=== PATIENT | male | born 1985 | race Hispanic/Latino ===

== ENCOUNTER 2018-09-16 23:29 | Emergency (ER) | payer SELFPAY ==
[2018-09-17] MEDS ORDERED: NA CHLORIDE 0.9% 1,000 ML ONE ×2 (00:54→02:55)
[2018-09-17 01:18] LABS: Absolute Lymphocytes (CBC) 1.3 K/uL (0.7-4.9); Absolute Monocytes 1.4 K/uL (0.1-1.3); Absolute Neutrophil 7.7 K/uL (1.8-8.0); Basophils % 0.6 % (0-1.3); Eosinophils % 1.2 % (0-4.4); Hematocrit 34.2 % (39.6-49.0); Lymphocytes % 12.2 % (15.3-44.8); MCH 31.8 pg (27.0-35.0); MCV 92.7 fL (80-100); MPV 10.5 fL (7.6-11.3); RBC Red Blood Cell Count 3.69 M/uL (4.33-5.43)
[2018-09-17 01:21] LABS: Protime INR 1.44
[2018-09-17 01:29] LABS: Barbiturates NEGATIVE (NEGATIVE); Benzodiazepines NEGATIVE (NEGATIVE); Cocaine NEGATIVE (NEGATIVE); METHAMPHETAM NEGATIVE (NEGATIVE); Methadone NEGATIVE (NEGATIVE); Opiates NEGATIVE (NEGATIVE); Phencyclidine NEGATIVE (NEGATIVE); THC Cannibis NEGATIVE (NEGATIVE)
[2018-09-17] MEDS ORDERED: ONDANSETRON 4 MG/2 ML VIAL ONE (01:39)
[2018-09-17] MEDS ORDERED: LORazepam 2 MG/ML VIAL ONE ×2 (01:41→03:41)
[2018-09-17 01:53] LABS: ALT/SGPT 25 U/L (12-78); AST/SGOT 224 U/L (15-37); Albumin 2.7 g/dL (3.4-5.0); Alkaline Phosphatase 200 U/L (45-117); BUN Blood Urea Nitrogen 3 mg/dL (7-18); Bicarbonate 27 mmol/L (21-32); Bilirubin Direct 4.4 mg/dL (0-0.2); Glucose Level 128 mg/dL (74-106); Lipase 205 U/L (73-393); Potassium 3.4 mmol/L (3.5-5.1); Protein, Total 8.8 g/dL (6.4-8.2); Sodium Level 132 mmol/L (136-145); Troponin I < 0.02 ng/mL (0.0-0.045)
[2018-09-17 01:56] LABS: Bilirubin Total 6.6 mg/dL (0.2-1.0)
[2018-09-17 01:57] LABS: Magnesium 1.4 mg/dL (1.8-2.4)
[2018-09-17] MEDS ORDERED: MULTIVITAMINS 10 ML VIAL (INJ) IV ONE (02:55)
[2018-09-17] MEDS ORDERED: THIAMINE 200 MG/2 ML INJ ONE (02:55)
[2018-09-17] MEDS ORDERED: FOLIC ACID 5 MG/ML VIAL ONE (02:56)
[2018-09-17] MEDS ORDERED: Magnesium Sulfate 2gm IVPB 2 G/50 ML BAG IV ONE (02:57)
[2018-09-17 03:27] LABS: Urine Blood NEGATIVE (NEG); Urine Glucose NEGATIVE (NEG); Urine Protein 1+ (NEG); Urine Specific Gravity 1.015 (1.005-1.030); Urine pH 8.5 (5.0-7.0)
[2018-09-17] MEDS ORDERED: NA CHLORIDE 0.9% 100 ML IV ONE (03:41)
[2018-09-17] MEDS ORDERED: CEFTRIAXONE 1000 MG/VIAL ONE (03:41)
--- NOTE | 2018-09-17 03:46 | ER ---
Nurse's Notes [facility] Name: Dillan Johnson Age: 33 yrs Sex: Male : 1985 Arrival Date: 09/16/2018 Time: 23:32 Bed 19 Private MD: Diagnosis: Gastrointestinal hemorrhage, unspecified;Alcoholic hepatic failure;Alcohol dependence with withdrawal Presentation: 09/16 23:45 Presenting complaint: Patient states: upper abd pain, vomiting \T\ bloody stool x 3 days. aa1 Reports large amount of bright red blood when he has bowel movements. Sclera noted to be jaundiced. Reports 12 pk/day ETOH intake for past 3 years. Transition of care: patient was not received from another setting of care. Onset of symptoms was September 19, 2018. Risk Assessment: Do you want to hurt yourself or someone else? Patient reports no desire to harm self or others. Initial Sepsis Screen: Does the patient meet any 2 criteria? RR > 20 per min. HR > 90 bpm. Does the patient have a suspected source of infection? Yes: Acute abdominal pain. Care prior to arrival: None. 23:45 Method Of Arrival: Ambulatory aa1 23:45 Acuity: NIKITA 3 aa1 Historical: - Allergies: 23:47 No Known Allergies; aa1 - Home Meds: 23:47 candesartan 16 mg oral tab [Active]; aa1 - PMHx: 23:47 Hypertension; aa1 - PSHx: 23:47 None; aa1 - Immunization history:: Flu vaccine is not up to date. - Social history:: Smoking status: Patient/guardian denies using tobacco, Patient uses alcohol, on a daily basis. patient/guardian reports chronic longstanding heavy alcohol consumption. - Ebola Screening: : No symptoms or risks identified at this time. Screenin/25 00:15 Abuse screen: Denies threats or abuse. Denies injuries from another. Nutritional kr2 screening: No deficits noted. Tuberculosis screening: No symptoms or risk factors identified. Fall Risk None identified. Assessment: 00:15 General: Appears in no apparent distress. uncomfortable, well groomed, Behavior is kr2 calm, cooperative, appropriate for age. Pain: Complains of pain in abdomen Pain currently is 7 out of 10 on a pain scale. Quality of pain is described as aching, sharp, shooting, Is continuous, Alleviated by rest, Aggravated by increased activity. Neuro: Level of Consciousness is awake, alert, obeys commands, Oriented to person, place, time, situation, Tremor noted to bilateral upper extremities. Cardiovascular: Heart tones S1 S2 Patient's skin is warm and dry. Respiratory: Airway is patent Respiratory effort is even, unlabored, Respiratory pattern is regular, symmetrical. GI: Abdomen is round non-distended, Bowel sounds present X 4 quads. Reports bloody stool, nausea. : Urine is Dark lee ann. EENT: Sclera/Cornea Jaundiced. Derm: Skin is intact, is healthy with good turgor, Skin is pink, warm \T\ dry. Musculoskeletal: Circulation, motion, and sensation intact. 01:41 Reassessment: Patient appears in no apparent distress at this time. Patient and/or kr2 family updated on plan of care and expected duration. Pain level reassessed. Patient is alert, oriented x 3, equal unlabored respirations, skin warm/dry/pink. Patient states feeling better. 05:12 Reassessment: Patient and/or family updated on plan of care and expected duration. Pain tl1 level reassessed. Patient is alert, oriented x 3, equal unlabored respirations, skin warm/dry/pink. Patient states feeling better. Patient states symptoms have improved. 05:12 Reassessment: Report called to Kyaw Fitzgerald at [facility] in ICU. tl1 Vital Signs: 09/16 23:47 BP 162 / 90; Pulse 119; Resp 30; Temp 98.7; Pulse Ox 98% on R/A; Weight 108.86 kg; aa1 Height 5 ft. 9 in. (175.26 cm); Pain 6/10; 09/17 01:42 BP 160 / 105; Pulse 111; Resp 22; Pulse Ox 97% on R/A; kr2 02:54 BP 158 / 94; Pulse 117; Resp 23; Temp 99.1; Pulse Ox 95% on R/A; tl1 03:40 BP 138 / 76; Pulse 111; Resp 25; Pulse Ox 95% on R/A; tl2 04:05 BP 137 / 76; Pulse 108; Resp 31; Pulse Ox 95% on R/A; tl1 05:13 BP 132 / 89; Pulse 104; Resp 25; Temp 99; Pulse Ox 95% on R/A; Pain 0/10; tl1 09/16 23:47 Body Mass Index 35.44 (108.86 kg, 175.26 cm) aa1 ED Course: 09/16 23:32 Patient arrived in ED. ds1 23:47 Triage completed. aa1 23:47 Arm band placed on right wrist. Patient placed in an exam room, on a stretcher. aa1 09/17 00:00 Patient has correct armband on for positive identification. Bed in low position. Call kr2 light in reach. Side rails up X 1. Adult w/ patient. Pulse ox on. NIBP on. Door closed. Warm blanket given. Head of bed elevated. 00:13 Lanre Alvarez PA is PHCP. cp 00:13 Magen Martini MD is Attending Physician. cp 00:35 First set of blood cultures drawn by me. Inserted saline lock: 20 gauge in left kr2 antecubital area, using aseptic technique. Blood collected. 00:55 Second set of blood cultures drawn. kr2 00:56 Oral contrast given. eh 00:57 Oral contrast reported to be complete. eh 02:[address] via stretcher. eh 02:49 CT Abd/Pelvis - W/Contrast In Process Unspecified. EDMS 03:39 Inserted saline lock: 20 gauge in right antecubital area, using aseptic technique. tl2 04:05 Sally Reyna, RN is Primary Nurse. tl1 05:12 No provider procedures requiring assistance completed. Patient transferred, IV remains tl1 in place. Administered Medications: 01:00 Drug: NS 0.9% 1000 ml Route: IV; Rate: 1 bolus; Site: right antecubital; kr2 02:00 Follow up: IV Status: Completed infusion tl1 01:38 Drug: Zofran 4 mg Route: IVP; Site: left antecubital; kr2 05:14 Follow up: Response: No adverse reaction; Marked relief of symptoms tl1 01:38 Drug: Ativan 1 mg Route: IVP; Site: left antecubital; kr2 02:56 Follow up: Response: No adverse reaction; Marked relief of symptoms tl1 02:56 Drug: Banana Bag - (NS 0.9% 1000 ml, foLIC Acid 1 mg, Thiamine 100 mg, Multivitamin 1 tl1 amp) Route: IV; Rate: 200 ml/hr; Site: left antecubital; 05:10 Follow up: IV Status: Infusion continued upon transfer tl1 02:56 Drug: Magnesium Sulfate 2 grams Route: IVPB; Infused Over: 2 hrs; Site: left tl1 antecubital; 04:06 Follow up: IV Status: Completed infusion tl1 03:40 Drug: Rocephin - (cefTRIAXone) 1 grams Route: IVPB; Infused Over: 30 mins; Site: right tl2 antecubital; 04:06 Follow up: IV Status: Completed infusion tl1 03:40 Drug: Ativan 1 mg Route: IVP; Site: right antecubital; tl2 05:10 Follow up: Response: No adverse reaction; Marked relief of symptoms; Anxiety decreased tl1 Outcome: 03:44 ER care complete, transfer ordered by MD. 05:11 Transferred by ground EMS to [facility], Transfer form completed. tl1 X-rays sent w/ patient. 05:11 Condition: stable 05:11 Instructed on the need for transfer. 05:15 Patient left the ED. tl1 Signatures: Dispatcher [employer] EDMS Jazmin Marcelino RN RN aa1 Alexis Vinson Demi ds1 Sally Reyna RN RN tl1 Lanre Alvarez PA PA cp Knox, Taylor, RN RN tl2 Shefali Elise RN RN kr2 Corrections: (The following items were deleted from the chart) 01:42 00:15 Neuro: Level of Consciousness is awake, alert, obeys commands, Oriented to kr2 person, place, time, situation, kr2 01:42 00:15 Musculoskeletal: Circulation, motion, and sensation intact. kr2 kr2
--- NOTE | 2018-09-17 03:46 | EDPHYS ---
Physician Documentation [facility] Name: Dillan Johnson Age: 33 yrs Sex: Male : 1985 Arrival Date: 09/16/2018 Time: 23:32 Bed 19 Private MD: ED Physician Magen Maritni HPI: 09/17 00:25 This 33 yrs old Male presents to ER via Ambulatory with complaints of cp Vomiting, Bloody Stools. 00:25 The patient presents to the emergency department with nausea, that is mild, vomiting, cp that is intermittent, described as bilious, diarrhea, that is intermittent, abdominal pain, of the right upper quadrant and left lower quadrant. Onset: The symptoms/episode began/occurred 3 day(s) ago. Possible causes: history of daily drinking of 12 pack of beer over past 3 years. Associated signs and symptoms: Pertinent positives: abdominal pain, GI bleeding, nausea, vomiting, Pertinent negatives: constipation, fever. Severity of symptoms: in the emergency department the symptoms are unchanged despite home interventions. Historical: - Allergies: 09/16 23:47 No Known Allergies; aa1 - Home Meds: 23:47 candesartan 16 mg oral tab [Active]; aa1 - PMHx: 23:47 Hypertension; aa1 - PSHx: 23:47 None; aa1 - Immunization history:: Flu vaccine is not up to date. - Social history:: Smoking status: Patient/guardian denies using tobacco, Patient uses alcohol, on a daily basis. patient/guardian reports chronic longstanding heavy alcohol consumption. - Ebola Screening: : No symptoms or risks identified at this time. ROS: 09/17 00:30 Constitutional: Negative for body aches, chills, fever, poor PO intake. cp 00:30 Eyes: Negative for injury, pain, redness, and discharge. cp 00:30 ENT: Negative for drainage from ear(s), ear pain, sore throat, difficulty swallowing, difficulty handling secretions. 00:30 Cardiovascular: Negative for chest pain, edema, palpitations. 00:30 Respiratory: Negative for cough, shortness of breath, wheezing. 00:30 Abdomen/GI: Positive for abdominal pain, nausea, vomiting, rectal bleeding, of the right upper quadrant and left lower quadrant, Negative for diarrhea, constipation, hematemesis, black/tarry stool, bowel incontinence. 00:30 Back: Negative for pain at rest, pain with movement. 00:30 Skin: Negative for cellulitis, rash. 00:30 Neuro: Negative for altered mental status, dizziness, seizure activity, syncope, near syncope, weakness. 00:30 Psych: Positive for alcohol dependence. 00:30 All other systems are negative. Exam: 00:55 Constitutional: The patient appears in no acute distress, alert, awake, cp non-diaphoretic, non-toxic, well developed, well nourished. 00:55 Head/Face: Normocephalic, atraumatic. cp 00:55 Eyes: Periorbital structures: appear normal, Pupils: equal, round, and reactive to light and accomodation, Extraocular movements: intact throughout, Conjunctiva: normal, no exudate, no injection, Sclera: icterus, is present, Lids and lashes: appear normal, bilaterally. 00:55 ENT: External ear(s): are unremarkable, Ear canal(s): are normal, clear, TM's: are normal, no evidence of bulging, no erythema, dullness, bilaterally, Nose: is normal, Mouth: Lips: moist, Oral mucosa: pink and intact, moist, Posterior pharynx: is normal, airway is patent, no erythema, no exudate, Voice: is normal. 00:55 Neck: ROM/movement: is normal, is supple, without pain, no range of motions limitations, no meningismus, no nuchal rigidity, Lymph nodes: no appreciated lymphadenopathy. 00:55 Chest/axilla: Inspection: normal, Palpation: is normal, no crepitus, no tenderness. 00:55 Cardiovascular: Rate: tachycardic, Rhythm: regular, Heart sounds: murmur, not appreciated, Edema: is not appreciated, JVD: is not appreciated. 00:55 Respiratory: the patient does not display signs of respiratory distress, Respirations: normal, no use of accessory muscles, no retractions, no splinting, no tachypnea, labored breathing, is not present, Breath sounds: are clear throughout, no decreased breath sounds, no stridor, no wheezing. 00:55 Abdomen/GI: Inspection: obese Bowel sounds: active, all quadrants, Palpation: soft, in all quadrants, mild abdominal tenderness, in the right upper quadrant and left lower quadrant, rebound tenderness, is not appreciated, involuntary guarding, is not appreciated, Rectal exam: Stool: guaiac positive, maroon, hemorrhoid(s), are not appreciated. 00:55 Back: pain, is absent, ROM is normal. 00:55 Skin: cellulitis, is not appreciated, no rash present. 00:55 Neuro: Orientation: to person, place \T\ time. Mentation: lucid, able to follow commands, Cerebellar function: is grossly normal, Motor: moves all fours, strength is normal, Sensation: no obvious gross deficits. Vital Signs: 09/16 23:47 BP 162 / 90; Pulse 119; Resp 30; Temp 98.7; Pulse Ox 98% on R/A; Weight 108.86 kg; aa1 Height 5 ft. 9 in. (175.26 cm); Pain 6/10; 09/17 01:42 BP 160 / 105; Pulse 111; Resp 22; Pulse Ox 97% on R/A; kr2 02:54 BP 158 / 94; Pulse 117; Resp 23; Temp 99.1; Pulse Ox 95% on R/A; tl1 03:40 BP 138 / 76; Pulse 111; Resp 25; Pulse Ox 95% on R/A; tl2 04:05 BP 137 / 76; Pulse 108; Resp 31; Pulse Ox 95% on R/A; tl1 05:13 BP 132 / 89; Pulse 104; Resp 25; Temp 99; Pulse Ox 95% on R/A; Pain 0/10; tl1 09/16 23:47 Body Mass Index 35.44 (108.86 kg, 175.26 cm) aa1 MDM: 00:13 Patient medically screened. cp 01:00 Differential diagnosis: gastritis, cholecystitis, pancreatitis, viral gastroenteritis, cp gastroenteritis. 03:30 Data reviewed: vital signs, nurses notes, lab test result(s), EKG, radiologic studies, cp CT scan, and as a result, I will administer antibiotics Rocephin, transfer for higher level care. 03:30 Test interpretation: by ED physician or midlevel provider: ECG. Counseling: I had a cp detailed discussion with the patient and/or guardian regarding: the historical points, exam findings, and any diagnostic results supporting the discharge/admit diagnosis, lab results, radiology results, the need to transfer to another facility, for higher level of care, [facility] does not immediately have the required specialist. Response to treatment: the patient's symptoms have markedly improved after treatment. 09/17 00:21 Order name: Basic Metabolic Panel; Complete Time: 02: cp 09/17 02:20 Interpretation: Normal except: NA 132; K 3.4; CL 97; GLUC 128; BUN 3; CA 8.3. cp 09/17 00:21 Order name: CBC with Diff; Complete Time: 01:30 cp 09/17 01:30 Interpretation: Normal except: RBC 3.69; HGB 11.7; HCT 34.2; MCV 92.7; MCH 31.8; PLT cp 139; RDW 17.1; LYM% 12.2; MN% 13.0; MNA 1.4. 09/17 00:21 Order name: Creatinine for Radiology; Complete Time: 02: cp 09/17 00:21 Order name: Hepatic Function; Complete Time: 02: cp 09/17 02:02 Interpretation: Abnormal: AST 224; ALK 200; BILIT 6.6; BILID 4.4; TP 8.8; ALB 2.7; GLOB cp 6.1; A/G 0.4. 09/17 00:21 Order name: Lipase; Complete Time: 02:01 cp 09/17 00:21 Order name: ETOH Level; Complete Time: 02: cp 09/17 02:01 Interpretation: Abnormal: ETOH 6. cp 09/17 00:21 Order name: PT-INR; Complete Time: 01:30 cp 09/17 01:31 Interpretation: Abnormal: PT 17.0. cp 09/17 00:21 Order name: Ptt, Activated; Complete Time: 01:30 cp 09/17 00:21 Order name: AMMONIA; Complete Time: 01:30 cp 09/17 01:30 Interpretation: Abnormal: DAHLIA 66. cp 09/17 00:21 Order name: Tylenol Level; Complete Time: 02:01 cp 09/17 00:21 Order name: UDS; Complete Time: 01:30 cp 09/17 00:21 Order name: Blood Culture Adult (2) cp 09/17 00:21 Order name: Lactate; Complete Time: 02:01 cp 09/17 00:21 Order name: Procalcitonin; Complete Time: 03:39 cp 09/17 00:21 Order name: CT Abd/Pelvis - W/Contrast cp 09/17 00:21 Order name: Type And Screen; Complete Time: 03:22 cp 09/17 00:31 Order name: EKG; Complete Time: 00:32 cp 09/17 00:58 Order name: Urine Dipstick--Ancillary (enter results); Complete Time: 03:39 mt 09/17 01:23 Order name: Troponin I; Complete Time: 02:01 EDMS 09/17 01:23 Order name: Magnesium; Complete Time: 02:01 EDMS 09/17 02:02 Interpretation: Abnormal: MG 1.4. cp 09/17 03:39 Order name: ABO/RH no charge; Complete Time: 03:51 EDMS 09/17 03:51 Interpretation: Reviewed. cp 09/17 00:21 Order name: IV Saline Lock; Complete Time: 01:01 cp 09/17 00:21 Order name: Labs collected and sent; Complete Time: 01:01 cp 09/17 00:31 Order name: EKG - Nurse/Tech; Complete Time: 01:30 cp Administered Medications: 01:00 Drug: NS 0.9% 1000 ml Route: IV; Rate: 1 bolus; Site: right antecubital; kr2 02:00 Follow up: IV Status: Completed infusion tl1 01:38 Drug: Zofran 4 mg Route: IVP; Site: left antecubital; kr2 05:14 Follow up: Response: No adverse reaction; Marked relief of symptoms tl1 01:38 Drug: Ativan 1 mg Route: IVP; Site: left antecubital; kr2 02:56 Follow up: Response: No adverse reaction; Marked relief of symptoms tl1 02:56 Drug: Banana Bag - (NS 0.9% 1000 ml, foLIC Acid 1 mg, Thiamine 100 mg, Multivitamin 1 tl1 amp) Route: IV; Rate: 200 ml/hr; Site: left antecubital; 05:10 Follow up: IV Status: Infusion continued upon transfer tl1 02:56 Drug: Magnesium Sulfate 2 grams Route: IVPB; Infused Over: 2 hrs; Site: left tl1 antecubital; 04:06 Follow up: IV Status: Completed infusion tl1 03:40 Drug: Rocephin - (cefTRIAXone) 1 grams Route: IVPB; Infused Over: 30 mins; Site: right tl2 antecubital; 04:06 Follow up: IV Status: Completed infusion tl1 03:40 Drug: Ativan 1 mg Route: IVP; Site: right antecubital; tl2 05:10 Follow up: Response: No adverse reaction; Marked relief of symptoms; Anxiety decreased tl1 Disposition: 09/17/18 03:[address] [facility]. Diagnosis are Gastrointestinal hemorrhage, unspecified, Alcoholic hepatic failure, Alcohol dependence with withdrawal. - Reason for transfer: Higher level of care. - Accepting physician is DR Sanchez. - Condition is Stable. - Problem is new. - Symptoms are unchanged. Addendum: 09/22/2018 09:47 Co-signature as Attending Physician, Magen Martini MD available for consultation at p s1 all times . Signatures: Dispatcher [employer] EDMS Jazmin Marcelino RN RN aa1 Sally Reyna RN RN tl1 Lanre Alvarez PA PA cp Knox, Taylor, RN RN tl2 Shefali Elise RN RN kr2 Magen Martini MD MD ps1 Corrections: (The following items were deleted from the chart) 09/17 01:23 00:32 TROPONIN I+C.LAB.BRZ ordered. EDMS EDMS 01:23 00:32 MAGNESIUM+C.LAB.BRZ ordered. EDMS EDMS 02:20 02:01 Normal except: NA 132; K 3.4; CL 97; GLUC 128; BUN 3. cp cp 04:02 03:44 09/17/2018 03:[address] [facility]. Diagnosis is cp Gastrointestinal hemorrhage, unspecified. Reason for transfer: Higher level of care. Accepting physician is DR Sanchez. Condition is Stable. Problem is new. Symptoms are unchanged. cp 04:02 04:02 09/17/2018 03:[address] [facility]. Diagnosis is cp Gastrointestinal hemorrhage, unspecified; Alcoholic hepatic failure. Reason for transfer: Higher level of care. Accepting physician is DR Sanchez. Condition is Stable. Problem is new. Symptoms are unchanged. cp 05:15 04:02 09/17/2018 03:[address] [facility]. Diagnosis is tl1 Gastrointestinal hemorrhage, unspecified; Alcoholic hepatic failure; Alcohol dependence with withdrawal. Reason for transfer: Higher level of care. Accepting physician is DR Sanchez. Condition is Stable. Problem is new. Symptoms are unchanged. cp
--- NOTE | 2018-09-17 07:12 | EKG ---
Test Date: 2018-09-17 Test Time: 01:16:08 Bag Grader: RAYMOND MEASUREMENT RESULTS: Intervals: Rate: 118 NJ: 152 QRSD: 98 QT: 354 QTc: 496 [place]: P: 42 NJ: 152 QRS: 20 T: 30 INTERPRETIVE STATEMENTS: Sinus tachycardia Otherwise normal ECG Compared to ECG 10/19/2016 14:01:39 Sinus rhythm no longer present Electronically Signed On 09-17-18 07:11:38 CDT by Kolby Leon
--- NOTE | 2018-09-17 08:11 | RAD REPORT ---
EXAM DESCRIPTION: CTAbdomen Pelvis W Contrast - 09/17/2018 4:12 am CLINICAL HISTORY: Abdominal pain. blood in stools;Abd pain COMPARISON: No comparisons TECHNIQUE: Biphasic CT imaging of the abdomen and pelvis was performed with 100 ml non-ionic IV cont rast. 10 minutes delayed sequence was also performed. All CT scans are performed using dose optimization technique as appropriate and may include automated exposure control or mA/KV adjustment according to patient size. FINDINGS: The lung bases are clear.Esophageal varices are noted. A very advanced fatty liver is seen with hepatomegaly. 3.7 x 3.5 cm centrally enhancing lesion is pre sent in the right hepatic lobe without significant washout on delayed sequence. 1.9 cm enhancing lesi on also present inferior right hepatic lobe without evidence of washout. Nodular contour to the liver is seen compatible with cirrhosis. Recannulized periumbilical vein is seen suggesting portal hyperte nsion. The spleen is normal in size. The pancreas, adrenal glands and kidneys are within normal limit s. No bowel obstruction, free air, free fluid or abscess. Mild edema within the central small bowel mese nteric likely secondary to venous congestion. The appendix is normal. No evidence of significant lym phadenopathy. No suspicious bony findings. IMPRESSION: Significant hepatomegaly with fatty liver and cirrhosis noted. Portal hypertension is al so present. Enhancing liver lesions are noted without significant washout, favoring benign etiology however nonsp ecific. Further assessment with MR liver protocol followup would be advised.
== END 2018-09-17 05:15 | disposition short-term general hospital (02) ==
LOC: ER 23:29
DX: K70.40 Alcoholic hepatic failure without coma (principal); F10.239 Alcohol dependence with withdrawal, unspecified; I10 Essential (primary) hypertension
CPT/HCPCS: 36415; 74177; 80048; 80076; 80307; 80320; 80329; 81003; 82140; 83605; 83690; 83735; 84145; 84484; 85025; 85610; 85730; 86850; 86900; 86901; 87040; 93005; 99285; J2405; J3411; J3475; J7030; Q9967

== ENCOUNTER 2018-09-30 12:49 | Observation (INO) | payer SELFPAY ==
--- OUTSIDE RECORDS SUMMARY | 2018-09-30 12:52 | XMS REPORT | Clinical Summary ---
:1985 Author Organization [facility] Address [address] [place] [address] Care Team Providers Name Role Phone Unavailable Primary Care Provider Unavailable Allergies No Known Allergies Medications Medication Sig Dispensed Refills Start Date End Date Status folic acid (FOLVITE) 1 Take 1 tablet 30 tablet 0 09/19/2018 09/19/2019 Active MG tablet (1 mg total) by mouth daily. thiamine 100 MG tablet Take 1 tablet 30 tablet 0 09/19/2018 09/19/2019 Active (100 mg total) by mouth daily. chlordiazePOXIDE Take 2 capsules 20 capsule 0 09/18/2018 Active (LIBRIUM) 25 MG capsule TID x 1 day, then 2 capsules BID x 2 days, then 1 capsule BID x 2 days, then 1 capsule daily x 2 days, then stop. Active Problems Problem Noted Date Hematochezia 09/17/2018 Alcoholic cirrhosis 09/17/2018 Essential hypertension 09/17/2018 ETOH abuse 09/17/2018 Alcohol withdrawal syndrome, with delirium 09/17/2018 Anemia associated with acute blood loss 09/17/2018 Thrombocytopenia 09/17/2018 Resolved Problems Problem Noted Date Resolved Date Acute liver disease 09/17/2018 09/20/2018 Encounters Date Type Specialty Care Team Description 09/18/2018 Surgery Gastroenterology Jovana Young UPPER ENDOSCOPY MD Don 09/17/2018 Hospital Intensive Care Daniel, Acute liver disease; - Encounter Jarrod Alcohol withdrawal syndrome, with delirium (HCC); 09/18/2018 MD Ariadna Alcoholic cirrhosis of liver without ascites (HCC); Delfino Hematochezia; Jarrod Anemia associated with acute blood loss; MD Adam Thrombocytopenia (HCC); Nelson Pablo, Alcohol dependence with uncomplicated withdrawal (HCC ); ETOH abuse; Liver mass; Jaundice; Portal hypertension (HCC); Acute alcoholic hepatitis 09/17/2018 Anesthesia Event Gastroenterology Dayo Waddell MD after 09/29/2017 Immunizations Name Dates Previously Given Next Due Influenza Four-QIV Non-PF 5+ YR 09/18/2018 Family History Medical History Relation Name Comments Heart disease Father Relation Name Status Comments Father Social History Tobacco Use Types Packs/Day Years Used Date Never Assessed Sex Assigned at Date Recorded Not on file Job Start Date Occupation Industry Not on file Not on file Not on file Travel History Travel Start Travel End No recent travel history available. Last Filed Vital Signs Vital Sign Reading Time Taken Blood Pressure 142/82 09/18/2018 1:00 PM CDT Pulse 99 09/18/2018 1:00 PM CDT Temperature 37.1 C (98.7 F) 09/18/2018 12:00 PM CDT Respiratory Rate 16 09/18/2018 1:00 PM CDT Oxygen Saturation 91% 09/18/2018 1:00 PM CDT Inhaled Oxygen Concentration - - Weight 113.7 kg (250 lb 10.6 oz) 09/18/2018 4:00 AM CDT Height 175.3 cm (5' 9") 09/17/2018 6:19 AM CDT Body Mass Index 37.02 09/18/2018 4:00 AM CDT Plan of Treatment Not on file Procedures Procedure Name Priority Date/Time Associated Diagnosis Comments RHYTHM STRIP - SCAN 09/22/2018 11:00 AM CDT TRANSFUSION SERVICE 09/18/2018 5:52 PM REPORT - SCAN CDT REPORT OF PROCEDURE - 09/18/2018 9:46 AM ENDOSCOPY URL CDT REPORT OF PROCEDURE - 09/18/2018 9:44 AM ENDOSCOPY URL CDT COLONOSCOPY 09/18/2018 8:00 AM Hematochezia CDT Special Needs (BEDSIDE, PATIENT 7S1 B1) UPPER ENDOSCOPY 09/18/2018 8:00 AM CDT Hematochezia Special Needs (BEDSIDE, PATIENT 7S1 B1) POCT-GLUCOSE METER Routine 09/18/2018 6:28 AM Results for this CDT procedure are in the results section. CBC W/PLT COUNT & AUTO Routine 09/18/2018 6:21 AM Results for this DIFFERENTIAL CDT procedure are in the results section. CBC W/PLT COUNT & AUTO Routine 09/18/2018 6:21 AM Results for this DIFFERENTIAL CDT procedure are in the results section. COMPREHENSIVE METABOLIC PANEL Routine 09/18/2018 4:04 AM Results for this CDT procedure are in the results section. POCT-GLUCOSE METER Routine 09/18/2018 12:10 AM Results for this CDT procedure are in the results section. CBC W/PLT COUNT & AUTO Routine 09/18/2018 12:04 AM Results for this DIFFERENTIAL CDT procedure are in the results section. CBC W/PLT COUNT & AUTO Routine 09/18/2018 12:04 AM Results for this DIFFERENTIAL CDT procedure are in the results section. US DOPPLER Routine 09/17/2018 8:30 PM Results for this CDT procedure are in the results section. US ABDOMEN COMPLETE STAT 09/17/2018 8:30 PM Results for this CDT procedure are in the results section. POCT-GLUCOSE METER Routine 09/17/2018 6:00 PM Results for this CDT procedure are in the results section. CBC W/PLT COUNT & AUTO Routine 09/17/2018 5:45 PM Results for this DIFFERENTIAL CDT procedure are in the results section. CBC W/PLT COUNT & AUTO Routine 09/17/2018 5:45 PM Results for this DIFFERENTIAL CDT procedure are in the results section. CBC W/PLT COUNT & AUTO Routine 09/17/2018 3:28 PM Results for this DIFFERENTIAL CDT procedure are in the results section. CBC W/PLT COUNT & AUTO Routine 09/17/2018 3:28 PM Results for this DIFFERENTIAL CDT procedure are in the results section. CARBOHYDRATE ANTIGEN 19-9 (CA Routine 09/17/2018 3:28 PM Results for this 19-9) CDT procedure are in the results section. CARCINOEMBRYONIC ANTIGEN Routine 09/17/2018 3:28 PM Results for this (CEA) CDT procedure are in the results section. URINALYSIS W/ REFLEX URINE Routine 09/17/2018 12:46 PM Results for this CULTURE CDT procedure are in the results section. DRUG SCREEN, URINE, Routine 09/17/2018 12:46 PM TRANSPLANT CDT DRUG SCREEN, URINE, Routine 09/17/2018 12:46 PM COMPREHENSIVE CDT BILIRUBIN, DIRECT EUSEBIO 09/17/2018 11:41 AM Results for this CDT procedure are in the results section. IMMUNOGLOBULIN G (IGG) Routine 09/17/2018 11:41 AM Results for this CDT procedure are in the results section. HEPATITIS A ANTIBODY, IGG Routine 09/17/2018 11:41 AM Results for this CDT procedure are in the results section. HEPATITIS B CORE ANTIBODY, Routine 09/17/2018 11:41 AM Results for this TOTAL CDT procedure are in the results section. IGG SUBCLASSES PANEL Routine 09/17/2018 10:18 AM Results for this CDT procedure are in the results section. TYPE AND SCREEN, AUTOMATED STAT 09/17/2018 9:01 AM Results for this CDT procedure are in the results section. ETHANOL Routine 09/17/2018 9:01 AM Results for this CDT procedure are in the results section. ANTI-MITOCHONDRIAL AB, REFLEX Routine 09/17/2018 9:01 AM TO TITER CDT BLOOD CULTURE Routine 09/17/2018 7:09 AM Results for this CDT procedure are in the results section. BLOOD CULTURE Routine 09/17/2018 7:09 AM Results for this CDT procedure are in the results section. CBC W/PLT COUNT & AUTO Routine 09/17/2018 6:55 AM Results for this DIFFERENTIAL CDT procedure are in the results section. PROCALCITONIN Routine 09/17/2018 6:55 AM Results for this CDT procedure are in the results section. LACTIC ACID, VENOUS, WHOLE Routine 09/17/2018 6:55 AM Results for this BLOOD CDT procedure are in the results section. ACETAMINOPHEN LEVEL Routine 09/17/2018 6:55 AM Results for this CDT procedure are in the results section. ANTI-NUCLEAR ANTIBODY (NATE) Routine 09/17/2018 6:55 AM Results for this CDT procedure are in the results section. ALPHA FETOPROTEIN (AFP), Routine 09/17/2018 6:55 AM Results for this TUMOR MARKER CDT procedure are in the results section. GTEBW-2-ZOUGIMOPXAL\\, SERUM Routine 09/17/2018 6:55 AM Results for this CDT procedure are in the results section. ACTIN (SMOOTH MUSCLE) Routine 09/17/2018 6:55 AM Results for this ANTIBODY, IGG CDT procedure are in the results section. CERULOPLASMIN Routine 09/17/2018 6:55 AM Results for this CDT procedure are in the results section. HEPATITIS PANEL, ACUTE AP Routine 09/17/2018 6:55 AM Results for this CDT procedure are in the results section. FERRITIN Routine 09/17/2018 6:55 AM Results for this CDT procedure are in the results section. IRON, TIBC, % SAT. (WITHOUT Routine 09/17/2018 6:55 AM Results for this FERRITIN) CDT procedure are in the results section. PHOSPHORUS Routine 09/17/2018 6:55 AM Results for this CDT procedure are in the results section. MAGNESIUM Routine 09/17/2018 6:55 AM Results for this CDT procedure are in the results section. COMPREHENSIVE METABOLIC PANEL Routine 09/17/2018 6:55 AM Results for this CDT procedure are in the results section. CBC W/PLT COUNT & AUTO Routine 09/17/2018 6:55 AM Results for this DIFFERENTIAL CDT procedure are in the results section. APTT Routine 09/17/2018 6:55 AM Results for this CDT procedure are in the results section. PROTHROMBIN TIME/INR Routine 09/17/2018 6:55 AM Results for this CDT procedure are in the results section. after 09/29/2017 Results RHYTHM STRIP - SCAN (09/22/2018 11:00 AM CDT) Narrative Performed At TRANSFUSION SERVICE REPORT - SCAN (09/18/2018 5:52 PM CDT) Narrative Performed At REPORT OF PROCEDURE - ENDOSCOPY URL (09/18/2018 9:46 AM CDT) Narrative Performed At REPORT OF PROCEDURE - ENDOSCOPY URL (09/18/2018 9:44 AM CDT) Narrative Performed At POC-Glucose meter (09/18/2018 6:28 AM CDT)Only the most recent of3 resultswithin the time period is included. POC-Glucose Meter 126 (H)Comment: TESTED AT 70 - 110 mg/dL [facility] [address] [facility] [address] Specimen Blood Performing Organization Address City/State/Zipcode Phone Number [address] [address] [phone] CENTER CBC with platelet count + automated diff (09/18/2018 6:21 AM CDT)Only the most recent of5 resultswithin the time period is included. WBC 9.4 3.5 - 10.5 K/L [facility] RBC 3.20 (L) 4.63 - 6.08 M/L [facility] Hemoglobin 9.8 (L) 13.7 - 17.5 GM/DL [facility] Hematocrit 30.5 (L) 40.1 - 51.0 % [facility] MCV 95.3 (H) 79.0 - 92.2 fL [facility] MCH 30.6 25.7 - 32.2 pg [facility] MCHC 32.1 (L) 32.3 - 36.5 GM/DL [facility] RDW 19.2 (H) 11.6 - 14.4 % [facility] Platelets 144 (L) 150 - 450 K/CU MM [facility] MPV 12.0 9.4 - 12.4 fL [facility] nRBC 0 0 - 0 /100 WBC [facility] % Neutros 65 % [facility] % Lymphs 16 % [facility] % Monos 13 % [facility] % Eos 3 % [facility] % Baso 2 % [facility] # Neutros 6.10 (H) 1.78 - 5.38 K/L [facility] # Lymphs 1.51 1.32 - 3.57 K/L [facility] # Monos 1.20 (H) 0.30 - 0.82 K/L [facility] # Eos 0.32 0.04 - 0.54 K/L [facility] # Baso 0.14 (H) 0.01 - 0.08 K/L [facility] Immature Granulocytes-Relative 2 (H) 0 - 1 % [facility] Specimen Blood Performing Organization Address City/State/Zipcode Phone Number [address] [address] CENTER Comprehensive metabolic panel (09/18/2018 4:04 AM CDT)Only the most recent of2 resultswithin the time period is included. Protein, Total 7.5 6.0 - 8.3 gm/dL [facility] Albumin 2.9 (L) 3.5 - 5.0 g/dL [facility] Alkaline Phosphatase 150 40 - 150 U/L [facility] Total Bilirubin 7.2 (H) 0.2 - 1.2 mg/dL [facility] Sodium 133 (L) 136 - 145 meq/L [facility] Potassium 3.6 3.5 - 5.1 meq/L [facility] Chloride 101 98 - 107 meq/L [facility] CO2 25 22 - 29 meq/L [facility] BUN 6 (L) 7 - 21 mg/dL [facility] Creatinine 0.68 0.57 - 1.25 mg/dL [facility] Glucose 132 (H) 70 - 105 mg/dL [facility] Calcium 7.8 (L) 8.4 - 10.2 mg/dL [facility] AST 223 (H) 5 - 34 U/L [facility] ALT 21 6 - 55 U/L [facility] EGFR Comment: INSUFFICIENT mL/min/1.[address] [facility] CLINICAL DATA TO [facility] CALCULATE ESTIMATED GFR. Specimen Blood Narrative Performed At [facility] Specimen moderately icteric Performing Organization Address City/State/Zipcode Phone Number [facility] [address] CENTER US doppler (09/17/2018 8:30 PM CDT) Narrative Performed At FINAL REPORT [facility] Abdominal ultrasound and Doppler Clinical History:Cirrhosis Discussion: Sonographic evaluation of the the abdomen is performed including color Doppler and spectral waveform analysis. The visualized facial of the abdominal structures were limited due to the patient's body habitus. The liver has normal size and measures 19 cm in length. There is elevated liver echogenicity, without focal mass. There is no intrahepatic biliary dilatation. The common bile duct was not well seen. The gallbladder wall is mildly thickened without evidence of cholelithiasis, pericholecystic fluid, or sonographic Shin's sign. The main portal vein diameter is normal,measuring 11 mm. The pancreatic head, body, and proximal tail demonstrate no abnormality. There is no ascites. The right and the left kidney measure 13.8 and 15.6 cm in length respectively and are normal in size. There is no renal mass, hydronephrosis, or shadowing renal calculus. The spleen measures 13.6 cm in length and is normal in echotexture. Segments of the inferior vena cava and aorta visualized demonstrate no abnormality. The main portal vein is 1.1 cm in diameter with peak systolic velocity of 11.2 cm/sec. The main, right, and left portal vein demonstrate hepatopedal flow. The resistive indices of the properhepatic artery is0.7. The IVC, right, middle, and left hepatic veins are patent. Impression: 1. Elevated liver echogenicity which may represent fatty infiltration. 2. Mild splenomegaly. 3. Mild thickening of the gallbladder wall without other sonographic evidence of acute cholecystitis. Clinical correlation is recommended. 4. Unremarkable abdominal Doppler Signed: Anca Brown MD Report Verified Date/Time:09/17/2018 21:23:28 Reading Location: [address] Consult Reading Room Procedure Note Interface, External Ris In - 09/17/2018 9:25 PM CDT FINAL REPORT Abdominal ultrasound and Doppler Clinical History: Cirrhosis Discussion: Sonographic evaluation of the the abdomen is performed including color Doppler and spectral waveform analysis. The visualized facial of the abdominal structures were limited due to the patient's body habitus. The liver has normal size and measures 19 cm in length. There is elevated liver echogenicity, without focal mass. There is no intrahepatic biliary dilatation. The common bile duct was not well seen. The gallbladder wall is mildly thickened without evidence of cholelithiasis, pericholecystic fluid, or sonographic Shin's sign. The main portal vein diameter is normal, measuring 11 mm. The pancreatic head, body, and proximal tail demonstrate no abnormality. There is no ascites. The right and the left kidney measure 13.8 and 15.6 cm in length respectively and are normal in size. There is no renal mass, hydronephrosis, or shadowing renal calculus. The spleen measures 13.6 cm in length and is normal in echotexture. Segments of the inferior vena cava and aorta visualized demonstrate no abnormality. The main portal vein is 1.1 cm in diameter with peak systolic velocity of 11.2 cm/sec. The main, right, and left portal vein demonstrate hepatopedal flow. The resistive indices of the properhepatic artery is 0.7. The IVC, right, middle, and left hepatic veins are patent. Impression: 1. Elevated liver echogenicity which may represent fatty infiltration. 2. Mild splenomegaly. 3. Mild thickening of the gallbladder wall without other sonographic evidence of acute cholecystitis. Clinical correlation is recommended. 4. Unremarkable abdominal Doppler Signed: Anca Brown MD Report Verified Date/Time: 09/17/2018 21:23:28 Reading Location: [address] Consult Reading Room Performing Organization Address City/State/Zipcode Phone Number [facility] [employer] [employer] US abdomen complete (09/17/2018 8:30 PM CDT) Narrative Performed At FINAL REPORT [facility] Abdominal ultrasound and Doppler Clinical History:Cirrhosis Discussion: Sonographic evaluation of the the abdomen is performed including color Doppler and spectral waveform analysis. The visualized facial of the abdominal structures were limited due to the patient's body habitus. The liver has normal size and measures 19 cm in length. There is elevated liver echogenicity, without focal mass. There is no intrahepatic biliary dilatation. The common bile duct was not well seen. The gallbladder wall is mildly thickened without evidence of cholelithiasis, pericholecystic fluid, or sonographic Shin's sign. The main portal vein diameter is normal,measuring 11 mm. The pancreatic head, body, and proximal tail demonstrate no abnormality. There is no ascites. The right and the left kidney measure 13.8 and 15.6 cm in length respectively and are normal in size. There is no renal mass, hydronephrosis, or shadowing renal calculus. The spleen measures 13.6 cm in length and is normal in echotexture. Segments of the inferior vena cava and aorta visualized demonstrate no abnormality. The main portal vein is 1.1 cm in diameter with peak systolic velocity of 11.2 cm/sec. The main, right, and left portal vein demonstrate hepatopedal flow. The resistive indices of the properhepatic artery is0.7. The IVC, right, middle, and left hepatic veins are patent. Impression: 1. Elevated liver echogenicity which may represent fatty infiltration. 2. Mild splenomegaly. 3. Mild thickening of the gallbladder wall without other sonographic evidence of acute cholecystitis. Clinical correlation is recommended. 4. Unremarkable abdominal Doppler Signed: Anca Brown MD Report Verified Date/Time:09/17/2018 21:23:28 Reading Location: [address] Consult Reading Room Procedure Note Interface, External Ris In - 09/17/2018 9:25 PM CDT FINAL REPORT Abdominal ultrasound and Doppler Clinical History: Cirrhosis Discussion: Sonographic evaluation of the the abdomen is performed including color Doppler and spectral waveform analysis. The visualized facial of the abdominal structures were limited due to the patient's body habitus. The liver has normal size and measures 19 cm in length. There is elevated liver echogenicity, without focal mass. There is no intrahepatic biliary dilatation. The common bile duct was not well seen. The gallbladder wall is mildly thickened without evidence of cholelithiasis, pericholecystic fluid, or sonographic Shin's sign. The main portal vein diameter is normal, measuring 11 mm. The pancreatic head, body, and proximal tail demonstrate no abnormality. There is no ascites. The right and the left kidney measure 13.8 and 15.6 cm in length respectively and are normal in size. There is no renal mass, hydronephrosis, or shadowing renal calculus. The spleen measures 13.6 cm in length and is normal in echotexture. Segments of the inferior vena cava and aorta visualized demonstrate no abnormality. The main portal vein is 1.1 cm in diameter with peak systolic velocity of 11.2 cm/sec. The main, right, and left portal vein demonstrate hepatopedal flow. The resistive indices of the properhepatic artery is 0.7. The IVC, right, middle, and left hepatic veins are patent. Impression: 1. Elevated liver echogenicity which may represent fatty infiltration. 2. Mild splenomegaly. 3. Mild thickening of the gallbladder wall without other sonographic evidence of acute cholecystitis. Clinical correlation is recommended. 4. Unremarkable abdominal Doppler Signed: Anca Brown MD Report Verified Date/Time: 09/17/2018 21:23:28 Reading Location: [address] Consult Reading Room Performing Organization Address [facility] Phone Number RIS Carbohydrate antigen 19-9 (CA 19-9) (09/17/2018 3:28 PM CDT) CA 19-9 18 <34 U/mL [facility] Comment: This test was performed using the Siemens (NanoSteel) Chemiluminescent method. Values obtained from different assay methods cannot be used interchangeably. CA19-9 levels, regardless of value, should not be interpreted as absolute evidence of the presence or absence of disease. Specimen Blood - Line, Venous Narrative Performed At Performing Lab [facility] [address] [address] [place] [address] Idania Gray MD, PhD, DOMINIQUE Performing Organization Address City/[facility] [place] [address] [facility] [address] [facility] Carcinoembryonic Antigen (CEA) (09/17/2018 3:28 PM CDT) CEA, SERUM 4.0 0.0 - 5.0 ng/mL [facility] Specimen Blood - Line, Venous Performing Organization Address [facility]/State/Zipcode Phone Number [facility] [address] [place], [place] [phone] [place] Urinalysis w/Microscopic + Reflex to Culture (09/17/2018 12:46 PM CDT) Color, UA Yellow [facility] Clarity, UA Clear [facility] Specific [place], UA 1.034 1.001 - 1.035 [facility] pH, UA 7.0 5.0 - 8.0 [facility] Protein, UA Negative Negative [facility] Glucose, UA Negative Negative [facility] Ketones, UA Negative Negative [facility] Bilirubin, UA Positive (A) Negative [facility] Blood, UA Negative Negative [facility] Nitrite, UA Negative Negative [facility] Leukocytes, UA Negative Negative [facility] Urobilinogen, UA 4.0 (H) 0.2 - 1.0 mg/dL [facility] RBC, UA 0 /HPF [facility] WBC, UA 0 /HPF [facility] Squam Epithel, UA 1 /HPF [facility] Specimen Source [facility] Specimen Urine - Urine, Voided Performing Organization Address City/State/Zipcode Phone Number [facility] [address] [place] [address] CENTER Drug screen, urine, transplant (09/17/2018 12:46 PM CDT) Specimen Urine Narrative Performed At Performing Organization Address City/State/Zipcode Phone Number [facility] [address] [place] [address] Drug screen, urine, comprehensive (09/17/2018 12:46 PM CDT) Specimen Urine Narrative Performed At Hepatitis A antibody, IgG (09/17/2018 11:41 AM CDT) Hep A IgG Reactive (A) Nonreactive [facility] Specimen Blood - Line, Venous Performing Organization Address [facility] Phone Number [address] [address] [phone] [place] Hepatitis B core antibody, total (09/17/2018 11:41 AM CDT) Hep B Core Total Ab Nonreactive [facility] Specimen Blood - Line, Venous Performing Organization Address [facility] Phone Number [address] [address] [phone] [place] Immunoglobulin G (IgG) (09/17/2018 11:41 AM CDT) IgG 1,727 540 - 1,822 mg/dL [facility] Specimen Blood - Line, Venous Performing Organization Address [facility] [facility] [facility] [place] Phone Number [address] [address] [phone] [place] Bilirubin, direct (09/17/2018 11:41 AM CDT) Bilirubin, Direct 4.4 (H)Comment: Specimen 0.1 - 0.5 mg/dL [facility] slightly hemolyzed [facility] Specimen Blood - Line, Venous Performing Organization Address [facility] [place] Phone Number [address] [address] [place] IgG subclasses panel (09/17/2018 10:18 AM CDT) IgG 1 965 (H) 382 - 929 mg/dL [facility] Igg 2 570 241 - 700 mg/dL [facility] IgG 3 144 22 - 178 mg/dL [facility] Igg 4 18.7 4 - 86 mg/dL [facility] Igg,Serum 1773 (H) 694 - 1618 mg/dL [facility] Specimen Blood - Line, Venous Narrative Performed At Performing Lab [facility] EZ [facility] [address] [place] [address] Idania Gray MD, PhD, DOMINIQUE Performing Organization Address [facility] Phone Number [facility] [place] [address] [facility] [address] [facility] [place] Anti-Mitochondrial Ab, reflex to titer (09/17/2018 9:01 AM CDT) Scan Result [facility] Specimen Blood Narrative Performed At Performing Organization Address [facility] Phone Number [facility], [place] [address] [facility]PORATED [address] [facility] [place] Type and screen, automated (09/17/2018 9:01 AM CDT) ABO/RH AUTOMATED (BEAKER) O POSITIVE [facility] Ab Scrn NEGATIVE [facility] Specimen Blood Performing Organization Address [facility] Phone Number [address] [address] Ethanol (09/17/2018 9:01 AM CDT) Ethanol Lvl <10 <=10 mg/dL [facility] Specimen Blood Performing Organization Address [facility] Phone Number [address] [address] [phone] CENTER Blood culture #2 (09/17/2018 7:09 AM CDT)Only the most recent of2 resultswithin the time period is included. Result No growth in 5 days [facility] Specimen Blood - Arm, Left Performing Organization Address [facility] Phone Number [address] [address] CENTER Procalcitonin (09/17/2018 6:55 AM CDT) Procalcitonin 0.25 (H) <0.05 ng/mL [facility] Specimen Blood Narrative Performed At [facility] SEPSIS RISK (ng/mL) Low:0.05-0.50 Intermediate: 0.51-2.00 High: >=2.01 Performing Organization Address [facility] Phone Number [address] [address] [phone] CENTER Iron, TIBC, % sat. (without ferritin) (09/17/2018 6:55 AM CDT) Iron 147 40 - 160 ug/dL [facility] TIBC 251 250 - 450 ug/dL [facility] Iron % Saturation 59 (H) 20 - 55 % [facility] Specimen Blood Performing Organization Address [facility] [place] Phone Number [address] [address] [phone] [place] Actin (Smooth Muscle) Antibody, IgG (09/17/2018 6:55 AM CDT) Anti-Smooth Muscle Ab 21 (H) See Note: U [facility] Comment: [facility] Reference Range: <20 NEGATIVE > OR=20 POSITIVE Antibodies recognizing actin are the main component of smooth muscle antibodies associated with autoimmune liver disease. Actin antibodies are found in approximately 75% of patients with autoimmune hepatitis (AIH) type 1, approximately 65% of patients with autoimmune cholangitis, approximately 30% of patients with primary biliary cirrhosis, and approximately 2% of healthy people. High values are closely correlated with AIH type 1. Specimen Blood Narrative Performed At Performing Lab [facility] [address] [place] [address] [place] [address] Idania Gray MD, PhD, DOMINIQUE Performing Organization Address [facility] [place] Phone Number [place] [address] [facility]ORPORATED [address] [facility] [id number] (09/17/2018 6:55 AM CDT) A-1 Antitrypsin 245.40 (H) 90.00 - 200.00 mg/dL [facility] Specimen Blood Performing Organization Address [facility] Phone Number [address] [address] [place] Lactic acid, venous, whole blood (09/17/2018 6:55 AM CDT) Lactate, Venous 0.8 0.5 - 2.2 mmol/L [facility] Specimen Blood Narrative Performed At [facility] Effective 03/27/2016: Units/Reference Range Change New: 0.5-2.2 mmol/LPrevious: 5-20 mg/dL Specimen moderately icteric Performing Organization Address [facility] Phone Number [facility] [address] [place] [address] CENTER Ceruloplasmin (09/17/2018 6:55 AM CDT) Ceruloplasmin 30 18 - 36 mg/dL [facility] Comment: Adults:Males: 18-36 mg/dL Females: 18-53 mg/dL Pediatrics:Males (mg/dL)Females (mg/dL) 0-30 Days 8-25 3-28 31 Days-11 Month [id number] 1-3 [id number] 4-6 [id number] 7-9 [id number] 10-12 [id number] 13-15 [id number] 16-18 [id number] The pediatric ranges are derived from the following criteria: Ra SJ, Thien NASH, Malissa Vasquez et al Pediatric reference ranges for Tlel-9-[id number] and ceruloplasmin. Clin. Chem 1997; 43:S1999 Pediatric Reference Ranges, 2nd., [place] Raet al. editors. [employer], [place], [place] 1997. Specimen Blood Narrative Performed At Performing Lab [facility] *SPL [facility], [id number] [place] [phone] Pedro Martin MD, PhD Performing Organization Address City/[facility]/Zipcode Phone Number [facility], [place] [address] Alpha fetoprotein (AFP), tumor marker (09/17/2018 6:55 AM CDT) Alpha-Fetoprotein 9.2 <10.0 ng/mL [facility] Specimen Blood Performing Organization Address City/[facility] Phone Number [address] [address] [place] Hepatitis panel, acute (09/17/2018 6:55 AM CDT) Hep A IgM (A) Nonreactive [facility] Hep B C IgM Nonreactive [facility] Hepatitis C Ab Nonreactive [facility] hepatitis B Surface Ag Nonreactive [facility] Specimen Blood Performing Organization Address [facility] Phone Number [address] [address] [place] aPTT (09/17/2018 6:55 AM CDT) PTT 40.0 (H) 22.5 - 36.0 seconds [facility] Specimen Blood Performing Organization Address City/[facility] Phone Number [address] [address] [place] Prothrombin time/INR (09/17/2018 6:55 AM CDT) Protime 17.0 (H) 11.7 - 14.7 seconds [facility] INR 1.4 <=5.9 [facility] Specimen Blood Narrative Performed At [facility] RECOMMENDED COUMADIN/WARFARIN INR THERAPY RANGES STANDARD DOSE: 2.0 - 3.0 Includes: PROPHYLAXIS for venous thrombosis, systemic embolization; TREATMENT for venous thrombosis and/or pulmonary embolus. HIGH RISK: Target INR is 2.5-3.5 for patients with mechanical heart valves. Performing Organization Address [facility] Phone Number [address] [address] [place] Anti-Nuclear Antibody (NATE) (09/17/2018 6:55 AM CDT) NATE Negative Negative [facility] Specimen Blood Narrative Performed At Test performed by IFA method. [facility] Test performed by IFA method. Performing Organization Address City/[facility] Phone Number [address] [address] CENTER Phosphorus (09/17/2018 6:55 AM CDT) Phosphorus 2.5 2.3 - 4.7 mg/dL [facility] Specimen Blood Performing Organization Address [facility] Phone Number [address] [address] [phone] CENTER Magnesium (09/17/2018 6:55 AM CDT) Magnesium 1.8 1.6 - 2.6 mg/dL [facility] Specimen Blood Performing Organization Address [facility] [place] Phone Number [address] [address] [phone] [place] Ferritin (09/17/2018 6:55 AM CDT) Ferritin 276 (H) 5 - 275 ng/mL [facility] Specimen Blood Performing Organization Address [facility] [place] Phone Number [address] [address] [place] Acetaminophen level (09/17/2018 6:55 AM CDT) Acetaminophen Level <5.7 (L) 10.0 - 30.0 ug/mL [facility] Specimen Blood Narrative Performed At [facility] Therapeutic Range: 10.0-30.0 g/mL Toxic Levels:>200.0 g/mL Performing Organization Address [facility] Phone Number [address] [address] [place] after 09/29/2017 Advance Directives For more information, please contact:[place] [id number] [place], [place] [phone] Code Status Date Activated Date Inactivated Comments Full Code 09/17/2018 6:49 AM 09/18/2018 5:09 PM This code status was determined by: Patient
--- OUTSIDE RECORDS SUMMARY | 2018-09-30 12:53 | XMS REPORT ---
:1985 [facility] Address [address] [place] [address] Care Team Providers Name Role Phone IAN MORRISSEY Unavailable Unavailable Problems This patient has no known problems. Allergies, Adverse Reactions, Alerts This patient has no known allergies or adverse reactions. Medications This patient has no known medications. Results Test Description Test Time Test Comments Text Results Atomic Results Result Comments ANTI-MITOCHONDRIAL AB, REFLEX TO TITER 2018-09-25 12:54:00 Test Item Value Reference Range Comments SCAN RESULT (test xhta=[id number]) BLOOD [id number] 12:01:00 Test Item Value Reference Range Comments CULTURE (BEAKER) (test qpxx=8579) No growth in 5 days BLOOD [id number] 12:01:00 Test Item Value Reference Range Comments CULTURE (BEAKER) (test mfns=0774) No growth in 5 days HEPATITIS PANEL, [id number] 13:35:00 Test Item Value Reference Range Comments HEPATITIS A IGM ANTIBODY (BEAKER) (test Reactive Nonreactive ripq=042) HEPATITIS B CORE IGM ANTIBODY (BEAKER) (test Nonreactive Nonreactive crzn=821) HEPATITIS C ANTIBODY (BEAKER) (test efdd=321) Nonreactive Nonreactive HEPATITIS B SURFACE ANTIGEN (2) (BEAKER) (test Nonreactive Nonreactive dazq=4128) ANTI-NUCLEAR ANTIBODY (NATE)2018-09-21 13:07:00 Test Item Value Reference Range Comments ANTI-NUCLEAR ANTIBODY (NATE) (BEAKER) (test Negative Negative mqpy=822) Test performed by IFA method.Test performed by IFA method.CBC W/PLT COUNT & AUTO [id number] 06:36:00 Test Item Value Reference Range Comments WHITE BLOOD CELL COUNT (BEAKER) (test jqac=062) 9.4 K/ L 3.5-10.5 RED BLOOD CELL COUNT (BEAKER) (test ptwi=423) 3.20 M/ L 4.63-6.08 HEMOGLOBIN (BEAKER) (test ahhw=708) 9.8 GM/DL 13.7-17.5 HEMATOCRIT (BEAKER) (test xuur=969) 30.5 % 40.1-51.0 MEAN CORPUSCULAR VOLUME (BEAKER) (test wycl=731) 95.3 fL 79.0-92.2 MEAN CORPUSCULAR HEMOGLOBIN (BEAKER) (test 30.6 pg 25.7-32.2 nyow=475) MEAN CORPUSCULAR HEMOGLOBIN CONC (BEAKER) (test 32.1 GM/DL 32.3-36.5 tqvz=321) RED CELL DISTRIBUTION WIDTH (BEAKER) (test 19.2 % 11.6-14.4 lzcw=559) PLATELET COUNT (BEAKER) (test hkar=638) 144 K/CU MM 150-450 MEAN PLATELET VOLUME (BEAKER) (test aitd=858) 12.0 fL 9.4-12.4 NUCLEATED RED BLOOD CELLS (BEAKER) (test 0 /100 WBC 0-0 cqdn=282) NEUTROPHILS RELATIVE PERCENT (BEAKER) (test 65 % dkuf=647) LYMPHOCYTES RELATIVE PERCENT (BEAKER) (test 16 % atod=854) MONOCYTES RELATIVE PERCENT (BEAKER) (test 13 % bmom=261) EOSINOPHILS RELATIVE PERCENT (BEAKER) (test 3 % oajw=505) BASOPHILS RELATIVE PERCENT (BEAKER) (test 2 % podb=606) NEUTROPHILS ABSOLUTE COUNT (BEAKER) (test 6.10 K/ L 1.78-5.38 gnvq=934) LYMPHOCYTES ABSOLUTE COUNT (BEAKER) (test 1.51 K/ L 1.32-3.57 lkim=250) MONOCYTES ABSOLUTE COUNT (BEAKER) (test 1.20 K/ L 0.30-0.82 wicd=776) EOSINOPHILS ABSOLUTE COUNT (BEAKER) (test 0.32 K/ L 0.04-0.54 jufw=044) BASOPHILS ABSOLUTE COUNT (BEAKER) (test 0.14 K/ L 0.01-0.08 aqun=859) IMMATURE GRANULOCYTES-RELATIVE PERCENT (BEAKER) 2 % 0-1 (test mnwm=4474) POCT-GLUCOSE [id number] 06:31:00 Test Item Value Reference Range Comments POC-GLUCOSE METER (BEAKER) 126 mg/dL 70-110 TESTED AT [facility] [address] (test ogdu=4636) [facility] [address] COMPREHENSIVE METABOLIC [id number] 04:53:00 Test Item Value Reference Range Comments TOTAL PROTEIN (BEAKER) 7.5 gm/dL 6.0-8.3 (test phhi=508) ALBUMIN (BEAKER) (test 2.9 g/dL 3.5-5.0 vkie=5487) ALKALINE PHOSPHATASE 150 U/L 40-150 (BEAKER) (test shek=736) BILIRUBIN TOTAL (BEAKER) 7.2 mg/dL 0.2-1.2 (test zqvu=519) SODIUM (BEAKER) (test 133 meq/L 136-145 vhnd=939) POTASSIUM (BEAKER) (test 3.6 meq/L 3.5-5.1 mqtp=248) CHLORIDE (BEAKER) (test 101 meq/L 98-107 vplp=618) CO2 (BEAKER) (test 25 meq/L 22-29 njwq=320) BLOOD UREA NITROGEN 6 mg/dL 7-21 (BEAKER) (test rzaa=029) CREATININE (BEAKER) (test 0.68 mg/dL 0.57-1.25 gjnq=831) GLUCOSE RANDOM (BEAKER) 132 mg/dL 70-105 (test tjvi=665) CALCIUM (BEAKER) (test 7.8 mg/dL 8.4-10.2 bcxt=239) AST (SGOT) (BEAKER) (test 223 U/L 5-34 pvvs=411) ALT (SGPT) (BEAKER) (test 21 U/L 6-55 cmsx=536) EGFR (BEAKER) (test mL/min/1.73 sq m INSUFFICIENT CLINICAL DATA ymow=4415) TO CALCULATE ESTIMATED GFR. Specimen moderately ictericCBC W/PLT COUNT & AUTO [id number] 00: 15:00 Test Item Value Reference Range Comments WHITE BLOOD CELL COUNT (BEAKER) (test ycem=895) 9.5 K/ L 3.5-10.5 RED BLOOD CELL COUNT (BEAKER) (test oryy=186) 3.17 M/ L 4.63-6.08 HEMOGLOBIN (BEAKER) (test yqbr=948) 9.7 GM/DL 13.7-17.5 HEMATOCRIT (BEAKER) (test jsvt=203) 30.1 % 40.1-51.0 MEAN CORPUSCULAR VOLUME (BEAKER) (test ksbc=424) 95.0 fL 79.0-92.2 MEAN CORPUSCULAR HEMOGLOBIN (BEAKER) (test 30.6 pg 25.7-32.2 lntt=354) MEAN CORPUSCULAR HEMOGLOBIN CONC (BEAKER) (test 32.2 GM/DL 32.3-36.5 fxtw=999) RED CELL DISTRIBUTION WIDTH (BEAKER) (test 19.3 % 11.6-14.4 fdqj=611) PLATELET COUNT (BEAKER) (test qkcp=235) 134 K/CU MM 150-450 MEAN PLATELET VOLUME (BEAKER) (test acbm=084) 12.1 fL 9.4-12.4 NUCLEATED RED BLOOD CELLS (BEAKER) (test 0 /100 WBC 0-0 jwhk=529) NEUTROPHILS RELATIVE PERCENT (BEAKER) (test 68 % nftb=315) LYMPHOCYTES RELATIVE PERCENT (BEAKER) (test 16 % nqqz=363) MONOCYTES RELATIVE PERCENT (BEAKER) (test 12 % ebbr=078) EOSINOPHILS RELATIVE PERCENT (BEAKER) (test 2 % wdot=299) BASOPHILS RELATIVE PERCENT (BEAKER) (test 1 % rcyu=297) NEUTROPHILS ABSOLUTE COUNT (BEAKER) (test 6.43 K/ L 1.78-5.38 laqe=851) LYMPHOCYTES ABSOLUTE COUNT (BEAKER) (test 1.47 K/ L 1.32-3.57 rcji=242) MONOCYTES ABSOLUTE COUNT (BEAKER) (test 1.13 K/ L 0.30-0.82 tebn=739) EOSINOPHILS ABSOLUTE COUNT (BEAKER) (test 0.23 K/ L 0.04-0.54 gcdz=476) BASOPHILS ABSOLUTE COUNT (BEAKER) (test 0.13 K/ L 0.01-0.08 xdxb=343) IMMATURE GRANULOCYTES-RELATIVE PERCENT (BEAKER) 1 % 0-1 (test illl=4716) POCT-GLUCOSE [id number] 00:13:00 Test Item Value Reference Range Comments POC-GLUCOSE METER (BEAKER) 212 mg/dL 70-110 TESTED AT [facility] [address] (test lann=[address]) [place] [address] U/S, ABDOMINAL, [id number] 21:23:00With dopplersReason for exam:-> RUQ ABD US WITH DOPPLER - cirrhotic, presents with hematochezia, poss alcoholic hepatitisFINAL REPORT Abdominal ultrasound and Doppler Clinical History: Cirrhosis Discussion: Sonographic evaluation of the the abdomen is performed including color Doppler and spectralwaveform analysis. The visualized facial of the abdominal [...] portal vein diameter is normal, measuring 11 mm.The pancreatic head, body, and proximal tail demonstrate no abnormality. There is no ascites. The right and the left kidney measure 13.8 and 15.6 cm in length respectively and are normal in size. Thereis no renal mass , hydronephrosis, or shadowing renal calculus. The spleen measures 13.6 cm in lengthand is normal in echotexture. Segments of the inferior vena cava and aorta visualized demonstrate noabnormality. The main portal vein is 1.1 cm [...] is recommended. 4. Unremarkable abdominal Doppler Signed: Alessandra Brown MDReport VerifiedDate/Time: 09/17/2018 21:23:28 Reading Location: [address] Consult Reading Room U/S, DUPLEX, [id number] 21:23:00Reason for exam:-& gt;RUQ ABD US W/ DOPPLER-CIRRHOTIC, PRESENTS WITH HEMATOCHEZIA,POSS ALCOHOLIC HEPATITISFINAL REPORT Abdominal ultrasound and Doppler Clinical History: Cirrhosis Discussion: Sonographic evaluation of the the abdomen is performed including color Doppler and spectralwaveform analysis. The visualized facial of the abdominal [...] portal vein diameter is normal, measuring 11 mm.The pancreatic head, body, and proximal tail demonstrate no abnormality. There is no ascites. The right and the left kidney measure 13.8 and 15.6 cm in length respectively and are normal in size. Thereis no renal mass , hydronephrosis, or shadowing renal calculus. The spleen measures 13.6 cm in lengthand is normal in echotexture. Segments of the inferior vena cava and aorta visualized demonstrate noabnormality. The main portal vein is 1.1 cm [...] is recommended. 4. Unremarkable abdominal Doppler Signed: Alessandra Brown MDReport VerifiedDate/Time: 09/17/2018 21:23:28 Reading Location: [facility] [id number] Consult Reading Room POCT-GLUCOSE [id number] 18:02:00 Test Item Value Reference Range Comments POC-GLUCOSE METER (AKER) 135 mg/dL 70-110 TESTED AT [facility] [address] (test gqlt=6951) [facility] [address] CBC W/PLT COUNT & AUTO [id number] 17:56:00 Test Item Value Reference Range Comments WHITE BLOOD CELL COUNT (BEAKER) (test jkcy=422) 10.2 K/ L 3.5-10.5 RED BLOOD CELL COUNT (BEAKER) (test yrma=446) 3.34 M/ L 4.63-6.08 HEMOGLOBIN (BEAKER) (test dfxh=892) 10.3 GM/DL 13.7-17.5 HEMATOCRIT (BEAKER) (test fzcf=928) 31.2 % 40.1-51.0 MEAN CORPUSCULAR VOLUME (BEAKER) (test rkgs=187) 93.4 fL 79.0-92.2 MEAN CORPUSCULAR HEMOGLOBIN (BEAKER) (test 30.8 pg 25.7-32.2 yinw=744) MEAN CORPUSCULAR HEMOGLOBIN CONC (BEAKER) (test 33.0 GM/DL 32.3-36.5 cdgd=324) RED CELL DISTRIBUTION WIDTH (BEAKER) (test 19.1 % 11.6-14.4 tvlw=502) PLATELET COUNT (BEAKER) (test zyqc=436) 134 K/CU MM 150-450 MEAN PLATELET VOLUME (BEAKER) (test oyah=640) 11.4 fL 9.4-12.4 NUCLEATED RED BLOOD CELLS (BEAKER) (test 0 /100 WBC 0-0 yxso=743) NEUTROPHILS RELATIVE PERCENT (BEAKER) (test 69 % nxet=382) LYMPHOCYTES RELATIVE PERCENT (BEAKER) (test 14 % nafg=379) MONOCYTES RELATIVE PERCENT (BEAKER) (test 12 % dnln=987) EOSINOPHILS RELATIVE PERCENT (BEAKER) (test 2 % gnxh=466) BASOPHILS RELATIVE PERCENT (BEAKER) (test 1 % egfd=692) NEUTROPHILS ABSOLUTE COUNT (BEAKER) (test 7.05 K/ L 1.78-5.38 vtyw=524) LYMPHOCYTES ABSOLUTE COUNT (BEAKER) (test 1.46 K/ L 1.32-3.57 suwk=905) MONOCYTES ABSOLUTE COUNT (BEAKER) (test 1.19 K/ L 0.30-0.82 bfis=749) EOSINOPHILS ABSOLUTE COUNT (BEAKER) (test 0.20 K/ L 0.04-0.54 kojo=287) BASOPHILS ABSOLUTE COUNT (BEAKER) (test 0.11 K/ L 0.01-0.08 bjeu=290) IMMATURE GRANULOCYTES-RELATIVE PERCENT (BEAKER) 2 % 0-1 (test htxi=5872) CARCINOEMBRYONIC ANTIGEN (CEA)2018-09-17 16:30:00 Test Item Value Reference Range Comments CARCINOEMBRYONIC ANTIGEN (BEAKER) (test xjir=589) 4.0 ng/mL 0.0-5.0 CBC W/PLT COUNT & AUTO [id number] 15:39:00 Test Item Value Reference Range Comments WHITE BLOOD CELL COUNT (BEAKER) (test jdpx=701) 9.2 K/ L 3.5-10.5 RED BLOOD CELL COUNT (BEAKER) (test mcos=786) 3.30 M/ L 4.63-6.08 HEMOGLOBIN (BEAKER) (test hiie=896) 10.0 GM/DL 13.7-17.5 HEMATOCRIT (BEAKER) (test fynf=582) 30.8 % 40.1-51.0 MEAN CORPUSCULAR VOLUME (BEAKER) (test hjpt=694) 93.3 fL 79.0-92.2 MEAN CORPUSCULAR HEMOGLOBIN (BEAKER) (test 30.3 pg 25.7-32.2 blza=623) MEAN CORPUSCULAR HEMOGLOBIN CONC (BEAKER) (test 32.5 GM/DL 32.3-36.5 pkaf=770) RED CELL DISTRIBUTION WIDTH (BEAKER) (test 19.3 % 11.6-14.4 fmut=772) PLATELET COUNT (BEAKER) (test gule=589) 127 K/CU MM 150-450 MEAN PLATELET VOLUME (BEAKER) (test urwy=322) 11.8 fL 9.4-12.4 NUCLEATED RED BLOOD CELLS (BEAKER) (test 0 /100 WBC 0-0 dvgq=912) NEUTROPHILS RELATIVE PERCENT (BEAKER) (test 70 % eiye=240) LYMPHOCYTES RELATIVE PERCENT (BEAKER) (test 13 % vbqh=901) MONOCYTES RELATIVE PERCENT (BEAKER) (test 12 % telz=095) EOSINOPHILS RELATIVE PERCENT (BEAKER) (test 2 % mmbm=030) BASOPHILS RELATIVE PERCENT (BEAKER) (test 1 % qsrb=098) NEUTROPHILS ABSOLUTE COUNT (BEAKER) (test 6.45 K/ L 1.78-5.38 rhxn=147) LYMPHOCYTES ABSOLUTE COUNT (BEAKER) (test 1.23 K/ L 1.32-3.57 ocjq=640) MONOCYTES ABSOLUTE COUNT (BEAKER) (test 1.12 K/ L 0.30-0.82 jhfq=449) EOSINOPHILS ABSOLUTE COUNT (BEAKER) (test 0.16 K/ L 0.04-0.54 gkdf=241) BASOPHILS ABSOLUTE COUNT (BEAKER) (test 0.12 K/ L 0.01-0.08 xuhp=035) IMMATURE GRANULOCYTES-RELATIVE PERCENT (BEAKER) 1 % 0-1 (test bnua=6351) HEPATITIS A ANTIBODY, [id number] 14:34:00 Test Item Value Reference Range Comments HEPATITIS A IGG ANTIBODY (BEAKER) (test hqju=4339) Reactive Nonreactive HEPATITIS B CORE ANTIBODY, [id number] 14:31:00 Test Item Value Reference Range Comments HEPATITIS B CORE TOTAL ANTIBODY (BEAKER) (test Nonreactive Nonreactive milx=705) URINALYSIS W/ REFLEX URINE [id number] 13:18:00 Test Item Value Reference Range Comments COLOR (BEAKER) (test mxlt=795) Yellow CLARITY (BEAKER) (test puio=257) Clear SPECIFIC GRAVITY UA (BEAKER) (test iukq=676) 1.034 1.001-1.035 PH UA (BEAKER) (test owss=861) 7.0 5.0-8.0 PROTEIN UA (BEAKER) (test rfcl=392) Negative Negative GLUCOSE UA (BEAKER) (test iifm=077) Negative Negative KETONES UA (BEAKER) (test vbvb=498) Negative Negative BILIRUBIN UA (BEAKER) (test tyro=639) Positive Negative BLOOD UA (BEAKER) (test iqrj=945) Negative Negative NITRITE UA (BEAKER) (test szly=306) Negative Negative LEUKOCYTE ESTERASE UA (BEAKER) (test lcyd=534) Negative Negative UROBILINOGEN UA (BEAKER) (test vnqc=577) 4.0 mg/dL 0.2-1.0 RBC UA (BEAKER) (test vclv=707) 0 /HPF WBC UA (BEAKER) (test idjx=659) 0 /HPF SQUAMOUS EPITHELIAL (BEAKER) (test xpbf=223) 1 /HPF SOURCE(BEAKER) (test ukln=5049) ALPHA FETOPROTEIN (AFP), TUMOR [id number] 13:18:00 Test Item Value Reference Range Comments ALPHA-FETOPROTEIN (BEAKER) (test plrb=3883) 9.2 ng/mL <10.0 BILIRUBIN, [id number] 12:15:00 Test Item Value Reference Range Comments BILIRUBIN DIRECT (BEAKER) (test 4.4 mg/dL 0.1-0.5 Specimen slightly hemolyzed noat=592) IMMUNOGLOBULIN G (IGG)2018-09-17 12:13:00 Test Item Value Reference Range Comments IMMUNOGLOBULIN G (IGG) (BEAKER) (test gztz=257) 1727 mg/dL 540-1822 [id number] 09:59:00 Test Item Value Reference Range Comments PROCALCITONIN (BEAKER) (test xoeh=9057) 0.25 ng/mL <0.05 SEPSIS RISK (ng/mL)Low: 0.05-0.50Intermediate: 0.51-2.00High: & gt;=[id number] 09:47:00 Test Item Value Reference Range Comments ETHANOL (BEAKER) (test kqkf=041) < mg/dL <=10 COMPREHENSIVE METABOLIC [id number] 09:38:00 Test Item Value Reference Range Comments TOTAL PROTEIN (BEAKER) 7.9 gm/dL 6.0-8.3 (test ddyg=703) ALBUMIN (BEAKER) (test 3.1 g/dL 3.5-5.0 buzk=3603) ALKALINE PHOSPHATASE 173 U/L 40-150 (BEAKER) (test qzqo=225) BILIRUBIN TOTAL (BEAKER) 7.0 mg/dL 0.2-1.2 (test oetr=519) SODIUM (BEAKER) (test 133 meq/L 136-145 fjho=667) POTASSIUM (BEAKER) (test 3.3 meq/L 3.5-5.1 hpzk=128) CHLORIDE (BEAKER) (test 101 meq/L 98-107 jvik=760) CO2 (BEAKER) (test 21 meq/L 22-29 bwmy=374) BLOOD UREA NITROGEN 4 mg/dL 7-21 (BEAKER) (test wvlk=604) CREATININE (BEAKER) (test 0.66 mg/dL 0.57-1.25 lcsz=782) GLUCOSE RANDOM (BEAKER) 134 mg/dL 70-105 (test eear=130) CALCIUM (BEAKER) (test 8.1 mg/dL 8.4-10.2 wiwo=727) AST (SGOT) (BEAKER) (test 193 U/L 5-34 eyet=935) ALT (SGPT) (BEAKER) (test 21 U/L 6-55 ljii=969) EGFR (BEAKER) (test mL/min/1.73 sq m INSUFFICIENT CLINICAL DATA aqha=8317) TO CALCULATE ESTIMATED GFR. Specimen moderately [id number] 09:31:00 Test Item Value Reference Range Comments PHOSPHORUS (BEAKER) (test unck=443) 2.5 mg/dL 2.3-4.7 [id number] 09:31:00 Test Item Value Reference Range Comments MAGNESIUM (BEAKER) (test hfds=264) 1.8 mg/dL 1.6-2.6 LACTIC ACID, VENOUS, WHOLE [id number] 08:24:00 Test Item Value Reference Range Comments LACTATE BLOOD VENOUS (2) (BEAKER) (test 0.8 mmol/L 0.5-2.2 vsrt=4797) Effective 03/27/2016: Units/Reference Range ChangeNew: 0.5-2.2 mmol/L Previous: 5 -20 mg/dLSpecimen moderately ictericACETAMINOPHEN [id number] 08:23:00 Test Item Value Reference Range Comments ACETAMINOPHEN LEVEL (BEAKER) (test uatv=469) < ug/mL 10.0-30.0 Therapeutic Range: 10.0-30.0 g/mLToxic Levels: >200.0 g/[id number] 07:47:00 Test Item Value Reference Range Comments FERRITIN (BEAKER) (test vvqx=146) 276 ng/mL 5-275 [id number] 07:46:00 Test Item Value Reference Range Comments ALPHA-1 ANTITRYPSIN (BEAKER) (test zghn=895) 245.40 mg/dL 90.00-200.00 IRON, TIBC, % SAT. (WITHOUT FERRITIN)2018-09-17 07:27:00 Test Item Value Reference Range Comments IRON (BEAKER) (test mlnb=707) 147 ug/dL 40-160 TOTAL IRON BINDING CAPACITY (BEAKER) (test 251 ug/dL 250-450 wrny=959) IRON % SATURATION (2) (BEAKER) (test oaqb=6023) 59 % 20-55 [id number] 07:20:00 Test Item Value Reference Range Comments PARTIAL THROMBOPLASTIN TIME (BEAKER) (test 40.0 seconds 22.5-36.0 eedm=035) PROTHROMBIN [id number] 07:19:00 Test Item Value Reference Range Comments PROTIME (BEAKER) (test vmjt=155) 17.0 seconds 11.7-14.7 INR (BEAKER) (test souj=084) 1.4 <=5.9 RECOMMENDED COUMADIN/WARFARIN INR THERAPY RANGESSTANDARD DOSE: 2.0 - 3.0 Includes: PROPHYLAXIS forvenous thrombosis, systemic embolization; TREATMENT for venous thrombosis and/or pulmonary embolus.HIGH RISK: Target INR is 2.5-3.5 for patients with mechanical heart valves.CBC W/PLT COUNT & AUTO [id number] 07:04:00 Test Item Value Reference Range Comments WHITE BLOOD CELL COUNT (BEAKER) (test noty=824) 10.3 K/ L 3.5-10.5 RED BLOOD CELL COUNT (BEAKER) (test aqnk=308) 3.40 M/ L 4.63-6.08 HEMOGLOBIN (BEAKER) (test znfb=786) 10.4 GM/DL 13.7-17.5 HEMATOCRIT (BEAKER) (test zhic=881) 31.1 % 40.1-51.0 MEAN CORPUSCULAR VOLUME (BEAKER) (test jgdh=349) 91.5 fL 79.0-92.2 MEAN CORPUSCULAR HEMOGLOBIN (BEAKER) (test 30.6 pg 25.7-32.2 webu=780) MEAN CORPUSCULAR HEMOGLOBIN CONC (BEAKER) (test 33.4 GM/DL 32.3-36.5 uxru=984) RED CELL DISTRIBUTION WIDTH (BEAKER) (test 19.0 % 11.6-14.4 eroe=906) PLATELET COUNT (BEAKER) (test ayii=980) 129 K/CU MM 150-450 MEAN PLATELET VOLUME (BEAKER) (test rzfc=583) 12.3 fL 9.4-12.4 NUCLEATED RED BLOOD CELLS (BEAKER) (test 0 /100 WBC 0-0 mvxz=802) NEUTROPHILS RELATIVE PERCENT (BEAKER) (test 69 % qsil=633) LYMPHOCYTES RELATIVE PERCENT (BEAKER) (test 16 % gkjd=760) MONOCYTES RELATIVE PERCENT (BEAKER) (test 12 % sany=223) EOSINOPHILS RELATIVE PERCENT (BEAKER) (test 1 % qqvb=104) BASOPHILS RELATIVE PERCENT (BEAKER) (test 1 % auun=282) NEUTROPHILS ABSOLUTE COUNT (BEAKER) (test 7.13 K/ L 1.78-5.38 yacc=973) LYMPHOCYTES ABSOLUTE COUNT (BEAKER) (test 1.62 K/ L 1.32-3.57 zjcz=726) MONOCYTES ABSOLUTE COUNT (BEAKER) (test 1.25 K/ L 0.30-0.82 htig=111) EOSINOPHILS ABSOLUTE COUNT (BEAKER) (test 0.14 K/ L 0.04-0.54 rxbh=352) BASOPHILS ABSOLUTE COUNT (BEAKER) (test 0.09 K/ L 0.01-0.08 plbd=749) IMMATURE GRANULOCYTES-RELATIVE PERCENT (BEAKER) 1 % 0-1 (test jvwm=3764)
[2018-09-30 13:24] LABS: Absolute Lymphocytes (CBC) 3.5 K/uL (0.7-4.9); Absolute Monocytes 1.2 K/uL (0.1-1.3); Absolute Neutrophil 6.7 K/uL (1.8-8.0); Basophils % 2.9 % (0-1.3); Eosinophils % 4.4 % (0-4.4); Hematocrit 34.1 % (39.6-49.0); Lymphocytes % 28.5 % (15.3-44.8); MCH 30.6 pg (27.0-35.0); MPV 10.9 fL (7.6-11.3); Monocytes % 9.5 % (3.3-12.3); RBC Red Blood Cell Count 3.63 M/uL (4.33-5.43)
[2018-09-30 13:27] LABS: Protime INR 1.68
--- NOTE | 2018-09-30 13:29 | EKG ---
Test Date: 2018-09-30 Test Time: 13:07:49 Senior Systems Software Engineer: GÉNESIS MEASUREMENT RESULTS: Intervals: Rate: 98 CO: 156 QRSD: 110 QT: 386 QTc: 492 [place]: P: 41 CO: 156 QRS: 45 T: 14 INTERPRETIVE STATEMENTS: Normal sinus rhythm Prolonged QT Abnormal ECG Compared to ECG 09/17/2018 01:16:08 Prolonged QT interval now present Sinus tachycardia no longer present Electronically Signed On 09-30-18 13:28:57 BONDED STRAND OPERATOR by Kolby Leon
[2018-09-30 13:48] LABS: ALT/SGPT 34 U/L (12-78); AST/SGOT 230 U/L (15-37); Albumin 2.2 g/dL (3.4-5.0); Alkaline Phosphatase 180 U/L (45-117); BUN Blood Urea Nitrogen 1 mg/dL (7-18); Bicarbonate 23 mmol/L (21-32); Bilirubin Direct 5.8 mg/dL (0-0.2); Magnesium 2.1 mg/dL (1.8-2.4); NT PRO-BNP 31 pg/mL (<125); Potassium 3.5 mmol/L (3.5-5.1); Protein, Total 8.2 g/dL (6.4-8.2); Sodium Level 140 mmol/L (136-145)
[2018-09-30 13:52] LABS: Glucose Level 410 mg/dL (74-106)
--- NOTE | 2018-09-30 14:07 | RAD REPORT ---
EXAM DESCRIPTION: RAD - Chest Single View - 09/30/2018 2:01 pm CLINICAL HISTORY: Dyspnea, hypertension COMPARISON: None. TECHNIQUE: AP portable chest image was obtained 1340 hours . FINDINGS: Lung volumes are low accentuating interstitial markings. No failure, infiltrate or acute l dann parenchymal process. Heart and vasculature are normal. No measurable pleural effusion and no pneu mothorax. No acute bony abnormality seen. No acute aortic findings suspected. IMPRESSION: No acute cardiopulmonary process.
[2018-09-30] MEDS ORDERED: INSULIN -REGULAR HUMAN 50 UNIT/0.5 ML ML ONE (14:46)
--- NOTE | 2018-09-30 15:51 | EDPHYS ---
Physician Documentation [facility] Name: Dillan Johnson Age: 33 yrs Sex: Male : 1985 Arrival Date: 09/30/2018 Time: 12:52 Bed 4 Private MD: ED Physician Isaiah Victoria HPI: 09/30 15:05 This 33 yrs old Male presents to ER via EMS with complaints of ALCOHOL jr8 INTOXICATION. 15:05 Patient has history of alcohol abuse. Now has cirrhosis of the liver. Had been detoxed jr8 off of alcohol for two weeks now and decided to drink last night. Family called ems because patient more confused . 15:10 Severity of symptoms: At their worst the symptoms were moderate in the emergency jr8 department the symptoms are unchanged. The patient has experienced similar episodes in the past, chronically. The patient has not recently seen a physician. Historical: - Allergies: 12:59 No Known Allergies; ss - Home Meds: 12:59 unknown BP medication [Active]; ss - PMHx: 12:59 Hypertension; Cirrhosis; ss - PSHx: 12:59 None; ss - Immunization history:: Adult Immunizations unknown. - Social history:: Smoking status: Patient/guardian denies using tobacco, Patient uses alcohol, approx 12 Pack of beer/ day. - Ebola Screening: : Patient denies exposure to infectious person Patient denies travel to an Ebola-affected area in the 21 days before illness onset. ROS: 15:10 Eyes: Negative for injury, pain, redness, and discharge, ENT: Negative for injury, jr8 pain, and discharge, Neck: Negative for injury, pain, and swelling, Cardiovascular: Negative for chest pain, palpitations, and edema, Respiratory: Negative for shortness of breath, cough, wheezing, and pleuritic chest pain, Abdomen/GI: Negative for abdominal pain, nausea, vomiting, diarrhea, and constipation, Back: Negative for injury and pain, MS/Extremity: Negative for injury and deformity, Skin: Negative for injury, rash, and discoloration. 15:10 Neuro: Positive for altered mental status, dizziness. Exam: 15:10 Head/Face: Normocephalic, atraumatic. ENT: Nares patent. No nasal discharge, no jr8 septal abnormalities noted. Tympanic membranes are normal and external auditory canals are clear. Oropharynx with no redness, swelling, or masses, exudates, or evidence of obstruction, uvula midline. Mucous membranes moist. Neck: Trachea midline, no thyromegaly or masses palpated, and no cervical lymphadenopathy. Supple, full range of motion without nuchal rigidity, or vertebral point tenderness. No Meningismus. Cardiovascular: Regular rate and rhythm with a normal S1 and S2. No gallops, murmurs, or rubs. Normal PMI, no JVD. No pulse deficits. Respiratory: Lungs have equal breath sounds bilaterally, clear to auscultation and percussion. No rales, rhonchi or wheezes noted. No increased work of breathing, no retractions or nasal flaring. Abdomen/GI: Soft, non-tender, with normal bowel sounds. No distension or tympany. No guarding or rebound. No evidence of tenderness throughout. Back: No spinal tenderness. No costovertebral tenderness. Full range of motion. Skin: Warm, dry with normal turgor. Normal color with no rashes, no lesions, and no evidence of cellulitis. MS/ Extremity: Pulses equal, no cyanosis. Neurovascular intact. Full, normal range of motion. Neuro: Awake and alert, GCS 15, oriented to person, place, time, and situation. Cranial nerves II-XII grossly intact. Motor strength 5/5 in all extremities. Sensory grossly intact. Cerebellar exam normal. Normal gait. 15:10 Eyes: Periorbital structures: appear normal, Pupils: equal, round, and reactive to light and accomodation, Extraocular movements: intact throughout, Conjunctiva: normal, Corneas: are normal, Sclera: icterus, Anterior chamber: normal, Lids and lashes: appear normal. Vital Signs: 12:59 BP 137 / 86; Pulse 102; Resp 15; Temp 98.7(O); Pulse Ox 98% on R/A; Weight 108.86 kg; ss Height 5 ft. 9 in. (175.26 cm); Pain 0/10; 13:10 BP 126 / 75; Pulse 98; Resp 16; Pain 0/10; ss 14:53 BP 131 / 73; Pulse 96; Resp 15; Pulse Ox 92% on R/A; bp 15:28 BP 131 / 72; Pulse 98; Resp 16; Pulse Ox 95% ; bp 16:15 BP 113 / 60; Pulse 97; Resp 17; Pulse Ox 97% ; bp 12:59 Body Mass Index 35.44 (108.86 kg, 175.26 cm) ss MDM: 12:54 Patient medically screened. [facility] 15:10 Data reviewed: vital signs, nurses notes, lab test result(s), EKG. Data interpreted: jr8 Pulse oximetry: on room air is 94 %. Interpretation: normal. Counseling: I had a detailed discussion with the patient and/or guardian regarding: the historical points, exam findings, and any diagnostic results supporting the discharge/admit diagnosis, lab results. 15:49 Physician consultation: Martin Anders MD was called at 15:49, was contacted at 15:49, jr8 regarding admission, to the telemetry unit. consult, patient's condition, and will see patient. 09/30 12:55 Order name: Basic Metabolic Panel; Complete Time: 14:06 09/30 12:55 Order name: CBC with Diff; Complete Time: 13:34 09/30 12:55 Order name: LFT's; Complete Time: 14:09/30 12:55 Order name: Magnesium; Complete Time: 14:09/30 12:55 Order name: NT PRO-BNP; Complete Time: 14:06 09/30 12:55 Order name: PT-INR; Complete Time: 13:34 09/30 12:55 Order name: XRAY Chest (1 view); Complete Time: 14:10 09/30 12:55 Order name: EKG; Complete Time: 12:56 09/30 12:55 Order name: Cardiac monitoring; Complete Time: 13:00 09/30 12:55 Order name: EKG - Nurse/Tech; Complete Time: 13:35 09/30 12:55 Order name: IV Saline Lock; Complete Time: 13:33 09/30 12:55 Order name: ETOH Level; Complete Time: 14:06 09/30 12:55 Order name: AMMONIA; Complete Time: 14:06 09/30 12:55 Order name: Labs collected and sent; Complete Time: 13:33 09/30 12:55 Order name: O2 Per Protocol; Complete Time: 13:00 09/30 12:55 Order name: O2 Sat Monitoring; Complete Time: 13:00 09/30 12:55 Order name: Glucose Level; Complete Time: 13:35 jr8 Administered Medications: 14:30 Drug: Insulin Regular Human 10 units {Co-Signature: ph (Renetta Vincent RN).} Route: IVP; bp Site: right antecubital; 15:29 Follow up: Response: Blood sugar is lowered bp Point of Care Testing: Blood Glucose: 13:10 Blood Glucose: 350 mg/dL; ss 15:28 Blood Glucose: 289 mg/dL; bp 17:27 Blood Glucose: 242 mg/dL; tw2 Ranges: Critical Glucose Levels:Adult <50 mg/dl or >400 mg/dl <40 mg/dl or >180 mg/dl Disposition: 18:45 Co-signature as Attending Physician, Isaiah Victoria MD. rn Disposition: 09/30/18 15:50 Hospitalization ordered by Martin Anders for Observation. Preliminary diagnosis are Alcohol abuse with intoxication, Hyperglycemia, unspecified, Alcoholic cirrhosis of liver. - Bed requested for Telemetry/MedSurg (observation). - Status is Observation. bp - Condition is Stable. - Problem is new. - Symptoms have improved. UTI on Admission? No Signatures: Dispatcher [employer] Shabana Bricneo RN RN Isaiah Victoria MD MD rn Smirch, Shelby, RN RN ss Roszak, Josh, PA PA jr8 Rizwan Fernando, RN RN bp Renetta Vincent RN ph Corrections: (The following items were deleted from the chart) 15:11 15:05 Patient has history of alcohol abuse. Now has cirrhosis of the liver. Had been jr8 detoxed off of alcohol for two weeks now and decided to drink last night. jr8 17:12 15:50 Hospitalization Ordered by Martin Anders MD for Observation. Preliminary diagnosis dw is Alcohol abuse with intoxication; Hyperglycemia, unspecified; Alcoholic cirrhosis of liver. Bed requested for Telemetry/MedSurg (observation). Status is Observation. Condition is Stable. Problem is new. Symptoms have improved. UTI on Admission? No. jr8 17:55 17:12 09/30/2018 15:50 Hospitalization Ordered by Martin Anders MD for Observation. bp Preliminary diagnosis is Alcohol abuse with intoxication; Hyperglycemia, unspecified; Alcoholic cirrhosis of liver. Bed requested for Telemetry/MedSurg (observation). Status is Observation. Condition is Stable. Problem is new. Symptoms have improved. UTI on Admission? No. dw
--- NOTE | 2018-09-30 15:51 | ER ---
Nurse's Notes [facility] Name: Dillan Johnson Age: 33 yrs Sex: Male : 1985 Arrival Date: 09/30/2018 Time: 12:52 Bed 4 Private MD: Diagnosis: Alcohol abuse with intoxication;Hyperglycemia, unspecified;Alcoholic cirrhosis of liver Presentation: 09/30 12:45 Presenting complaint: EMS states: Slurred Speech, confusion and dizziness that began ss yesterday, is worse today. Pt was admitted to hospital for ETOH withdrawal and had not drank in two weeks. Pt began drinking again yesterday (6 pack of beer), and today approx 1 Liter of "Mad Dog ". Transition of care: patient was not received from another setting of care. Onset of symptoms is unknown. Risk Assessment: Do you want to hurt yourself or someone else? Patient reports no desire to harm self or others. Initial Sepsis Screen: Does the patient meet any 2 criteria? Altered Mental Status. Does the patient have a suspected source of infection? No. Patient's initial sepsis screen is negative. Care prior to arrival: BGL check reported as "HIGH". 12:45 Method Of Arrival: EMS: [facility] ss 12:45 Acuity: NIKITA 2 ss Triage Assessment: 13:00 General: Appears in no apparent distress. comfortable, obese, Behavior is cooperative, bp appropriate for age, drowsy. Pain: Denies pain. Historical: - Allergies: 12:59 No Known Allergies; ss - Home Meds: 12:59 unknown BP medication [Active]; ss - PMHx: 12:59 Hypertension; Cirrhosis; ss - PSHx: 12:59 None; ss - Immunization history:: Adult Immunizations unknown. - Social history:: Smoking status: Patient/guardian denies using tobacco, Patient uses alcohol, approx 12 Pack of beer/ day. - Ebola Screening: : Patient denies exposure to infectious person Patient denies travel to an Ebola-affected area in the 21 days before illness onset. Screenin:35 Abuse screen: Denies threats or abuse. Denies injuries from another. Nutritional bp screening: No deficits noted. Tuberculosis screening: No symptoms or risk factors identified. Fall Risk No fall in past 12 months (0 pts). Secondary diagnosis (15 points) INTOXICATION. IV access (20 points). Ambulatory Aid- None/Bed Rest/Nurse Assist (0 pts). Gait- Normal/Bed Rest/Wheelchair (0 pts) Mental Status- Overestimates/Forgets Limitations (15 pts.). Total Wilder Fall Scale indicates High Risk Score (45 or more points). Fall prevention measures have been instituted. Side Rails Up X 2 Placed Close to Nursing Station Frequent Obs/Assessments Occuring Family Present and informed to notify staff if the need to leave the bedside As available patient and family educated on Fall Prevention Program and Strategies. Assessment: 12:45 General: Appears in no apparent distress. comfortable, Behavior is cooperative, ss appropriate for age, drowsy, Smells of alcohol. Pain: Denies pain. Neuro: Level of Consciousness is awake, obeys commands, Oriented to person, place, time, situation. Respiratory: Airway is patent Respiratory effort is even, unlabored, Respiratory pattern is regular, symmetrical. GI: Abdomen is round noted to have ascites. EENT: Sclera/Cornea sclera noted to be yellow. Derm: Skin is intact, is healthy with good turgor, Skin is pink, warm \\T\\ dry. normal. Musculoskeletal: Swelling absent. 12:45 Cardiovascular: Edema pitting to left midcalf, left ankle, right midcalf and right ss ankle. 13:00 General: Appears in no apparent distress. comfortable, obese, Behavior is cooperative, bp appropriate for age, drowsy. Pain: Denies pain. Neuro: Level of Consciousness is obeys commands, lethargic, Oriented to person, place, time, situation. Cardiovascular: Rhythm is sinus tachycardia. Respiratory: Airway is patent Respiratory effort is even, shallow, Respiratory pattern is regular, symmetrical. GI: No signs and/or symptoms were reported involving the gastrointestinal system. : No signs and/or symptoms were reported regarding the genitourinary system. EENT: No deficits noted. Derm: No deficits noted. Musculoskeletal: Circulation, motion, and sensation intact. Range of motion: intact in all extremities. 15:00 Reassessment: BGL IMPROVING, PROVIDER NOTIFIED. bp 16:00 Reassessment: ADMIT IN PROCESS FOR GLUCOSE CONTROL. bp Vital Signs: 12:59 BP 137 / 86; Pulse 102; Resp 15; Temp 98.7(O); Pulse Ox 98% on R/A; Weight 108.86 kg; ss Height 5 ft. 9 in. (175.26 cm); Pain 0/10; 13:10 BP 126 / 75; Pulse 98; Resp 16; Pain 0/10; ss 14:53 BP 131 / 73; Pulse 96; Resp 15; Pulse Ox 92% on R/A; bp 15:28 BP 131 / 72; Pulse 98; Resp 16; Pulse Ox 95% ; bp 16:15 BP 113 / 60; Pulse 97; Resp 17; Pulse Ox 97% ; bp 12:59 Body Mass Index 35.44 (108.86 kg, 175.26 cm) ss ED Course: 12:52 Patient arrived in ED. bp 12:54 Wyatt Maya PA is PHCP. jr8 12:54 Isaiah Victoria MD is Attending Physician. jr8 12:58 Triage completed. ss 12:59 Arm band placed on right wrist. ss 13:10 Inserted saline lock: 20 gauge in right antecubital area, using aseptic technique. ss Blood collected. 13:20 EKG done, by communications field technician. reviewed by Isaiah Victoria MD. vh 13:32 Rizwan Fernando, BALDEV is Primary Nurse. bp 13:36 Patient has correct armband on for positive identification. Placed in gown. Bed in low bp position. Call light in reach. Side rails up X2. 13:58 X-ray completed. Portable x-ray completed in exam room. Patient tolerated procedure ml well. 14:01 XRAY Chest (1 view) In Process Unspecified. EDMS 15:50 Martin Anders MD is Hospitalizing Provider. jr8 17:30 No provider procedures requiring assistance completed. Patient admitted, IV remains in bp place. Administered Medications: 14:30 Drug: Insulin Regular Human 10 units {Co-Signature: ph (Renetta Vincent RN).} Route: IVP; bp Site: right antecubital; 15:29 Follow up: Response: Blood sugar is lowered bp Point of Care Testing: Blood Glucose: 13:10 Blood Glucose: 350 mg/dL; ss 15:28 Blood Glucose: 289 mg/dL; bp 17:27 Blood Glucose: 242 mg/dL; tw2 Ranges: Outcome: 15:50 Decision to Hospitalize by Provider. jr8 17:29 Admitted to Tele accompanied by tech, family with patient, via wheelchair, room 410, bp with chart, Report called to JUNIOR RN 17:30 Condition: stable bp 17:30 Instructed on the need for admit. 17:55 Patient left the ED. bp Signatures: Dispatcher [employer] Wendy Machado Shelby, RN RN Wyatt Maya PA PA 8 Masha Conklin Tara, RN RN tw2 Rizwan Fernando RN RN bp Renetta Vincent RN ph
--- NOTE | 2018-09-30 17:47 | P.HP ---
Certification for Inpatient Patient admitted to: Observation With expected LOS: <2 Midnights Practitioner: I am a practitioner with admitting privileges, knowledge of patient current condition, hospital course, and medical plan of care. Services: Services provided to patient in accordance with Admission requirements found in Title 42 Section 412.3 of the Code of Federal Regulations Patient History Date of Service: 09/30/18 Reason for admission: Confusion History of Present Illness: This is a 32-year-old male with history of hypertension, alcohol abuse, liver cirrhosis secondary to alcoholic usage, esophageal varices, gastric ulcer, hemorrhoids who was brought into the ER for confusion. Per family, he was admitted to the hospital 2 weeks ago for bleeding esophageal varices, transferred to [place] and was scoped. He stop drinking for 2 weeks, then past Friday decided to drink. He has been drinking 2-3 approximately 32 oz drinks a day since then. Last drink was this morning. Patient states that this morning , he felt it dizziness on 10:00 a.m.. He states that he himself was spinning along with the room. Initially patient refused to having any alcohol, 1 urged by the , he stated that he did have some. At the time of my exam, patient was alert oriented x3 vital signs were stable and he he was almost back to baseline. He denies any spitting up blood/throwing up blood, denies any blood in the stool , abdominal pain, nausea or vomiting, chest pain, headache, vision change or speech change. Allergies No Known Allergies Allergy (Unverified 08/07/16 17:06) - Past Medical/Surgical History -: Liver cirrhosis, secondary to alcohol abuse -: Esophageal varices -: Gastric ulcer -: Hemorrhoid -: Hypertension - Social History Smoking Status: Never smoker Alcohol use: Yes Review of Systems General: Unremarkable Eyes: Other (Scleral icterus) ENT: Unremarkable Respiratory: Unremarkable Cardiovascular: Unremarkable Gastrointestinal: Unremarkable Genitourinary: Unremarkable Musculoskeletal: Unremarkable Integumentary: Unremarkable Neurological: Other (Dizziness), As per HPI Lymphatics: Unremarkable Physical Examination - Physical Exam General: Alert, In no apparent distress, Oriented x3 HEENT: Atraumatic, PERRLA, Mucous membr. moist/pink, EOMI, Scleral icterus Neck: Supple, 2+ carotid pulse no bruit, No LAD, Without JVD or thyroid abnormality Respiratory: Clear to auscultation bilaterally, Normal air movement Cardiovascular: Regular rate/rhythm, Normal S1 S2, Edema (2+ lower extremity edema bilaterally ) Gastrointestinal: Normal bowel sounds, No tenderness, Ascites Musculoskeletal: No tenderness Integumentary: No rashes Neurological: Normal gait, Normal speech, Normal strength at 5/5 x4 extr, Normal tone, Normal affect - Studies Laboratory Data (last 24 hrs) 09/30/18 13:10: PT 19.9 H, INR 1.68 09/30/18 13:10: WBC 12.2 H D, Hgb 11.1 L, Hct 34.1 L, Plt Count 469 H D 09/30/18 13:10: Sodium 140, Potassium 3.5, BUN 1 L, Creatinine 0.70, Glucose 410 H*, Magnesium 2.1 D, Total Bilirubin 7.0 H*, AST 230 H, ALT 34, Alkaline Phosphatase 180 H Assessment and Plan - Plan This is a 32-year-old male with: Hepatic encephalopathy Liver cirrhosis, secondary to alcohol Esophageal varices, secondary to liver cirrhosis Gastric ulcer Alcohol abuse Hyperglycemia, without diagnosis of diabetes Elevated total bilirubin Admit patient to floor with tele. Monitor for alcohol withdrawal symptoms. Banana bag, thiamine, folate and multivitamin ordered. Librium 25 mg t.i.d. and Ativan prn. Patient needs a extensive education and resource on alcohol cessation. Patient is currently undergoing workup and treatment in [facility] for his liver cirrhosis. Monitor blood sugars, this is likely reactive. Will continue to monitor patient, possible home discharge tomorrow if back to baseline. DVT prophylaxis: Lovenox GI prophylaxis: Protonix Diet: Regular Discharge Plan: Home Plan to discharge in: 24 Hours - Advance Directives Does patient have a Living Will: No Does patient have a Durable POA for Healthcare: No Physician Review: Patient Assessed, Agree with Above Assessment and Plan Time Spent Managing Pts Care (In Minutes): 45
[2018-09-30] MEDS ORDERED: ALBUTEROL 2.5 MG/3 ML NEB SOL NEB PRN (18:00)
[2018-09-30] MEDS ORDERED: LORazepam 2 MG/ML VIAL IV PRN ×2 (18:00)
[2018-09-30] MEDS ORDERED: ONDANSETRON 4 MG/2 ML VIAL IV PRN (18:00)
[2018-09-30 18:08] VITALS: BMI 35.4
[2018-09-30] MEDS ORDERED: POTASSIUM CL SA 10 MEQ TAB PO ONE (18:45)
[2018-09-30] MEDS: chlordiazePOXIDE HCl 25 MG CAP PO SCH ×2 (19:17→23:49)
[2018-09-30] MEDS: ENOXAPARIN 40 MG/0.4 ML SQ SCH (21:14)
[2018-10-01] MEDS: chlordiazePOXIDE HCl 25 MG CAP PO SCH ×2 (05:05→11:49)
[2018-10-01 06:01] LABS: Protime INR 1.64
[2018-10-01 06:02] LABS: Absolute Lymphocytes (CBC) 2.8 K/uL (0.7-4.9); Absolute Monocytes 1.3 K/uL (0.1-1.3); Absolute Neutrophil 6.4 K/uL (1.8-8.0); Basophils % 4.6 % (0-1.3); Eosinophils % 4.4 % (0-4.4); Hematocrit 31.3 % (39.6-49.0); Lymphocytes % 24.3 % (15.3-44.8); MCH 30.9 pg (27.0-35.0); MCV 94.2 fL (80-100); MPV 10.9 fL (7.6-11.3); Monocytes % 11.1 % (3.3-12.3); RBC Red Blood Cell Count 3.32 M/uL (4.33-5.43)
[2018-10-01 06:23] LABS: ALT/SGPT 34 U/L (12-78); AST/SGOT 234 U/L (15-37); Albumin 2.1 g/dL (3.4-5.0); Alkaline Phosphatase 182 U/L (45-117); BUN Blood Urea Nitrogen 3 mg/dL (7-18); Bicarbonate 25 mmol/L (21-32); Glucose Level 236 mg/dL (74-106); Potassium 3.7 mmol/L (3.5-5.1); Protein, Total 7.7 g/dL (6.4-8.2); Sodium Level 137 mmol/L (136-145)
[2018-10-01 06:33] LABS: Bilirubin Total 6.1 mg/dL (0.2-1.0)
[2018-10-01] MEDS ORDERED: PANTOPRAZOLE 40MG TABLET PO SCH (07:30)
[2018-10-01] MEDS: ENOXAPARIN 40 MG/0.4 ML SQ SCH (07:57)
[2018-10-01] MEDS ORDERED: FOLIC ACID 1 MG TABLET PO SCH (09:00)
[2018-10-01] MEDS ORDERED: MULTIVITAMIN TAB PO SCH (09:00)
[2018-10-01] MEDS ORDERED: FOLIC ACID 1 MG, MULTIVITAMINS INJ 10 ML, THIAMINE HCL 100 MG in NA CHLORIDE 0.9% 1,000 ML IV SCH (09:00)
[2018-10-01] MEDS ORDERED: POTASSIUM 25 MEQ EFFERV TAB PO ONE (09:00)
[2018-10-01] MEDS ORDERED: POTASS/SODIUM PHOSPHATE 1 PKT POWD.PACK PO ONE (09:00)
[2018-10-01 10:08] VITALS: O2SAT 93
[2018-10-01 12:36] VITALS: BP 145/76
--- NOTE | 2018-10-01 12:42 | P.SSS ---
Patient History Date of Service: 10/01/18 Reason for admission: Confusion History of Present Illness: This is a 32-year-old male with history of hypertension, alcohol abuse, liver cirrhosis secondary to alcoholic usage, esophageal varices, gastric ulcer, hemorrhoids who was brought into the ER for confusion. Per family, he was admitted to the hospital 2 weeks ago for bleeding esophageal varices, transferred to [place] and was scoped. He stop drinking for 2 weeks, then past Friday decided to drink. He has been drinking 2-3 approximately 32 oz drinks a day since then. Last drink was this morning. Patient states that this morning , he felt it dizziness on 10:00 a.m.. He states that he himself was spinning along with the room. Initially patient refused to having any alcohol, 1 urged by the , he stated that he did have some. At the time of my exam, patient was alert oriented x3 vital signs were stable and he he was almost back to baseline. He denies any spitting up blood/throwing up blood, denies any blood in the stool , abdominal pain, nausea or vomiting, chest pain, headache, vision change or speech change. Allergies No Known Allergies Allergy (Unverified 08/07/16 17:06) Home Medications: Candesartan Cilexetil 16 mg PO DAILY 09/30/18 Folic Acid 1 mg PO DAILY 09/30/18 Thiamine HCl [Vitamin B-1*] 100 mg PO DAILY 09/30/18 chlordiazePOXIDE HCl [Chlordiazepoxide HCl] 25 mg PO DIRECTED 09/30/18 - Past Medical/Surgical History Diabetic: No -: Liver cirrhosis, secondary to alcohol abuse -: Esophageal varices -: Hypertension -: Hemorrhoid -: Hypertension - Social History Smoking Status: Never smoker Alcohol use: Yes CD- Drugs: No Caffeine use: No Place of Residence: Home Review of Systems As noted Physical Examination - Vital Signs Temperature: 101 F Blood Pressure: 145/76 Pulse: 113 Respirations: 18 Pulse Ox (%): 93 - Physical Exam General: Alert, In no apparent distress, Oriented x3 HEENT: Atraumatic, PERRLA, Mucous membr. moist/pink, EOMI, Sclerae nonicteric Neck: Supple, 2+ carotid pulse no bruit, No LAD, Without JVD or thyroid abnormality Respiratory: Clear to auscultation bilaterally, Normal air movement Cardiovascular: Regular rate/rhythm, Normal S1 S2 Gastrointestinal: Normal bowel sounds, No tenderness, Ascites Musculoskeletal: No tenderness Integumentary: No rashes Neurological: Normal gait, Normal speech, Normal strength at 5/5 x4 extr, Normal tone, Normal affect - Studies Laboratory Data (last 24 hrs) 09/30/18 13:10: PT 19.9 H, INR 1.68 09/30/18 13:10: WBC 12.2 H D, Hgb 11.1 L, Hct 34.1 L, Plt Count 469 H D 09/30/18 13:10: Sodium 140, Potassium 3.5, BUN 1 L, Creatinine 0.70, Glucose 410 H*, Magnesium 2.1 D, Total Bilirubin 7.0 H*, AST 230 H, ALT 34, Alkaline Phosphatase 180 H Treatment Summary: Hepatic encephalopathy Liver cirrhosis, secondary to alcohol Esophageal varices, secondary to liver cirrhosis Gastric ulcer Alcohol abuse Hyperglycemia, without diagnosis of diabetes Elevated total bilirubin Patient was admitted to the floor with tele. He was monitored for alcohol withdrawal symptoms, for which did not have any. He was started on Banana bag, thiamine, folate and multivitamin along with Ativan prn. He did not require any Ativan overnight. Discussed extensively regarding alcohol cessation. Resources were provided at discharge. He will follow up with his primary care physician, Dr. riggs. He will also follow up with his outpatient gastroenterology/liver specialist. Blood sugars trended down. Patient back to baseline mentation, he would like to go home and follow up outpatient. . - Disposition Discharge Date: 10/01/18 Disposition: ROUTINE DISCHARGE Condition: GOOD Patient Discharge Instructions: Please follow up with the primary care physician in next 1 week. Please look at resources provided to you regarding alcohol cessation. Diet: Regular Activity: Ad juany Physician Review: Patient Assessed, Agree with Above Assessment and Plan Time Spent Managing Pts Care (In Minutes): 55
[2018-10-01 12:47] VITALS: TEMP 101
== END 2018-10-01 14:25 | disposition home or self-care (01) ==
LOC: ER 12:49 → ERHOLD 16:05 → 4TH 17:33
PROVIDERS: ADMIT Family Medicine; ATTEND Family Medicine
DX: K72.90 Hepatic failure, unspecified without coma (principal); K70.30 Alcoholic cirrhosis of liver without ascites; F10.10 Alcohol abuse, uncomplicated; I10 Essential (primary) hypertension; I85.00 Esophageal varices without bleeding; K25.9 Gastric ulcer, unspecified as acute or chronic, without hemorrhage or perforation; R73.9 Hyperglycemia, unspecified
CPT/HCPCS: 36415; 71045; 80048; 80053; 80076; 80320; 82140; 82962; 83735; 83880; 84100; 85025; 85610; 85730; 93005; 94760; 96374; 99285; G0378; J1650; J3411; J7030

== ENCOUNTER 2018-12-30 10:26 | Emergency (ER) | payer SELFPAY ==
--- OUTSIDE RECORDS SUMMARY | 2018-12-30 10:34 | XMS REPORT | Clinical Summary ---
:1985 Author Organization [facility] Address [address] [place] [address] Care Team Providers Name Role Phone Unavailable [...] Date Type Specialty Care Team Description 09/18/2018 Anesthesia Event Gastroenterology Dayo Waddell MD 09/18/2018 Surgery Gastroenterology Jovana Young UPPER ENDOSCOPY MD Don 09/17/2018 Hospital Intensive Care Daniel, Acute liver disease; - Encounter Jarrod Alcohol withdrawal syndrome, with delirium (HCC); 09/18/2018 MD Ariadna Alcoholic cirrhosis of liver without ascites (HCC); Delfino Hematochezia; Jarrod Anemia associated with acute blood loss; MD Adam Thrombocytopenia (HCC); Nelson Pabol, Alcohol dependence with uncomplicated withdrawal (HCC ); ETOH abuse; Liver mass; Jaundice; Portal hypertension (HCC); Acute alcoholic hepatitis after 12/29/2017 Immunizations Name Dates Previously Given Next Due [...] CDT procedure are in the results section. [id number]\\, SERUM Routine 09/17/2018 6:55 AM Results for [...] procedure are in the results section. after 12/29/2017 Results RHYTHM STRIP - SCAN (09/22/2018 11:00 [...] (H)Comment: TESTED AT 70 - 110 mg/dL [facility] [address] [facility] [address] Specimen Blood Performing Organization Address City/State/Zipcode Phone Number [address] [address] CENTER CBC with platelet count + automated diff (09/18/2018 6:21 AM CDT)Only the most recent of5 resultswithin the time period is included. WBC 9.4 3.5 - 10.5 K/L [facility] RBC 3.20 (L) 4.63 - 6.08 M/L [facility] Hemoglobin 9.8 (L) 13.7 - 17.5 GM/DL [facility] Hematocrit 30.5 (L) 40.1 - 51.0 % [facility] MCV 95.3 (H) 79.0 - 92.2 fL [facility] MCH 30.6 25.7 - 32.2 pg [facility] MCHC 32.1 (L) 32.3 - 36.5 GM/DL [facility] RDW 19.2 (H) 11.6 - 14.4 % [facility] Platelets 144 (L) 150 - 450 K/CU MM [facility] MPV 12.0 9.4 - 12.4 fL [facility] nRBC 0 0 - 0 /100 WBC [facility] % Neutros 65 % [facility] % Lymphs 16 % [facility] % Monos 13 % [facility] % Eos 3 % [facility] % Baso 2 % [facility] # Neutros 6.10 (H) 1.78 - 5.38 K/L [facility] # Lymphs 1.51 1.32 - 3.57 K/L [facility] # Monos 1.20 (H) 0.30 - 0.82 K/L [facility] # Eos 0.32 0.04 - 0.54 K/L [facility] # Baso 0.14 (H) 0.01 - 0.08 K/L [facility] Immature Granulocytes-Relative 2 (H) 0 - 1 % [facility] Specimen Blood Performing Organization Address City/State/Zipcode Phone Number [address] [address] CENTER Comprehensive metabolic panel (09/18/2018 4:04 AM CDT)Only the most recent of2 resultswithin the time period is included. Protein, Total 7.5 6.0 - 8.3 gm/dL [facility] Albumin 2.9 (L) 3.5 - 5.0 g/dL [facility] Alkaline Phosphatase 150 40 - 150 U/L [facility] Total Bilirubin 7.2 (H) 0.2 - 1.2 mg/dL [facility] Sodium 133 (L) 136 - 145 meq/L [facility] Potassium 3.6 3.5 - 5.1 meq/L [facility] Chloride 101 98 - 107 meq/L [facility] CO2 25 22 - 29 meq/L [facility] BUN 6 (L) 7 - 21 mg/dL [facility] Creatinine 0.68 0.57 - 1.25 mg/dL [facility] Glucose 132 (H) 70 - 105 mg/dL [facility] Calcium 7.8 (L) 8.4 - 10.2 mg/dL [facility] AST 223 (H) 5 - 34 U/L [facility] ALT 21 6 - 55 U/L [facility] EGFR Comment: INSUFFICIENT mL/min/1.73 sq m [facility] CLINICAL DATA TO [facility] CALCULATE ESTIMATED GFR. Specimen Blood Narrative Performed At [facility] Specimen moderately icteric Performing Organization Address City/State/Zipcode Phone Number [facility] [address] CENTER US doppler (09/17/2018 8:30 PM CDT) Narrative Performed At FINAL REPORT [facility] Abdominal ultrasound and Doppler Clinical History:Cirrhosis Discussion: [...] MD Report Verified Date/Time:09/17/2018 21:23:28 Reading Location: [address] Consult Reading Room Procedure Note Interface, [...] Report Verified Date/Time: 09/17/2018 21:23:28 Reading Location: [address] Consult Reading Room Performing Organization Address City/State/Zipcode Phone Number [employer] US abdomen complete (09/17/2018 8:30 PM CDT) Narrative Performed At FINAL REPORT [employer] Abdominal ultrasound and Doppler Clinical History:Cirrhosis Discussion: [...] MD Report Verified Date/Time:09/17/2018 21:23:28 Reading Location: [address] Consult Reading Room Procedure Note Interface, [...] Report Verified Date/Time: 09/17/2018 21:23:28 Reading Location: [address] Consult Reading Room Performing Organization Address [facility] Phone Number [facility] Carbohydrate antigen 19-9 (CA 19-9) (09/17/2018 3:28 PM CDT) CA 19-9 18 <34 U/mL [facility] Comment: This test was performed using the Siemens ([employer]) Chemiluminescent method. Values obtained from different assay methods cannot be used interchangeably. CA19-9 levels, regardless of value, should not be interpreted as absolute evidence of the presence or absence of disease. Specimen Blood - Line, Venous Narrative Performed At Performing Lab [facility] [address] [place] [address] [place] [address] Idania Gray MD, PhD, DOMINIQUE Performing Organization Address City/[facility] Phone Number [employer] [address] INCORPORATED [address] [facility] Carcinoembryonic Antigen (CEA) (09/17/2018 3:28 PM CDT) CEA, SERUM 4.0 0.0 - 5.0 ng/mL [facility] Specimen Blood - Line, Venous Performing Organization Address [facility]/State/Zipcode Phone Number [facility] [address] [place], [place] [address] [phone] [place] Urinalysis w/Microscopic + Reflex to Culture (09/17/2018 12:46 PM CDT) Color, UA Yellow [facility] Clarity, UA Clear [facility] Specific [place], UA 1.034 1.001 - 1.035 [facility] pH, UA 7.0 5.0 - 8.0 [facility] Protein, UA Negative Negative [facility] Glucose, UA Negative Negative [facility] Ketones, UA Negative Negative [facility] Bilirubin, UA Positive (A) Negative [facility] Blood, UA Negative Negative [facility] Nitrite, UA Negative Negative [facility] Leukocytes, UA Negative Negative [facility] Urobilinogen, UA 4.0 (H) 0.2 - 1.0 mg/dL [facility] RBC, UA 0 /HPF [facility] WBC, UA 0 /HPF [facility] Squam Epithel, UA 1 /HPF [facility] Specimen Source [facility] Specimen Urine - Urine, Voided Performing Organization Address City/State/Zipcode Phone Number [facility] [address] [place] [address] CENTER Drug screen, urine, transplant (09/17/2018 12:46 PM CDT) Specimen Urine Narrative Performed At Performing Organization Address City/State/Zipcode Phone Number [facility] [place] [address] [place] [address] Drug screen, urine, comprehensive (09/17/2018 12:46 PM CDT) Specimen Urine Narrative Performed At Hepatitis A antibody, IgG (09/17/2018 11:41 AM CDT) Hep A IgG Reactive (A) Nonreactive [facility] Specimen Blood - Line, Venous Performing Organization Address [facility] Phone Number [address] [address] [phone] [place] Hepatitis B core antibody, total (09/17/2018 11:41 AM CDT) Hep B Core Total Ab NON-REACTIVE Nonreactive [facility] Specimen Blood - Line, Venous Performing Organization Address [facility] Phone Number [address] [address] [phone] [place] Immunoglobulin G (IgG) (09/17/2018 11:41 AM CDT) IgG 1,727 540 - 1,822 mg/dL [facility] Specimen Blood - Line, Venous Performing Organization Address [facility] Phone Number [address] [address] [place] Bilirubin, direct (09/17/2018 11:41 AM CDT) Bilirubin, Direct 4.4 (H)Comment: Specimen 0.1 - 0.5 mg/dL [facility] slightly hemolyzed [facility] Specimen Blood - Line, Venous Performing Organization Address [facility] Phone Number [address] [address] [phone] [place] IgG subclasses panel (09/17/2018 10:18 AM CDT) [...] Lab [facility] [address] [place] [address] Idania Gray MD, PhD, DOMINIQUE Performing Organization Address [facility]/Zipcode Phone [place] [address] INCORPORATED [address] [facility] [facility] Anti-Mitochondrial Ab, reflex to titer (09/17/2018 9:01 AM CDT) Scan Result [facility] Specimen Blood Narrative Performed At Performing Organization Address [facility] Cent[facility] Phone [place] [address] INCORPORATED [address] [facility] Type and screen, automated (09/17/2018 9:01 AM CDT) ABO/RH AUTOMATED (BEAKER) O POSITIVE [facility] Ab Scrn NEGATIVE [facility] Specimen Blood Performing Organization Address [facility] Cent[facility] Phone Number [address] [address] Ethanol (09/17/2018 9:01 AM CDT) Ethanol Lvl <10 <=10 mg/dL [facility] Specimen Blood Performing Organization Address [facility] Centerconv Phone Number [address] [address] [phone] CENTER Blood culture #2 (09/17/2018 7:09 AM CDT)Only the most recent of2 resultswithin the time period is included. Result No growth in 5 days [facility] Specimen Blood - Arm, Left Performing Organization Address [facility] Centercode Phone Number [address] [address] CENTER Procalcitonin (09/17/2018 6:55 AM CDT) Procalcitonin 0.25 (H) <0.05 ng/mL [facility] Specimen Blood Narrative Performed At [facility] SEPSIS RISK (ng/mL) Low:0.05-0.50 Intermediate: 0.51-2.00 High: >=2.01 Performing Organization Address [facility] Cent[facility] Phone Number [address] [address] CENTER Iron, TIBC, % sat. (without ferritin) (09/17/2018 6:55 AM CDT) Iron 147 40 - 160 ug/dL [facility] TIBC 251 250 - 450 ug/dL [facility] Iron % Saturation 59 (H) 20 - 55 % [facility] Specimen Blood Performing Organization Address [facility] Phone Number [address] [address] [phone] [place] Actin (Smooth Muscle) Antibody, IgG (09/17/2018 6:55 [...] [facility] [place] [address] [place] [address] Idania Gray MD, PhD, DOMINIQUE Performing Organization Address [facility] Phone Number [place] [address] INCORPORATED [address] [facility] [id number]-1-pohyvkjqefl (09/17/2018 6:55 AM CDT) A-1 Antitrypsin 245.40 (H) 90.00 - 200.00 mg/dL [facility] Specimen Blood Performing Organization Address [facility] Phone Number [address] [address] [place] Lactic acid, venous, whole blood (09/17/2018 6:55 AM CDT) Lactate, Venous 0.8 0.5 - 2.2 mmol/L [facility] Specimen Blood Narrative Performed At [facility] Effective 03/27/2016: Units/Reference Range Change New: 0.5-2.2 mmol/LPrevious: 5-20 mg/dL Specimen moderately icteric Performing Organization Address [facility] [place] [facility] Centercode Phone Number [facility] [address] [place] [address] CENTER Ceruloplasmin (09/17/2018 6:55 AM CDT) Ceruloplasmin 30 18 - 36 mg/dL [facility] Comment: Adults:Males: 18-36 mg/dL Females: 18-53 mg/dL Pediatrics:Males (mg/dL)Females (mg/dL) 0-30 Days 8-25 3-28 31 Days-11 Month [id number] 1-3 [id number] 4-6 [id number] 7-9 [id number] 10-12 [id number] 13-15 [id number] 16-18 [id number] The pediatric ranges are derived from the following criteria: Ra SJ, Thien JM, Malissa J et al Pediatric reference ranges for Pwlv-1-Yzbwtmzckxrbr and ceruloplasmin. Clin. Chem 1997; 43:S1999 Pediatric Reference Ranges, 2nd., [place] Raet al. editors. [employer], [place], [place] 1997. Specimen Blood Narrative Performed At Performing Lab [facility] *SPL [facility], [address] [place] [address] Pedro Martin MD, PhD Performing Organization Address City/State/Zipcode Phone Number [facility], [place] [address] INCORPORATED [address] [facility] Alpha fetoprotein (AFP), tumor marker (09/17/2018 6:55 AM CDT) Alpha-Fetoprotein 9.2 <10.0 ng/mL [facility] Specimen Blood Performing Organization Address City/[facility] Centercode Phone Number [address] [address] [phone] [place] Hepatitis panel, acute (09/17/2018 6:55 AM CDT) Hep A IgM REACTIVE (A) Nonreactive [facility] Hep B C IgM NON-REACTIVE Nonreactive [facility] Hepatitis C Ab NON-REACTIVE Nonreactive [facility] hepatitis B Surface Ag NON-REACTIVE Nonreactive [facility] Specimen Blood Performing Organization Address [facility] Phone Number [address] [address] [phone] [place] aPTT (09/17/2018 6:55 AM CDT) PTT 40.0 (H) 22.5 - 36.0 seconds [facility] Specimen Blood Performing Organization Address City/[facility] Phone Number [address] [address] CENTER Prothrombin time/INR (09/17/2018 6:55 AM CDT) Protime 17.0 (H) 11.7 - 14.7 seconds [facility] INR 1.4 <=5.9 [facility] Specimen Blood Narrative Performed At [facility] RECOMMENDED COUMADIN/WARFARIN INR THERAPY RANGES STANDARD DOSE: 2.0 - 3.0 Includes: PROPHYLAXIS for venous thrombosis, systemic embolization; TREATMENT for venous thrombosis and/or pulmonary embolus. HIGH RISK: Target INR is 2.5-3.5 for patients with mechanical heart valves. Performing Organization Address City/[facility] [place] [facility] Centercode Phone Number [address] [address] [phone] [place] Anti-Nuclear Antibody (NATE) (09/17/2018 6:55 AM CDT) NATE Negative Negative [facility] Specimen Blood Narrative Performed At Test performed by IFA method. [facility] Test performed by IFA method. Performing Organization Address City/[facility] [place] [facility] Centercode Phone Number [address] [address] CENTER Phosphorus (09/17/2018 6:55 AM CDT) Phosphorus 2.5 2.3 - 4.7 mg/dL [facility] Specimen Blood Performing Organization Address [facility] Phone Number [address] [address] [phone] CENTER Magnesium (09/17/2018 6:55 AM CDT) Magnesium 1.8 1.6 - 2.6 mg/dL [facility] Specimen Blood Performing Organization Address [facility] Phone Number [address] [address] [place] Ferritin (09/17/2018 6:55 AM CDT) Ferritin 276 (H) 5 - 275 ng/mL [facility] Specimen Blood Performing Organization Address [facility] Phone Number [address] [address] CENTER Acetaminophen level (09/17/2018 6:55 AM CDT) Acetaminophen Level <5.7 (L) 10.0 - 30.0 ug/mL [facility] Specimen Blood Narrative Performed At [facility] Therapeutic Range: 10.0-30.0 g/mL Toxic Levels:>200.0 g/mL Performing Organization Address [facility] Centerconv Phone Number [address] [phone] CENTER after 12/29/2017 Advance Directives For more information, please contact:[address] [place], [place] [phone] Code Status Date Activated Date Inactivated Comments Full Code 09/17/2018 6:49 AM 09/18/2018 5:09 PM This code status was determined by: Patient
--- OUTSIDE RECORDS SUMMARY | 2018-12-30 10:35 | XMS REPORT ---
:1985 [facility] Organization [facility] Address [address] [place] [address] [address] [place] [address] Care Team Providers Name Role Phone IAN [...] Value Reference Range Comments SCAN RESULT (test edys=[id number]) BLOOD [id number] 12:01:00 Test Item Value Reference Range Comments CULTURE (BEAKER) (test qgpw=4012) No growth in 5 days BLOOD [id number] 12:01:00 Test Item Value Reference Range Comments CULTURE (BEAKER) (test ryey=2704) No growth in 5 days HEPATITIS PANEL, [id number] 13:35:00 Test Item Value Reference Range Comments HEPATITIS A IGM ANTIBODY (BEAKER) (test Reactive Nonreactive cvjm=935) HEPATITIS B CORE IGM ANTIBODY (BEAKER) (test Nonreactive Nonreactive ifdg=097) HEPATITIS C ANTIBODY (BEAKER) (test ejpl=830) Nonreactive Nonreactive HEPATITIS B SURFACE ANTIGEN (2) (BEAKER) (test Nonreactive Nonreactive qkcq=8582) ANTI-NUCLEAR ANTIBODY (NATE)2018-09-21 13:07:00 Test Item Value Reference Range Comments ANTI-NUCLEAR ANTIBODY (NATE) (BEAKER) (test Negative Negative jawt=907) Test performed by IFA method.Test performed by IFA method.CBC W/PLT COUNT & AUTO [id number] 06:36:00 Test Item Value Reference Range Comments WHITE BLOOD CELL COUNT (BEAKER) (test cnzr=885) 9.4 K/ L 3.5-10.5 RED BLOOD CELL COUNT (BEAKER) (test pdme=952) 3.20 M/ L 4.63-6.08 HEMOGLOBIN (BEAKER) (test brtg=984) 9.8 GM/DL 13.7-17.5 HEMATOCRIT (BEAKER) (test sebq=437) 30.5 % 40.1-51.0 MEAN CORPUSCULAR VOLUME (BEAKER) (test jdcg=506) 95.3 fL 79.0-92.2 MEAN CORPUSCULAR HEMOGLOBIN (BEAKER) (test 30.6 pg 25.7-32.2 wyyb=876) MEAN CORPUSCULAR HEMOGLOBIN CONC (BEAKER) (test 32.1 GM/DL 32.3-36.5 guyr=441) RED CELL DISTRIBUTION WIDTH (BEAKER) (test 19.2 % 11.6-14.4 fpka=961) PLATELET COUNT (BEAKER) (test brpl=916) 144 K/CU MM 150-450 MEAN PLATELET VOLUME (BEAKER) (test iakb=702) 12.0 fL 9.4-12.4 NUCLEATED RED BLOOD CELLS (BEAKER) (test 0 /100 WBC 0-0 bfuu=902) NEUTROPHILS RELATIVE PERCENT (BEAKER) (test 65 % uxbr=473) LYMPHOCYTES RELATIVE PERCENT (BEAKER) (test 16 % wkyv=723) MONOCYTES RELATIVE PERCENT (BEAKER) (test 13 % pmrw=358) EOSINOPHILS RELATIVE PERCENT (BEAKER) (test 3 % kwqf=247) BASOPHILS RELATIVE PERCENT (BEAKER) (test 2 % hnsj=432) NEUTROPHILS ABSOLUTE COUNT (BEAKER) (test 6.10 K/ L 1.78-5.38 oipq=910) LYMPHOCYTES ABSOLUTE COUNT (BEAKER) (test 1.51 K/ L 1.32-3.57 wavy=060) MONOCYTES ABSOLUTE COUNT (BEAKER) (test 1.20 K/ L 0.30-0.82 jdcs=024) EOSINOPHILS ABSOLUTE COUNT (BEAKER) (test 0.32 K/ L 0.04-0.54 ndzw=459) BASOPHILS ABSOLUTE COUNT (BEAKER) (test 0.14 K/ L 0.01-0.08 mtth=404) IMMATURE GRANULOCYTES-RELATIVE PERCENT (BEAKER) 2 % 0-1 (test qhkf=8923) POCT-GLUCOSE [id number] 06:31:00 Test Item Value Reference Range Comments POC-GLUCOSE METER (BEAKER) 126 mg/dL 70-[address] [facility] [address] [facility] (test nmdg=2380) [facility] [address] COMPREHENSIVE METABOLIC [id number] 04:53:00 Test Item Value Reference Range Comments TOTAL PROTEIN (BEAKER) 7.5 gm/dL 6.0-8.3 (test fgaw=771) ALBUMIN (BEAKER) (test 2.9 g/dL 3.5-5.0 sdab=5281) ALKALINE PHOSPHATASE 150 U/L 40-150 (BEAKER) (test lijx=891) BILIRUBIN TOTAL (BEAKER) 7.2 mg/dL 0.2-1.2 (test xifj=461) SODIUM (BEAKER) (test 133 meq/L 136-145 tkxx=355) POTASSIUM (BEAKER) (test 3.6 meq/L 3.5-5.1 jsmk=162) CHLORIDE (BEAKER) (test 101 meq/L 98-107 aosb=462) CO2 (BEAKER) (test 25 meq/L 22-29 ejxy=945) BLOOD UREA NITROGEN 6 mg/dL 7-21 (BEAKER) (test icec=687) CREATININE (BEAKER) (test 0.68 mg/dL 0.57-1.25 noyp=767) GLUCOSE RANDOM (BEAKER) 132 mg/dL 70-105 (test rhpy=568) CALCIUM (BEAKER) (test 7.8 mg/dL 8.4-10.2 nrcs=647) AST (SGOT) (BEAKER) (test 223 U/L 5-34 webl=450) ALT (SGPT) (BEAKER) (test 21 U/L 6-55 dvkz=903) EGFR (BEAKER) (test mL/min/1.73 sq m INSUFFICIENT CLINICAL DATA nwou=4286) TO CALCULATE ESTIMATED GFR. Specimen moderately ictericCBC W/PLT COUNT & AUTO [id number] 00: 15:00 Test Item Value Reference Range Comments WHITE BLOOD CELL COUNT (BEAKER) (test njko=050) 9.5 K/ L 3.5-10.5 RED BLOOD CELL COUNT (BEAKER) (test jeun=775) 3.17 M/ L 4.63-6.08 HEMOGLOBIN (BEAKER) (test achi=255) 9.7 GM/DL 13.7-17.5 HEMATOCRIT (BEAKER) (test vzjt=215) 30.1 % 40.1-51.0 MEAN CORPUSCULAR VOLUME (BEAKER) (test ugxg=856) 95.0 fL 79.0-92.2 MEAN CORPUSCULAR HEMOGLOBIN (BEAKER) (test 30.6 pg 25.7-32.2 fukk=693) MEAN CORPUSCULAR HEMOGLOBIN CONC (BEAKER) (test 32.2 GM/DL 32.3-36.5 givj=988) RED CELL DISTRIBUTION WIDTH (BEAKER) (test 19.3 % 11.6-14.4 iamw=784) PLATELET COUNT (BEAKER) (test auwx=202) 134 K/CU MM 150-450 MEAN PLATELET VOLUME (BEAKER) (test tjeo=276) 12.1 fL 9.4-12.4 NUCLEATED RED BLOOD CELLS (BEAKER) (test 0 /100 WBC 0-0 hvyq=940) NEUTROPHILS RELATIVE PERCENT (BEAKER) (test 68 % vwde=608) LYMPHOCYTES RELATIVE PERCENT (BEAKER) (test 16 % zipo=935) MONOCYTES RELATIVE PERCENT (BEAKER) (test 12 % dbtf=191) EOSINOPHILS RELATIVE PERCENT (BEAKER) (test 2 % dbsc=023) BASOPHILS RELATIVE PERCENT (BEAKER) (test 1 % tcfn=327) NEUTROPHILS ABSOLUTE COUNT (BEAKER) (test 6.43 K/ L 1.78-5.38 oooi=507) LYMPHOCYTES ABSOLUTE COUNT (BEAKER) (test 1.47 K/ L 1.32-3.57 ndnq=989) MONOCYTES ABSOLUTE COUNT (BEAKER) (test 1.13 K/ L 0.30-0.82 qwkc=933) EOSINOPHILS ABSOLUTE COUNT (BEAKER) (test 0.23 K/ L 0.04-0.54 yqqm=349) BASOPHILS ABSOLUTE COUNT (BEAKER) (test 0.13 K/ L 0.01-0.08 hlvw=981) IMMATURE GRANULOCYTES-RELATIVE PERCENT (BEAKER) 1 % 0-1 (test bean=4904) POCT-GLUCOSE [id number] 00:13:00 Test Item Value Reference Range Comments POC-GLUCOSE METER (BEAKER) 212 mg/dL 70-[address] [facility] [address] [facility] (test kxvl=2332) [facility] [address] U/S, ABDOMINAL, [id number] 21:23:00With dopplersReason for exam:-> RUQ ABD US [...] 4. Unremarkable abdominal Doppler Signed: Alessandra Brown VerifiedDate/Time: 09/17/2018 21:23:28 Reading Location: [address] Consult Reading Room U/S, DUPLEX, [id number] 21:23:00Reason for exam:-& gt;RUQ ABD US W/ [...] Brown MDReport VerifiedDate/Time: 09/17/2018 21:23:28 Reading Location: [facility] B1 [id number] Consult Reading Room POCT-GLUCOSE [id number] 18:02:00 Test Item Value Reference Range Comments POC-GLUCOSE METER (BEAKER) 135 mg/dL 70-[address] [facility] [address] [facility] (test qqww=8242) [facility] [address] CBC W/PLT COUNT & AUTO [id number] 17:56:00 Test Item Value Reference Range Comments WHITE BLOOD CELL COUNT (BEAKER) (test ycbh=244) 10.2 K/ L 3.5-10.5 RED BLOOD CELL COUNT (BEAKER) (test crre=920) 3.34 M/ L 4.63-6.08 HEMOGLOBIN (BEAKER) (test zvxi=896) 10.3 GM/DL 13.7-17.5 HEMATOCRIT (BEAKER) (test fxem=841) 31.2 % 40.1-51.0 MEAN CORPUSCULAR VOLUME (BEAKER) (test kdgb=146) 93.4 fL 79.0-92.2 MEAN CORPUSCULAR HEMOGLOBIN (BEAKER) (test 30.8 pg 25.7-32.2 jcaz=738) MEAN CORPUSCULAR HEMOGLOBIN CONC (BEAKER) (test 33.0 GM/DL 32.3-36.5 ngkn=975) RED CELL DISTRIBUTION WIDTH (BEAKER) (test 19.1 % 11.6-14.4 vjkp=990) PLATELET COUNT (BEAKER) (test wwyx=731) 134 K/CU MM 150-450 MEAN PLATELET VOLUME (BEAKER) (test hklo=157) 11.4 fL 9.4-12.4 NUCLEATED RED BLOOD CELLS (BEAKER) (test 0 /100 WBC 0-0 hyed=633) NEUTROPHILS RELATIVE PERCENT (BEAKER) (test 69 % vqac=424) LYMPHOCYTES RELATIVE PERCENT (BEAKER) (test 14 % vezk=792) MONOCYTES RELATIVE PERCENT (BEAKER) (test 12 % wxkb=717) EOSINOPHILS RELATIVE PERCENT (BEAKER) (test 2 % kpzb=246) BASOPHILS RELATIVE PERCENT (BEAKER) (test 1 % mdcs=670) NEUTROPHILS ABSOLUTE COUNT (BEAKER) (test 7.05 K/ L 1.78-5.38 yeua=367) LYMPHOCYTES ABSOLUTE COUNT (BEAKER) (test 1.46 K/ L 1.32-3.57 uybu=352) MONOCYTES ABSOLUTE COUNT (BEAKER) (test 1.19 K/ L 0.30-0.82 duat=258) EOSINOPHILS ABSOLUTE COUNT (BEAKER) (test 0.20 K/ L 0.04-0.54 mefv=235) BASOPHILS ABSOLUTE COUNT (BEAKER) (test 0.11 K/ L 0.01-0.08 ergk=419) IMMATURE GRANULOCYTES-RELATIVE PERCENT (BEAKER) 2 % 0-1 (test ufyy=0126) CARCINOEMBRYONIC ANTIGEN (CEA)2018-09-17 16:30:00 Test Item Value Reference Range Comments CARCINOEMBRYONIC ANTIGEN (BEAKER) (test ppus=950) 4.0 ng/mL 0.0-5.0 CBC W/PLT COUNT & AUTO [id number] 15:39:00 Test Item Value Reference Range Comments WHITE BLOOD CELL COUNT (BEAKER) (test dcrh=215) 9.2 K/ L 3.5-10.5 RED BLOOD CELL COUNT (BEAKER) (test zjzc=418) 3.30 M/ L 4.63-6.08 HEMOGLOBIN (BEAKER) (test lsvh=591) 10.0 GM/DL 13.7-17.5 HEMATOCRIT (BEAKER) (test icxd=713) 30.8 % 40.1-51.0 MEAN CORPUSCULAR VOLUME (BEAKER) (test vcbb=332) 93.3 fL 79.0-92.2 MEAN CORPUSCULAR HEMOGLOBIN (BEAKER) (test 30.3 pg 25.7-32.2 ayii=468) MEAN CORPUSCULAR HEMOGLOBIN CONC (BEAKER) (test 32.5 GM/DL 32.3-36.5 teiz=831) RED CELL DISTRIBUTION WIDTH (BEAKER) (test 19.3 % 11.6-14.4 hinx=845) PLATELET COUNT (BEAKER) (test xfsw=385) 127 K/CU MM 150-450 MEAN PLATELET VOLUME (BEAKER) (test jnnd=573) 11.8 fL 9.4-12.4 NUCLEATED RED BLOOD CELLS (BEAKER) (test 0 /100 WBC 0-0 ltfd=095) NEUTROPHILS RELATIVE PERCENT (BEAKER) (test 70 % zxov=122) LYMPHOCYTES RELATIVE PERCENT (BEAKER) (test 13 % wbtf=054) MONOCYTES RELATIVE PERCENT (BEAKER) (test 12 % segd=633) EOSINOPHILS RELATIVE PERCENT (BEAKER) (test 2 % cshl=673) BASOPHILS RELATIVE PERCENT (BEAKER) (test 1 % mjmc=529) NEUTROPHILS ABSOLUTE COUNT (BEAKER) (test 6.45 K/ L 1.78-5.38 qopj=477) LYMPHOCYTES ABSOLUTE COUNT (BEAKER) (test 1.23 K/ L 1.32-3.57 bojs=350) MONOCYTES ABSOLUTE COUNT (BEAKER) (test 1.12 K/ L 0.30-0.82 gnat=944) EOSINOPHILS ABSOLUTE COUNT (BEAKER) (test 0.16 K/ L 0.04-0.54 eaba=414) BASOPHILS ABSOLUTE COUNT (BEAKER) (test 0.12 K/ L 0.01-0.08 bezo=367) IMMATURE GRANULOCYTES-RELATIVE PERCENT (BEAKER) 1 % 0-1 (test syht=4161) HEPATITIS A ANTIBODY, [id number] 14:34:00 Test Item Value Reference Range Comments HEPATITIS A IGG ANTIBODY (BEAKER) (test yyzu=2271) Reactive Nonreactive HEPATITIS B CORE ANTIBODY, [id number] 14:31:00 Test Item Value Reference Range Comments HEPATITIS B CORE TOTAL ANTIBODY (BEAKER) (test Nonreactive Nonreactive xdik=594) URINALYSIS W/ REFLEX URINE [id number] 13:18:00 Test Item Value Reference Range Comments COLOR (BEAKER) (test zcde=013) Yellow CLARITY (BEAKER) (test kkxj=119) Clear SPECIFIC GRAVITY UA (BEAKER) (test tpni=248) 1.034 1.001-1.035 PH UA (BEAKER) (test wowu=455) 7.0 5.0-8.0 PROTEIN UA (BEAKER) (test toky=431) Negative Negative GLUCOSE UA (BEAKER) (test udpt=156) Negative Negative KETONES UA (BEAKER) (test netv=467) Negative Negative BILIRUBIN UA (BEAKER) (test gfxr=656) Positive Negative BLOOD UA (BEAKER) (test zaow=169) Negative Negative NITRITE UA (BEAKER) (test jnft=955) Negative Negative LEUKOCYTE ESTERASE UA (BEAKER) (test hbhl=541) Negative Negative UROBILINOGEN UA (BEAKER) (test bjgs=629) 4.0 mg/dL 0.2-1.0 RBC UA (BEAKER) (test gibr=882) 0 /HPF WBC UA (BEAKER) (test ukdj=679) 0 /HPF SQUAMOUS EPITHELIAL (BEAKER) (test kklr=809) 1 /HPF SOURCE(BEAKER) (test zefa=0204) ALPHA FETOPROTEIN (AFP), TUMOR [id number] 13:18:00 Test Item Value Reference Range Comments ALPHA-FETOPROTEIN (BEAKER) (test kdux=4021) 9.2 ng/mL <10.0 BILIRUBIN, [id number] 12:15:00 Test Item Value Reference Range Comments BILIRUBIN DIRECT (BEAKER) (test 4.4 mg/dL 0.1-0.5 Specimen slightly hemolyzed winz=837) IMMUNOGLOBULIN G (IGG)2018-09-17 12:13:00 Test Item Value Reference Range Comments IMMUNOGLOBULIN G (IGG) (BEAKER) (test yavo=965) 1727 mg/dL 540-1822 [id number] 09:59:00 Test Item Value Reference Range Comments PROCALCITONIN (BEAKER) (test rlvd=0726) 0.25 ng/mL <0.05 SEPSIS RISK (ng/mL)Low: 0.05-0.50Intermediate: 0.51-2.00High: & gt;=[id number] 09:47:00 Test Item Value Reference Range Comments ETHANOL (BEAKER) (test xrpb=220) < mg/dL <=10 COMPREHENSIVE METABOLIC [id number] 09:38:00 Test Item Value Reference Range Comments TOTAL PROTEIN (BEAKER) 7.9 gm/dL 6.0-8.3 (test dtln=853) ALBUMIN (BEAKER) (test 3.1 g/dL 3.5-5.0 yaha=6030) ALKALINE PHOSPHATASE 173 U/L 40-150 (BEAKER) (test rtwg=331) BILIRUBIN TOTAL (BEAKER) 7.0 mg/dL 0.2-1.2 (test cxks=600) SODIUM (BEAKER) (test 133 meq/L 136-145 dpdu=820) POTASSIUM (BEAKER) (test 3.3 meq/L 3.5-5.1 tvre=112) CHLORIDE (BEAKER) (test 101 meq/L 98-107 ejqj=837) CO2 (BEAKER) (test 21 meq/L 22-29 dimk=502) BLOOD UREA NITROGEN 4 mg/dL 7-21 (BEAKER) (test duqn=995) CREATININE (BEAKER) (test 0.66 mg/dL 0.57-1.25 ccgl=859) GLUCOSE RANDOM (BEAKER) 134 mg/dL 70-105 (test xqsc=417) CALCIUM (BEAKER) (test 8.1 mg/dL 8.4-10.2 racv=477) AST (SGOT) (BEAKER) (test 193 U/L 5-34 qzff=114) ALT (SGPT) (BEAKER) (test 21 U/L 6-55 qixv=285) EGFR (BEAKER) (test mL/min/1.73 sq m INSUFFICIENT CLINICAL DATA lowj=3272) TO CALCULATE ESTIMATED GFR. Specimen moderately [id number] 09:31:00 Test Item Value Reference Range Comments PHOSPHORUS (BEAKER) (test ambd=625) 2.5 mg/dL 2.3-4.7 [id number] 09:31:00 Test Item Value Reference Range Comments MAGNESIUM (BEAKER) (test icfc=663) 1.8 mg/dL 1.6-2.6 LACTIC ACID, VENOUS, WHOLE [id number] 08:24:00 Test Item Value Reference Range Comments LACTATE BLOOD VENOUS (2) (BEAKER) (test 0.8 mmol/L 0.5-2.2 dcik=5109) Effective 03/27/2016: Units/Reference Range ChangeNew: 0.5-2.2 mmol/L Previous: 5 -20 mg/dLSpecimen moderately ictericACETAMINOPHEN [id number] 08:23:00 Test Item Value Reference Range Comments ACETAMINOPHEN LEVEL (BEAKER) (test zyxh=614) < ug/mL 10.0-30.0 Therapeutic Range: 10.0-30.0 g/mLToxic Levels: >200.0 g/[id number] 07:47:00 Test Item Value Reference Range Comments FERRITIN (BEAKER) (test twrt=543) 276 ng/mL 5-275 [id number] 07:46:00 Test Item Value Reference Range Comments ALPHA-1 ANTITRYPSIN (BEAKER) (test elyb=981) 245.40 mg/dL 90.00-200.00 IRON, TIBC, % SAT. (WITHOUT FERRITIN)2018-09-17 07:27:00 Test Item Value Reference Range Comments IRON (BEAKER) (test ughd=289) 147 ug/dL 40-160 TOTAL IRON BINDING CAPACITY (BEAKER) (test 251 ug/dL 250-450 ejkc=334) IRON % SATURATION (2) (BEAKER) (test gpue=0460) 59 % 20-55 [id number] 07:20:00 Test Item Value Reference Range Comments PARTIAL THROMBOPLASTIN TIME (BEAKER) (test 40.0 seconds 22.5-36.0 qcfz=226) PROTHROMBIN [id number] 07:19:00 Test Item Value Reference Range Comments PROTIME (BEAKER) (test qtcy=876) 17.0 seconds 11.7-14.7 INR (BEAKER) (test xsyp=254) 1.4 <=5.9 RECOMMENDED COUMADIN/WARFARIN INR THERAPY RANGESSTANDARD DOSE: 2.0 - 3.0 Includes: PROPHYLAXIS forvenous thrombosis, systemic embolization; TREATMENT for venous thrombosis and/or pulmonary embolus.HIGH RISK: Target INR is 2.5-3.5 for patients with mechanical heart valves.CBC W/PLT COUNT & AUTO [id number] 07:04:00 Test Item Value Reference Range Comments WHITE BLOOD CELL COUNT (BEAKER) (test aona=860) 10.3 K/ L 3.5-10.5 RED BLOOD CELL COUNT (BEAKER) (test isit=742) 3.40 M/ L 4.63-6.08 HEMOGLOBIN (BEAKER) (test uozn=805) 10.4 GM/DL 13.7-17.5 HEMATOCRIT (BEAKER) (test oqqv=482) 31.1 % 40.1-51.0 MEAN CORPUSCULAR VOLUME (BEAKER) (test sxsz=894) 91.5 fL 79.0-92.2 MEAN CORPUSCULAR HEMOGLOBIN (BEAKER) (test 30.6 pg 25.7-32.2 fwij=122) MEAN CORPUSCULAR HEMOGLOBIN CONC (BEAKER) (test 33.4 GM/DL 32.3-36.5 upls=212) RED CELL DISTRIBUTION WIDTH (BEAKER) (test 19.0 % 11.6-14.4 xacy=245) PLATELET COUNT (BEAKER) (test cptc=996) 129 K/CU MM 150-450 MEAN PLATELET VOLUME (BEAKER) (test aasq=307) 12.3 fL 9.4-12.4 NUCLEATED RED BLOOD CELLS (BEAKER) (test 0 /100 WBC 0-0 pdok=877) NEUTROPHILS RELATIVE PERCENT (BEAKER) (test 69 % eazq=150) LYMPHOCYTES RELATIVE PERCENT (BEAKER) (test 16 % nloj=016) MONOCYTES RELATIVE PERCENT (BEAKER) (test 12 % bzqx=355) EOSINOPHILS RELATIVE PERCENT (BEAKER) (test 1 % ctcm=997) BASOPHILS RELATIVE PERCENT (BEAKER) (test 1 % xpgh=004) NEUTROPHILS ABSOLUTE COUNT (BEAKER) (test 7.13 K/ L 1.78-5.38 bnno=851) LYMPHOCYTES ABSOLUTE COUNT (BEAKER) (test 1.62 K/ L 1.32-3.57 kvzg=770) MONOCYTES ABSOLUTE COUNT (BEAKER) (test 1.25 K/ L 0.30-0.82 rhdt=916) EOSINOPHILS ABSOLUTE COUNT (BEAKER) (test 0.14 K/ L 0.04-0.54 cltb=498) BASOPHILS ABSOLUTE COUNT (BEAKER) (test 0.09 K/ L 0.01-0.08 ljop=655) IMMATURE GRANULOCYTES-RELATIVE PERCENT (BEAKER) 1 % 0-1 (test ldao=2396)
[2018-12-30] MEDS ORDERED: DIAZEPAM 10 MG/2 ML INJ SYRINGE ONE (11:20)
[2018-12-30] MEDS ORDERED: ONDANSETRON 4 MG/2 ML VIAL ONE (11:20)
[2018-12-30] MEDS ORDERED: NA CHLORIDE 0.9% 1,000 ML ONE (11:20)
[2018-12-30 11:32] LABS: Absolute Lymphocytes (CBC) 0.9 K/uL (0.7-4.9); Absolute Monocytes 0.8 K/uL (0.1-1.3); Absolute Neutrophil 3.6 K/uL (1.8-8.0); Basophils % 2.3 % (0-1.3); Eosinophils % 0.4 % (0-4.4); Hematocrit 39.3 % (39.6-49.0); Lymphocytes % 17.3 % (15.3-44.8); MPV 10.1 fL (7.6-11.3); Monocytes % 14.2 % (3.3-12.3); RBC Red Blood Cell Count 4.77 M/uL (4.33-5.43)
[2018-12-30 11:55] LABS: ALT/SGPT 47 U/L (12-78); AST/SGOT 169 U/L (15-37); Albumin 3.9 g/dL (3.4-5.0); Alkaline Phosphatase 119 U/L (45-117); BUN Blood Urea Nitrogen 5 mg/dL (7-18); Bicarbonate 28 mmol/L (21-32); Bilirubin Direct 1.4 mg/dL (0-0.2); Bilirubin Total 2.9 mg/dL (0.2-1.0); Glucose Level 101 mg/dL (74-106); Lipase 148 U/L (73-393); Protein, Total 9.8 g/dL (6.4-8.2); Sodium Level 136 mmol/L (136-145)
[2018-12-30 12:14] LABS: Anisocytosis 1+; Blood Morphology Comment NOTED (NOT SEEN); Platelet Estimate DECR; Platelets, Giant 2+; Urine White Blood Cell Casts OK
--- NOTE | 2018-12-30 12:48 | RAD REPORT ---
EXAM DESCRIPTION: CT - Abdomen Pelvis W Contrast - 12/30/2018 12:30 pm CLINICAL HISTORY: Abdominal pain/left lower quadrant pain COMPARISON: August 2018 TECHNIQUE: Computed axial tomography of the abdomen pelvis was obtained. 100 cc Isovue-300 was admin istered intravenously. Oral contrast was not requested which limits evaluation of bowel. All CT scans are performed using dose optimization technique as appropriate and may include automated exposure control or mA/KV adjustment according to patient size. FINDINGS: A cirrhotic fatty liver is present. The liver is enlarged. 2 enhancing hepatic lesions are unchanged from the prior exam. The portal vein is patent. Recannulized umbilical vein with abdominal varices The spleen is mildly enlarged. The pancreas, adrenals and kidneys appear unremarkable. . There is no evidence of diverticulitis. The appendix is normal Small inguinal hernias contain fat Gallbladder is borderline distended IMPRESSION: Cirrhosis Two hepatic enhancing lesions are without significant change. These may represent adenomas, on shivani iomas or neoplasm . Nonemergent MRI is recommended Borderline gallbladder distention
--- NOTE | 2018-12-30 12:48 | RAD REPORT ---
EXAM DESCRIPTION: US - Abdomen Exam Limited - 12/30/2018 12:35 pm CLINICAL HISTORY: abdominal pain COMPARISON: Abdomen Pelvis W Contrast dated 09/17/2018; Abdomen Pelvis W Contrast dated 12/30/2018 FINDINGS: The gallbladder demonstrates no gallstones. No pericholecystic fluid or gallbladder wall t hickening. The common bile duct is normal measuring 5 mm. The liver demonstrates no findings of intrahepatic biliary dilatation. IMPRESSION: Unremarkable examination.
--- NOTE | 2018-12-30 14:13 | ER ---
Nurse's Notes [facility] Name: Dillan Johnson Age: 33 yrs Sex: Male : 1985 Arrival Date: 12/30/2018 Time: 10:28 Bed 19 Private MD: None, None Diagnosis: Vomiting;Unspecified abdominal pain Presentation: 12/30 10:43 Presenting complaint: Patient states: LLQ pain with nausea and vomiting since aa5 yesterday. Pt denies diarrhea. Transition of care: patient was not received from another setting of care. Onset of symptoms was December 2018. Risk Assessment: Do you want to hurt yourself or someone else? Patient reports no desire to harm self or others. Initial Sepsis Screen: Does the patient meet any 2 criteria? No. Patient's initial sepsis screen is negative. Does the patient have a suspected source of infection? No. Patient's initial sepsis screen is negative. Care prior to arrival: None. 10:43 Method Of Arrival: Ambulatory aa5 10:43 Acuity: NIKITA 3 aa5 Triage Assessment: 10:56 General: Appears in no apparent distress. uncomfortable, Behavior is calm, cooperative, hj appropriate for age. Pain: Complains of pain in abdomen. GI: Reports lower abdominal pain, nausea, vomiting. Historical: - Allergies: 10:44 No Known Allergies; aa5 - PMHx: 10:44 Cirrhosis; Hypertension; aa5 - PSHx: 10:44 None; aa5 - Immunization history:: Adult Immunizations unknown. - Social history:: Smoking status: Patient/guardian denies using tobacco. - Ebola Screening: : No symptoms or risks identified at this time. Screenin:56 Abuse screen: Denies threats or abuse. Denies injuries from another. Nutritional hj screening: No deficits noted. Tuberculosis screening: No symptoms or risk factors identified. Fall Risk None identified. Assessment: 10:57 GI: Abdomen is non-distended. hj Vital Signs: 10:44 BP 167 / 111; Pulse 73; Resp 16 S; Temp 98.5(TE); Pulse Ox 99% on R/A; Weight 104.33 kg aa5 (R); Height 5 ft. 9 in. (175.26 cm) (R); Pain 6/10; 10:44 Body Mass Index 33.96 (104.33 kg, 175.26 cm) aa5 ED Course: 10:28 Patient arrived in ED. mr 10:29 None, None is Private Physician. mr 10:44 Triage completed. aa5 10:44 Arm band placed on. aa5 10:47 Joe Soto, BALDEV is Primary Nurse. hj 10:49 Giuliano Aguilar PA is PHCP. [facility] 10:49 Isaiah Victoria MD is Attending Physician. jmm 10:54 Initial lab(s) drawn, by ED staff, sent to lab. Inserted saline lock: 20 gauge in left hj forearm, using aseptic technique. ,using aseptic technique. PC, SN Blood collected. 10:57 Patient has correct armband on for positive identification. Placed in gown. Bed in low hj position. Call light in reach. Side rails up X 1. Adult w/ patient. 12:29 US Abdomen Limited In Process Unspecified. EDMS 12:29 CT completed. Patient tolerated procedure well. Patient moved to CT via wheelchair. Patient moved back from CT. 12:31 CT Abd/Pelvis - W/Contrast In Process Unspecified. EDMS 12:35 Ultrasound completed. Patient tolerated well. ronnie 14:39 No provider procedures requiring assistance completed. IV discontinued, intact, hj bleeding controlled, No redness/swelling at site. Pressure dressing applied. Administered Medications: 11:06 Drug: NS 0.9% 1000 ml Route: IV; Rate: 1 bolus; Site: left forearm; hj 14:40 Follow up: IV Status: Completed infusion; IV Intake: 1000ml hj 11:06 Drug: Zofran 4 mg Route: IVP; Site: left forearm; hj 11:20 Follow up: Response: No adverse reaction; Nausea is decreased hj 11:06 Drug: Valium 5 mg Route: IVP; Site: left forearm; hj 11:19 Follow up: Response: No adverse reaction; Anxiety decreased hj Intake: 14:40 IV: 1000ml; Total: 1000ml. hj Outcome: 14:12 Discharge ordered by . jmm 14:39 Discharged to home ambulatory. hj 14:39 Condition: stable 14:39 Discharge instructions given to patient, Instructed on discharge instructions, follow up and referral plans. medication usage, Demonstrated understanding of instructions, follow-up care, medications, Prescriptions given X 1. 14:50 Patient left the ED. hj Signatures: Dispatcher [employer] EDMS Giuliano Aguilar PA PA jmm Johnston, Maricarmen mr Geoff, Wendi Marquez, RN RN aa5 Joe Soto RN RN hj Zia Soler jd
--- NOTE | 2018-12-30 14:13 | EDPHYS ---
Physician Documentation [facility] Name: Dillan Johnson Age: 33 yrs Sex: Male : 1985 Arrival Date: 12/30/2018 Time: 10:28 Bed 19 Private MD: None, None ED Physician Isaiah Victoria HPI: 12/30 10:43 This 33 yrs old Male presents to ER via Ambulatory with complaints of jmm Vomiting, High Blood Pressure. 10:43 The patient presents to the emergency department with nausea, vomiting, abdominal pain. jmm Onset: The symptoms/episode began/occurred yesterday. Possible causes: unknown. This is a 33 year old male with a history of liver cirrhosis, htn that presents to the ED with complaints of abdominal pain. Denies diarrhea. patient states he normally drinks 6 beers a day but states he has vomited when he tries to drink. Denies diarrhea. Historical: - Allergies: 10:44 No Known Allergies; aa5 - PMHx: 10:44 Cirrhosis; Hypertension; aa5 - PSHx: 10:44 None; aa5 - Immunization history:: Adult Immunizations unknown. - Social history:: Smoking status: Patient/guardian denies using tobacco. - Ebola Screening: : No symptoms or risks identified at this time. ROS: 10:43 Constitutional: Negative for fever, chills, and weight loss, Cardiovascular: Negative jmm for chest pain, palpitations, and edema, Respiratory: Negative for shortness of breath, cough, wheezing, and pleuritic chest pain. 10:43 Abdomen/GI: Positive for abdominal pain, nausea and vomiting. 10:43 All other systems are negative. Exam: 10:43 Head/Face: atraumatic. jmm 10:43 Chest/axilla: Normal chest wall appearance and motion. 10:43 Back: Normal ROM Skin: General appearance color normal MS/ Extremity: Moves all extremities, no obvious deformities appreciated, no edema noted to the lower extremities Neuro: Awake and alert, normal gait Psych: Behavior is normal, Mood is normal, Patient is cooperative and pleasant 10:43 Constitutional: The patient appears alert, awake, uncomfortable. 10:43 Eyes: Sclera: icterus. 10:43 Cardiovascular: Rate: normal, Rhythm: regular, Pulses: no pulse deficits are appreciated. 10:43 Abdomen/GI: Inspection: abdomen appears normal, Bowel sounds: normal, Palpation: soft, mild abdominal tenderness, in all quadrants. Vital Signs: 10:44 BP 167 / 111; Pulse 73; Resp 16 S; Temp 98.5(TE); Pulse Ox 99% on R/A; Weight 104.33 kg aa5 (R); Height 5 ft. 9 in. (175.26 cm) (R); Pain 6/10; 10:44 Body Mass Index 33.96 (104.33 kg, 175.26 cm) aa5 MDM: 10:55 Patient medically screened. [facility] 14:07 Data reviewed: vital signs, nurses notes. Counseling: I had a detailed discussion with [facility] the patient and/or guardian regarding: the historical points, exam findings, and any diagnostic results supporting the discharge/admit diagnosis, lab results, radiology results, the need for outpatient follow up, to return to the emergency department if symptoms worsen or persist or if there are any questions or concerns that arise at home. 14:07 ED course: Imaging studies show no acute process. Patient states he feels [facility] and tolerates PO. Patient is advised to follow up with Dr. Sandoval for reevaluation. patient given strict return precautions. . 12/30 11:03 Order name: Basic Metabolic Panel; Complete Time: 12:04 [facility] 12/30 11:03 Order name: CBC with Diff; Complete Time: 12:38 [facility] 12/30 11:03 Order name: Creatinine for Radiology; Complete Time: 11:54 [facility] 12/30 11:03 Order name: Hepatic Function; Complete Time: 12:04 [facility] 12/30 11:03 Order name: Lipase; Complete Time: 12:04 [facility] 12/30 11:37 Order name: ETOH Level; Complete Time: 12:39 [facility] 12/30 11:03 Order name: IV Saline Lock; Complete Time: 11:18 [facility] 12/30 11:03 Order name: CT Abd/Pelvis - W/Contrast; Complete Time: 12:50 [facility] 12/30 11:43 Order name: CBC Smear Scan; Complete Time: 12:38 [facility] 12/30 12:05 Order name: US Abdomen Limited; Complete Time: 12:50 [facility] 12/30 12:59 Order name: Urine Dipstick--Ancillary (enter results); Complete Time: 14:32 12/30 11:03 Order name: Labs collected and sent; Complete Time: 11:18 [facility] 12/30 11:03 Order name: Urine Dipstick-Ancillary (obtain specimen); Complete Time: 12:35 [facility] 12/30 13:34 Order name: PO challenge; Complete Time: 13:36 [facility] Administered Medications: 11:06 Drug: NS 0.9% 1000 ml Route: IV; Rate: 1 bolus; Site: left forearm; hj 14:40 Follow up: IV Status: Completed infusion; IV Intake: 1000ml 11:06 Drug: Zofran 4 mg Route: IVP; Site: left forearm; hj 11:20 Follow up: Response: No adverse reaction; Nausea is decreased hj 11:06 Drug: Valium 5 mg Route: IVP; Site: left forearm; hj 11:19 Follow up: Response: No adverse reaction; Anxiety decreased hj Disposition: 16:38 Co-signature as Attending Physician, Isaiah Victoria MD. rn Disposition: 12/30/18 14:12 Discharged to Home. Impression: Vomiting, Unspecified abdominal pain. - Condition is Stable. - Discharge Instructions: Abdominal Pain, Adult, Nausea and Vomiting, Adult. - Prescriptions for Zofran ODT 4 mg Oral tablet,disintegrating - place 1 tablet by TRANSLINGUAL route every 4-6 hours; 20 tablet. - Medication Reconciliation Form, Thank You Letter, Antibiotic Education, Prescription Opioid Use form. - Follow up: Private Physician; When: 2 - 3 days; Reason: Recheck today's complaints, Continuance of care, Re-evaluation by your physician. Signatures: Dispatcher [employer] EDMS Giuliano Aguilar PA PA [facility] Isaiah Victoria MD MD rn Calderon, Audri, RN RN aa5 Joe Soto RN RN hj Corrections: (The following items were deleted from the chart) 14:50 14:12 12/30/2018 14:12 Discharged to Home. Impression: Vomiting; Unspecified abdominal hj pain. Condition is Stable. Forms are Medication Reconciliation Form, Thank You Letter, Antibiotic Education, Prescription Opioid Use. Follow up: Private Physician; When: 2 - 3 days; Reason: Recheck today's complaints, Continuance of care, Re-evaluation by your physician. [facility]
[2018-12-30 14:25] LABS: Urine Blood NEGATIVE (NEG); Urine Glucose NEGATIVE (NEG); Urine Protein TRACE (NEG); Urine Specific Gravity 1.015 (1.005-1.030)
[2018-12-30 15:08] VITALS: BP 167/111; TEMP 98.5; O2SAT 99
== END 2018-12-30 14:50 | disposition home or self-care (01) ==
LOC: ER 10:26
DX: R10.9 Unspecified abdominal pain (principal); I10 Essential (primary) hypertension; K74.60 Unspecified cirrhosis of liver
CPT/HCPCS: 36415; 74177; 76705; 80048; 80076; 80320; 81003; 83690; 85025; 96361; 96374; 96375; 99284; J2405; J3360; J7030; Q9967

== ENCOUNTER 2019-04-14 17:53 | Emergency (ER) | payer SELFPAY ==
--- OUTSIDE RECORDS SUMMARY | 2019-04-14 18:01 | XMS REPORT | Clinical Summary ---
:1985 Author Organization [facility] Address [address] [place] [address] Care Team Providers Name Role Phone Unavailable [...] Portal hypertension (HCC); Acute alcoholic hepatitis after 04/13/2018 Immunizations Name Dates Previously Given Next Due [...] are in the results section. LACTIC ACID, VENOUS Routine 09/17/2018 6:55 AM Results for this [...] CDT procedure are in the results section. [id number]\\, SERUM Routine 09/17/2018 6:55 AM Results for [...] procedure are in the results section. after 04/13/2018 Results RHYTHM STRIP - SCAN (09/22/2018 11:00 [...] (H)Comment: TESTED AT 70 - 110 mg/dL [facility] [address] [facility] [address] Specimen Blood Performing Organization Address City/State/Zipcode Phone Number [address] [address] [phone] CENTER CBC with platelet count + automated diff (09/18/2018 6:21 AM CDT)Only the most recent of5 resultswithin the time period is included. WBC 9.4 3.5 - 10.5 K/L [facility] RBC 3.20 (L) 4.63 - 6.08 M/L [facility] Hemoglobin 9.8 (L) 13.7 - 17.5 GM/DL [facility] Hematocrit 30.5 (L) 40.1 - 51.0 % [facility] MCV 95.3 (H) 79.0 - 92.2 fL [facility] MCH 30.6 25.7 - 32.2 pg [facility] MCHC 32.1 (L) 32.3 - 36.5 GM/DL [facility] RDW 19.2 (H) 11.6 - 14.4 % [facility] Platelets 144 (L) 150 - 450 K/CU MM [facility] MPV 12.0 9.4 - 12.4 fL [facility] nRBC 0 0 - 0 /100 WBC [facility] % Neutros 65 % [facility] % Lymphs 16 % [facility] % Monos 13 % [facility] % Eos 3 % [facility] % Baso 2 % [facility] # Neutros 6.10 (H) 1.78 - 5.38 K/L [facility] # Lymphs 1.51 1.32 - 3.57 K/L [facility] # Monos 1.20 (H) 0.30 - 0.82 K/L [facility] # Eos 0.32 0.04 - 0.54 K/L [facility] # Baso 0.14 (H) 0.01 - 0.08 K/L [facility] Immature Granulocytes-Relative 2 (H) 0 - 1 % [facility] Specimen Blood Performing Organization Address City/State/Zipcode Phone Number [address] [address] CENTER Comprehensive metabolic panel (09/18/2018 4:04 AM CDT)Only the most recent of2 resultswithin the time period is included. Protein, Total 7.5 6.0 - 8.3 gm/dL [facility] Albumin 2.9 (L) 3.5 - 5.0 g/dL [facility] Alkaline Phosphatase 150 40 - 150 U/L [facility] Total Bilirubin 7.2 (H) 0.2 - 1.2 mg/dL [facility] Sodium 133 (L) 136 - 145 meq/L [facility] Potassium 3.6 3.5 - 5.1 meq/L [facility] Chloride 101 98 - 107 meq/L [facility] CO2 25 22 - 29 meq/L [facility] BUN 6 (L) 7 - 21 mg/dL [facility] Creatinine 0.68 0.57 - 1.25 mg/dL [facility] Glucose 132 (H) 70 - 105 mg/dL [facility] Calcium 7.8 (L) 8.4 - 10.2 mg/dL [facility] AST 223 (H) 5 - 34 U/L [facility] ALT 21 6 - 55 U/L [facility] EGFR Comment: INSUFFICIENT mL/min/1.73 sq m [facility] CLINICAL DATA TO [facility] CALCULATE ESTIMATED GFR. Specimen Blood Narrative Performed At [facility] Specimen moderately icteric Performing Organization Address City/State/Zipcode Phone Number [facility] [address] [address] CENTER US doppler (09/17/2018 8:30 PM CDT) Specimen Narrative Performed At FINAL REPORT [facility] Abdominal ultrasound and Doppler Clinical History:Cirrhosis [...] MD Report Verified Date/Time:09/17/2018 21:23:28 Reading Location: [address] Consult Reading Room Procedure Note Interface, [...] Report Verified Date/Time: 09/17/2018 21:23:28 Reading Location: [address] Consult Reading Room Performing Organization Address City/State/Zipcode Phone Number [facility] US abdomen complete (09/17/2018 8:30 PM CDT) Specimen Narrative Performed At FINAL REPORT [facility] Abdominal ultrasound and Doppler Clinical History:Cirrhosis Discussion: [...] MD Report Verified Date/Time:09/17/2018 21:23:28 Reading Location: [address] Consult Reading Room Procedure Note Interface, [...] Report Verified Date/Time: 09/17/2018 21:23:28 Reading Location: [address] Consult Reading Room Performing Organization Address [facility] Phone Number GE RIS Carbohydrate antigen 19-9 (CA 19-9) (09/17/2018 3:28 PM CDT) CA 19-9 18 <34 U/mL [facility] Comment: This test was performed using the Siemens (Optini) Chemiluminescent method. Values obtained from different assay methods cannot be used interchangeably. CA19-9 levels, regardless of value, should not be interpreted as absolute evidence of the presence or absence of disease. Specimen Blood Narrative Performed At Performing Lab [facility] [address] [place] [address] Idania Gray MD, PhD, DOMINIQUE Performing Organization Address City/[facility] Phone Number [facility] [place] [address] [facility] [address] [facility] Carcinoembryonic Antigen (CEA) (09/17/2018 3:28 PM CDT) CEA, SERUM 4.0 0.0 - 5.0 ng/mL [facility] Specimen Blood Performing Organization Address City/[facility] Phone Number [facility] [address] [phone] [place] Urinalysis w/Microscopic + Reflex to Culture (09/17/2018 12:46 PM CDT) Color, UA Yellow [facility] Clarity, UA Clear [facility] Specific Garner, UA 1.034 1.001 - 1.035 [facility] pH, UA 7.0 5.0 - 8.0 [facility] Protein, UA Negative Negative [facility] Glucose, UA Negative Negative [facility] Ketones, UA Negative Negative [facility] Bilirubin, UA Positive (A) Negative [facility] Blood, UA Negative Negative [facility] Nitrite, UA Negative Negative [facility] Leukocytes, UA Negative Negative [facility] Urobilinogen, UA 4.0 (H) 0.2 - 1.0 mg/dL [facility] RBC, UA 0 /HPF [facility] WBC, UA 0 /HPF [facility] Squam Epithel, UA 1 /HPF [facility] Specimen Source [facility] Specimen Urine Performing Organization Address City/State/Zipcode Phone Number [address] [address] [place] Drug screen, urine, transplant (09/17/2018 12:46 PM CDT) Specimen Urine Narrative Performed At Performing Organization Address City/State/Zipcode Phone Number [facility] [phone] [place] [address] Drug screen, urine, comprehensive (09/17/2018 12:46 PM CDT) Specimen Urine Narrative Performed At Hepatitis A antibody, IgG (09/17/2018 11:41 AM CDT) Hep A IgG Reactive (A) Nonreactive [facility] Specimen Blood Performing Organization Address [facility] Phone Number [address] [address] [phone] [place] Hepatitis B core antibody, total (09/17/2018 11:41 AM CDT) Hep B Core Total Ab NON-REACTIVE Nonreactive [facility] Specimen Blood Performing Organization Address [facility] Phone Number [address] [address] [place] Immunoglobulin G (IgG) (09/17/2018 11:41 AM CDT) IgG 1,727 540 - 1,822 mg/dL [facility] Specimen Blood Performing Organization Address [facility] Phone Number [address] [address] [phone] [place] Bilirubin, direct (09/17/2018 11:41 AM CDT) Bilirubin, Direct 4.4 (H)Comment: Specimen 0.1 - 0.5 mg/dL [facility] slightly hemolyzed [facility] Specimen Blood Performing Organization Address [facility] Phone Number [address] [address] [phone] CENTER IgG subclasses panel (09/17/2018 10:18 AM CDT) IgG 1 965 (H) 382 - 929 mg/dL [facility] Igg 2 570 241 - 700 mg/dL [facility] IgG 3 144 22 - 178 mg/dL [facility] Igg 4 18.7 4 - 86 mg/dL [facility] Igg,Serum 1773 (H) 694 - 1618 mg/dL [facility] Specimen Blood Narrative Performed At Performing Lab [facility] [address] [place] [address] Idania Gray MD, PhD, DOMINIQUE Performing Organization Address City/[facility] Phone Number [facility] [place] [address] [facility] [address] [facility] Anti-Mitochondrial Ab, reflex to titer (09/17/2018 9:01 AM CDT) Scan Result [facility] Specimen Blood Narrative Performed At Performing Organization Address City/[facility] Phone Number [facility], [place] [address] [facility]ORPORATED [address] [facility] Type and screen, automated (09/17/2018 9:01 AM CDT) ABO/RH AUTOMATED (BEAKER) O POSITIVE [facility] Ab Scrn NEGATIVE [facility] Specimen Blood Performing Organization Address [facility] Phone Number [address] [address] Ethanol (09/17/2018 9:01 AM CDT) Ethanol Lvl <10 <=10 mg/dL [facility] Specimen Blood Performing Organization Address [facility] Phone Number [address] [address] CENTER Blood culture #2 (09/17/2018 7:09 AM CDT)Only the most recent of2 resultswithin the time period is included. Result No growth in 5 days [facility] Specimen Blood Performing Organization Address [facility] Phone Number [address] [address] CENTER Procalcitonin (09/17/2018 6:55 AM CDT) Procalcitonin 0.25 (H) <0.05 ng/mL [facility] Specimen Blood Narrative Performed At [facility] SEPSIS RISK (ng/mL) Low:0.05-0.50 Intermediate: 0.51-2.00 High: >=2.01 Performing Organization Address [facility] Phone Number [address] [address] CENTER Iron, TIBC, % sat. (without ferritin) (09/17/2018 6:55 AM CDT) Iron 147 40 - 160 ug/dL [facility] TIBC 251 250 - 450 ug/dL [facility] Iron % Saturation 59 (H) 20 - 55 % [facility] Specimen Blood Performing Organization Address [facility] Phone Number [address] [address] CENTER Actin (Smooth Muscle) Antibody, IgG (09/17/2018 6:55 [...] Lab [facility] [employer] [address] [address] Idania Gray MD, PhD, DOMINIQUE Performing Organization Address [facility] Number [place] [address] [place] [address] [id number]-1-[id number] (09/17/2018 6:55 AM CDT) A-1 Antitrypsin 245.40 (H) 90.00 - 200.00 mg/dL [facility] Specimen Blood Performing Organization Address [facility] Phone Number [address] [address] [phone] CENTER Lactic acid, venous, whole blood (09/17/2018 6:55 AM CDT) Lactate, Venous 0.8 0.5 - 2.2 mmol/L [facility] Specimen Blood Narrative Performed At [facility] Effective 03/27/2016: Units/Reference Range Change New: 0.5-2.2 mmol/LPrevious: 5-20 mg/dL Specimen moderately icteric Performing Organization Address City/[facility]/Zipcode Phone Number [facility] [address] [place] [address] CENTER Ceruloplasmin (09/17/2018 6:55 AM CDT) Ceruloplasmin 30 18 - 36 mg/dL [facility] Comment: Adults:Males: 18-36 mg/dL Females: 18-53 mg/dL Pediatrics:Males (mg/dL)Females (mg/dL) 0-30 Days 8-25 3-28 31 Days-11 Month [id number] 1-3 [id number] 4-6 [id number] 7-9 [id number] 10-12 [id number] 13-15 [id number] 16-18 [id number] The pediatric ranges are derived from the following criteria: Ra SJ, Thien JM, Malissa J et al Pediatric reference ranges for Qrrw-2-Dffvdnsrfvpyj and ceruloplasmin. Clin. Chem 1997; 43:S1999 Pediatric Reference Ranges, 2nd., [place] Raet al. editors. [employer], [place], [place] 1997. Specimen Blood Narrative Performed At Performing Lab [facility] *SPL [facility], [address] [place] [address] Pedro Martin MD, PhD Performing Organization Address City/[facility]/Zipcode Phone Number [facility], [place] [address] [facility] [address] [facility] Alpha fetoprotein (AFP), tumor marker (09/17/2018 6:55 AM CDT) Alpha-Fetoprotein 9.2 <10.0 ng/mL [facility] Specimen Blood Performing Organization Address [facility] Phone Number [address] [address] [phone] [place] Hepatitis panel, acute (09/17/2018 6:55 AM CDT) Hep A IgM REACTIVE (A) Nonreactive [facility] Hep B C IgM NON-REACTIVE Nonreactive [facility] Hepatitis C Ab NON-REACTIVE Nonreactive [facility] hepatitis B Surface Ag NON-REACTIVE Nonreactive [facility] Specimen Blood Performing Organization Address [facility] Phone Number [address] [address] [phone] [place] aPTT (09/17/2018 6:55 AM CDT) PTT 40.0 (H) 22.5 - 36.0 seconds [facility] Specimen Blood Performing Organization Address [facility] Phone Number [address] [address] [place] Prothrombin time/INR (09/17/2018 6:55 AM CDT) Protime 17.0 (H) 11.7 - 14.7 seconds [facility] INR 1.4 <=5.9 [facility] Specimen Blood Narrative Performed At [facility] RECOMMENDED COUMADIN/WARFARIN INR THERAPY RANGES STANDARD DOSE: 2.0 - 3.0 Includes: PROPHYLAXIS for venous thrombosis, systemic embolization; TREATMENT for venous thrombosis and/or pulmonary embolus. HIGH RISK: Target INR is 2.5-3.5 for patients with mechanical heart valves. Performing Organization Address [facility] Phone Number [address] [address] [place] Anti-Nuclear Antibody (NATE) (09/17/2018 6:55 AM CDT) NATE Negative Negative [facility] Specimen Blood Narrative Performed At Test performed by IFA method. [facility] Test performed by IFA method. Performing Organization Address City/[facility] Phone Number [address] [id number] [phone] CENTER Phosphorus (09/17/2018 6:55 AM CDT) Phosphorus 2.5 2.3 - 4.7 mg/dL [facility] Specimen Blood Performing Organization Address [facility] Phone Number [address] [address] CENTER Magnesium (09/17/2018 6:55 AM CDT) Magnesium 1.8 1.6 - 2.6 mg/dL [facility] Specimen Blood Performing Organization Address [facility] Phone Number [address] [address] [place] Ferritin (09/17/2018 6:55 AM CDT) Ferritin 276 (H) 5 - 275 ng/mL [facility] Specimen Blood Performing Organization Address [facility] Phone Number [address] [address] [place] Acetaminophen level (09/17/2018 6:55 AM CDT) Acetaminophen Level <5.7 (L) 10.0 - 30.0 ug/mL [facility] Specimen Blood Narrative Performed At [facility] Therapeutic Range: 10.0-30.0 g/mL Toxic Levels:>200.0 g/mL Performing Organization Address [facility] Phone Number [address] [address] [phone] CENTER after 04/13/2018 Advance Directives For more information, please contact:[address] [phone] Code Status Date Activated Date Inactivated Comments Full Code 09/17/2018 6:49 AM 09/18/2018 5:09 PM This code status was determined by: Patient
--- OUTSIDE RECORDS SUMMARY | 2019-04-14 18:02 | XMS REPORT ---
:1985 [facility] Address [address] [place] [address] Care Team Providers Name Role Phone IAN [...] Value Reference Range Comments SCAN RESULT (test raeh=[id number]) BLOOD [id number] 12:01:00 Test Item Value Reference Range Comments CULTURE (BEAKER) (test iqkh=0982) No growth in 5 days BLOOD [id number] 12:01:00 Test Item Value Reference Range Comments CULTURE (BEAKER) (test tjoo=0788) No growth in 5 days HEPATITIS PANEL, [id number] 13:35:00 Test Item Value Reference Range Comments HEPATITIS A IGM ANTIBODY (BEAKER) (test Reactive Nonreactive wops=538) HEPATITIS B CORE IGM ANTIBODY (BEAKER) (test Nonreactive Nonreactive uves=463) HEPATITIS C ANTIBODY (BEAKER) (test vupb=341) Nonreactive Nonreactive HEPATITIS B SURFACE ANTIGEN (2) (BEAKER) (test Nonreactive Nonreactive kbkn=1994) ANTI-NUCLEAR ANTIBODY (NATE)2018-09-21 13:07:00 Test Item Value Reference Range Comments ANTI-NUCLEAR ANTIBODY (NATE) (BEAKER) (test Negative Negative xrov=257) Test performed by IFA method.Test performed by IFA method.CBC W/PLT COUNT & AUTO [id number] 06:36:00 Test Item Value Reference Range Comments WHITE BLOOD CELL COUNT (BEAKER) (test vwih=350) 9.4 K/ L 3.5-10.5 RED BLOOD CELL COUNT (BEAKER) (test fpfl=162) 3.20 M/ L 4.63-6.08 HEMOGLOBIN (BEAKER) (test jdef=029) 9.8 GM/DL 13.7-17.5 HEMATOCRIT (BEAKER) (test kpfc=365) 30.5 % 40.1-51.0 MEAN CORPUSCULAR VOLUME (BEAKER) (test iuac=462) 95.3 fL 79.0-92.2 MEAN CORPUSCULAR HEMOGLOBIN (BEAKER) (test 30.6 pg 25.7-32.2 agjm=712) MEAN CORPUSCULAR HEMOGLOBIN CONC (BEAKER) (test 32.1 GM/DL 32.3-36.5 cpqb=378) RED CELL DISTRIBUTION WIDTH (BEAKER) (test 19.2 % 11.6-14.4 oxgm=810) PLATELET COUNT (BEAKER) (test hyln=788) 144 K/CU MM 150-450 MEAN PLATELET VOLUME (BEAKER) (test htyw=210) 12.0 fL 9.4-12.4 NUCLEATED RED BLOOD CELLS (BEAKER) (test 0 /100 WBC 0-0 wtvb=142) NEUTROPHILS RELATIVE PERCENT (BEAKER) (test 65 % hfbs=598) LYMPHOCYTES RELATIVE PERCENT (BEAKER) (test 16 % ubou=856) MONOCYTES RELATIVE PERCENT (BEAKER) (test 13 % lobe=633) EOSINOPHILS RELATIVE PERCENT (BEAKER) (test 3 % xvvy=730) BASOPHILS RELATIVE PERCENT (BEAKER) (test 2 % bcdl=881) NEUTROPHILS ABSOLUTE COUNT (BEAKER) (test 6.10 K/ L 1.78-5.38 echz=475) LYMPHOCYTES ABSOLUTE COUNT (BEAKER) (test 1.51 K/ L 1.32-3.57 kruf=789) MONOCYTES ABSOLUTE COUNT (BEAKER) (test 1.20 K/ L 0.30-0.82 eokl=608) EOSINOPHILS ABSOLUTE COUNT (BEAKER) (test 0.32 K/ L 0.04-0.54 majv=005) BASOPHILS ABSOLUTE COUNT (BEAKER) (test 0.14 K/ L 0.01-0.08 wcag=733) IMMATURE GRANULOCYTES-RELATIVE PERCENT (BEAKER) 2 % 0-1 (test bcki=9345) POCT-GLUCOSE [id number] 06:31:00 Test Item Value Reference Range Comments POC-GLUCOSE METER (BEAKER) 126 mg/dL 70-110 TESTED AT [facility] [address] (test heao=2649) [facility] [address] COMPREHENSIVE METABOLIC [id number] 04:53:00 Test Item Value Reference Range Comments TOTAL PROTEIN (BEAKER) 7.5 gm/dL 6.0-8.3 (test bwin=972) ALBUMIN (BEAKER) (test 2.9 g/dL 3.5-5.0 zbpl=8164) ALKALINE PHOSPHATASE 150 U/L 40-150 (BEAKER) (test mwfv=782) BILIRUBIN TOTAL (BEAKER) 7.2 mg/dL 0.2-1.2 (test vdnx=006) SODIUM (BEAKER) (test 133 meq/L 136-145 jgih=942) POTASSIUM (BEAKER) (test 3.6 meq/L 3.5-5.1 bips=333) CHLORIDE (BEAKER) (test 101 meq/L 98-107 jcwu=809) CO2 (BEAKER) (test 25 meq/L 22-29 zblc=266) BLOOD UREA NITROGEN 6 mg/dL 7-21 (BEAKER) (test qait=825) CREATININE (BEAKER) (test 0.68 mg/dL 0.57-1.25 bxsp=364) GLUCOSE RANDOM (BEAKER) 132 mg/dL 70-105 (test tuod=270) CALCIUM (BEAKER) (test 7.8 mg/dL 8.4-10.2 uksb=423) AST (SGOT) (BEAKER) (test 223 U/L 5-34 xouw=919) ALT (SGPT) (BEAKER) (test 21 U/L 6-55 xwsf=318) EGFR (BEAKER) (test mL/min/1.73 sq m INSUFFICIENT CLINICAL DATA hwrw=0676) TO CALCULATE ESTIMATED GFR. Specimen moderately ictericCBC W/PLT COUNT & AUTO [id number] 00: 15:00 Test Item Value Reference Range Comments WHITE BLOOD CELL COUNT (BEAKER) (test siwx=263) 9.5 K/ L 3.5-10.5 RED BLOOD CELL COUNT (BEAKER) (test zduc=142) 3.17 M/ L 4.63-6.08 HEMOGLOBIN (BEAKER) (test kylf=807) 9.7 GM/DL 13.7-17.5 HEMATOCRIT (BEAKER) (test vvmb=350) 30.1 % 40.1-51.0 MEAN CORPUSCULAR VOLUME (BEAKER) (test cpfk=308) 95.0 fL 79.0-92.2 MEAN CORPUSCULAR HEMOGLOBIN (BEAKER) (test 30.6 pg 25.7-32.2 qnui=679) MEAN CORPUSCULAR HEMOGLOBIN CONC (BEAKER) (test 32.2 GM/DL 32.3-36.5 aocu=372) RED CELL DISTRIBUTION WIDTH (BEAKER) (test 19.3 % 11.6-14.4 dujd=140) PLATELET COUNT (BEAKER) (test rzxb=231) 134 K/CU MM 150-450 MEAN PLATELET VOLUME (BEAKER) (test hcba=275) 12.1 fL 9.4-12.4 NUCLEATED RED BLOOD CELLS (BEAKER) (test 0 /100 WBC 0-0 tdwk=056) NEUTROPHILS RELATIVE PERCENT (BEAKER) (test 68 % hnhn=927) LYMPHOCYTES RELATIVE PERCENT (BEAKER) (test 16 % lzee=911) MONOCYTES RELATIVE PERCENT (BEAKER) (test 12 % przc=534) EOSINOPHILS RELATIVE PERCENT (BEAKER) (test 2 % kehf=274) BASOPHILS RELATIVE PERCENT (BEAKER) (test 1 % mprk=194) NEUTROPHILS ABSOLUTE COUNT (BEAKER) (test 6.43 K/ L 1.78-5.38 eezt=967) LYMPHOCYTES ABSOLUTE COUNT (BEAKER) (test 1.47 K/ L 1.32-3.57 gzcu=683) MONOCYTES ABSOLUTE COUNT (BEAKER) (test 1.13 K/ L 0.30-0.82 xsvi=721) EOSINOPHILS ABSOLUTE COUNT (BEAKER) (test 0.23 K/ L 0.04-0.54 byck=714) BASOPHILS ABSOLUTE COUNT (BEAKER) (test 0.13 K/ L 0.01-0.08 vcge=990) IMMATURE GRANULOCYTES-RELATIVE PERCENT (BEAKER) 1 % 0-1 (test wynm=3804) POCT-GLUCOSE [id number] 00:13:00 Test Item Value Reference Range Comments POC-GLUCOSE METER (BEAKER) 212 mg/dL 70-110 TESTED AT [facility] [address] [facility] (test fodx=3936) [place] [address] U/S, ABDOMINAL, [id number] 21:23:00With dopplersReason for exam:-> RUQ ABD US [...] Brown MDReport VerifiedDate/Time: 09/17/2018 21:23:28 Reading Location: [address] Consult Reading Room U/S, DUPLEX, [id number] 21:23:00Reason for exam:-& gt;RUQ ABD US W/ [...] is recommended. 4. Unremarkable abdominal Doppler Signed: Alessanrda Brown MDReport VerifiedDate/Time: 09/17/2018 21:23:28 Reading Location: [facility] C013W Consult Reading Room POCT-GLUCOSE [id number] 18:02:00 Test Item Value Reference Range Comments POC-GLUCOSE METER (AKER) 135 mg/dL 70-110 TESTED AT [facility] [address] [facility] (test sbbx=8444) [facility] [address] CBC W/PLT COUNT & AUTO [id number] 17:56:00 Test Item Value Reference Range Comments WHITE BLOOD CELL COUNT (BEAKER) (test hlxt=084) 10.2 K/ L 3.5-10.5 RED BLOOD CELL COUNT (BEAKER) (test hixw=002) 3.34 M/ L 4.63-6.08 HEMOGLOBIN (BEAKER) (test xpoa=778) 10.3 GM/DL 13.7-17.5 HEMATOCRIT (BEAKER) (test carr=459) 31.2 % 40.1-51.0 MEAN CORPUSCULAR VOLUME (BEAKER) (test kiez=060) 93.4 fL 79.0-92.2 MEAN CORPUSCULAR HEMOGLOBIN (BEAKER) (test 30.8 pg 25.7-32.2 bqml=935) MEAN CORPUSCULAR HEMOGLOBIN CONC (BEAKER) (test 33.0 GM/DL 32.3-36.5 rtom=052) RED CELL DISTRIBUTION WIDTH (BEAKER) (test 19.1 % 11.6-14.4 tmag=109) PLATELET COUNT (BEAKER) (test qcul=163) 134 K/CU MM 150-450 MEAN PLATELET VOLUME (BEAKER) (test vszx=443) 11.4 fL 9.4-12.4 NUCLEATED RED BLOOD CELLS (BEAKER) (test 0 /100 WBC 0-0 jfkb=912) NEUTROPHILS RELATIVE PERCENT (BEAKER) (test 69 % xxns=283) LYMPHOCYTES RELATIVE PERCENT (BEAKER) (test 14 % htpl=289) MONOCYTES RELATIVE PERCENT (BEAKER) (test 12 % ubfw=024) EOSINOPHILS RELATIVE PERCENT (BEAKER) (test 2 % xdoe=988) BASOPHILS RELATIVE PERCENT (BEAKER) (test 1 % awro=537) NEUTROPHILS ABSOLUTE COUNT (BEAKER) (test 7.05 K/ L 1.78-5.38 ggqp=968) LYMPHOCYTES ABSOLUTE COUNT (BEAKER) (test 1.46 K/ L 1.32-3.57 wwen=449) MONOCYTES ABSOLUTE COUNT (BEAKER) (test 1.19 K/ L 0.30-0.82 ajbh=929) EOSINOPHILS ABSOLUTE COUNT (BEAKER) (test 0.20 K/ L 0.04-0.54 aqhv=813) BASOPHILS ABSOLUTE COUNT (BEAKER) (test 0.11 K/ L 0.01-0.08 xwly=864) IMMATURE GRANULOCYTES-RELATIVE PERCENT (BEAKER) 2 % 0-1 (test bcis=2126) CARCINOEMBRYONIC ANTIGEN (CEA)2018-09-17 16:30:00 Test Item Value Reference Range Comments CARCINOEMBRYONIC ANTIGEN (BEAKER) (test mdwo=239) 4.0 ng/mL 0.0-5.0 CBC W/PLT COUNT & AUTO [id number] 15:39:00 Test Item Value Reference Range Comments WHITE BLOOD CELL COUNT (BEAKER) (test umln=128) 9.2 K/ L 3.5-10.5 RED BLOOD CELL COUNT (BEAKER) (test gpma=358) 3.30 M/ L 4.63-6.08 HEMOGLOBIN (BEAKER) (test wvco=402) 10.0 GM/DL 13.7-17.5 HEMATOCRIT (BEAKER) (test bwsx=857) 30.8 % 40.1-51.0 MEAN CORPUSCULAR VOLUME (BEAKER) (test kdpu=790) 93.3 fL 79.0-92.2 MEAN CORPUSCULAR HEMOGLOBIN (BEAKER) (test 30.3 pg 25.7-32.2 ndms=632) MEAN CORPUSCULAR HEMOGLOBIN CONC (BEAKER) (test 32.5 GM/DL 32.3-36.5 bulj=859) RED CELL DISTRIBUTION WIDTH (BEAKER) (test 19.3 % 11.6-14.4 pobi=193) PLATELET COUNT (BEAKER) (test jdkc=890) 127 K/CU MM 150-450 MEAN PLATELET VOLUME (BEAKER) (test qsjn=305) 11.8 fL 9.4-12.4 NUCLEATED RED BLOOD CELLS (BEAKER) (test 0 /100 WBC 0-0 yrqf=242) NEUTROPHILS RELATIVE PERCENT (BEAKER) (test 70 % dbgu=063) LYMPHOCYTES RELATIVE PERCENT (BEAKER) (test 13 % eajw=021) MONOCYTES RELATIVE PERCENT (BEAKER) (test 12 % oerb=173) EOSINOPHILS RELATIVE PERCENT (BEAKER) (test 2 % dsfj=242) BASOPHILS RELATIVE PERCENT (BEAKER) (test 1 % lsdp=109) NEUTROPHILS ABSOLUTE COUNT (BEAKER) (test 6.45 K/ L 1.78-5.38 hacd=527) LYMPHOCYTES ABSOLUTE COUNT (BEAKER) (test 1.23 K/ L 1.32-3.57 hwki=526) MONOCYTES ABSOLUTE COUNT (BEAKER) (test 1.12 K/ L 0.30-0.82 kjjd=236) EOSINOPHILS ABSOLUTE COUNT (BEAKER) (test 0.16 K/ L 0.04-0.54 mbbc=907) BASOPHILS ABSOLUTE COUNT (BEAKER) (test 0.12 K/ L 0.01-0.08 txcr=353) IMMATURE GRANULOCYTES-RELATIVE PERCENT (BEAKER) 1 % 0-1 (test wpuh=9362) HEPATITIS A ANTIBODY, [id number] 14:34:00 Test Item Value Reference Range Comments HEPATITIS A IGG ANTIBODY (BEAKER) (test uxcm=7304) Reactive Nonreactive HEPATITIS B CORE ANTIBODY, [id number] 14:31:00 Test Item Value Reference Range Comments HEPATITIS B CORE TOTAL ANTIBODY (BEAKER) (test Nonreactive Nonreactive iwsa=337) URINALYSIS W/ REFLEX URINE [id number] 13:18:00 Test Item Value Reference Range Comments COLOR (BEAKER) (test grzi=578) Yellow CLARITY (BEAKER) (test hrlb=524) Clear SPECIFIC GRAVITY UA (BEAKER) (test tmww=367) 1.034 1.001-1.035 PH UA (BEAKER) (test nyfn=591) 7.0 5.0-8.0 PROTEIN UA (BEAKER) (test qsvu=312) Negative Negative GLUCOSE UA (BEAKER) (test ijcf=275) Negative Negative KETONES UA (BEAKER) (test lrlq=842) Negative Negative BILIRUBIN UA (BEAKER) (test bkxy=618) Positive Negative BLOOD UA (BEAKER) (test frdk=866) Negative Negative NITRITE UA (BEAKER) (test jipz=284) Negative Negative LEUKOCYTE ESTERASE UA (BEAKER) (test jclq=485) Negative Negative UROBILINOGEN UA (BEAKER) (test ufye=778) 4.0 mg/dL 0.2-1.0 RBC UA (BEAKER) (test rctd=735) 0 /HPF WBC UA (BEAKER) (test yxfb=331) 0 /HPF SQUAMOUS EPITHELIAL (BEAKER) (test zzwx=915) 1 /HPF SOURCE(BEAKER) (test pypr=2554) ALPHA FETOPROTEIN (AFP), TUMOR [id number] 13:18:00 Test Item Value Reference Range Comments ALPHA-FETOPROTEIN (BEAKER) (test rzok=1854) 9.2 ng/mL <10.0 BILIRUBIN, [id number] 12:15:00 Test Item Value Reference Range Comments BILIRUBIN DIRECT (BEAKER) (test 4.4 mg/dL 0.1-0.5 Specimen slightly hemolyzed zpms=498) IMMUNOGLOBULIN G (IGG)2018-09-17 12:13:00 Test Item Value Reference Range Comments IMMUNOGLOBULIN G (IGG) (BEAKER) (test mhpv=464) 1727 mg/dL 540-1822 [id number] 09:59:00 Test Item Value Reference Range Comments PROCALCITONIN (BEAKER) (test cwdj=7191) 0.25 ng/mL <0.05 SEPSIS RISK (ng/mL)Low: 0.05-0.50Intermediate: 0.51-2.00High: & gt;=[id number] 09:47:00 Test Item Value Reference Range Comments ETHANOL (BEAKER) (test hwrl=692) < mg/dL <=10 COMPREHENSIVE METABOLIC [id number] 09:38:00 Test Item Value Reference Range Comments TOTAL PROTEIN (BEAKER) 7.9 gm/dL 6.0-8.3 (test majj=158) ALBUMIN (BEAKER) (test 3.1 g/dL 3.5-5.0 tgrv=0348) ALKALINE PHOSPHATASE 173 U/L 40-150 (BEAKER) (test lazs=118) BILIRUBIN TOTAL (BEAKER) 7.0 mg/dL 0.2-1.2 (test ujox=171) SODIUM (BEAKER) (test 133 meq/L 136-145 dqyk=244) POTASSIUM (BEAKER) (test 3.3 meq/L 3.5-5.1 fiwm=862) CHLORIDE (BEAKER) (test 101 meq/L 98-107 gmor=827) CO2 (BEAKER) (test 21 meq/L 22-29 zvko=148) BLOOD UREA NITROGEN 4 mg/dL 7-21 (BEAKER) (test wreo=490) CREATININE (BEAKER) (test 0.66 mg/dL 0.57-1.25 iqce=294) GLUCOSE RANDOM (BEAKER) 134 mg/dL 70-105 (test ykgq=944) CALCIUM (BEAKER) (test 8.1 mg/dL 8.4-10.2 lcup=633) AST (SGOT) (BEAKER) (test 193 U/L 5-34 wlsy=470) ALT (SGPT) (BEAKER) (test 21 U/L 6-55 pkfj=202) EGFR (BEAKER) (test mL/min/1.73 sq m INSUFFICIENT CLINICAL DATA hoxk=9660) TO CALCULATE ESTIMATED GFR. Specimen moderately [id number] 09:31:00 Test Item Value Reference Range Comments PHOSPHORUS (BEAKER) (test hwwu=677) 2.5 mg/dL 2.3-4.7 [id number] 09:31:00 Test Item Value Reference Range Comments MAGNESIUM (BEAKER) (test zjdi=364) 1.8 mg/dL 1.6-2.6 LACTIC ACID, VENOUS, WHOLE [id number] 08:24:00 Test Item Value Reference Range Comments LACTATE BLOOD VENOUS (2) (BEAKER) (test 0.8 mmol/L 0.5-2.2 ixps=3400) Effective 03/27/2016: Units/Reference Range ChangeNew: 0.5-2.2 mmol/L Previous: 5 -20 mg/dLSpecimen moderately ictericACETAMINOPHEN [id number] 08:23:00 Test Item Value Reference Range Comments ACETAMINOPHEN LEVEL (BEAKER) (test qrda=584) < ug/mL 10.0-30.0 Therapeutic Range: 10.0-30.0 g/mLToxic Levels: >200.0 g/[id number] -[id number] 07:47:00 Test Item Value Reference Range Comments FERRITIN (BEAKER) (test xvqz=730) 276 ng/mL 5-275 [id number]-7-[id number] 07:46:00 Test Item Value Reference Range Comments ALPHA-1 ANTITRYPSIN (BEAKER) (test hicb=320) 245.40 mg/dL 90.00-200.00 IRON, TIBC, % SAT. (WITHOUT FERRITIN)2018-09-17 07:27:00 Test Item Value Reference Range Comments IRON (BEAKER) (test wopk=267) 147 ug/dL 40-160 TOTAL IRON BINDING CAPACITY (BEAKER) (test 251 ug/dL 250-450 ymru=859) IRON % SATURATION (2) (BEAKER) (test wxcy=5112) 59 % 20-55 [id number] 07:20:00 Test Item Value Reference Range Comments PARTIAL THROMBOPLASTIN TIME (BEAKER) (test 40.0 seconds 22.5-36.0 sacu=170) PROTHROMBIN [id number] 07:19:00 Test Item Value Reference Range Comments PROTIME (BEAKER) (test orxj=326) 17.0 seconds 11.7-14.7 INR (BEAKER) (test jjge=103) 1.4 <=5.9 RECOMMENDED COUMADIN/WARFARIN INR THERAPY RANGESSTANDARD DOSE: 2.0 - 3.0 Includes: PROPHYLAXIS forvenous thrombosis, systemic embolization; TREATMENT for venous thrombosis and/or pulmonary embolus.HIGH RISK: Target INR is 2.5-3.5 for patients with mechanical heart valves.CBC W/PLT COUNT & AUTO [id number] 07:04:00 Test Item Value Reference Range Comments WHITE BLOOD CELL COUNT (BEAKER) (test cxfy=188) 10.3 K/ L 3.5-10.5 RED BLOOD CELL COUNT (BEAKER) (test pbeh=512) 3.40 M/ L 4.63-6.08 HEMOGLOBIN (BEAKER) (test ealt=020) 10.4 GM/DL 13.7-17.5 HEMATOCRIT (BEAKER) (test yybd=019) 31.1 % 40.1-51.0 MEAN CORPUSCULAR VOLUME (BEAKER) (test njxo=197) 91.5 fL 79.0-92.2 MEAN CORPUSCULAR HEMOGLOBIN (BEAKER) (test 30.6 pg 25.7-32.2 kopo=776) MEAN CORPUSCULAR HEMOGLOBIN CONC (BEAKER) (test 33.4 GM/DL 32.3-36.5 htxy=507) RED CELL DISTRIBUTION WIDTH (BEAKER) (test 19.0 % 11.6-14.4 nzwt=095) PLATELET COUNT (BEAKER) (test lcqs=905) 129 K/CU MM 150-450 MEAN PLATELET VOLUME (BEAKER) (test xfoe=851) 12.3 fL 9.4-12.4 NUCLEATED RED BLOOD CELLS (BEAKER) (test 0 /100 WBC 0-0 upqn=185) NEUTROPHILS RELATIVE PERCENT (BEAKER) (test 69 % wgwt=027) LYMPHOCYTES RELATIVE PERCENT (BEAKER) (test 16 % gpxr=181) MONOCYTES RELATIVE PERCENT (BEAKER) (test 12 % uask=139) EOSINOPHILS RELATIVE PERCENT (BEAKER) (test 1 % wxxk=905) BASOPHILS RELATIVE PERCENT (BEAKER) (test 1 % imab=495) NEUTROPHILS ABSOLUTE COUNT (BEAKER) (test 7.13 K/ L 1.78-5.38 kgsz=606) LYMPHOCYTES ABSOLUTE COUNT (BEAKER) (test 1.62 K/ L 1.32-3.57 viax=336) MONOCYTES ABSOLUTE COUNT (BEAKER) (test 1.25 K/ L 0.30-0.82 vurd=012) EOSINOPHILS ABSOLUTE COUNT (BEAKER) (test 0.14 K/ L 0.04-0.54 gdhj=515) BASOPHILS ABSOLUTE COUNT (BEAKER) (test 0.09 K/ L 0.01-0.08 fnsw=673) IMMATURE GRANULOCYTES-RELATIVE PERCENT (BEAKER) 1 % 0-1 (test uogz=6208)
[2019-04-14] MEDS ORDERED: ONDANSETRON 4 MG/2 ML VIAL ONE (18:57)
[2019-04-14] MEDS ORDERED: FOLIC ACID 1 MG, MULTIVITAMINS INJ 10 ML, THIAMINE HCL 100 MG in NA CHLORIDE 0.9% 1,000 ML IV ONE (19:00)
[2019-04-14 19:28] LABS: Absolute Lymphocytes (CBC) 2.5 K/uL (0.7-4.9); Absolute Neutrophil 3.4 K/uL (1.8-8.0); Basophils % 2.7 % (0-1.3); Lymphocytes % 34.7 % (15.3-44.8); Monocytes % 13.9 % (3.3-12.3); RBC Red Blood Cell Count 4.42 M/uL (4.33-5.43)
[2019-04-14 19:41] LABS: ALT/SGPT 61 U/L (12-78); AST/SGOT 208 U/L (15-37); Albumin 3.8 g/dL (3.4-5.0); Alkaline Phosphatase 158 U/L (45-117); BUN Blood Urea Nitrogen 3 mg/dL (7-18); Bicarbonate 27 mmol/L (21-32); Bilirubin Direct 0.8 mg/dL (0-0.2); Bilirubin Total 1.8 mg/dL (0.2-1.0); Glucose Level 104 mg/dL (74-106); Lipase 236 U/L (73-393); Potassium 3.4 mmol/L (3.5-5.1); Protein, Total 9.2 g/dL (6.4-8.2); Sodium Level 143 mmol/L (136-145)
--- NOTE | 2019-04-14 20:29 | EDPHYS ---
Physician Documentation [facility] Name: Dillan Johnson Age: 34 yrs Sex: Male : 1985 Arrival Date: 04/14/2019 Time: 17:56 Bed 18 Private MD: Luis Manuel Oh T ED Physician Isaiah Victoria HPI: 04/14 18:00 This 34 yrs old Male presents to ER via Ambulatory with complaints of Vomiting.pm1 18:00 The patient presents to the emergency department with nausea, vomiting. Onset: The pm1 symptoms/episode began/occurred 2 day(s) ago. Possible causes: unknown. The symptoms are aggravated by nothing. The symptoms are alleviated by nothing. Patient drinks a 12 pack of beer daily. Has not been vomiting his beer. Associated signs and symptoms: Pertinent positives: abdominal pain, Pertinent negatives: constipation, diarrhea, dysuria, fever, GI bleeding. Severity of symptoms: in the emergency department the symptoms Abdominal pain is resolved and the patient is not currently vomiting. Patient drank his 12 pack prior to coming to the ER, Pain is currently a 0 / 10. The patient has not recently seen a physician. Historical: - Allergies: 18:00 No Known Allergies; hb - Home Meds: 18:00 candesartan 16 mg Oral tab [Active]; hb - PMHx: 18:00 Cirrhosis; Hypertension; hb - PSHx: 18:00 None; hb - Immunization history:: Adult Immunizations up to date. - Social history:: Smoking status: Patient/guardian denies using tobacco. - Ebola Screening: : No symptoms or risks identified at this time. ROS: 18:00 Constitutional: Negative for fever, chills, and weight loss, Eyes: Negative for injury, pm1 pain, redness, and discharge, ENT: Negative for injury, pain, and discharge, Neck: Negative for injury, pain, and swelling, Cardiovascular: Negative for chest pain, palpitations, and edema, Respiratory: Negative for shortness of breath, cough, wheezing, and pleuritic chest pain. 18:00 Back: Negative for injury and pain, : Negative for injury, bleeding, discharge, and swelling, MS/Extremity: Negative for injury and deformity, Skin: Negative for injury, rash, and discoloration, Neuro: Negative for headache, weakness, numbness, tingling, and seizure. 18:00 Abdomen/GI: Positive for nausea and vomiting, Negative for abdominal pain, diarrhea, constipation, hematemesis, black/tarry stool, rectal pain, rectal bleeding. Exam: 18:00 Constitutional: This is a well developed, well nourished patient who is awake, alert, pm1 and in no acute distress. Head/Face: Normocephalic, atraumatic. Eyes: Pupils equal round and reactive to light, extra-ocular motions intact. Lids and lashes normal. Conjunctiva and sclera are non-icteric and not injected. Cornea within normal limits. Periorbital areas with no swelling, redness, or edema. ENT: Nares patent. No nasal discharge, no septal abnormalities noted. Tympanic membranes are normal and external auditory canals are clear. Oropharynx with no redness, swelling, or masses, exudates, or evidence of obstruction, uvula midline. Mucous membranes moist. Neck: Trachea midline, no thyromegaly or masses palpated, and no cervical lymphadenopathy. Supple, full range of motion without nuchal rigidity, or vertebral point tenderness. No Meningismus. Chest/axilla: Normal chest wall appearance and motion. Nontender with no deformity. No lesions are appreciated. Cardiovascular: Regular rate and rhythm with a normal S1 and S2. No gallops, murmurs, or rubs. Normal PMI, no JVD. No pulse deficits. Respiratory: Lungs have equal breath sounds bilaterally, clear to auscultation and percussion. No rales, rhonchi or wheezes noted. No increased work of breathing, no retractions or nasal flaring. 18:00 Back: No spinal tenderness. No costovertebral tenderness. Full range of motion. Skin: Warm, dry with normal turgor. Normal color with no rashes, no lesions, and no evidence of cellulitis. MS/ Extremity: Pulses equal, no cyanosis. Neurovascular intact. Full, normal range of motion. 18:00 Abdomen/GI: Inspection: abdomen appears normal, Bowel sounds: normal, Palpation: abdomen is soft and non-tender, in all quadrants, mass, is not appreciated, rebound tenderness, is not appreciated. 18:00 Neuro: Orientation: is normal, Motor: is normal, Sensation: is normal, no obvious gross deficits. Vital Signs: 17:59 BP 167 / 98; Pulse 88; Resp 16; Temp 97.4; Pulse Ox 97% on R/A; Weight 99.79 kg; Height hb 5 ft. 9 in. (175.26 cm); Pain 6/10; 19:18 BP 142 / 92; Pulse 87; Resp 19; Pulse Ox 95% on R/A; Pain 0/10; ed1 21:19 BP 141 / 86; Pulse 83; Resp 17; Temp 98.2(O); Pulse Ox 99% on R/A; Pain 0/10; ed1 17:59 Body Mass Index 32.49 (99.79 kg, 175.26 cm) hb MDM: 18:10 Patient medically screened. pm1 20:20 ED course: Patient denies blood in his bowel movement and refuses evaluation with stool pm1 guaiac. 20:26 Data reviewed: vital signs. Data interpreted: Pulse oximetry: on room air is 95 %. pm1 Interpretation: normal. Counseling: I had a detailed discussion with the patient and/or guardian regarding: the historical points, exam findings, and any diagnostic results supporting the discharge/admit diagnosis, lab results, the need for outpatient follow up, to return to the emergency department if symptoms worsen or persist or if there are any questions or concerns that arise at home, need to go to drug rehabilitation to help with alcohol cessation. 04/14 18:16 Order name: Basic Metabolic Panel; Complete Time: 19:47 pm1 04/14 18:16 Order name: CBC with Diff; Complete Time: 21:32 pm1 04/14 18:16 Order name: Creatinine for Radiology; Complete Time: 19:47 pm1 04/14 18:16 Order name: Hepatic Function; Complete Time: 19:47 pm1 04/14 18:16 Order name: Lipase; Complete Time: 19:47 pm1 04/14 18:16 Order name: ETOH Level; Complete Time: 20:03 pm1 04/14 18:16 Order name: IV Saline Lock; Complete Time: 19:12 pm1 04/14 18:16 Order name: Labs collected and sent; Complete Time: 19:12 pm1 04/14 21:14 Order name: CBC Smear Scan; Complete Time: 21:32 EDMS Administered Medications: 19:20 Drug: Banana Bag - (NS 0.9% 1000 ml, foLIC Acid 1 mg, Thiamine 100 mg, Multivitamin 1 ed1 amp) Route: IV; Rate: calculated rate; Site: right forearm; 20:28 Follow up: Rate change bolus ed1 21:19 Follow up: Response: No adverse reaction; IV Status: Completed infusion; IV Intake: ed1 1000ml 19:21 Drug: Zofran 4 mg Route: IVP; Site: right forearm; ed1 19:50 Follow up: Response: No adverse reaction; Nausea is decreased ed1 Disposition: 04/14/19 20:29 Discharged to Home. Impression: Vomiting, Alcohol abuse. - Condition is Stable. - Discharge Instructions: Finding Treatment for Addiction, Alcohol Abuse and Nutrition, Vomiting, Child. - Prescriptions for chlordiazepoxide HCl 25 mg Oral capsule - take 1 capsule by ORAL route as directed for 5 days Day 1: Librium 25 mg every 6 hours scheduled, Day 2: Librium 25 mg every 8 hours scheduled, Day 3: Librium 25 mg every 12 hours scheduled, Day 4: Librium 25 mg at bedtime scheduled, Day 5: Librium 25 mg at bedtime scheduled; 11 capsule. Zofran 4 mg Oral Tablet - take 1 tablet by ORAL route every 8 hours As needed; 20 tablet. - Medication Reconciliation Form, Thank You Letter, Antibiotic Education, Prescription Opioid Use form. - Follow up: Emergency Department; When: As needed; Reason: Worsening of condition. Follow up: Private Physician; When: 2 - 3 days; Reason: Recheck today's complaints, Continuance of care, Re-evaluation by your physician. - Problem is new. - Symptoms have improved. Signatures: Dispatcher [employer] EDMS Clementina Gonzalez RN RN ed1 Dick Alaniz NP [employer] RESOURCE SPECIALIST pm1 Brooke Stephens RN RN Corrections: (The following items were deleted from the chart) : 20:29 04/14/2019 20:29 Discharged to Home. Impression: Vomiting; Alcohol abuse. ed1 Condition is Stable. Forms are Medication Reconciliation Form, Thank You Letter, Antibiotic Education, Prescription Opioid Use. Follow up: Emergency Department; When: As needed; Reason: Worsening of condition. Follow up: Private Physician; When: 2 - 3 days; Reason: Recheck today's complaints, Continuance of care, Re-evaluation by your physician. Problem is new. Symptoms have improved. pm1
--- NOTE | 2019-04-14 20:29 | ER ---
Nurse's Notes [facility] Name: Dillan Johnson Age: 34 yrs Sex: Male : 1985 Arrival Date: 04/14/2019 Time: 17:56 Bed 18 Private MD: Luis Manuel Oh T Diagnosis: Vomiting;Alcohol abuse Presentation: 04/14 17:58 Presenting complaint: Upper abdominal pain and N/V x 2 days. Not tolerating fluids. hb Denies fever/diarrhea. Transition of care: patient was not received from another setting of care. Onset of symptoms was April 13, 2019. Risk Assessment: Do you want to hurt yourself or someone else? Patient reports no desire to harm self or others. Care prior to arrival: None. 17:58 Method Of Arrival: Ambulatory hb 17:58 Acuity: NIKITA 3 hb 19:18 Initial Sepsis Screen: Does the patient meet any 2 criteria? No. Patient's initial ed1 sepsis screen is negative. Does the patient have a suspected source of infection? No. Patient's initial sepsis screen is negative. Historical: - Allergies: 18:00 No Known Allergies; hb - Home Meds: 18:00 candesartan 16 mg Oral tab [Active]; hb - PMHx: 18:00 Cirrhosis; Hypertension; hb - PSHx: 18:00 None; hb - Immunization history:: Adult Immunizations up to date. - Social history:: Smoking status: Patient/guardian denies using tobacco. - Ebola Screening: : No symptoms or risks identified at this time. Screenin:35 Abuse screen: Denies threats or abuse. Denies injuries from another. Nutritional aj1 screening: No deficits noted. Tuberculosis screening: No symptoms or risk factors identified. 19:18 Fall Risk No fall in past 12 months (0 pts). No secondary diagnosis (0 pts). IV access ed1 (20 points). Ambulatory Aid- None/Bed Rest/Nurse Assist (0 pts). Gait- Normal/Bed Rest/Wheelchair (0 pts) Mental Status- Oriented to own ability (0 pts). Total Wilder Fall Scale indicates No Risk (0-24 pts). Assessment: 18:35 General: Appears in no apparent distress. comfortable, Behavior is calm, cooperative, aj1 appropriate for age. Pain: Denies pain. Neuro: Level of Consciousness is awake, alert, obeys commands, Oriented to person, place, time, situation. Cardiovascular: Patient's skin is warm and dry. Respiratory: Airway is patent Respiratory effort is even, unlabored, Respiratory pattern is regular, symmetrical. GI: Abdomen is non-distended, Reports nausea, vomiting. : No signs and/or symptoms were reported regarding the genitourinary system. EENT: No signs and/or symptoms were reported regarding the EENT system. Derm: No signs and/or symptoms reported regarding the dermatologic system. Skin is pink, warm \T\ dry. normal. Musculoskeletal: No signs and/or symptoms reported regarding the musculoskeletal system. Circulation, motion, and sensation intact. 19:18 Reassessment: Patient appears in no apparent distress at this time. Patient and/or ed1 family updated on plan of care and expected duration. Pain level reassessed. Patient is alert, oriented x 3, equal unlabored respirations, skin warm/dry/pink. Patient denies pain at this time. GI: Reports bloody stool, nausea, vomiting. 21:19 Reassessment: Patient appears in no apparent distress at this time. Patient and/or ed1 family updated on plan of care and expected duration. Pain level reassessed. Patient is alert, oriented x 3, equal unlabored respirations, skin warm/dry/pink. Patient denies pain at this time. Patient states feeling better. Patient states symptoms have improved. GI: Patient currently denies nausea. Vital Signs: 17:59 BP 167 / 98; Pulse 88; Resp 16; Temp 97.4; Pulse Ox 97% on R/A; Weight 99.79 kg; Height hb 5 ft. 9 in. (175.26 cm); Pain 6/10; 19:18 BP 142 / 92; Pulse 87; Resp 19; Pulse Ox 95% on R/A; Pain 0/10; ed1 21:19 BP 141 / 86; Pulse 83; Resp 17; Temp 98.2(O); Pulse Ox 99% on R/A; Pain 0/10; ed1 17:59 Body Mass Index 32.49 (99.79 kg, 175.26 cm) hb ED Course: 17:56 Patient arrived in ED. mr 17:56 Luis Manuel Oh MD is Private Physician. mr 17:59 Triage completed. hb 17:59 Arm band placed on. hb 18:01 Millie Cobb, RN is Primary Nurse. aj1 18:06 Dick Alaniz, DUDLEY is PHCP. pm1 18:06 Isaiah Victoria MD is Attending Physician. pm1 18:35 Patient has correct armband on for positive identification. Bed in low position. Call aj1 light in reach. Side rails up X 1. 18:35 No provider procedures requiring assistance completed. Initial lab(s) drawn, by nc, ajSin sent to lab. Inserted saline lock: 20 gauge in right forearm, using aseptic technique. Blood collected. 19:10 Report given to BALDEV Mcrae. aj1 19:22 Primary Nurse role handed off by Millie Cobb RN ed1 19:22 Clementina Gonzalez RN is Primary Nurse. ed1 20:36 Awaiting: Completion of Banana Bag per Dick. ed1 21:19 IV discontinued, intact, bleeding controlled, No redness/swelling at site. Pressure ed1 dressing applied. Administered Medications: 19:20 Drug: Banana Bag - (NS 0.9% 1000 ml, foLIC Acid 1 mg, Thiamine 100 mg, Multivitamin 1 ed1 amp) Route: IV; Rate: calculated rate; Site: right forearm; 20:28 Follow up: Rate change bolus ed1 21:19 Follow up: Response: No adverse reaction; IV Status: Completed infusion; IV Intake: ed1 1000ml 19:21 Drug: Zofran 4 mg Route: IVP; Site: right forearm; ed1 19:50 Follow up: Response: No adverse reaction; Nausea is decreased ed1 Intake: 21:19 IV: 1000ml; Total: 1000ml. ed1 Outcome: 20:29 Discharge ordered by . pm1 21:19 Discharged to home ambulatory, with family. ed1 21:19 Condition: good 21:19 Discharge instructions given to patient, family, Instructed on discharge instructions, follow up and referral plans. medication usage, Demonstrated understanding of instructions, follow-up care, medications, Prescriptions given X 2. 21:21 Patient left the ED. ed1 Signatures: Millie Cobb RN RN aj1 Maricarmen Johnston mr Clementina Gonzalez RN RN ed1 Dick Alaniz, DUDLEY [employer]TER pm1 Brooke Stephens RN RN
[2019-04-14 21:14] LABS: Anisocytosis 1+; Blood Morphology Comment NOTED (NOT SEEN); Platelet Estimate DECR; Platelets, Giant PRESENT; Target Cells 1+; Urine White Blood Cell Casts OK
[2019-04-14 21:43] VITALS: BP 141/86; TEMP 98.2; O2SAT 99
== END 2019-04-14 21:21 | disposition home or self-care (01) ==
LOC: ER 17:53
DX: F10.10 Alcohol abuse, uncomplicated (principal); I10 Essential (primary) hypertension; K74.60 Unspecified cirrhosis of liver
CPT/HCPCS: 36415; 80048; 80076; 80320; 83690; 85025; 96365; 96366; 96375; 99284; J2405; J3411; J7030

== ENCOUNTER 2019-06-05 19:14 | Emergency (ER) | payer OTHER, SELFPAY ==
--- OUTSIDE RECORDS SUMMARY | 2019-06-05 19:18 | XMS REPORT | Clinical Summary ---
:[address] [facility] [place] [place] Address [address] [place] [address] Care Team Providers Name Role Phone Unavailable [...] Portal hypertension (HCC); Acute alcoholic hepatitis after 06/04/2018 Immunizations Name Dates Previously Given Next Due [...] CDT procedure are in the results section. [id number]\\, SERUM Routine 09/17/2018 6:55 AM Results for [...] procedure are in the results section. after 06/04/2018 Results RHYTHM STRIP - SCAN (09/22/2018 11:00 [...] (H)Comment: TESTED AT 70 - 110 mg/dL [facility] [address] [facility] [address] Specimen Blood Performing Organization Address City/State/Zipcode Phone Number [address] [address] CENTER CBC with platelet count + automated diff (09/18/2018 6:21 AM CDT)Only the most recent of5 resultswithin the time period is included. WBC 9.4 3.5 - 10.5 K/L [facility] RBC 3.20 (L) 4.63 - 6.08 M/L [facility] Hemoglobin 9.8 (L) 13.7 - 17.5 GM/DL [facility] Hematocrit 30.5 (L) 40.1 - 51.0 % [facility] MCV 95.3 (H) 79.0 - 92.2 fL [facility] MCH 30.6 25.7 - 32.2 pg [facility] MCHC 32.1 (L) 32.3 - 36.5 GM/DL [facility] RDW 19.2 (H) 11.6 - 14.4 % [facility] Platelets 144 (L) 150 - 450 K/CU MM [facility] MPV 12.0 9.4 - 12.4 fL [facility] nRBC 0 0 - 0 /100 WBC [facility] % Neutros 65 % [facility] % Lymphs 16 % [facility] % Monos 13 % [facility] % Eos 3 % [facility] % Baso 2 % [facility] # Neutros 6.10 (H) 1.78 - 5.38 K/L [facility] # Lymphs 1.51 1.32 - 3.57 K/L [facility] # Monos 1.20 (H) 0.30 - 0.82 K/L [facility] # Eos 0.32 0.04 - 0.54 K/L [facility] # Baso 0.14 (H) 0.01 - 0.08 K/L [facility] Immature Granulocytes-Relative 2 (H) 0 - 1 % [facility] Specimen Blood Performing Organization Address City/State/Zipcode Phone Number [address] [address] CENTER Comprehensive metabolic panel (09/18/2018 4:04 AM CDT)Only the most recent of2 resultswithin the time period is included. Protein, Total 7.5 6.0 - 8.3 gm/dL [facility] Albumin 2.9 (L) 3.5 - 5.0 g/dL [facility] Alkaline Phosphatase 150 40 - 150 U/L [facility] Total Bilirubin 7.2 (H) 0.2 - 1.2 mg/dL [facility] Sodium 133 (L) 136 - 145 meq/L [facility] Potassium 3.6 3.5 - 5.1 meq/L [facility] Chloride 101 98 - 107 meq/L [facility] CO2 25 22 - 29 meq/L [facility] BUN 6 (L) 7 - 21 mg/dL [facility] Creatinine 0.68 0.57 - 1.25 mg/dL [facility] Glucose 132 (H) 70 - 105 mg/dL [facility] Calcium 7.8 (L) 8.4 - 10.2 mg/dL [facility] AST 223 (H) 5 - 34 U/L [facility] ALT 21 6 - 55 U/L [facility] EGFR Comment: INSUFFICIENT mL/min/1.73 sq m [facility] CLINICAL DATA TO [facility] CALCULATE ESTIMATED GFR. Specimen Blood Narrative Performed At [facility] Specimen moderately icteric Performing Organization Address City/State/Zipcode Phone Number [facility] [address] [address] CENTER US doppler (09/17/2018 8:30 PM CDT) Specimen Narrative Performed At FINAL REPORT [facility] Abdominal ultrasound and Doppler Clinical History:Cirrhosis Discussion: [...] Report Verified Date/Time:09/17/2018 21:23:28 Reading Location: [address] Consult Reading Room Procedure Note Interface, [...] Verified Date/Time: 09/17/2018 21:23:28 Reading Location: [address] Consult Reading Room Performing Organization Address City/State/Zipcode Phone Number [facility] US abdomen complete (09/17/2018 8:30 PM CDT) Specimen Narrative Performed At FINAL REPORT [facility] Abdominal ultrasound and Doppler Clinical History:Cirrhosis Discussion: [...] Report Verified Date/Time:09/17/2018 21:23:28 Reading Location: [address] Consult Reading Room Procedure Note Interface, [...] Verified Date/Time: 09/17/2018 21:23:28 Reading Location: [address] Consult Reading Room Performing Organization Address [facility] Phone Number GE RIS Carbohydrate antigen 19-9 (CA 19-9) (09/17/2018 3:28 PM CDT) CA 19-9 18 <34 U/mL [facility] Comment: This test was performed using the Siemens (Earn and Play) Chemiluminescent method. Values obtained from different assay methods cannot be used interchangeably. CA19-9 levels, regardless of value, should not be interpreted as absolute evidence of the presence or absence of disease. Specimen Blood Narrative Performed At Performing Lab [facility] [employer] [facility] [address] [place] [address] Idania Gray MD, PhD, DOMINIQUE Performing Organization Address City/[facility] Phone Number [place] [address] INCORPORATED [address] [facility] Carcinoembryonic Antigen (CEA) (09/17/2018 3:28 PM CDT) CEA, SERUM 4.0 0.0 - 5.0 ng/mL [facility] Specimen Blood Performing Organization Address City/[facility] Phone Number [facility] [address] [id number] [phone] [place] Urinalysis w/Microscopic + Reflex to Culture (09/17/2018 12:46 PM CDT) Color, UA Yellow [facility] Clarity, UA Clear [facility] Specific [place], UA 1.034 1.001 - 1.035 [facility] pH, UA 7.0 5.0 - 8.0 [facility] Protein, UA Negative Negative [facility] Glucose, UA Negative Negative [facility] Ketones, UA Negative Negative [facility] Bilirubin, UA Positive (A) Negative [facility] Blood, UA Negative Negative [facility] Nitrite, UA Negative Negative [facility] Leukocytes, UA Negative Negative [facility] Urobilinogen, UA 4.0 (H) 0.2 - 1.0 mg/dL [facility] RBC, UA 0 /HPF [facility] WBC, UA 0 /HPF [facility] Squam Epithel, UA 1 /HPF [facility] Specimen Source [facility] Specimen Urine Performing Organization Address City/State/Zipcode Phone Number [address] [address] [place] Drug screen, urine, transplant (09/17/2018 12:46 PM CDT) Specimen Urine Narrative Performed At Performing Organization Address City/State/Zipcode Phone Number [facility] [phone] [place] [address] Drug screen, urine, comprehensive (09/17/2018 12:46 PM CDT) Specimen Urine Narrative Performed At Hepatitis A antibody, IgG (09/17/2018 11:41 AM CDT) Hep A IgG Reactive (A) Nonreactive [facility] Specimen Blood Performing Organization Address [facility] Phone Number [address] [address] [phone] [place] Hepatitis B core antibody, total (09/17/2018 11:41 AM CDT) Hep B Core Total Ab Nonreactive Nonreactive [facility] Specimen Blood Performing Organization Address [facility] Phone Number [address] [address] CENTER Immunoglobulin G (IgG) (09/17/2018 11:41 AM CDT) IgG 1,727 540 - 1,822 mg/dL [facility] Specimen Blood Performing Organization Address [facility] Phone Number [address] [address] [phone] [place] Bilirubin, direct (09/17/2018 11:41 AM CDT) Bilirubin, Direct 4.4 (H)Comment: Specimen 0.1 - 0.5 mg/dL [facility] slightly hemolyzed [facility] Specimen Blood Performing Organization Address [facility] Phone Number [address] [address] CENTER IgG subclasses panel (09/17/2018 10:18 AM [...] Lab [facility] [id number] [place] [address] Idania Gray MD, PhD, DOMINIQUE Performing Organization Address City/[facility] Phone Number [facility] [place] [address] [facility]OR[facility]ATED [address] [facility] Anti-Mitochondrial Ab, reflex to titer (09/17/2018 9:01 AM CDT) Scan Result [facility] Specimen Blood Narrative Performed At Performing Organization Address City/[facility] Phone Number [facility], [place] [address] INCORPORATED [address] [facility] Type and screen, automated (09/17/2018 9:01 AM CDT) ABO/RH AUTOMATED (BEAKER) O POSITIVE [facility] Ab Scrn NEGATIVE [facility] Specimen Blood Performing Organization Address [facility] Phone Number [address] [address] [phone] Ethanol (09/17/2018 9:01 AM CDT) Ethanol Lvl <10 <=10 mg/dL [facility] Specimen Blood Performing Organization Address [facility] Phone Number [address] [address] [phone] CENTER Blood culture #2 (09/17/2018 7:09 AM CDT)Only the most recent of2 resultswithin the time period is included. Result No growth in 5 days [facility] Specimen Blood Performing Organization Address [facility] Phone Number [address] [address] CENTER Procalcitonin (09/17/2018 6:55 AM CDT) Procalcitonin 0.25 (H) <0.05 ng/mL [facility] Specimen Blood Narrative Performed At [facility] SEPSIS RISK (ng/mL) Low:0.05-0.50 Intermediate: 0.51-2.00 High: >=2.01 Performing Organization Address [facility] Phone Number [address] [address] CENTER Iron, TIBC, % sat. (without ferritin) (09/17/2018 6:55 AM CDT) Iron 147 40 - 160 ug/dL [facility] TIBC 251 250 - 450 ug/dL [facility] Iron % Saturation 59 (H) 20 - 55 % [facility] Specimen Blood Performing Organization Address [facility] Phone Number [address] [address] [phone] CENTER Actin (Smooth Muscle) Antibody, IgG (09/17/2018 [...] Lab [facility] [employer] [address] [address] Idania Gray MD, PhD, DOMINIQUE Performing Organization Address [facility] Phone Number [place] [address] [place] [address] [id number] (09/17/2018 6:55 AM CDT) A-1 Antitrypsin 245.40 (H) 90.00 - 200.00 mg/dL [facility] Specimen Blood Performing Organization Address [facility] Phone Number [address] [address] CENTER Lactic acid, venous, whole blood (09/17/2018 6:55 AM CDT) Lactate, Venous 0.8 0.5 - 2.2 mmol/L [facility] Specimen Blood Narrative Performed At [facility] Effective 03/27/2016: Units/Reference Range Change New: 0.5-2.2 mmol/LPrevious: 5-20 mg/dL Specimen moderately icteric Performing Organization Address City/[facility]/Zipcode Phone Number [facility] [address] [place] [address] CENTER Ceruloplasmin (09/17/2018 6:55 AM CDT) Ceruloplasmin 30 18 - 36 mg/dL [facility] Comment: Adults:Males: 18-36 mg/dL Females: 18-53 mg/dL Pediatrics:Males (mg/dL)Females (mg/dL) 0-30 Days 8-25 3-28 31 Days-11 Month [id number] 1-3 [id number] 4-6 [id number] 7-9 [id number] 10-12 [id number] 13-15 [id number] 16-18 [id number] The pediatric ranges are derived from the following criteria: Ra SJ, Thien JM, Malissa J et al Pediatric reference ranges for Anor-2-Zamcjfqzmxuef and ceruloplasmin. Clin. Chem 1997; 43:S1999 Pediatric Reference Ranges, 2nd., [place] Raet al. editors. [employer], [place], [place] 1997. Specimen Blood Narrative Performed At Performing Lab [facility] *SPL [facility] [place] [facility], [address] [place] [address] Pedro Martin MD, PhD Performing Organization Address City/[facility]/Zipcode Phone Number [facility], [place] [address] INCORPORATED [address] [facility] Alpha fetoprotein (AFP), tumor marker (09/17/2018 6:55 AM CDT) Alpha-Fetoprotein 9.2 <10.0 ng/mL [facility] Specimen Blood Performing Organization Address [facility] Phone Number [address] [address] [phone] [place] Hepatitis panel, acute (09/17/2018 6:55 AM CDT) Hep A IgM Reactive (A) Nonreactive [facility] Hep B C IgM Nonreactive Nonreactive [facility] Hepatitis C Ab Nonreactive Nonreactive [facility] hepatitis B Surface Ag Nonreactive Nonreactive [facility] Specimen Blood Performing Organization Address [facility] Phone Number [address] [address] [place] aPTT (09/17/2018 6:55 AM CDT) PTT 40.0 (H) 22.5 - 36.0 seconds [facility] Specimen Blood Performing Organization Address City/[facility] Phone Number [address] [address] [place] Prothrombin time/INR (09/17/2018 6:55 AM CDT) Protime 17.0 (H) 11.7 - 14.7 seconds [facility] INR 1.4 <=5.9 [facility] Specimen Blood Narrative Performed At [facility] RECOMMENDED COUMADIN/WARFARIN INR THERAPY RANGES STANDARD DOSE: 2.0 - 3.0 Includes: PROPHYLAXIS for venous thrombosis, systemic embolization; TREATMENT for venous thrombosis and/or pulmonary embolus. HIGH RISK: Target INR is 2.5-3.5 for patients with mechanical heart valves. Performing Organization Address City/[facility] Phone Number [address] [address] [place] Anti-Nuclear Antibody (NATE) (09/17/2018 6:55 AM CDT) NATE Negative Negative [facility] Specimen Blood Narrative Performed At Test performed by IFA method. [facility] Test performed by IFA method. Performing Organization Address City/[facility] Phone Number [address] [address] [phone] CENTER Phosphorus (09/17/2018 6:55 AM CDT) Phosphorus 2.5 2.3 - 4.7 mg/dL [facility] Specimen Blood Performing Organization Address City/[facility] Phone Number [address] [address] CENTER Magnesium (09/17/2018 6:55 AM CDT) Magnesium 1.8 1.6 - 2.6 mg/dL [facility] Specimen Blood Performing Organization Address [facility] Phone Number [address] [address] CENTER Ferritin (09/17/2018 6:55 AM CDT) Ferritin 276 (H) 5 - 275 ng/mL [facility] Specimen Blood Performing Organization Address [facility] Phone Number [address] [phone] CENTER Acetaminophen level (09/17/2018 6:55 AM CDT) Acetaminophen Level <5.7 (L) 10.0 - 30.0 ug/mL [facility] Specimen Blood Narrative Performed At [facility] Therapeutic Range: 10.0-30.0 g/mL Toxic Levels:>200.0 g/mL Performing Organization Address [facility] Phone Number [address] [address] CENTER after 06/04/2018 Advance Directives For more information, please contact:[address] [phone] Code Status Date Activated Date Inactivated Comments Full Code 09/17/2018 6:49 AM 09/18/2018 5:09 PM This code status was determined by: Patient
--- OUTSIDE RECORDS SUMMARY | 2019-06-05 19:19 | XMS REPORT ---
:1985 [facility] [address] [place] [address] Care Team Providers Name Role Phone IAN [...] Value Reference Range Comments SCAN RESULT (test ekgk=[id number]) BLOOD [id number] 12:01:00 Test Item Value Reference Range Comments CULTURE (BEAKER) (test rtrf=4731) No growth in 5 days BLOOD [id number] 12:01:00 Test Item Value Reference Range Comments CULTURE (BEAKER) (test pkdz=7595) No growth in 5 days HEPATITIS PANEL, [id number] 13:35:00 Test Item Value Reference Range Comments HEPATITIS A IGM ANTIBODY (BEAKER) (test Reactive Nonreactive nyef=766) HEPATITIS B CORE IGM ANTIBODY (BEAKER) (test Nonreactive Nonreactive zrmg=258) HEPATITIS C ANTIBODY (BEAKER) (test xzgu=378) Nonreactive Nonreactive HEPATITIS B SURFACE ANTIGEN (2) (BEAKER) (test Nonreactive Nonreactive vegu=4095) ANTI-NUCLEAR ANTIBODY (NATE)2018-09-21 13:07:00 Test Item Value Reference Range Comments ANTI-NUCLEAR ANTIBODY (NATE) (BEAKER) (test Negative Negative rnbe=237) Test performed by IFA method.Test performed by IFA method.CBC W/PLT COUNT & AUTO [id number] 06:36:00 Test Item Value Reference Range Comments WHITE BLOOD CELL COUNT (BEAKER) (test pvps=386) 9.4 K/ L 3.5-10.5 RED BLOOD CELL COUNT (BEAKER) (test wsrg=702) 3.20 M/ L 4.63-6.08 HEMOGLOBIN (BEAKER) (test fpwr=814) 9.8 GM/DL 13.7-17.5 HEMATOCRIT (BEAKER) (test vprd=810) 30.5 % 40.1-51.0 MEAN CORPUSCULAR VOLUME (BEAKER) (test vxsl=204) 95.3 fL 79.0-92.2 MEAN CORPUSCULAR HEMOGLOBIN (BEAKER) (test 30.6 pg 25.7-32.2 bvug=756) MEAN CORPUSCULAR HEMOGLOBIN CONC (BEAKER) (test 32.1 GM/DL 32.3-36.5 blpb=307) RED CELL DISTRIBUTION WIDTH (BEAKER) (test 19.2 % 11.6-14.4 ubcf=154) PLATELET COUNT (BEAKER) (test tijg=503) 144 K/CU MM 150-450 MEAN PLATELET VOLUME (BEAKER) (test wczy=660) 12.0 fL 9.4-12.4 NUCLEATED RED BLOOD CELLS (BEAKER) (test 0 /100 WBC 0-0 rnke=561) NEUTROPHILS RELATIVE PERCENT (BEAKER) (test 65 % cmir=406) LYMPHOCYTES RELATIVE PERCENT (BEAKER) (test 16 % wqez=091) MONOCYTES RELATIVE PERCENT (BEAKER) (test 13 % cbjb=340) EOSINOPHILS RELATIVE PERCENT (BEAKER) (test 3 % usxa=823) BASOPHILS RELATIVE PERCENT (BEAKER) (test 2 % wzak=656) NEUTROPHILS ABSOLUTE COUNT (BEAKER) (test 6.10 K/ L 1.78-5.38 auxy=935) LYMPHOCYTES ABSOLUTE COUNT (BEAKER) (test 1.51 K/ L 1.32-3.57 femu=901) MONOCYTES ABSOLUTE COUNT (BEAKER) (test 1.20 K/ L 0.30-0.82 mcsy=366) EOSINOPHILS ABSOLUTE COUNT (BEAKER) (test 0.32 K/ L 0.04-0.54 ehgd=834) BASOPHILS ABSOLUTE COUNT (BEAKER) (test 0.14 K/ L 0.01-0.08 evrr=171) IMMATURE GRANULOCYTES-RELATIVE PERCENT (BEAKER) 2 % 0-1 (test tpvx=2935) POCT-GLUCOSE [id number] 06:31:00 Test Item Value Reference Range Comments POC-GLUCOSE METER (BEAKER) 126 mg/dL 70-110 TESTED AT [facility] [address] (test knif=2040) [facility] [address] COMPREHENSIVE METABOLIC [id number] 04:53:00 Test Item Value Reference Range Comments TOTAL PROTEIN (BEAKER) 7.5 gm/dL 6.0-8.3 (test wcoo=934) ALBUMIN (BEAKER) (test 2.9 g/dL 3.5-5.0 iqgj=3919) ALKALINE PHOSPHATASE 150 U/L 40-150 (BEAKER) (test rgpg=435) BILIRUBIN TOTAL (BEAKER) 7.2 mg/dL 0.2-1.2 (test fwdn=630) SODIUM (BEAKER) (test 133 meq/L 136-145 aevk=991) POTASSIUM (BEAKER) (test 3.6 meq/L 3.5-5.1 silj=528) CHLORIDE (BEAKER) (test 101 meq/L 98-107 zcpi=589) CO2 (BEAKER) (test 25 meq/L 22-29 tqkd=693) BLOOD UREA NITROGEN 6 mg/dL 7-21 (BEAKER) (test nxgo=731) CREATININE (BEAKER) (test 0.68 mg/dL 0.57-1.25 zzqu=809) GLUCOSE RANDOM (BEAKER) 132 mg/dL 70-105 (test mtsh=091) CALCIUM (BEAKER) (test 7.8 mg/dL 8.4-10.2 pech=247) AST (SGOT) (BEAKER) (test 223 U/L 5-34 jfxt=479) ALT (SGPT) (BEAKER) (test 21 U/L 6-55 mfib=421) EGFR (BEAKER) (test mL/min/1.73 sq m INSUFFICIENT CLINICAL DATA phat=0460) TO CALCULATE ESTIMATED GFR. Specimen moderately ictericCBC W/PLT COUNT & AUTO [id number] 00: 15:00 Test Item Value Reference Range Comments WHITE BLOOD CELL COUNT (BEAKER) (test rasb=290) 9.5 K/ L 3.5-10.5 RED BLOOD CELL COUNT (BEAKER) (test sajt=349) 3.17 M/ L 4.63-6.08 HEMOGLOBIN (BEAKER) (test hbdb=615) 9.7 GM/DL 13.7-17.5 HEMATOCRIT (BEAKER) (test ehvc=902) 30.1 % 40.1-51.0 MEAN CORPUSCULAR VOLUME (BEAKER) (test fypc=586) 95.0 fL 79.0-92.2 MEAN CORPUSCULAR HEMOGLOBIN (BEAKER) (test 30.6 pg 25.7-32.2 nmwq=627) MEAN CORPUSCULAR HEMOGLOBIN CONC (BEAKER) (test 32.2 GM/DL 32.3-36.5 wpjv=640) RED CELL DISTRIBUTION WIDTH (BEAKER) (test 19.3 % 11.6-14.4 vxjj=952) PLATELET COUNT (BEAKER) (test vqqb=380) 134 K/CU MM 150-450 MEAN PLATELET VOLUME (BEAKER) (test ruiz=053) 12.1 fL 9.4-12.4 NUCLEATED RED BLOOD CELLS (BEAKER) (test 0 /100 WBC 0-0 ioak=249) NEUTROPHILS RELATIVE PERCENT (BEAKER) (test 68 % spus=156) LYMPHOCYTES RELATIVE PERCENT (BEAKER) (test 16 % cxnl=134) MONOCYTES RELATIVE PERCENT (BEAKER) (test 12 % wiov=166) EOSINOPHILS RELATIVE PERCENT (BEAKER) (test 2 % gudz=117) BASOPHILS RELATIVE PERCENT (BEAKER) (test 1 % mvqa=053) NEUTROPHILS ABSOLUTE COUNT (BEAKER) (test 6.43 K/ L 1.78-5.38 zyjx=584) LYMPHOCYTES ABSOLUTE COUNT (BEAKER) (test 1.47 K/ L 1.32-3.57 xtwu=978) MONOCYTES ABSOLUTE COUNT (BEAKER) (test 1.13 K/ L 0.30-0.82 zwrg=661) EOSINOPHILS ABSOLUTE COUNT (BEAKER) (test 0.23 K/ L 0.04-0.54 ldnq=518) BASOPHILS ABSOLUTE COUNT (BEAKER) (test 0.13 K/ L 0.01-0.08 egfg=089) IMMATURE GRANULOCYTES-RELATIVE PERCENT (BEAKER) 1 % 0-1 (test xhcx=6232) POCT-GLUCOSE [id number] 00:13:00 Test Item Value Reference Range Comments POC-GLUCOSE METER (BEAKER) 212 mg/dL 70-110 TESTED AT [facility] [address] [facility] (test lmwj=4538) [place] [address] U/S, ABDOMINAL, [id number] 21:23:00With dopplersReason for exam:-> RUQ ABD US [...] Brown MDReport VerifiedDate/Time: 09/17/2018 21:23:28 Reading Location: [address] Consult Reading Room U/S, DUPLEX, [id number] 21:23:00Reason for exam:-& gt;RUQ ABD US W/ [...] Brown MDReport VerifiedDate/Time: 09/17/2018 21:23:28 Reading Location: [facility] [id number] Consult Reading Room POCT-GLUCOSE [id number] 18:02:00 Test Item Value Reference Range Comments POC-GLUCOSE METER (AKER) 135 mg/dL 70-110 TESTED AT [facility] [address] [facility] (test mhoa=2142) [facility] [address] CBC W/PLT COUNT & AUTO [id number] 17:56:00 Test Item Value Reference Range Comments WHITE BLOOD CELL COUNT (BEAKER) (test jzyv=431) 10.2 K/ L 3.5-10.5 RED BLOOD CELL COUNT (BEAKER) (test kcqw=965) 3.34 M/ L 4.63-6.08 HEMOGLOBIN (BEAKER) (test kwwf=160) 10.3 GM/DL 13.7-17.5 HEMATOCRIT (BEAKER) (test ssln=091) 31.2 % 40.1-51.0 MEAN CORPUSCULAR VOLUME (BEAKER) (test fbrc=618) 93.4 fL 79.0-92.2 MEAN CORPUSCULAR HEMOGLOBIN (BEAKER) (test 30.8 pg 25.7-32.2 vpoq=348) MEAN CORPUSCULAR HEMOGLOBIN CONC (BEAKER) (test 33.0 GM/DL 32.3-36.5 vbow=194) RED CELL DISTRIBUTION WIDTH (BEAKER) (test 19.1 % 11.6-14.4 xvyv=526) PLATELET COUNT (BEAKER) (test zbeo=340) 134 K/CU MM 150-450 MEAN PLATELET VOLUME (BEAKER) (test aonb=058) 11.4 fL 9.4-12.4 NUCLEATED RED BLOOD CELLS (BEAKER) (test 0 /100 WBC 0-0 omyn=691) NEUTROPHILS RELATIVE PERCENT (BEAKER) (test 69 % xvrv=488) LYMPHOCYTES RELATIVE PERCENT (BEAKER) (test 14 % ulqm=788) MONOCYTES RELATIVE PERCENT (BEAKER) (test 12 % voxn=089) EOSINOPHILS RELATIVE PERCENT (BEAKER) (test 2 % nftk=701) BASOPHILS RELATIVE PERCENT (BEAKER) (test 1 % kccj=508) NEUTROPHILS ABSOLUTE COUNT (BEAKER) (test 7.05 K/ L 1.78-5.38 oxxc=774) LYMPHOCYTES ABSOLUTE COUNT (BEAKER) (test 1.46 K/ L 1.32-3.57 zfsh=402) MONOCYTES ABSOLUTE COUNT (BEAKER) (test 1.19 K/ L 0.30-0.82 nblb=413) EOSINOPHILS ABSOLUTE COUNT (BEAKER) (test 0.20 K/ L 0.04-0.54 gfqh=346) BASOPHILS ABSOLUTE COUNT (BEAKER) (test 0.11 K/ L 0.01-0.08 rtqv=428) IMMATURE GRANULOCYTES-RELATIVE PERCENT (BEAKER) 2 % 0-1 (test hczo=8479) CARCINOEMBRYONIC ANTIGEN (CEA)2018-09-17 16:30:00 Test Item Value Reference Range Comments CARCINOEMBRYONIC ANTIGEN (BEAKER) (test znga=016) 4.0 ng/mL 0.0-5.0 CBC W/PLT COUNT & AUTO [id number] 15:39:00 Test Item Value Reference Range Comments WHITE BLOOD CELL COUNT (BEAKER) (test toor=171) 9.2 K/ L 3.5-10.5 RED BLOOD CELL COUNT (BEAKER) (test fyxl=582) 3.30 M/ L 4.63-6.08 HEMOGLOBIN (BEAKER) (test cfcc=969) 10.0 GM/DL 13.7-17.5 HEMATOCRIT (BEAKER) (test nbij=152) 30.8 % 40.1-51.0 MEAN CORPUSCULAR VOLUME (BEAKER) (test dcje=550) 93.3 fL 79.0-92.2 MEAN CORPUSCULAR HEMOGLOBIN (BEAKER) (test 30.3 pg 25.7-32.2 jxlr=980) MEAN CORPUSCULAR HEMOGLOBIN CONC (BEAKER) (test 32.5 GM/DL 32.3-36.5 grgi=442) RED CELL DISTRIBUTION WIDTH (BEAKER) (test 19.3 % 11.6-14.4 rqqc=279) PLATELET COUNT (BEAKER) (test ocyq=680) 127 K/CU MM 150-450 MEAN PLATELET VOLUME (BEAKER) (test mlno=915) 11.8 fL 9.4-12.4 NUCLEATED RED BLOOD CELLS (BEAKER) (test 0 /100 WBC 0-0 lshz=289) NEUTROPHILS RELATIVE PERCENT (BEAKER) (test 70 % csni=238) LYMPHOCYTES RELATIVE PERCENT (BEAKER) (test 13 % bbnj=842) MONOCYTES RELATIVE PERCENT (BEAKER) (test 12 % tqiv=975) EOSINOPHILS RELATIVE PERCENT (BEAKER) (test 2 % eiyf=376) BASOPHILS RELATIVE PERCENT (BEAKER) (test 1 % cfeb=129) NEUTROPHILS ABSOLUTE COUNT (BEAKER) (test 6.45 K/ L 1.78-5.38 fgbp=334) LYMPHOCYTES ABSOLUTE COUNT (BEAKER) (test 1.23 K/ L 1.32-3.57 cbby=050) MONOCYTES ABSOLUTE COUNT (BEAKER) (test 1.12 K/ L 0.30-0.82 troi=706) EOSINOPHILS ABSOLUTE COUNT (BEAKER) (test 0.16 K/ L 0.04-0.54 wtqf=872) BASOPHILS ABSOLUTE COUNT (BEAKER) (test 0.12 K/ L 0.01-0.08 edut=255) IMMATURE GRANULOCYTES-RELATIVE PERCENT (BEAKER) 1 % 0-1 (test vbnw=8295) HEPATITIS A ANTIBODY, [id number] 14:34:00 Test Item Value Reference Range Comments HEPATITIS A IGG ANTIBODY (BEAKER) (test wrpb=9516) Reactive Nonreactive HEPATITIS B CORE ANTIBODY, [id number] 14:31:00 Test Item Value Reference Range Comments HEPATITIS B CORE TOTAL ANTIBODY (BEAKER) (test Nonreactive Nonreactive skck=897) URINALYSIS W/ REFLEX URINE [id number] 13:18:00 Test Item Value Reference Range Comments COLOR (BEAKER) (test szap=552) Yellow CLARITY (BEAKER) (test clak=007) Clear SPECIFIC GRAVITY UA (BEAKER) (test vtgw=731) 1.034 1.001-1.035 PH UA (BEAKER) (test jmvc=414) 7.0 5.0-8.0 PROTEIN UA (BEAKER) (test yhik=141) Negative Negative GLUCOSE UA (BEAKER) (test yjbq=961) Negative Negative KETONES UA (BEAKER) (test qygu=031) Negative Negative BILIRUBIN UA (BEAKER) (test gryh=157) Positive Negative BLOOD UA (BEAKER) (test ydvt=671) Negative Negative NITRITE UA (BEAKER) (test vdbg=566) Negative Negative LEUKOCYTE ESTERASE UA (BEAKER) (test mzav=178) Negative Negative UROBILINOGEN UA (BEAKER) (test fsdy=706) 4.0 mg/dL 0.2-1.0 RBC UA (BEAKER) (test tnsv=387) 0 /HPF WBC UA (BEAKER) (test wort=636) 0 /HPF SQUAMOUS EPITHELIAL (BEAKER) (test gqio=225) 1 /HPF SOURCE(BEAKER) (test oybe=1728) ALPHA FETOPROTEIN (AFP), TUMOR [id number] 13:18:00 Test Item Value Reference Range Comments ALPHA-FETOPROTEIN (BEAKER) (test ucid=5487) 9.2 ng/mL <10.0 BILIRUBIN, [id number] 12:15:00 Test Item Value Reference Range Comments BILIRUBIN DIRECT (BEAKER) (test 4.4 mg/dL 0.1-0.5 Specimen slightly hemolyzed sbjz=682) IMMUNOGLOBULIN G (IGG)2018-09-17 12:13:00 Test Item Value Reference Range Comments IMMUNOGLOBULIN G (IGG) (BEAKER) (test rlfr=698) 1727 mg/dL 540-1822 [id number] 09:59:00 Test Item Value Reference Range Comments PROCALCITONIN (BEAKER) (test jvjw=3766) 0.25 ng/mL <0.05 SEPSIS RISK (ng/mL)Low: 0.05-0.50Intermediate: 0.51-2.00High: & gt;=[id number] 09:47:00 Test Item Value Reference Range Comments ETHANOL (BEAKER) (test mgzk=855) < mg/dL <=10 COMPREHENSIVE METABOLIC [id number] 09:38:00 Test Item Value Reference Range Comments TOTAL PROTEIN (BEAKER) 7.9 gm/dL 6.0-8.3 (test eajc=512) ALBUMIN (BEAKER) (test 3.1 g/dL 3.5-5.0 fqxp=0749) ALKALINE PHOSPHATASE 173 U/L 40-150 (BEAKER) (test dyon=515) BILIRUBIN TOTAL (BEAKER) 7.0 mg/dL 0.2-1.2 (test jsxj=726) SODIUM (BEAKER) (test 133 meq/L 136-145 rjpe=572) POTASSIUM (BEAKER) (test 3.3 meq/L 3.5-5.1 bscw=635) CHLORIDE (BEAKER) (test 101 meq/L 98-107 nfba=840) CO2 (BEAKER) (test 21 meq/L 22-29 pnnf=212) BLOOD UREA NITROGEN 4 mg/dL 7-21 (BEAKER) (test frbu=189) CREATININE (BEAKER) (test 0.66 mg/dL 0.57-1.25 gmvz=051) GLUCOSE RANDOM (BEAKER) 134 mg/dL 70-105 (test pwyf=640) CALCIUM (BEAKER) (test 8.1 mg/dL 8.4-10.2 qjvc=596) AST (SGOT) (BEAKER) (test 193 U/L 5-34 tjmm=218) ALT (SGPT) (BEAKER) (test 21 U/L 6-55 mxnu=695) EGFR (BEAKER) (test mL/min/1.73 sq m INSUFFICIENT CLINICAL DATA sugl=3325) TO CALCULATE ESTIMATED GFR. Specimen moderately [id number] 09:31:00 Test Item Value Reference Range Comments PHOSPHORUS (BEAKER) (test ktuu=404) 2.5 mg/dL 2.3-4.7 [id number] 09:31:00 Test Item Value Reference Range Comments MAGNESIUM (BEAKER) (test vnwr=390) 1.8 mg/dL 1.6-2.6 LACTIC ACID, VENOUS, WHOLE [id number] 08:24:00 Test Item Value Reference Range Comments LACTATE BLOOD VENOUS (2) (BEAKER) (test 0.8 mmol/L 0.5-2.2 qynf=2720) Effective 03/27/2016: Units/Reference Range ChangeNew: 0.5-2.2 mmol/L Previous: 5 -20 mg/dLSpecimen moderately ictericACETAMINOPHEN [id number] 08:23:00 Test Item Value Reference Range Comments ACETAMINOPHEN LEVEL (BEAKER) (test rbek=318) < ug/mL 10.0-30.0 Therapeutic Range: 10.0-30.0 g/mLToxic Levels: >200.0 g/[id number] -[id number] 07:47:00 Test Item Value Reference Range Comments FERRITIN (BEAKER) (test gbhv=282) 276 ng/mL 5-275 [id number] 07:46:00 Test Item Value Reference Range Comments ALPHA-1 ANTITRYPSIN (BEAKER) (test argk=395) 245.40 mg/dL 90.00-200.00 IRON, TIBC, % SAT. (WITHOUT FERRITIN)2018-09-17 07:27:00 Test Item Value Reference Range Comments IRON (BEAKER) (test dxai=322) 147 ug/dL 40-160 TOTAL IRON BINDING CAPACITY (BEAKER) (test 251 ug/dL 250-450 jkwo=571) IRON % SATURATION (2) (BEAKER) (test jbxd=6582) 59 % 20-55 [id number] 07:20:00 Test Item Value Reference Range Comments PARTIAL THROMBOPLASTIN TIME (BEAKER) (test 40.0 seconds 22.5-36.0 nedp=857) PROTHROMBIN [id number] 07:19:00 Test Item Value Reference Range Comments PROTIME (BEAKER) (test favn=356) 17.0 seconds 11.7-14.7 INR (BEAKER) (test kehy=424) 1.4 <=5.9 RECOMMENDED COUMADIN/WARFARIN INR THERAPY RANGESSTANDARD DOSE: 2.0 - 3.0 Includes: PROPHYLAXIS forvenous thrombosis, systemic embolization; TREATMENT for venous thrombosis and/or pulmonary embolus.HIGH RISK: Target INR is 2.5-3.5 for patients with mechanical heart valves.CBC W/PLT COUNT & AUTO [id number] 07:04:00 Test Item Value Reference Range Comments WHITE BLOOD CELL COUNT (BEAKER) (test znxs=620) 10.3 K/ L 3.5-10.5 RED BLOOD CELL COUNT (BEAKER) (test xmoc=494) 3.40 M/ L 4.63-6.08 HEMOGLOBIN (BEAKER) (test vyxe=366) 10.4 GM/DL 13.7-17.5 HEMATOCRIT (BEAKER) (test wmlz=372) 31.1 % 40.1-51.0 MEAN CORPUSCULAR VOLUME (BEAKER) (test ygor=954) 91.5 fL 79.0-92.2 MEAN CORPUSCULAR HEMOGLOBIN (BEAKER) (test 30.6 pg 25.7-32.2 jszx=681) MEAN CORPUSCULAR HEMOGLOBIN CONC (BEAKER) (test 33.4 GM/DL 32.3-36.5 tuvu=956) RED CELL DISTRIBUTION WIDTH (BEAKER) (test 19.0 % 11.6-14.4 jrsm=446) PLATELET COUNT (BEAKER) (test bjge=416) 129 K/CU MM 150-450 MEAN PLATELET VOLUME (BEAKER) (test enmz=860) 12.3 fL 9.4-12.4 NUCLEATED RED BLOOD CELLS (BEAKER) (test 0 /100 WBC 0-0 xdkl=756) NEUTROPHILS RELATIVE PERCENT (BEAKER) (test 69 % ecka=919) LYMPHOCYTES RELATIVE PERCENT (BEAKER) (test 16 % rjwv=081) MONOCYTES RELATIVE PERCENT (BEAKER) (test 12 % ordl=220) EOSINOPHILS RELATIVE PERCENT (BEAKER) (test 1 % swjt=529) BASOPHILS RELATIVE PERCENT (BEAKER) (test 1 % ciey=411) NEUTROPHILS ABSOLUTE COUNT (BEAKER) (test 7.13 K/ L 1.78-5.38 thex=438) LYMPHOCYTES ABSOLUTE COUNT (BEAKER) (test 1.62 K/ L 1.32-3.57 ysuc=196) MONOCYTES ABSOLUTE COUNT (BEAKER) (test 1.25 K/ L 0.30-0.82 ecck=754) EOSINOPHILS ABSOLUTE COUNT (BEAKER) (test 0.14 K/ L 0.04-0.54 aont=933) BASOPHILS ABSOLUTE COUNT (BEAKER) (test 0.09 K/ L 0.01-0.08 jzrt=910) IMMATURE GRANULOCYTES-RELATIVE PERCENT (BEAKER) 1 % 0-1 (test xryk=7907)
[2019-06-05] MEDS ORDERED: ONDANSETRON 4 MG/2 ML VIAL ONE (20:00)
[2019-06-05] MEDS ORDERED: NA CHLORIDE 0.9% 1,000 ML ONE ×2 (20:00→21:14)
[2019-06-05] MEDS ORDERED: FAMOTIDINE 20 MG/2 ML VIAL IV ONE (20:00)
[2019-06-05 20:06] LABS: Protime INR 1.3
--- NOTE | 2019-06-05 20:06 | RAD REPORT ---
EXAM DESCRIPTION: RAD - Chest Single View - 06/05/2019 7:57 pm CLINICAL HISTORY: vomiting Chest pain. COMPARISON: No comparisonsNo comparisonsChest Single View dated 09/30/2018Chest Single View dated 09/30/2018 FINDINGS: Portable technique limits examination quality. The lungs are grossly clear. The heart is normal in size. No displaced fractures. IMPRESSION: No acute intrathoracic process suspected.
[2019-06-05 20:21] LABS: ALT/SGPT 62 U/L (12-78); AST/SGOT 183 U/L (15-37); Absolute Lymphocytes (CBC) 0.8 K/uL (0.7-4.9); Albumin 4.3 g/dL (3.4-5.0); Alkaline Phosphatase 180 U/L (45-117); BUN Blood Urea Nitrogen 13 mg/dL (7-18); Basophils % 0.9 % (0-1.3); Bicarbonate 26 mmol/L (21-32); Bilirubin Direct 1.3 mg/dL (0-0.2); Bilirubin Total 3.6 mg/dL (0.2-1.0); CKMB Creatine Kinase MB 3.4 ng/mL (0.3-3.6); Creatine Phosphokinase 464 U/L (39-308); Glucose Level 102 mg/dL (74-106); Hematocrit 38.4 % (39.6-49.0); Lymphocytes % 11.2 % (15.3-44.8); MPV 9.5 fL (7.6-11.3); Magnesium 1.7 mg/dL (1.8-2.4); Monocytes % 13.6 % (3.3-12.3); NT PRO-BNP 16 pg/mL (<125); Potassium 3.7 mmol/L (3.5-5.1); Protein, Total 10.6 g/dL (6.4-8.2); RBC Red Blood Cell Count 4.56 M/uL (4.33-5.43); Sodium Level 134 mmol/L (136-145); Troponin (Emerg Dept Use Only) < 0.02 ng/mL (0.0-0.045)
[2019-06-05] MEDS ORDERED: Magnesium Sulfate 2gm IVPB 2 G/50 ML BAG IV ONE (21:34)
[2019-06-05] MEDS ORDERED: LORazepam 2 MG/ML VIAL ONE (21:34)
[2019-06-05] MEDS ORDERED: THIAMINE 200 MG/2 ML INJ ONE (21:34)
[2019-06-05 22:03] LABS: Anisocytosis 2+; Blood Morphology Comment NOTED (NOT SEEN); Platelet Estimate DECR; Target Cells 1+; Urine White Blood Cell Casts OK
--- NOTE | 2019-06-05 22:42 | RAD REPORT ---
EXAM DESCRIPTION: US - Abdomen Exam Limited - 06/05/2019 10:00 pm CLINICAL HISTORY: Abdominal pain. COMPARISON: December 2018 FINDINGS: The gallbladder wall measures approximately 3 millimeters. A gallstone is not seen The biliary tree is normal caliber. IMPRESSION: Borderline gallbladder wall thickening. Otherwise, unremarkable exam
[2019-06-05 23:20] LABS: Urine Blood NEGATIVE (NEG); Urine Glucose TRACE (NEG); Urine Protein 3+ (NEG); Urine pH 7.5 (5.0-7.0)
[2019-06-05 23:24] LABS: Barbiturates NEGATIVE (NEGATIVE); Benzodiazepines NEGATIVE (NEGATIVE); Cocaine NEGATIVE (NEGATIVE); METHAMPHETAM NEGATIVE (NEGATIVE); Methadone NEGATIVE (NEGATIVE); Opiates NEGATIVE (NEGATIVE); Phencyclidine NEGATIVE (NEGATIVE); THC Cannibis NEGATIVE (NEGATIVE)
[2019-06-05 23:35] LABS: Urine Bacteria <20 /HPF (NONE SEEN); Urine Culture Reflex Order NOT NEEDED; Urine Mucus HEAVY /HPF (NONE SEEN); Urine RBC <5 /HPF (NONE SEEN)
--- NOTE | 2019-06-05 23:37 | ER ---
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 I did not eat anything all day either and now I am cramping up real bad. Pt appears diaphoretic in triage, unable to obtain BP due to severe cramping when cuff is inflated. Transition of care: patient was not received from another setting of care. Onset of symptoms was June 05, 2019. Risk Assessment: Do you want to hurt yourself or someone else? Patient reports no desire to harm self or others. Initial Sepsis Screen: Does the patient meet any 2 criteria? No. Patient's initial sepsis screen is negative. Does the patient have a suspected source of infection? No. Patient's initial sepsis screen is negative. Care prior to arrival: None. 19:19 Method Of Arrival: Ambulatory la1 19:19 Acuity: NIKITA 2 la1 Historical: - Allergies: 19:23 No Known Allergies; la1 - Home Meds: 23:57 candesartan 16 mg Oral tab [Active]; rr5 - PMHx: 19:23 Cirrhosis; Hypertension; la1 - Immunization history:: Adult Immunizations up to date. - Social history:: Smoking status: Patient/guardian denies using tobacco. - Ebola Screening: : No symptoms or risks identified at this time. Screenin:30 Abuse screen: Denies threats or abuse. Denies injuries from another. Nutritional rr5 screening: No deficits noted. Tuberculosis screening: No symptoms or risk factors identified. Fall Risk Secondary diagnosis (15 points) impaired mobility, IV access (20 points). Total Wilder Fall Scale indicates Low Risk Score (25-44 pts). Fall prevention measures have been instituted. Side Rails Up X 2 Placed close to Nursing Station Frequent Obs/Assesments occuring Family Present and informed to notify staff if they need to leave bedside As available Patient and Family Educated on Fall Prevention Program and strategies. Assessment: 19:30 General: Appears in no apparent distress. uncomfortable, diaphoretic and tremors noted. rr5 Behavior is calm, cooperative, appropriate for age. 19:30 Pain: Complains of pain in body Pain does not radiate. Pain currently is 10 out of 10 rr5 on a pain scale. Quality of pain is described as aching, crampy. Neuro: Level of Consciousness is awake, alert, obeys commands, Oriented to person, place, time, situation, Appropriate for age. Cardiovascular: Capillary refill < 3 seconds Patient's skin is warm and dry. Respiratory: Airway is patent Respiratory effort is even, unlabored, Respiratory pattern is regular, symmetrical. GI: Abdomen is round non-distended, Reports cramping, nausea, vomiting. : No signs and/or symptoms were reported regarding the genitourinary system. EENT: No signs and/or symptoms were reported regarding the EENT system. Derm: Skin is intact, Skin is Skin temperature is warm diaphoretic. Musculoskeletal: Capillary refill < 3 seconds, Range of motion: intact in all extremities, tremors noted. 20:40 Reassessment: Patient appears in no apparent distress at this time. Patient and/or rr5 family updated on plan of care and expected duration. Pain level reassessed. Patient is alert, oriented x 3, equal unlabored respirations, skin warm/dry/pink. lessen diaphoresis. awaiting for result. Patient states feeling better. Patient states symptoms have improved. 21:05 Reassessment: Patient appears in no apparent distress at this time. patient complaints rr5 of cramps all over the body. ED provider made order and carried out. 22:20 Reassessment: Patient appears in no apparent distress at this time. Patient is alert, rr5 oriented x 3, equal unlabored respirations, skin warm/dry/pink. still with tremors noted. patient verbalized much milder now compare before. Patient states feeling better. Patient states symptoms have improved. 23:10 Reassessment: Patient appears in no apparent distress at this time. Patient and/or rr5 family updated on plan of care and expected duration. Pain level reassessed. chatting with his vp clinical. 23:50 Reassessment: Patient appears in no apparent distress at this time. Patient and/or rr5 family updated on plan of care and expected duration. Pain level reassessed. Patient is alert, oriented x 3, equal unlabored respirations, skin warm/dry/pink. negative for cramping and tremors as verbalized by the patient. discharge instruction given and explained without complaints made. Patient denies pain at this time. Patient states feeling better. Patient states symptoms have improved. Vital Signs: 19:22 Pulse 120; Resp 24; Temp 99.4; Pulse Ox 98% on R/A; Weight 108.86 kg; Height 5 ft. 9 la1 in. (175.26 cm); 19:24 BP 177 / 96; la1 20:30 BP 164 / 102; Pulse 95; Resp 21; Temp 99; Pulse Ox 100% ; rr5 21:30 BP 162 / 94; Pulse 98; Resp 18; Pulse Ox 99% ; rr5 22:30 BP 165 / 90; Pulse 94; Resp 19; Pulse Ox 98% ; rr5 23:50 BP 145 / 75; Pulse 95; Resp 17; Temp 98.5; Pulse Ox 99% on R/A; rr5 19:22 Body Mass Index 35.44 (108.86 kg, 175.26 cm) la1 ED Course: 19:16 Patient arrived in ED. mr 19:16 Stuart Whitaker MD is Private Physician. mr 19:20 Patient has correct armband on for positive identification. Placed in gown. Bed in low rr5 position. Call light in reach. Side rails up X2. obstetrics teacher on. Pulse ox on. NIBP on. 19:22 Triage completed. la1 19:23 Arm band placed on left wrist. la1 19:25 Inserted saline lock: 18 gauge in right forearm, using aseptic technique. Blood rr5 collected. 19:26 Lanre Alvarez PA is PHCP. cp 19:26 Eamon Bermeo MD is Attending Physician. cp 19:27 Juan Manuel Trejo, BALDEV is Primary Nurse. rr5 19:58 XRAY Chest (1 view) In Process Unspecified. EDMS 20:16 EKG done, by ED staff. rr5 22:00 Ultrasound completed. Patient tolerated well. Notified INTAKE COORDINATOR/DENEEN woodall. sg3 22:00 US Abdomen Limited: RUQ/liver In Process Unspecified. EDMS 23:57 No provider procedures requiring assistance completed. IV discontinued, intact, rr5 bleeding controlled, No redness/swelling at site. Pressure dressing applied. Administered Medications: 19:30 Drug: NS 0.9% 1000 ml Route: IV; Rate: 1 bolus; Site: right forearm; rr5 21:00 Follow up: Response: No adverse reaction; IV Status: Completed infusion; IV Intake: rr5 1000ml 19:31 Drug: Zofran 4 mg Route: IVP; Site: right forearm; rr5 20:30 Follow up: Response: No adverse reaction rr5 19:33 Drug: Pepcid 20 mg Route: IVP; Site: right forearm; rr5 20:30 Follow up: Response: No adverse reaction rr5 21:02 Drug: NS 0.9% 1000 ml Route: IV; Rate: 1000 ml; Site: right antecubital; la1 22:30 Follow up: Response: No adverse reaction; IV Status: Completed infusion; IV Intake: rr5 1000ml 21:20 Drug: Thiamine 100 mg Route: IV; Rate: calculated rate; Site: right forearm; rr5 22:30 Follow up: Response: No adverse reaction; IV Status: Completed infusion rr5 21:25 Drug: Magnesium Sulfate 2 grams Route: IVPB; Infused Over: 1 hrs; Site: right forearm; rr5 22:25 Follow up: Response: No adverse reaction; IV Status: Completed infusion rr5 22:30 Follow up: IV Intake: 50ml rr5 21:26 Drug: Ativan 0.5 mg Route: IVP; Site: right forearm; rr5 22:30 Follow up: Response: No adverse reaction rr5 Point of Care Testing: Blood Glucose: 19:25 Blood Glucose: 113 mg/dL; rr5 Ranges: Intake: 21:00 IV: 1000ml; Total: 1000ml. rr5 22:30 IV: 1000ml; Total: 2000ml. rr5 22:30 IV: 50ml; Total: 2050ml. rr5 Output: 23:00 Urine: 200ml (Voided); Total: 200ml. rr5 Outcome: 23:37 Discharge ordered by . cp 23:57 Discharged to home ambulatory, with family. rr5 23:57 Condition: stable 23:57 Discharge instructions given to patient, Instructed on discharge instructions, follow up and referral plans. medication usage, Demonstrated understanding of instructions, follow-up care, medications, Prescriptions given X 1. 23:58 Patient left the ED. rr5 Signatures: Dispatcher [employer] EDVA Maricarmen Johnston Kan, Frank, RN RN la1 Lanre Alvarez PA PA cp Godinez, Sarah 3 Juan Manuel Trejo RN RN rr5
--- NOTE | 2019-06-05 23:38 | EDPHYS ---
Physician Documentation [facility] Name: Dillan Johnson Age: 34 yrs Sex: Male : 1985 Arrival Date: 06/05/2019 Time: 19:16 Bed 6 Private MD: Stuart Whitaker R ED Physician Eamon Bermeo HPI: 06/05 19:45 This 34 yrs old Male presents to ER via Ambulatory with complaints of Pain All cp Over. 19:45 The patient presents to the emergency department with nausea, that is moderate, cp vomiting, that is intermittent. 19:45 Onset: The symptoms/episode began/occurred today, at 10:00. Possible causes: working cp outside in heat. Associated signs and symptoms: Pertinent positives: generalized pain and cramping, Pertinent negatives: constipation, diarrhea, fever. Severity of symptoms: in the emergency department the symptoms are unchanged despite home interventions. Historical: - Allergies: 19:23 No Known Allergies; la1 - Home Meds: 23:57 candesartan 16 mg Oral tab [Active]; rr5 - PMHx: 19:23 Cirrhosis; Hypertension; la1 - Immunization history:: Adult Immunizations up to date. - Social history:: Smoking status: Patient/guardian denies using tobacco. - Ebola Screening: : No symptoms or risks identified at this time. ROS: 19:55 Constitutional: Negative for body aches, chills, fever, poor PO intake. cp 19:55 Eyes: Negative for injury, pain, redness, and discharge. cp 19:55 ENT: Negative for drainage from ear(s), ear pain, sore throat, difficulty swallowing, difficulty handling secretions. 19:55 Cardiovascular: Negative for chest pain, edema, palpitations. 19:55 Respiratory: Negative for cough, shortness of breath, wheezing. 19:55 Abdomen/GI: Positive for nausea, vomiting, Negative for abdominal pain, diarrhea, constipation, black/tarry stool, rectal bleeding. 19:55 Back: Positive for pain at rest. 19:55 : Negative for urinary symptoms, testicular pain 19:55 Skin: Negative for cellulitis, rash. 19:55 Neuro: Negative for altered mental status, syncope, weakness. 19:55 All other systems are negative. Exam: 20:00 Constitutional: The patient appears in no acute distress, alert, awake, cp non-diaphoretic, non-toxic, well developed, well nourished, obese. 20:00 Head/Face: Normocephalic, atraumatic. cp 20:00 Eyes: Periorbital structures: appear normal, Conjunctiva: normal, no exudate, no injection, Sclera: no appreciated abnormality, Lids and lashes: appear normal, bilaterally. 20:00 ENT: External ear(s): are unremarkable, Nose: is normal, Mouth: Lips: moist, Oral mucosa: pink and intact, moist, Posterior pharynx: is normal, airway is patent, no erythema, no exudate. 20:00 Neck: ROM/movement: is normal, is supple, without pain, no range of motions limitations, no meningismus, no nuchal rigidity. 20:00 Chest/axilla: Inspection: normal, Palpation: is normal, no crepitus, no tenderness. 20:00 Cardiovascular: Rate: tachycardic, Rhythm: regular, Edema: is not appreciated, JVD: is not appreciated. 20:00 Respiratory: the patient does not display signs of respiratory distress, Respirations: normal, no use of accessory muscles, no retractions, no splinting, no tachypnea, labored breathing, is not present, Breath sounds: are clear throughout, no decreased breath sounds, no stridor, no wheezing. 20:00 Abdomen/GI: Inspection: abdomen appears normal, Bowel sounds: active, all quadrants, Palpation: soft, in all quadrants, mild abdominal tenderness, in all quadrants, rebound tenderness, is not appreciated, voluntary guarding, is not appreciated, involuntary guarding, is not appreciated. 20:00 Back: pain, that is moderate, ROM is normal. 20:00 Skin: no rash present. 20:00 Neuro: Orientation: to person, place \T\ time. Mentation: is normal, Cerebellar function: is grossly normal, Motor: moves all fours, strength is normal, Sensation: is normal. 21:15 ECG was reviewed by the Attending Physician. cp Vital Signs: 19:22 Pulse 120; Resp 24; Temp 99.4; Pulse Ox 98% on R/A; Weight 108.86 kg; Height 5 ft. 9 la1 in. (175.26 cm); 19:24 BP 177 / 96; la1 20:30 BP 164 / 102; Pulse 95; Resp 21; Temp 99; Pulse Ox 100% ; rr5 21:30 BP 162 / 94; Pulse 98; Resp 18; Pulse Ox 99% ; rr5 22:30 BP 165 / 90; Pulse 94; Resp 19; Pulse Ox 98% ; rr5 23:50 BP 145 / 75; Pulse 95; Resp 17; Temp 98.5; Pulse Ox 99% on R/A; rr5 19:22 Body Mass Index 35.44 (108.86 kg, 175.26 cm) la1 MDM: 19:30 Patient medically screened. cp 20:00 Differential diagnosis: gastritis, viral gastroenteritis, gastroenteritis, heat cp exhaustion, electrolyte abnormality. 23:36 Data reviewed: vital signs, nurses notes, lab test result(s), EKG, radiologic studies, cp plain films. 23:36 Test interpretation: by ED physician or midlevel provider: ECG, plain radiologic cp studies. Counseling: I had a detailed discussion with the patient and/or guardian regarding: the historical points, exam findings, and any diagnostic results supporting the discharge/admit diagnosis, the presence of at least one elevated blood pressure reading (>120/80) during this emergency department visit, lab results, radiology results, the need for outpatient follow up, a family practitioner, to return to the emergency department if symptoms worsen or persist or if there are any questions or concerns that arise at home. Response to treatment: the patient's symptoms have markedly improved after treatment, VSS. Pain and nausea improved. Vomiting resolved. Will discharge to home for continued monitoring. 06/05 19:42 Order name: Basic Metabolic Panel cp 06/05 19:42 Order name: CBC with Diff cp 06/05 19:42 Order name: LFT's cp 06/05 19:42 Order name: Magnesium; Complete Time: 20:58 cp 06/05 20:58 Interpretation: Abnormal: MG 1.7. cp 06/05 19:42 Order name: NT PRO-BNP; Complete Time: 20:58 cp 06/05 19:42 Order name: PT-INR; Complete Time: 20:58 cp 06/05 19:42 Order name: Troponin (emerg Dept Use Only); Complete Time: 20:58 cp 06/05 19:42 Order name: Ckmb; Complete Time: 20:58 cp 06/05 19:42 Order name: CK; Complete Time: 20:58 cp 06/05 19:42 Order name: UDS; Complete Time: 23:34 cp 06/05 19:42 Order name: ETOH Level; Complete Time: 20:58 06/05 19:42 Order name: Basic Metabolic Panel; Complete Time: 20:58 EDMS 06/05 21:48 Interpretation: Normal except: NA 134; CL 94; GFR 84. 06/05 19:42 Order name: CBC with Automated Diff; Complete Time: 22:19 EDMS 06/05 21:49 Interpretation: Normal except: HGB 12.2; HCT 38.4; MCH 26.8; MCHC 31.8; PLT 74; RDW cp 23.1; COLLIN% 74.3; LYM% 11.2; MN% 13.6. 06/05 19:42 Order name: Liver (Hepatic) Function; Complete Time: 20:58 EDMS 06/05 21:49 Interpretation: Normal except: AST 183; ALK 180; BILIT 3.6; BILID 1.3; TP 10.6; GLOB cp 6.3; A/G 0.7. 06/05 19:42 Order name: XRAY Chest (1 view); Complete Time: 20:58 06/05 19:42 Order name: EKG; Complete Time: 19:44 06/05 19:42 Order name: Cardiac monitoring; Complete Time: 20:03 06/05 19:42 Order name: EKG - Nurse/Tech; Complete Time: 20:16 06/05 19:42 Order name: IV Saline Lock; Complete Time: 20:03 06/05 21:01 Order name: US Abdomen Limited: RUQ/liver; Complete Time: 23:34 06/05 22:03 Order name: CBC Smear Scan; Complete Time: 22:19 EDMS 06/05 23:10 Order name: Urine Microscopic Only; Complete Time: 23:36 rr5 06/05 23:17 Order name: Urine Dipstick--Ancillary (enter results); Complete Time: 23:34 mw2 06/05 19:42 Order name: Labs collected and sent; Complete Time: 20:03 06/05 19:42 Order name: O2 Per Protocol; Complete Time: 20:03 06/05 19:42 Order name: O2 Sat Monitoring; Complete Time: 20:03 06/05 22:19 Order name: PO challenge; Complete Time: 22:48 cp EC:15 Rate is 105 beats/min. Rhythm is regular. OR interval is normal. QRS interval is cp normal. QT interval is normal. Interpreted by me. Reviewed by me. Administered Medications: 19:30 Drug: NS 0.9% 1000 ml Route: IV; Rate: 1 bolus; Site: right forearm; rr5 21:00 Follow up: Response: No adverse reaction; IV Status: Completed infusion; IV Intake: rr5 1000ml 19:31 Drug: Zofran 4 mg Route: IVP; Site: right forearm; rr5 20:30 Follow up: Response: No adverse reaction rr5 19:33 Drug: Pepcid 20 mg Route: IVP; Site: right forearm; rr5 20:30 Follow up: Response: No adverse reaction rr5 21:02 Drug: NS 0.9% 1000 ml Route: IV; Rate: 1000 ml; Site: right antecubital; la1 22:30 Follow up: Response: No adverse reaction; IV Status: Completed infusion; IV Intake: rr5 1000ml 21:20 Drug: Thiamine 100 mg Route: IV; Rate: calculated rate; Site: right forearm; rr5 22:30 Follow up: Response: No adverse reaction; IV Status: Completed infusion rr5 21:25 Drug: Magnesium Sulfate 2 grams Route: IVPB; Infused Over: 1 hrs; Site: right forearm; rr5 22:25 Follow up: Response: No adverse reaction; IV Status: Completed infusion rr5 22:30 Follow up: IV Intake: 50ml rr5 21:26 Drug: Ativan 0.5 mg Route: IVP; Site: right forearm; rr5 22:30 Follow up: Response: No adverse reaction rr5 Point of Care Testing: Blood Glucose: 19:25 Blood Glucose: 113 mg/dL; rr5 Ranges: Critical Glucose Levels:Adult <50 mg/dl or >400 mg/dl <40 mg/dl or >180 mg/dl Disposition: 06/05/19 23:37 Discharged to Home. Impression: Nausea and vomiting, Abnormal results of liver function studies, Hypertensive heart disease. - Condition is Stable. - Discharge Instructions: Nausea and Vomiting, Adult, How to Take Your Blood Pressure, [id number], Managing Your Hypertension. - Prescriptions for Zofran 4 mg Oral Tablet - take 1 tablet by ORAL route every 12 hours As needed; 20 tablet. - Medication Reconciliation Form, Thank You Letter, Antibiotic Education, Prescription Opioid Use form. - Follow up: Private Physician; When: 1 - 2 days; Reason: Recheck today's complaints. - Problem is new. - Symptoms have improved. Addendum: 06/08/2019 09:41 Co-signature as Attending Physician, Eamon Bermeo MD. g s Signatures: Dispatcher [employer] EDMS Frank Omer RN RN la1 Lanre Alvarez PA PA Eamon Tracy MD MD gs Juan Manuel Trejo RN RN rr5 Corrections: (The following items were deleted from the chart) 06/05 23:37 23:37 06/05/2019 23:37 Discharged to Home. Impression: Nausea and vomiting. Condition cp is Stable. Forms are Medication Reconciliation Form, Thank You Letter, Antibiotic Education, Prescription Opioid Use. Follow up: Private Physician; When: 1 - 2 days; Reason: Recheck today's complaints. Problem is new. Symptoms have improved. cp 23:38 23:37 06/05/2019 23:37 Discharged to Home. Impression: Nausea and vomiting; Abnormal cp results of liver function studies. Condition is Stable. Discharge Instructions: Nausea and Vomiting, Adult. Prescriptions for Zofran 4 mg Oral Tablet - take 1 tablet by ORAL route every 12 hours As needed; 20 tablet. and Forms are Medication Reconciliation Form, Thank You Letter, Antibiotic Education, Prescription Opioid Use. Follow up: Private Physician; When: 1 - 2 days; Reason: Recheck today's complaints. Problem is new. Symptoms have improved. cp 23:58 23:38 06/05/2019 23:37 Discharged to Home. Impression: Nausea and vomiting; Abnormal rr5 results of liver function studies; Hypertensive heart disease. Condition is Stable. Discharge Instructions: Nausea and Vomiting, Adult. Prescriptions for Zofran 4 mg Oral Tablet - take 1 tablet by ORAL route every 12 hours As needed; 20 tablet. and Forms are Medication Reconciliation Form, Thank You Letter, Antibiotic Education, Prescription Opioid Use. Follow up: Private Physician; When: 1 - 2 days; Reason: Recheck today's complaints. Problem is new. Symptoms have improved. cp
[2019-06-06 00:38] VITALS: BP 145/75; TEMP 98.5; O2SAT 99
--- NOTE | 2019-06-06 05:58 | EKG ---
Test Date: 2019-06-05 Test Time: 20:11:49 Director Of Medical Review: RR MEASUREMENT RESULTS: Intervals: Rate: 105 WI: 170 QRSD: 96 QT: 370 QTc: 489 [place]: P: 28 WI: 170 QRS: 52 T: 34 INTERPRETIVE STATEMENTS: Sinus tachycardia Possible Left atrial enlargement Borderline ECG Compared to ECG 09/30/2018 13:07:49 Sinus rhythm no longer present Prolonged QT interval no longer present Electronically Signed On 06-06-19 05:57:51 CDT by Kolby Leon
== END 2019-06-05 23:58 | disposition home or self-care (01) ==
LOC: ER 19:14
DX: R94.5 Abnormal results of liver function studies (principal); I11.9 Hypertensive heart disease without heart failure; I10 Essential (primary) hypertension
CPT/HCPCS: 36415; 71045; 76705; 80048; 80076; 80307; 80320; 81003; 81015; 82550; 82553; 82962; 83735; 83880; 84484; 85025; 85610; 93005; 96361; 96365; 96375; 99285; J2405; J3411; J3475; J7030

== ENCOUNTER 2020-07-31 23:06 | Emergency (ER) | payer OTHER ==
--- OUTSIDE RECORDS SUMMARY | 2020-07-31 23:08 | XMS REPORT | Clinical Summary ---
:1985 Author Organization [facility] Address [address] [place] [address] Care Team Providers Name Role Phone Unavailable Primary Care Provider Unavailable Allergies No Known Allergies Medications Medication Sig Dispensed Refills Start Date End Date Status chlordiazePOXIDE Take 2 20 capsule 0 09/18/2018 A ctive (LIBRIUM) 25 MG capsule capsules TID x 1 day, then 2 capsules BID x 2 days, then 1 capsule BID x 2 days, then 1 capsule daily x 2 days, then stop. folic acid (FOLVITE) 1 Take 1 tablet 30 tablet 0 09/19/2018 MG tablet (1 mg total) by mouth daily. thiamine 100 MG tablet Take 1 tablet 30 tablet 0 09/19/2018 (100 mg total) by mouth daily. Active Problems Problem Noted Date Hematochezia 09/17/2018 Alcoholic cirrhosis 09/17/2018 Essential hypertension 09/17/2018 ETOH abuse 09/17/2018 Alcohol withdrawal syndrome, with delirium 09/17/2018 Anemia associated with acute blood loss 09/17/2018 Thrombocytopenia 09/17/2018 Immunizations Name Dates Previously Given Next Due [...] travel history available. Last Filed Vital Signs Not on file Plan of Treatment Not on file Results Not on fileafter 07/31/2019 Advance Directives For more information, please contact:[place] [id number] [facility] [place], [place] [phone] Code Status Date Activated Date Inactivated Comments Full Code 09/17/2018 6:49 AM 09/18/2018 5:09 PM This code status was determined by: Patient
--- OUTSIDE RECORDS SUMMARY | 2020-07-31 23:08 | XMS REPORT | Continuity of Care Document ---
:1985 Author Organization [employer] [place] Information [facility] Team Providers Name Role Phone [facility] [place] [facility] Unavailable Un available Problems Problem Status Onset Classification Date Comments Sourc e Date Reported NEW PT CONSULT - Active 12/21/19 [facility] LIVER MASS 20 [facility] Center DX: Active 10/07/[address] K70.30=ALCOHOLIC 19 CIRRHOSIS OF LIVER Cirrhosis of Active Problem 01/29/2020 [facility] liver (disorder) Med ical Center, [facility] [place] [facility] Hypertensive Active Problem 01/29/2020 [facility] disorder, Medical systemic Center, arterial [facility]ID [place] nn (disorder) Simple obesity Active Problem 01/29/2020 O PID (disorder) [place] Medications Medication Details Route Status Patient Ordering Order Source Instructions Provider Date propranolol 20 20 mg = 1 Active 01/13/20 [facility] mg oral tablet tab, PO, 20 Medical Daily, 0 Center Refill(s) Ondansetron 4 4 mg = 1 Active 01/13/20 [facility] MG Oral Tablet tab, PO, 20 Medical [Zofran] Q6H, PRN Center Nausea/Vom iting, # 30 tab, 0 Refill(s) propranolol 10 10 mg = 1 Active 01/13/20 [facility] mg oral tablet tab, PO, 20 Medical Daily, 0 Center Refill(s) Allergies, Adverse Reactions, Alerts No Known Medication Allergies Immunizations No Data Provided for This Section Results Order Name Results Value Reference Date Interpretation Comments Geraldine rce Range CHEM PANEL Glucose Lvl 108 70 - 99 01/13 [facility] [address] [place] [address] CHEM PANEL BUN 7 7 - 22 01/[address] CHEM PANEL Creatinine 0.59 0.50 - 01/13 [facility] Lvl 1.40 [facility] CHEM PANEL Sodium Lvl 137 135 - 145 01/[address] CHEM PANEL Potassium Lvl 3.7 3.5 - 5.1 01/13 [place] [facility] CHEM PANEL Chloride Lvl 105 95 - 109 01/13 [place] [facility] CHEM PANEL CO2 27 24 - 32 01/[address] CHEM PANEL Calcium Lvl 8.9 8.5 - 10.5 01/13 [facility]2019 [facility] CHEM PANEL AGAP 8.7 10.0 - 01/13 [facility] 20. [facility] CHEM PANEL eGFR 131 01/13 [facility] Comment: The Medical eGFR is Center calculated using the CKD-EPI formula. In most young, healthy individuals the eGFR will be >90 mL/min/1.73m2 . The eGFR declines with age. An eGFR of 60-89 may be normal in some populations, particularly the elderly, for whom the CKD-EPI formula has not been extensively validated. Use of the eGFR is not recommended in the following populations:< br/>
Teena viduals with unstable creatinine concentration s, including patients and those with serious co-morbid conditions.<b r/>
Patie nts with extremes in muscle mass or diet.

The data above are obtained from the National Kidney Disease Education Program (NKDEP) which additionally recommends that when the eGFR is used in patients with extremes of body mass index for purposes of drug dosing, the eGFR should be multiplied by the estimated BMI. CHEM PANEL Total Protein 10.4 6.4 - 8.4 01/[address] CHEM PANEL Albumin Lvl 3.8 3.5 - 5.0 01/[address] CHEM PANEL ALT 58 0 - 65 01/[address] CHEM PANEL AST 171 0 - 37 01/[address] CHEM PANEL Alk Phos 173 39 - 136 01/[address] CHEM PANEL Bili Total 1.0 0.2 - 1.3 01/[address] CHEM PANEL Bili Direct 0.4 0.0 - 0.3 01/[address] CHEM PANEL Bili Indirect 0.6 0.0 - 1.0 01/[address] CHEM PANEL Globulin 6.6 2.7 - 4.2 01/[address] CHEM PANEL A/G Ratio 0.6 0.7 - 1.6 01/[address] HEMATOLOGY WBC 5.8 3.7 - 10.4 02/[address] HEMATOLOGY RBC 4.36 4.70 - 01/13 [place] 6.10 [facility] HEMATOLOGY Hgb 11.8 14.0 - 01/13 [place] 18.0 /2020 [facility] HEMATOLOGY Hct 35.7 42.0 - 01/13 [place] 54.0 /2020 [facility] HEMATOLOGY MCV 81.8 80.0 - 01/13 [place] 94.0 /2019 [facility] HEMATOLOGY MCH 27.1 27.0 - 01/13 [place] 31.0 /2019 [facility] HEMATOLOGY MCHC 33.1 32.0 - 01/13 [place] 36.0 /2019 [facility] HEMATOLOGY RDW 23.8 11.5 - 01/13 [facility] 14.5 /2019 [facility] HEMATOLOGY Platelet 162 133 - 450 01/[address] HEMATOLOGY MPV 9.2 7.4 - 10.4 01/[address] HEMATOLOGY PT 15.4 12.0 - 01/13 [facility] 14.7 /2019 [facility] HEMATOLOGY INR 1.21 0.85 - 01/13 [place] 1.17 [facility] HEMATOLOGY Neutrophils # 2.4 1.5 - 8.1 01/[address] HEMATOLOGY Lymphocytes # 2.4 1.0 - 5.5 01/[address] HEMATOLOGY Monocytes # 0.8 0.0 - 0.8 01/[address] HEMATOLOGY Eosinophils # 0.1 0.0 - 0.5 01/[address] HEMATOLOGY Basophils # 0.1 0.0 - 0.2 01/[address] HEMATOLOGY Segs 42.0 45.0 - 01/13 [place] 75.0 /2019 [facility] HEMATOLOGY Bands 0.0 0.0 - 11.0 01/[address] HEMATOLOGY Lymphocytes 41.0 20.0 - 01/13 [facility] 40.0 2020 [facility] HEMATOLOGY Monocytes 14.0 2.0 - 12.0 01/[address] HEMATOLOGY Eosinophils 1.0 0.0 - 4.0 01/[address] HEMATOLOGY Basophils 2.0 0.0 - 1.0 01/[address] HEMATOLOGY Atypical 0.0 <=0.0 % 01/13 [facility] Lymphs /2019 [facility] HEMATOLOGY Anisocyte 1+ None Seen 01/13 [facility] *ABN* Medical (01/13/20 11:15 AM) Cente r HEMATOLOGY Target Cell slight 01/[address] IMMUNOLOGY Hep Bs Ab <3.1 <=7.4 01/13 [facility] mIU/mL [facility] IMMUNOLOGY Hep C Ab Negative Negative 01/13 [facility] *NA* [facility] (01/13/20 11:15 AM) Shye r TUMOR AFP 8.4 0.0 - 11.0 01/13 [facility] MARKERS /2019 [facility] Pathology Reports No Data Provided for This Section Diagnostic Reports Report Value Date Source Abd Liver Protocol EXAM: CT ABDOMEN WITH AND WITHOUT CONTRAST 0 01/26/2020 CASSIA Perez w/wo IV contrast CT DATE: 01/26/2020 14:54 [employer] INDICATION: - abnormal lfts ADDITIONAL INFORMATION: None. COMPARISON: Liver ultrasound exam from October 08, 2019 TECHNIQUE: Volumetric CT acq uisition of the abdomen both prior to and following intravenous contrast, in precontrast, arterial, portal venous and delayed phases of enhancement, per the dynamic liver pro tocol. Delayed sequences inc luded the pelvis. Axial, sagittal and coronal reconstructions. IV contrast: 150 cc Omnipaque 300 Oral contrast: None. DLP: 3295.27 mGy-cm FINDINGS: Lines and tubes: None. Lower thorax: Clear. Liver: The liver is enlarged measuring 20.5 cm in the midclavicular line. There is mild scalloping of the liver margins. The liver has slightly less density than the spl een. Enhancing hepatic masses > 2cm: None. Enhancing hepatic masses < 2cm: A 1.5 x 1.3 cm focus of katty rial enhancement is present on image 40 of series 4 in segment 7. This is sharply defined on the arterial phase with what appears to be a feeding artery. It remains dense on the portal venous phase but is isointense on the delayed sequence. A 6.1 mm focus of arterial e nhancement is present in the right lobe inferiorly between segments 5 and 6 on image 85 of series 4. Slightly increased enhancement remains on the portal venous phase. The lesion is isodense on delayed sequence. A punctate focus of arterial enhancement is present in the left lobe in segment 2/3 on image 31 of series 4. This lesion remains bright on the portal phase but is isointense on the delayed sequence. Non-enhancing/cystic hepatic lesions: A 6.2 x 2.6 mm low-density f ocus is present between segments 7 and 8 on image 41 of series 5. This was also evident on the arterial phase and delayed phase. Hepatic vessels: Hepatic arterial anatomy: Conventional. Portal vein: Patent. Caliber: 13.4 mm. Portosystemic collaterals ar e there is recanalization of the umbilical vein. This extends to the umbilicus where there is a small caput medusae. A prominent coronary vein ex tends to several paraesophageal collateral vessels. Hepatic, splenic and superior mesenteric veins, and IVC: Patent. Regional lymph nodes: Normal. Biliary tree: No intra- or extrahepatic biliary ductal dilation. Gallbladder: Normal. No CT evidence of gallstone s. Pancreas: Normal. Spleen: Mild splenic megaly with span of 13 cm. No focal splenic lesions. Adrenals: Normal. Kidneys: Normal. Gastrointestinal tract: Normal caliber. Peritoneum and retroperitone um: No ascites or free air. No other fluid collection. Distant lymph nodes: Normal. Vasculature: Normal. Bones: Mild degenerative ron nges with small osteophyte formation in the lower thoracic spine and at L5-S1. Soft tissues: Normal. IMPRESSION: 1. Mild scalloping of the li emily indicating underlying cirrhosis. There is also mildly diminished density in the liver with hepatomegaly suggesting hepatic steatosis. 2. Portal venous hypertensio n with dilated portal vein, mild splenomegaly and multiple portosystemic shunts. 3. There are 3 areas in the liver with arterial enhancement with persistence in the portal venous phase. These become isointense on delayed sequence suggesting a may be vascular shunts or atypical heman giomas. The largest of these lesions is somewhat suspicious and is LR-3 based on this exam. Note that prior ultrasound exam did not demonstrate any lesion in this portion of the liver. Recommend follow- up exams be done with MRI wi th gadolinium to better characterize the underlying nature of this lesion (does it restrict on DWI sequence, and is it very bright on T2 sequences?). Liver w Liver PROCEDURE INFORMATION: 10/08/2019 JOSE Mendoza ast vessels Doppler US Exam: Liver ultrasound with Doppler. Exam date and time: 10/08/2019 9:26 AM Clinical history: 34 years old, male; Abnormal f indings; Abnormal lab test; Elevated liver enzymes; Additional info: /cirrho sis, abnormal lft TECHNIQUE: Imaging protocol: Real-time duplex ultrasound sc an of the arterial or venous flow of the abdomen and/or reproductive organs, with color Doppler flow and spectral waveform analysis with image documentat ion. COMPARISON: No relevant prior studies available. FINDINGS: The liver appears enlarged wit h a right lobe sagittal span of 19 cm. There is mildly heterogeneous increased echogeni city of the liver parenchyma with mild surface nodularity. No focal l iver mass is demonstrated. There is no visible ascites. The spleen measures 13.0 cm in length. The main portal vein measures 1.3 cm in diameter without evidence of thrombosis. There is mildly phasic hepatopetal flow in the main, right and left portal veins. There is hepatopetal flow in the splenic and superior mesenteric veins. There is antegrade cardiac phasic flow in the hepatic veins and IVC. Capacitance arterial waveforms in the sienna hepa tis are demonstrated. The gallbladder is normal caliber without eviden ce of stones or wall thickening. There is no evidence of biliary dila tation. The common duct measures 5 mm in diameter. The visible pancreas and right kidney are unremarkable. IMPRESSION: 1. Mild hepatomegaly with fatty infiltration and possible cirrhosis. 2. No significant Doppler abnormalities of the l iver. Luis Manuel Sy MD On 10/11/2019 09:49:17; KOMAL- [id number] Consultation Notes No Data Provided for This Section Discharge Summaries No Data Provided for This Section History and Physicals No Data Provided for This Section Vital Signs Vital Sign Value Date Comments Source Systolic (mm Hg) 123 01/13/2020 [facility] Diastolic (mm Hg) 81 01/13/2020 [facility] Heart Rate 79 01/13/2020 [facility] Height 175.26 cm 01/13/2020 [facility] Weight 101.818 01/13/2020 [facility] BMI Calculated 33.15 01/13/2020 [facility] Encounters Location Location Encounter Encounter Reason Attending ADM [place] Source Details Type Number For Provider Date Date Visit [facility] [id number] [place] 10/08 10/09 Chris Goldgia /2018 [facility] [id number] [place] 01/13 01/14 [facility] [place] [facility] [facility]2019 [facility] [id number] [place] 01/25 01/26 [facility] [place] Procedures No Data Provided for This Section Assessment and Plan No Data Provided for This Section Plan of Care No Data Provided for This Section Social History Social History Date Source Social History TypeResponse 01/13/2020 [facility] Alcohol Current, Type Beer. Frequency: 3-5 times per week.1 Substance Abuse Use: Past. Type: Marijuana. Recreational Drug Route: Inhal ed. Smoking Status Former smoker; Exposure to Tobacco Smoke None; Cigarette Smoking Last 365 Days No; Reg Smoking Cessation Counseling No entered on: 01/13/20 16 pack every 3 days Social History TypeResponse 01/13/2020 [facility] Alcohol Current, Type Beer. Frequency: 3-5 times per week.1 Substance Abuse Use: Past. Type: Marijuana. Recreational Drug Route: Inhal ed. Smoking Status Former smoker; Exposure to Tobacco Smoke None; Cigarette Smoking Last 365 Days No; Reg Smoking Cessation Counseling No entered on: 01/13/20 16 pack every 3 days Social History TypeResponse 10/09/2019 [place] Family History No Data Provided for This Section Advance Directives No Data Provided for This Section Functional Status No Data Provided for This Section
--- OUTSIDE RECORDS SUMMARY | 2020-07-31 23:09 | XMS REPORT | Continuity of Care Document ---
:[address] [facility] t Address [address] [place] [address] Care Team Providers Name Role Phone Renetta Iqbal Attending Clinician Ganga Pelayo Attending Clinician Tracy Attending Clinician SUJEY MORRISSEY Attending Clinician Unavailable SUJEY MORRISSEY Admitting Clinician Unavailable Payers Payer Name Policy Type Policy Number Effective Date Expiration Date S ource Problems Condition Condition Condition Status Onset Resolution Last Treating Co mments Source Name Details Category Date Date Treatment Clinician Date NEW PT Diagnosis Active 2020-01-14 Mem oria CONSULT - 12-21 05:31:00 l LIVER MASS NEW PT 00:00: Herm pavan CONSULT - 00 LIVER MASS Active 12/21/2019 [facility] DX: Diagnosis Active 2018-112019-10-08 Mem oria K70.30=ALC - 09:19:00 l OHOLIC DX: 00:00: Chris CIRRHOSIS K70.30=ALC 00 OF LIVER OHOLIC CIRRHOSIS OF LIVER Active 10/07/2019 [facility] Hematochez Hematochez Disease Active 2017-[address] ia ia 0-25 [facility] 00 [place] Alcoholic Alcoholic Disease Active 2017-[address] [facility] cirrhosis cirrhosis 0-25 [facility] - 00:00: Medical 00 [place] Essential Essential Disease Active 2017-[address] [facility] [address] hypertensi hypertensi 0-25 Kathy kes - on on 00:00: Medical 00 Center ETOH abuse ETOH abuse Disease Active 2017-[address] 0-25 [facility] 00:[facility] 00 [place] Alcohol Alcohol Disease Active 2017-[address] [facility] withdrawal withdrawal 0-25 Kathy kes - syndrome, syndrome, 00:00: Medi arlin with with 00 Center delirium delirium Anemia Anemia Disease Active 2017-[address] [facility] [facility] associated associated 0-25 Kathy kes - with acute with acute 00:00: Dc dical blood loss blood loss 00 Ce nter Thrombocyt Thrombocyt Disease Active 2017-[address] openia openia 0-25 [facility] - 00:[facility]: Medical 00 [place] Depression Depression Problem Active [facility] screening screening [facility] Essential Essential Problem Active [facility] hypertensi hypertensi Kathy kes - on on [facility] Alcoholic Alcoholic Problem Active [facility] cirrhosis cirrhosis [facility] - of liver of liver Memori a without without l ascites ascites Outpati ent Clinics Pain in Pain in Problem Active [facility] right leg right leg [facility] Pain in Pain in Problem Active [facility] left leg left leg [facility] History of History of Problem Active [facility] hypokalemi hypokalemi Kathy kes - a a [facility] Non-intrac Non-intrac Problem Active [facility] table table [facility] - vomiting vomiting Memori a with with l nausea, nausea, Outpati unspecifie unspecifie en t d vomiting d vomiting Cl inics type type Cirrhosis Problem Active 2020-01-29 Me moria of liver 00:05:49 l (disorder) Jose Juan n Cirrhosis of liver (disorder) Active Problem 01/29/2020 [facility] OPID Chris Hypertensi Problem Active 2020-01-29 M emoria ve 00:05:49 l disorder, Chris systemic Hypertensi arterial ve (disorder) disorder, systemic arterial (disorder) Active Problem 01/29/2020 [facility] OPID Chris Simple Problem Active 2020-01-29 Memor ia obesity 00:05:49 l (disorder) Simple Herm pavan obesity (disorder) Active Problem 01/29/2020 CASSIA Perez Allergies, Adverse Reactions, Alerts This patient has no known allergies or adverse reactions. Family History Family Member Diagnosis Comments Start Date Stop Date Source Natural father Heart disease [facility] Social History Social Habit Start Date Stop Date Quantity Comments Source Sex Assigned At [facility] Social History 2020-01-13 2020-01-13 [facility] 16:03:17 16:03:17 Medications Ordered Filled Start Stop Current Ordering Indication Dosage Frequency Signature Comments Components Source Medication Medication Date Date Medication? Clinician (SIG) Name Name Gabapentin Gabapentin Yes Meka [address] [facility] 6-19 Millender [facility] - 00:[facility]: [facility] 00 l [facility]pat[facility] ent Clinics propranolol Yes 20 mg = 1 M emoria 20 mg oral 2-20 tab, PO, l tablet 16:08: Daily, 0 Ronks 00 Refill(s) Ondansetron Yes 4 mg = 1 Me moria 4 MG Oral 2-20 tab, PO, l Tablet 16:08: Q6H, PRN Chris [Zofran] 00 Nausea/Vom iting, # 30 tab, 0 Refill(s) propranolol Yes 10 mg = 1 M emoria 10 mg oral 2-20 tab, PO, l tablet 16:04: Daily, 0 Chris 00 Refill(s) folic acid 2017-11- No 1mg QD Take [address] [facility] [address] (FOLVITE) 1 0-27 10-27 tablet (1 Kathy kes - MG tablet 00:00: 23:59 mg total) Me dical 00 :00 by mouth Center daily. thiamine 2017-11- No 100mg QD Take 1 [facility] 100 MG 0-27 10-27 tablet [facility] - tablet 00:00: 23:59 (100 mg Medical 00 :00 total) by Center mouth daily. chlordiazeP 2017-11 Yes Take [address] [facility] OXIDE 0-26 capsules [facility] - (LIBRIUM) 00:00: TID x 1 Medic al 25 MG 00 day, then Center capsule 2 capsules BID x 2 days, then 1 capsule BID x 2 days, then 1 capsule daily x 2 days, then stop. Immunizations Ordered Immunization Filled Immunization Date Status Commen ts Source Name Name Influenza Four-QIV 2018-09-18 Completed [facility] - Non-PF 5+ YR 00:00:00 Medical Cent er Vital Signs Vital Name Observation Time Observation Value Comments Source Systolic (mm Hg) 2020-01-13 15:57:00 Nicko Perez Diastolic (mm Hg) 2020-01-13 15:57:00 Mem yeny Perez Heart Rate 2020-01-13 15:57:00 Robbie Perez Height 2020-01-13 15:57:00 175.26 cm Robbie Perez Weight 2020-01-13 15:57:00 Robbie Perez BMI Calculated 2020-01-13 15:57:00 Bella Jha Procedures This patient has no known procedures. Encounters Start End Encounter Admission Attending Care Care Encounter Source Date/Time Date/Time Type Type Clinicians Facility Department ID 2020-05-27 2020-05-27 [facility] [id number] [facility] 05:31:00 05:31:00 [facility] Medicine Outpati ent Clinics 2020-05-11 2020-05-11 [facility] [id number] [facility] 13:06:00 13:06:00 [facility] Medicine Outpati ent Clinics 2020-05-01 2020-05-01 [facility] [id number] 16:51:00 16:51:00 [facility] Medicine Outpati ent Clinics 2020-05-01 2020-05-01 [facility] [id number] 15:10:00 15:10:00 [facility] Medicine Outpati ent Clinics 2020-04-19 2020-04-19 [facility] [id number] 08:20:00 08:20:00 [facility] Medicine Outpati ent Clinics 2020-01-26 2020-01-26 [facility] [id number] 14:37:00 23:59:00 Renetta 00 2020-01-13 2020-01-13 [facility] [id number] 09:39:00 23:59:00 Richar Hurtado 2020-01-13 2020-01-13 Outpatient [facility] [id number] [facility] 09:39:00 09:39:00 2019-10-08 2019-10-08 Outpatient Gogia, MHSE MHSE [id number] 09:08:00 23:59:00 Bertrand 00 2019-10-08 2019-10-08 Outpatient MHSE [facility]SE [id number] [facility] 09:08:00 09:08:00 [facility] 2019-07-07 2019-07-07 [facility] [id number] [address] 22:48:00 22:48:00 [facility] Outpati ent [facility] 2019-07-07 2019-07-07 [facility] [id number] 14:00:00 14:00:00 [facility] Results Test Description Test Time Test Comments Results Result Comments Source CHEM PANEL 2020-01-13 108 [facility] 17:15:00 CHEM PANEL 2020-01-13 7 [facility] 17:15:00 CHEM PANEL 2020-01-13 0.59 [facility] 17:15:00 CHEM PANEL 2020-01-13 137 [facility] 17:15:00 CHEM PANEL 2020-01-13 3.7 [facility] 17:15:00 CHEM PANEL 2020-01-13 105 [facility] 17:15:00 CHEM PANEL 2020-01-13 27 [facility] 17:15:00 CHEM PANEL 2020-01-13 8.9 [facility] 17:15:00 CHEM PANEL 2020-01-13 8.7 [facility] 17:15:00 CHEM PANEL 2020-01-13 131 [facility] 17:15:00 CHEM PANEL 2020-01-13 10.4 [facility] 17:15:00 CHEM PANEL 2020-01-13 3.8 [facility] 17:15:00 CHEM PANEL 2020-01-13 58 [facility] 17:15:00 CHEM PANEL 2020-01-13 171 [facility] 17:15:00 CHEM PANEL 2020-01-13 173 [facility] 17:15:00 CHEM PANEL 2020-01-13 1.0 [facility] 17:15:00 CHEM PANEL 2020-01-13 0.4 [facility] 17:15:00 CHEM PANEL 2020-01-13 0.6 [facility] 17:15:00 CHEM PANEL 2020-01-13 6.6 [facility] 17:15:00 CHEM PANEL 2020-01-13 17:15:00 Test Item Value Reference Range Interpretation Comme nts A/G Ratio (test code = A/G Ratio) 0.6 1 0.7-1.6 [facility] [id number] 17:15:005.8[facility]ann[facility]OLOGY 2020-01-13 17:15:004.36[facility] TdxnjrsPYDYMLCXBK1724-48-14 17:15:0011.8[facility] SrvkfluFAVBPQLNMA7917-99-41 17:15:0035.7[facility] DhmwpquCFEPKUUUXW2024-88-52 17:15:0081.8[facility] FfavtynTECOHNVQBA9765-59-68 17:15:00 Test Item Value Reference Range Interpretation Comments MCH (test code = MCH) 27.1 pg 27.0-31.0 [facility] LxbijtqYISVNIDOPC0281-06-82 17:15:0033.1[facility]ann[facility]MATOLOGY 2020-01-13 17:15:0023.8[facility] IydbiiaYXSCBOKATC9627-66-16 17:15:00739Oxlakfvr CuxhdkvLFGKYTUAEW3676-92-49 17:15:009.2[facility] LskxsbbRBTKKMSJFE3115-29-98 17:15:00 Test Item Value Reference Range Interpretation Comments PT (test code = PT) 15.4 s 12.0-14.7 [facility] [id number] 17:15:00 Test Item Value Reference Range Interpretation Comments INR (test code = INR) 1.21 1 0.85-1.17 [facility] YdwutgcCEXDHRMZIX2624-89-35 17:15:002.4[facility] HermannHEMATOLOGY 2020-01-13 17:15:002.4[facility] CpsezldZEUQZSYEHC4376-23-79 17:15:000.8[facility] AsrkiaoQQOYKZLWLQ5045-74-48 17:15:000.1[facility] ZlglzdvEJPNRNJDVI3472-09-03 17:15:000.1[facility] WssexeoPGOSRIYKZJ8657-02-08 17:15:0042.0[facility] Chris ZTOXIWYSOO9795-67-98 17:15:000.0[facility] ArxgjkjEZELDBPNTR5855-83-09 17:15:00 41.0[facility] UnobdqjIBSEARBMVN5984-36-96 17:15:0014.0[facility]annHEMATOLOGY 2020-01-13 17:15:001.0[facility] AhcpafsYNBYWQNVGL0106-74-34 17:15:002.0[facility] MconkebKBTZWBVXWD5551-91-23 17:15:000.0[facility] XwqgrofCZKVMCJOCL2275-50-88 17:15:001+ *ABN*(01/13/20 11:15 AM)[facility] WzvrwhcBOVKVBUOUT0422-71-74 17:15:00 <3.1[facility] TeyrznaLYZTPZUXFR6337-45-13 17:15:00Negative *NA*(01/13/20 11:15 AM)[facility] HermannTUMOR [id number] 17:15:008.4[facility] HermannANTI- MITOCHONDRIAL AB, REFLEX TO [id number] 12:54:00 Test Item Value Reference Range Interpretation Comments SCAN RESULT (test code = 3142368) BLOOD [id number] 12:01:00 Test Item Value Reference Range Interpretation Comments CULTURE (BEAKER) (test No growth in 5 days code = 1095) BLOOD [id number] 12:01:00 Test Item Value Reference Range Interpretation Comments CULTURE (BEAKER) (test No growth in 5 days code = 1095) HEPATITIS PANEL, [id number] 13:35:00 Test Item Value Reference Range Interpretation Comments HEPATITIS A IGM ANTIBODY (BEAKER) Reactive Nonreactive A (test code = 498) HEPATITIS B CORE IGM ANTIBODY Nonreactive Nonreactive (BEAKER) (test code = 645) HEPATITIS C ANTIBODY (BEAKER) Nonreactive Nonreactive (test code = 367) HEPATITIS B SURFACE ANTIGEN (2) Nonreactive Nonreactive (BEAKER) (test code = 2585) ANTI-NUCLEAR ANTIBODY (NATE)2018-09-21 13:07:00 Test Item Value Reference Range Interpretation Comments ANTI-NUCLEAR ANTIBODY (NATE) (BEAKER) Negative Negative (test code = 418) Test performed by IFA method.Test performed by IFA method.CBC W/PLT COUNT & AUTO [id number] 06:36:00 Test Item Value Reference Range Interpretation Comments WHITE BLOOD CELL COUNT (BEAKER) 9.4 K/ L 3.5-10.5 (test code = 775) RED BLOOD CELL COUNT (BEAKER) 3.20 M/ L 4.63-6.08 L (test code = 761) HEMOGLOBIN (BEAKER) (test code = 9.8 GM/DL 13.7-17.5 L 410) HEMATOCRIT (BEAKER) (test code = 30.5 % 40.1-51.0 L 411) MEAN CORPUSCULAR VOLUME (BEAKER) 95.3 fL 79.0-92.2 H (test code = 753) MEAN CORPUSCULAR HEMOGLOBIN 30.6 pg 25.7-32.2 (BEAKER) (test code = 751) MEAN CORPUSCULAR HEMOGLOBIN CONC 32.1 GM/DL 32.3-36.5 L (BEAKER) (test code = 752) RED CELL DISTRIBUTION WIDTH 19.2 % 11.6-14.4 H (BEAKER) (test code = 412) PLATELET COUNT (BEAKER) (test 144 K/CU MM 150-450 L code = 756) MEAN PLATELET VOLUME (BEAKER) 12.0 fL 9.4-12.4 (test code = 754) NUCLEATED RED BLOOD CELLS 0 /100 WBC 0-0 (BEAKER) (test code = 413) NEUTROPHILS RELATIVE PERCENT 65 % (BEAKER) (test code = 429) LYMPHOCYTES RELATIVE PERCENT 16 % (BEAKER) (test code = 430) MONOCYTES RELATIVE PERCENT 13 % (BEAKER) (test code = 431) EOSINOPHILS RELATIVE PERCENT 3 % (BEAKER) (test code = 432) BASOPHILS RELATIVE PERCENT 2 % (BEAKER) (test code = 437) NEUTROPHILS ABSOLUTE COUNT 6.10 K/ L 1.78-5.38 H (BEAKER) (test code = 670) LYMPHOCYTES ABSOLUTE COUNT 1.51 K/ L 1.32-3.57 (BEAKER) (test code = 414) MONOCYTES ABSOLUTE COUNT (BEAKER) 1.20 K/ L 0.30-0.82 H (test code = 415) EOSINOPHILS ABSOLUTE COUNT 0.32 K/ L 0.04-0.54 (BEAKER) (test code = 416) BASOPHILS ABSOLUTE COUNT (BEAKER) 0.14 K/ L 0.01-0.08 H (test code = 417) IMMATURE GRANULOCYTES-RELATIVE 2 % 0-1 H PERCENT (BEAKER) (test code = 2801) POCT-GLUCOSE [id number] 06:31:00 Test Item Value Reference Range Interpretation Comments POC-GLUCOSE METER 126 mg/dL 70-110 H TESTED AT [facility] 6720 (BEAKER) (test code = [address] [place] 1538) [address] COMPREHENSIVE METABOLIC [id number] 04:53:00 Test Item Value Reference Range Interpretation Comments TOTAL PROTEIN 7.5 gm/dL 6.0-8.3 (BEAKER) (test code = 770) ALBUMIN (BEAKER) 2.9 g/dL 3.5-5.0 L (test code = 1145) ALKALINE PHOSPHATASE 150 U/L 40-150 (BEAKER) (test code = 346) BILIRUBIN TOTAL 7.2 mg/dL 0.2-1.2 H (BEAKER) (test code = 377) SODIUM (BEAKER) 133 meq/L 136-145 L (test code = 381) POTASSIUM (BEAKER) 3.6 meq/L 3.5-5.1 (test code = 379) CHLORIDE (BEAKER) 101 meq/L 98-107 (test code = 382) CO2 (BEAKER) (test 25 meq/L 22-29 code = 355) BLOOD UREA NITROGEN 6 mg/dL 7-21 L (BEAKER) (test code = 354) CREATININE (BEAKER) 0.68 mg/dL 0.57-1.25 (test code = 358) GLUCOSE RANDOM 132 mg/dL 70-105 H (BEAKER) (test code = 652) CALCIUM (BEAKER) 7.8 mg/dL 8.4-10.2 L (test code = 697) AST (SGOT) (BEAKER) 223 U/L 5-34 H (test code = 353) ALT (SGPT) (BEAKER) 21 U/L 6-55 (test code = 347) EGFR (BEAKER) (test mL/min/1.73 INSUFFIC IENT code = 1092) sq m CLINICAL DATA T O CALCULATE ESTIM ATED GFR. Specimen moderately ictericCBC W/PLT COUNT & AUTO [id number] 00:15:00 Test Item Value Reference Range Interpretation Comments WHITE BLOOD CELL COUNT (BEAKER) 9.5 K/ L 3.5-10.5 (test code = 775) RED BLOOD CELL COUNT (BEAKER) 3.17 M/ L 4.63-6.08 L (test code = 761) HEMOGLOBIN (BEAKER) (test code = 9.7 GM/DL 13.7-17.5 L 410) HEMATOCRIT (BEAKER) (test code = 30.1 % 40.1-51.0 L 411) MEAN CORPUSCULAR VOLUME (BEAKER) 95.0 fL 79.0-92.2 H (test code = 753) MEAN CORPUSCULAR HEMOGLOBIN 30.6 pg 25.7-32.2 (BEAKER) (test code = 751) MEAN CORPUSCULAR HEMOGLOBIN CONC 32.2 GM/DL 32.3-36.5 L (BEAKER) (test code = 752) RED CELL DISTRIBUTION WIDTH 19.3 % 11.6-14.4 H (BEAKER) (test code = 412) PLATELET COUNT (BEAKER) (test 134 K/CU MM 150-450 L code = 756) MEAN PLATELET VOLUME (BEAKER) 12.1 fL 9.4-12.4 (test code = 754) NUCLEATED RED BLOOD CELLS 0 /100 WBC 0-0 (BEAKER) (test code = 413) NEUTROPHILS RELATIVE PERCENT 68 % (BEAKER) (test code = 429) LYMPHOCYTES RELATIVE PERCENT 16 % (BEAKER) (test code = 430) MONOCYTES RELATIVE PERCENT 12 % (BEAKER) (test code = 431) EOSINOPHILS RELATIVE PERCENT 2 % (BEAKER) (test code = 432) BASOPHILS RELATIVE PERCENT 1 % (BEAKER) (test code = 437) NEUTROPHILS ABSOLUTE COUNT 6.43 K/ L 1.78-5.38 H (BEAKER) (test code = 670) LYMPHOCYTES ABSOLUTE COUNT 1.47 K/ L 1.32-3.57 (BEAKER) (test code = 414) MONOCYTES ABSOLUTE COUNT (BEAKER) 1.13 K/ L 0.30-0.82 H (test code = 415) EOSINOPHILS ABSOLUTE COUNT 0.23 K/ L 0.04-0.54 (BEAKER) (test code = 416) BASOPHILS ABSOLUTE COUNT (NELIA) 0.13 K/ L 0.01-0.08 H (test code = 417) IMMATURE GRANULOCYTES-RELATIVE 1 % 0-1 PERCENT (NELIA) (test code = 2801) POCT-GLUCOSE [id number] 00:13:00 Test Item Value Reference Range Interpretation Comments POC-GLUCOSE METER 212 mg/dL 70-110 H TESTED AT [facility] 6720 (NELIA) (test code = [address] [place] 1538) [id number] U/S, ABDOMINAL, [id number] 21:23:00With dopplersReason for exam:->RUQ ABD US WITH DOPPLER - cirrhotic, presents [...] are normal in size. Thereis no renal mass, hydronephrosis, or shadowing renal calculus. The spleen measures 13.6 cm in lengthand is normal in echotexture. Segments of the inferior vena cava and aorta visualized demonstrate noabnormality. The main portal vein is 1.1 cm in diameter with peak systolic velocity of 11.2 cm/sec. The main, right, and left portal vein demonstrate hepatopedal flow. The resistive indices of the prope rhepatic artery is 0.7. The IVC, right, middle, and left hepatic veins are patent. Impression: 1. Elevated liver echogenicity which may represent fatty infiltration. 2. Mild splenomegaly. 3. Mild thickening of the gallbladder wall without other sonographic evidence of acute cholecystitis. Clinical correlation is recommended. 4. Unremarkable abdominal Doppler Signed: Anca Brown MDReport VerifiedDate/Time: 09/17/2018 21:23:28 Reading Location: [facility] C013W Consult Reading Room U/S, DUPLEX, [id number] 21:23:00Reason for exam:- >RUQ ABD US W/ DOPPLER-CIRRHOTIC, PRESENTS WITH HEMATOCHEZIA,POSS [...] are normal in size. Thereis no renal mass, hydronephrosis, or shadowing renal calculus. The spleen measures 13.6 cm in lengthand is normal in echotexture. Segments of the inferior vena cava and aorta visualized demonstrate noabnormality. The main portal vein is 1.1 cm in diameter with peak systolic velocity of 11.2 cm/sec. The main, right, and left portal vein demonstrate hepatopedal flow. The resistive indices of the prope rhepatic artery is 0.7. The IVC, right, middle, and left hepatic veins are patent. Impression: 1. Elevated liver echogenicity which may represent fatty infiltration. 2. Mild splenomegaly. 3. Mild thickening of the gallbladder wall without other sonographic evidence of acute cholecystitis. Clinical correlation is recommended. 4. Unremarkable abdominal Doppler Signed: Anca Brown MDReport VerifiedDate/Time: 09/17/2018 21:23:28 Reading Location: [facility] B1 C013W Consult Reading Room POCT-GLUCOSE [id number] 18:02:00 Test Item Value Reference Range Interpretation Comments POC-GLUCOSE METER 135 mg/dL 70-110 H TESTED AT [facility] 6720 (BEAKER) (test code = [address] [place] 1538) [address] CBC W/PLT COUNT & AUTO [id number] 17:56:00 Test Item Value Reference Range Interpretation Comments WHITE BLOOD CELL COUNT (BEAKER) 10.2 K/ L 3.5-10.5 (test code = 775) RED BLOOD CELL COUNT (BEAKER) 3.34 M/ L 4.63-6.08 L (test code = 761) HEMOGLOBIN (BEAKER) (test code = 10.3 GM/DL 13.7-17.5 L 410) HEMATOCRIT (BEAKER) (test code = 31.2 % 40.1-51.0 L 411) MEAN CORPUSCULAR VOLUME (BEAKER) 93.4 fL 79.0-92.2 H (test code = 753) MEAN CORPUSCULAR HEMOGLOBIN 30.8 pg 25.7-32.2 (BEAKER) (test code = 751) MEAN CORPUSCULAR HEMOGLOBIN CONC 33.0 GM/DL 32.3-36.5 (BEAKER) (test code = 752) RED CELL DISTRIBUTION WIDTH 19.1 % 11.6-14.4 H (BEAKER) (test code = 412) PLATELET COUNT (BEAKER) (test 134 K/CU MM 150-450 L code = 756) MEAN PLATELET VOLUME (BEAKER) 11.4 fL 9.4-12.4 (test code = 754) NUCLEATED RED BLOOD CELLS 0 /100 WBC 0-0 (BEAKER) (test code = 413) NEUTROPHILS RELATIVE PERCENT 69 % (BEAKER) (test code = 429) LYMPHOCYTES RELATIVE PERCENT 14 % (BEAKER) (test code = 430) MONOCYTES RELATIVE PERCENT 12 % (BEAKER) (test code = 431) EOSINOPHILS RELATIVE PERCENT 2 % (BEAKER) (test code = 432) BASOPHILS RELATIVE PERCENT 1 % (BEAKER) (test code = 437) NEUTROPHILS ABSOLUTE COUNT 7.05 K/ L 1.78-5.38 H (BEAKER) (test code = 670) LYMPHOCYTES ABSOLUTE COUNT 1.46 K/ L 1.32-3.57 (BEAKER) (test code = 414) MONOCYTES ABSOLUTE COUNT (BEAKER) 1.19 K/ L 0.30-0.82 H (test code = 415) EOSINOPHILS ABSOLUTE COUNT 0.20 K/ L 0.04-0.54 (BEAKER) (test code = 416) BASOPHILS ABSOLUTE COUNT (BEAKER) 0.11 K/ L 0.01-0.08 H (test code = 417) IMMATURE GRANULOCYTES-RELATIVE 2 % 0-1 H PERCENT (BEAKER) (test code = 2801) CARCINOEMBRYONIC ANTIGEN (CEA)2018-09-17 16:30:00 Test Item Value Reference Range Interpretation Comments CARCINOEMBRYONIC ANTIGEN (BEAKER) 4.0 ng/mL 0.0-5.0 (test code = 685) CBC W/PLT COUNT & AUTO [id number] 15:39:00 Test Item Value Reference Range Interpretation Comments WHITE BLOOD CELL COUNT (BEAKER) 9.2 K/ L 3.5-10.5 (test code = 775) RED BLOOD CELL COUNT (BEAKER) 3.30 M/ L 4.63-6.08 L (test code = 761) HEMOGLOBIN (BEAKER) (test code = 10.0 GM/DL 13.7-17.5 L 410) HEMATOCRIT (BEAKER) (test code = 30.8 % 40.1-51.0 L 411) MEAN CORPUSCULAR VOLUME (BEAKER) 93.3 fL 79.0-92.2 H (test code = 753) MEAN CORPUSCULAR HEMOGLOBIN 30.3 pg 25.7-32.2 (BEAKER) (test code = 751) MEAN CORPUSCULAR HEMOGLOBIN CONC 32.5 GM/DL 32.3-36.5 (BEAKER) (test code = 752) RED CELL DISTRIBUTION WIDTH 19.3 % 11.6-14.4 H (BEAKER) (test code = 412) PLATELET COUNT (BEAKER) (test 127 K/CU MM 150-450 L code = 756) MEAN PLATELET VOLUME (BEAKER) 11.8 fL 9.4-12.4 (test code = 754) NUCLEATED RED BLOOD CELLS 0 /100 WBC 0-0 (BEAKER) (test code = 413) NEUTROPHILS RELATIVE PERCENT 70 % (BEAKER) (test code = 429) LYMPHOCYTES RELATIVE PERCENT 13 % (BEAKER) (test code = 430) MONOCYTES RELATIVE PERCENT 12 % (BEAKER) (test code = 431) EOSINOPHILS RELATIVE PERCENT 2 % (BEAKER) (test code = 432) BASOPHILS RELATIVE PERCENT 1 % (BEAKER) (test code = 437) NEUTROPHILS ABSOLUTE COUNT 6.45 K/ L 1.78-5.38 H (BEAKER) (test code = 670) LYMPHOCYTES ABSOLUTE COUNT 1.23 K/ L 1.32-3.57 L (BEAKER) (test code = 414) MONOCYTES ABSOLUTE COUNT (BEAKER) 1.12 K/ L 0.30-0.82 H (test code = 415) EOSINOPHILS ABSOLUTE COUNT 0.16 K/ L 0.04-0.54 (BEAKER) (test code = 416) BASOPHILS ABSOLUTE COUNT (BEAKER) 0.12 K/ L 0.01-0.08 H (test code = 417) IMMATURE GRANULOCYTES-RELATIVE 1 % 0-1 PERCENT (BEAKER) (test code = 2801) HEPATITIS A ANTIBODY, [id number] 14:34:00 Test Item Value Reference Range Interpretation Comments HEPATITIS A IGG ANTIBODY (BEAKER) Reactive Nonreactive A (test code = 2797) HEPATITIS B CORE ANTIBODY, [id number] 14:31:00 Test Item Value Reference Range Interpretation Comments HEPATITIS B CORE TOTAL ANTIBODY Nonreactive Nonreactive (BEAKER) (test code = 497) URINALYSIS W/ REFLEX URINE [id number] 13:18:00 Test Item Value Reference Range Interpretation Comments COLOR (BEAKER) (test code = 470) Yellow CLARITY (BEAKER) (test code = 469) Clear SPECIFIC GRAVITY UA (BEAKER) (test 1.034 1.001-1.035 code = 468) PH UA (BEAKER) (test code = 467) 7.0 5.0-8.0 PROTEIN UA (BEAKER) (test code = Negative Negative 464) GLUCOSE UA (BEAKER) (test code = Negative Negative 365) KETONES UA (BEAKER) (test code = Negative Negative 371) BILIRUBIN UA (BEAKER) (test code = Positive Negative A 462) BLOOD UA (BEAKER) (test code = 461) Negative Negative NITRITE UA (BEAKER) (test code = Negative Negative 465) LEUKOCYTE ESTERASE UA (BEAKER) Negative Negative (test code = 466) UROBILINOGEN UA (BEAKER) (test code 4.0 mg/dL 0.2-1.0 H = 463) RBC UA (BEAKER) (test code = 519) 0 /HPF WBC UA (BEAKER) (test code = 520) 0 /HPF SQUAMOUS EPITHELIAL (BEAKER) (test 1 /HPF code = 516) SOURCE(BEAKER) (test code = 2795) ALPHA FETOPROTEIN (AFP), TUMOR [id number] 13:18:00 Test Item Value Reference Range Interpretation Comments ALPHA-FETOPROTEIN (BEAKER) (test 9.2 ng/mL <10.0 code = 1094) BILIRUBIN, [id number] 12:15:00 Test Item Value Reference Range Interpretation Comments BILIRUBIN DIRECT 4.4 mg/dL 0.1-0.5 H Specimen sl ightly (BEAKER) (test code = hemoly zed 706) IMMUNOGLOBULIN G (IGG)2018-09-17 12:13:00 Test Item Value Reference Range Interpretation Comments IMMUNOGLOBULIN G (IGG) (BEAKER) 1727 mg/dL 540-1822 (test code = 427) [id number] 09:59:00 Test Item Value Reference Range Interpretation Comments PROCALCITONIN (BEAKER) (test code 0.25 ng/mL <0.05 H = 3036) SEPSIS RISK (ng/mL)Low: 0.05-0.50Intermediate: 0.51-2.00High: >=[id number] 09:47:00 Test Item Value Reference Range Interpretation Comments ETHANOL (BEAKER) (test code = 400) < mg/dL <=10 COMPREHENSIVE METABOLIC [id number] 09:38:00 Test Item Value Reference Range Interpretation Comments TOTAL PROTEIN 7.9 gm/dL 6.0-8.3 (BEAKER) (test code = 770) ALBUMIN (BEAKER) 3.1 g/dL 3.5-5.0 L (test code = 1145) ALKALINE PHOSPHATASE 173 U/L 40-150 H (BEAKER) (test code = 346) BILIRUBIN TOTAL 7.0 mg/dL 0.2-1.2 H (BEAKER) (test code = 377) SODIUM (BEAKER) 133 meq/L 136-145 L (test code = 381) POTASSIUM (BEAKER) 3.3 meq/L 3.5-5.1 L (test code = 379) CHLORIDE (BEAKER) 101 meq/L 98-107 (test code = 382) CO2 (BEAKER) (test 21 meq/L 22-29 L code = 355) BLOOD UREA NITROGEN 4 mg/dL 7-21 L (BEAKER) (test code = 354) CREATININE (BEAKER) 0.66 mg/dL 0.57-1.25 (test code = 358) GLUCOSE RANDOM 134 mg/dL 70-105 H (BEAKER) (test code = 652) CALCIUM (BEAKER) 8.1 mg/dL 8.4-10.2 L (test code = 697) AST (SGOT) (BEAKER) 193 U/L 5-34 H (test code = 353) ALT (SGPT) (BEAKER) 21 U/L 6-55 (test code = 347) EGFR (BEAKER) (test mL/min/1.73 INSUFFIC IENT code = 1092) sq m CLINICAL DATA T O CALCULATE ESTIM ATED GFR. Specimen moderately [id number] 09:31:00 Test Item Value Reference Range Interpretation Comments PHOSPHORUS (BEAKER) (test code = 2.5 mg/dL 2.3-4.7 604) [id number] 09:31:00 Test Item Value Reference Range Interpretation Comments MAGNESIUM (BEAKER) (test code = 1.8 mg/dL 1.6-2.6 627) LACTIC ACID, VENOUS, WHOLE [id number] 08:24:00 Test Item Value Reference Range Interpretation Comments LACTATE BLOOD VENOUS (2) (BEAKER) 0.8 mmol/L 0.5-2.2 (test code = 2872) Effective 03/27/2016: Units/Reference Range ChangeNew: 0.5-2.2 mmol/L Previous: 5-20 mg/dLSpecimen moderately ictericACETAMINOPHEN [id number] 08:23:00 Test Item Value Reference Range Interpretation Comments ACETAMINOPHEN LEVEL (BEAKER) (test < ug/mL 10.0-30.0 L code = 344) Therapeutic Range: 10.0-30.0 g/mLToxic Levels: >200.0 g/mLFERRITIN 2018-09-17 07:47:00 Test Item Value Reference Range Interpretation Comments FERRITIN (BEAKER) (test code = 361) 276 ng/mL 5-275 H [id number] 07:46:00 Test Item Value Reference Range Interpretation Comments ALPHA-1 ANTITRYPSIN (BEAKER) 245.40 mg/dL 90.00-200.00 H (test code = 502) IRON, TIBC, % SAT. (WITHOUT FERRITIN)2018-09-17 07:27:00 Test Item Value Reference Range Interpretation Comments IRON (BEAKER) (test code = 547) 147 ug/dL 40-160 TOTAL IRON BINDING CAPACITY 251 ug/dL 250-450 (BEAKER) (test code = 769) IRON % SATURATION (2) (BEAKER) 59 % 20-55 H (test code = 2590) [id number] 07:20:00 Test Item Value Reference Range Interpretation Comments PARTIAL THROMBOPLASTIN TIME 40.0 seconds 22.5-36.0 H (BEAKER) (test code = 760) PROTHROMBIN [id number] 07:19:00 Test Item Value Reference Range Interpretation Comments PROTIME (BEAKER) (test code = 17.0 seconds 11.7-14.7 H 759) INR (BEAKER) (test code = 370) 1.4 <=5.9 RECOMMENDED COUMADIN/WARFARIN INR THERAPY RANGESSTANDARD DOSE: 2.0 - 3.0 Includes: PROPHYLAXIS forvenous thrombosis, systemic embolization; TREATMENT for venous thrombosis and/or pulmonary embolus.HIGH RISK: Target INR is 2.5-3.5 for patients with mechanical heart valves.CBC W/PLT COUNT & AUTO DIFFERENTIAL 2018-09-17 07:04:00 Test Item Value Reference Range Interpretation Comments WHITE BLOOD CELL COUNT (BEAKER) 10.3 K/ L 3.5-10.5 (test code = 775) RED BLOOD CELL COUNT (BEAKER) 3.40 M/ L 4.63-6.08 L (test code = 761) HEMOGLOBIN (BEAKER) (test code = 10.4 GM/DL 13.7-17.5 L 410) HEMATOCRIT (BEAKER) (test code = 31.1 % 40.1-51.0 L 411) MEAN CORPUSCULAR VOLUME (BEAKER) 91.5 fL 79.0-92.2 (test code = 753) MEAN CORPUSCULAR HEMOGLOBIN 30.6 pg 25.7-32.2 (BEAKER) (test code = 751) MEAN CORPUSCULAR HEMOGLOBIN CONC 33.4 GM/DL 32.3-36.5 (BEAKER) (test code = 752) RED CELL DISTRIBUTION WIDTH 19.0 % 11.6-14.4 H (BEAKER) (test code = 412) PLATELET COUNT (BEAKER) (test 129 K/CU MM 150-450 L code = 756) MEAN PLATELET VOLUME (BEAKER) 12.3 fL 9.4-12.4 (test code = 754) NUCLEATED RED BLOOD CELLS 0 /100 WBC 0-0 (BEAKER) (test code = 413) NEUTROPHILS RELATIVE PERCENT 69 % (BEAKER) (test code = 429) LYMPHOCYTES RELATIVE PERCENT 16 % (BEAKER) (test code = 430) MONOCYTES RELATIVE PERCENT 12 % (BEAKER) (test code = 431) EOSINOPHILS RELATIVE PERCENT 1 % (BEAKER) (test code = 432) BASOPHILS RELATIVE PERCENT 1 % (BEAKER) (test code = 437) NEUTROPHILS ABSOLUTE COUNT 7.13 K/ L 1.78-5.38 H (BEAKER) (test code = 670) LYMPHOCYTES ABSOLUTE COUNT 1.62 K/ L 1.32-3.57 (BEAKER) (test code = 414) MONOCYTES ABSOLUTE COUNT (BEAKER) 1.25 K/ L 0.30-0.82 H (test code = 415) EOSINOPHILS ABSOLUTE COUNT 0.14 K/ L 0.04-0.54 (BEAKER) (test code = 416) BASOPHILS ABSOLUTE COUNT (BEAKER) 0.09 K/ L 0.01-0.08 H (test code = 417) IMMATURE GRANULOCYTES-RELATIVE 1 % 0-1 PERCENT (BEAKER) (test code = 4141)
--- OUTSIDE RECORDS SUMMARY | 2020-07-31 23:09 | XMS REPORT ---
:1985 Author Organization eClinicalWorks Care Team Providers Name Role Phone Meka Ibarra Provider Role Unavailable Allergies No Known Allergies Problems Problem Type Condition Code Onset Dates Condition Statu s Problem Hypertension I10 Active Problem Pain in right leg M79.604 Active Problem Pain in left leg M79.605 Active Problem History of hypokalemia Z86.39 Activ e Problem Alcoholic cirrhosis of liver K70.30 Active without ascites Problem Essential hypertension I10 Activ e Problem Non-intractable vomiting with R11.2 Active nausea, unspecified vomiting type Problem Depression screening Z13.31 Active Medications No Known Medications Results No Known Results Summary Purpose eClinicalWorks Submission
--- OUTSIDE RECORDS SUMMARY | 2020-07-31 23:09 | XMS REPORT ---
[...] type Problem Depression screening Z13.31 Active Medications Medication Code System Code Instructions Start End Date Status Dos age Date Gabapentin [facility] [id number] 100 MG Orally May 12, Active 1 capsule twice a day prn 2019 Results No Known Results Summary Purpose eClinicalWorks Submission
[2020-07-31] MEDS ORDERED: OXYMETAZOLINE HCL 0.05% 15ML NAS ONE (23:56)
[2020-07-31] MEDS ORDERED: PHENYLEPHRINE 0.5% NOSE 15ML NAS ONE (23:57)
--- NOTE | 2020-08-01 00:26 | ER ---
Nurse's Notes [facility] Name: Dillan Johnson Age: 35 yrs Sex: Male : 1985 Arrival Date: 07/31/2020 Time: 23:09 Bed 6 Private MD: Diagnosis: Epistaxis Presentation: 07/31 23:15 Chief complaint: Patient states: nose bleed that began 1 hour ago. Denies trauma. ss Coronavirus screen: Client denies travel out of the [place] in the last 14 days. At this time, the client does not indicate any symptoms associated with coronavirus-19. Ebola Screen: Patient denies exposure to infectious person. Patient denies travel to an Ebola-affected area in the 21 days before illness onset. Initial Sepsis Screen: Does the patient meet any 2 criteria? HR > 90 bpm. Does the patient have a suspected source of infection? No. Patient's initial sepsis screen is negative. Risk Assessment: Do you want to hurt yourself or someone else? Patient reports no desire to harm self or others. Onset of symptoms was July 31, 2020. 23:15 Method Of Arrival: Ambulatory ss 23:15 Acuity: NIKITA 3 ss Historical: - Allergies: 23:18 No Known Allergies; ss - Home Meds: 23:18 propranolol 10 mg PO in AM and 20 mg in PM. Pt reports he only takes morning dose ss [Active]; - PMHx: 23:18 Cirrhosis; Hypertension; ss - PSHx: 23:18 None; ss - Immunization history:: Adult Immunizations up to date. - Social history:: Smoking status: Patient denies any tobacco usage or history of. Patient uses alcohol, on a daily basis. 3-4 beers/day . Screenin:34 Abuse screen: Denies threats or abuse. Denies injuries from another. Nutritional rr5 screening: No deficits noted. Tuberculosis screening: No symptoms or risk factors identified. Fall Risk None identified. Total Wilder Fall Scale indicates No Risk (0-24 pts). Assessment: 23:15 General: Appears in no apparent distress. comfortable, Behavior is calm, cooperative, rr5 appropriate for age. Pain: Denies pain. Neuro: Level of Consciousness is awake, alert, obeys commands, Oriented to person, place, time, situation. Cardiovascular: Capillary refill < 3 seconds Patient's skin is warm and dry. Respiratory: Airway is patent Respiratory effort is even, unlabored, Respiratory pattern is regular, symmetrical. GI: No signs and/or symptoms were reported involving the gastrointestinal system. : No signs and/or symptoms were reported regarding the genitourinary system. EENT: Nares with bleeding noted on right. Derm: Skin is intact, is healthy with good turgor, Skin temperature is warm. Musculoskeletal: Circulation, motion, and sensation intact. Capillary refill < 3 seconds. 23:20 Reassessment: Nasal clamp applied during triage. Pt denies pain. 08/01 00:28 Reassessment: Patient appears in no apparent distress at this time. nose bleed stopped. rr5 Patient states feeling better. Patient states symptoms have improved. Vital Signs: 07/31 23:15 BP 156 / 93; Pulse 95; Resp 18; Temp 98.8(O); Pulse Ox 97% on R/A; Weight 104.33 kg; Height 5 ft. 9 in. (175.26 cm); Pain 0/10; 08/01 00:22 BP 145 / 94; Pulse 90; Resp 16; Pulse Ox 99% ; rr5 07/31 23:15 Body Mass Index 33.97 (104.33 kg, 175.26 cm) ED Course: 07/31 23:09 Patient arrived in ED. bp1 23:10 Juan Manuel Trejo, BALDEV is Primary Nurse. rr5 23:15 Dick Alaniz NP is PHCP. pm1 23:15 Chapo Guevara MD is Attending Physician. pm1 23:16 Triage completed. ss 23:18 Arm band placed on right wrist. ss 23:34 Patient has correct armband on for positive identification. Bed in low position. Call rr5 light in reach. Side rails up X2. Pulse ox on. NIBP on. 08/01 00:28 No provider procedures requiring assistance completed. Patient did not have IV access rr5 during this emergency room visit. Administered Medications: 07/31 23:48 Drug: Jonathan-Synephrine Robson 0.5 % 2 sprays Route: Intranasal; Site: both nares; mt2 08/01 00:29 Follow up: Response: No adverse reaction; Marked relief of symptoms rr5 Outcome: 00:25 Discharge ordered by . pm1 00:28 Discharged to home ambulatory. rr5 00:28 Condition: stable 00:28 Discharge instructions given to patient, Instructed on discharge instructions, follow up and referral plans. Demonstrated understanding of instructions, follow-up care. 00:29 Patient left the ED. rr5 Signatures: Shantel Maurer RN RN ss Dick Alaniz, DUDLEY [employer]NER pm1 Juan Manuel Trejo RN RN rr5 Ale[facility] Dunia Joiner RN RN mt2 Corrections: (The following items were deleted from the chart) 07/31 23:18 23:15 BP 156 / 93; Pulse 95bpm; Resp 18bpm; Pulse Ox 97% RA; 104.33 kg; Height 5 ft. 9 ss in.; BMI: 33.9; Pain 0/10; ss
--- NOTE | 2020-08-01 00:26 | EDPHYS ---
Physician Documentation [facility] Name: Dillan Johnson Age: 35 yrs Sex: Male : 1985 Arrival Date: 07/31/2020 Time: 23:09 Bed 6 Private MD: ED Physician Chapo Guevara HPI: 07/31 23:30 This 35 yrs old Male presents to ER via Ambulatory with complaints of Nose pm1 Bleed. 23:30 The patient presents with a nose bleed. Onset: The symptoms/episode began/occurred 1 pm1 hour(s) ago. Modifying factors: The symptoms are alleviated by nothing. the symptoms are aggravated by nothing. Associated signs and symptoms: Pertinent negatives: cough, fever, lightheadedness. Severity of symptoms: in the emergency department the symptoms are unchanged. The patient has experienced a previous episode, many months ago but resolved without any difficulty. Historical: - Allergies: 23:18 No Known Allergies; ss - Home Meds: 23:18 propranolol 10 mg PO in AM and 20 mg in PM. Pt reports he only takes morning dose ss [Active]; - PMHx: 23:18 Cirrhosis; Hypertension; ss - PSHx: 23:18 None; ss - Immunization history:: Adult Immunizations up to date. - Social history:: Smoking status: Patient denies any tobacco usage or history of. Patient uses alcohol, on a daily basis. 3-4 beers/day . ROS: 23:30 Constitutional: Negative for fever, chills, and weight loss, Eyes: Negative for injury, pm1 pain, redness, and discharge. 23:30 Cardiovascular: Negative for chest pain, palpitations, and edema, Respiratory: Negative for shortness of breath, cough, wheezing, and pleuritic chest pain, Abdomen/GI: Negative for abdominal pain, nausea, vomiting, diarrhea, and constipation, MS/Extremity: Negative for injury and deformity, Skin: Negative for injury, rash, and discoloration, Neuro: Negative for headache, weakness, numbness, tingling, and seizure. 23:30 ENT: Positive for nose bleed, Negative for ear pain, sore throat. Exam: 23:30 Constitutional: This is a well developed, well nourished patient who is awake, alert, pm1 and in no acute distress. Head/Face: Normocephalic, atraumatic. 23:30 Back: No spinal tenderness. No costovertebral tenderness. Full range of motion. Skin: Warm, dry with normal turgor. Normal color with no rashes, no lesions, and no evidence of cellulitis. 23:30 MS/ Extremity: Pulses equal, no cyanosis. Neurovascular intact. Full, normal range of motion. 23:30 ENT: Nose: bleeding, is seen from the right nare, and is minimal. 23:30 Cardiovascular: Exam negative for acute changes, Rate: normal, Rhythm: regular, Pulses: no pulse deficits are appreciated. 23:30 Respiratory: Exam negative for acute changes, respiratory distress, shortness of breath. 23:30 Neuro: Exam negative for acute changes, Orientation: is normal, Mentation: is normal, Motor: is normal, moves all fours, Gait: is steady, at a normal pace, without difficulty. Vital Signs: 23:15 BP 156 / 93; Pulse 95; Resp 18; Temp 98.8(O); Pulse Ox 97% on R/A; Weight 104.33 kg; ss Height 5 ft. 9 in. (175.26 cm); Pain 0/10; 08/01 00:22 BP 145 / 94; Pulse 90; Resp 16; Pulse Ox 99% ; rr5 07/31 23:15 Body Mass Index 33.97 (104.33 kg, 175.26 cm) ss MDM: 07/31 23:16 Patient medically screened. pm1 08/01 00:24 Data reviewed: vital signs. Data interpreted: Pulse oximetry: on room air is 99 %. pm1 Interpretation: normal. Counseling: I had a detailed discussion with the patient and/or guardian regarding: the historical points, exam findings, and any diagnostic results supporting the discharge/admit diagnosis, the need for outpatient follow up, an ENT specialist, to return to the emergency department if symptoms worsen or persist or if there are any questions or concerns that arise at home. Administered Medications: 07/31 23:48 Drug: Jonathan-Synephrine Hutchinson 0.5 % 2 sprays Route: Intranasal; Site: both nares; mt2 08/01 00:29 Follow up: Response: No adverse reaction; Marked relief of symptoms rr5 Disposition: 06:54 Co-signature as Attending Physician, Chapo Guevara MD I agree with the assessment and tw4 plan of care. Disposition: 08/01/20 00:25 Discharged to Home. Impression: Epistaxis. - Condition is Stable. - Discharge Instructions: Nosebleed, Adult. - Medication Reconciliation Form, Thank You Letter, Antibiotic Education, Prescription Opioid Use form. - Follow up: Emergency Department; When: As needed; Reason: Worsening of condition. Follow up: Private Physician; When: 2 - 3 days; Reason: Recheck today's complaints, Continuance of care, Re-evaluation by your physician. - Problem is new. - Symptoms are resolved. Signatures: Shantel Maurer, RN RN ss Dick Alaniz NP [employer]AD pm1 Chapo Guevara MD MD tw4 Juan Manuel Trejo RN RN rr5 Dunia Joiner RN RN mt2 Corrections: (The following items were deleted from the chart) 00:29 00:25 08/01/2020 00:25 Discharged to Home. Impression: Epistaxis. Condition is Stable. rr5 Discharge Instructions: Nosebleed, Adult. Forms are Medication Reconciliation Form, Thank You Letter, Antibiotic Education, Prescription Opioid Use. Follow up: Emergency Department; When: As needed; Reason: Worsening of condition. Follow up: Private Physician; When: 2 - 3 days; Reason: Recheck today's complaints, Continuance of care, Re-evaluation by your physician. Problem is new. Symptoms are resolved. pm1
[2020-08-01 10:51] VITALS: TEMP 98.8
[2020-08-01 10:53] VITALS: BP 145/94; O2SAT 99
== END 2020-08-01 00:29 | disposition home or self-care (01) ==
LOC: ER 23:06
DX: R04.0 Epistaxis (principal); I10 Essential (primary) hypertension; K74.60 Unspecified cirrhosis of liver
CPT/HCPCS: 99283

== ENCOUNTER 2022-09-13 16:58 | Emergency (ER) | payer OTHER ==
--- OUTSIDE RECORDS SUMMARY | 2022-09-13 17:04 | XMS REPORT | Continuity of Care Document ---
:1985 Author Organization [facility] t Address [address] [place] [address] Care Team Providers Name Role Phone Ganga Carrillo MD Primary Care Physician Caren Aviles Attending Clinician Unavailable Meka Ibarra Attending Clinician Unavailable SAURABH ARMANDO Attending Clinician Unavailable ANIRUDH MORRIS Attending Clinician Unavailable GANGA CARRILLO Attending Clinician Unavailable SAURABH ARMANDO Attending Clinician Unavailable VASYL DANIELS Attending Clinician Unavailable Renetta Iqbal APRN Attending Clinician GANGA JOHN Attending Clinician Unavailable CHRIS DUNCAN Attending Clinician Unavailable IAN MORRISSEY Attending Clinician Unavailable VASYL DANIELS Admitting Clinician Unavailable IAN MORRISSEY Admitting Clinician Unavailable Payers Payer Name Policy Type Policy Number Effective Date Expiration Date Sandy reynolds AMBETTER [id number] 2020 [facility] 00:00:00 PLAN Ambetter from [id number] 2019 Common Spi [facility] 00:00:00 - [facility] HIM AMBETTER [id number] 2019 FROM [place] 00:00:00 HEALTH Ambetter from [id number] 2019 Common Spi rit [facility] 00:00:00 - [facility] Problems Condition Condition Condition Status Onset Resolution Last Treating Co mments Source Name Details Category Date Date Treatment Clinician Date PORTAL HTN PORTAL Diagnosis Active 2022-06-26 Memoria HTN 5-04 07:29:00 l Active 00:00: Mcfaddin 03/27/2022 00 [facility] I85.00 - I85.00 - Diagnosis Active 2021-08-23 Memoria ESOPHAGEAL ESOPHAGEAL 08-17 11:11:00 l VARICES VARICES 00:01: Mcfaddin WITHOUT WITHOUT 00 BLE BLE Active [facility] Diagnosis Active 2022-04-01 Me emmanuel VISIT VISIT 08-17 17:41:00 l Active 00:00: Chris 08/17/2021 00 [facility] ANEMIA, ANEMIA, Diagnosis Active 2021-07-03 Memoria ESOPHAGEAL ESOPHAGEAL 4-05 11:04:00 l VARICES VARICES 00:00: Mcfaddin WITH WITH 00 BANDING, BANDING, Active 02/26/2021 [facility] F/U F/U Diagnosis Active 2021-03-02 Mem oria Active 3-16 15:28:00 l 02/06/2021 00:00: Jose Juan biswas [address] BDDC BDDC Diagnosis Active 2020-08-22 Mem oria ESOPHAGEAL ESOPHAGEAL 2-20 09:19:00 l VARICES VARICES 00:00: Mcfaddin SCREENING SCREENING 00 Active 01/13/2020 [facility] NEW PT NEW PT Diagnosis Active 2020-01-14 Me morialistair CONSULT - CONSULT - 12-21 05:31:00 l LIVER MASS LIVER MASS 00:00: He rmann Active 00 12/21/2019 [facility] DX: DX: Diagnosis Active 2018-112019-10-08 Mem oria K70.30=ALC K70.30=ALC 1-14 09:19:00 l OHOLIC OHOLIC 00:00: Mcfaddin CIRRHOSIS CIRRHOSIS 00 OF LIVER OF LIVER Active 10/07/2019 [facility] Thrombocyt Thrombocyt Disease Active 2017-[address] [facility]ia [facility] Thrombocyt Thrombocyt Disease Active 2017-[address] [facility] openia 0[facility]25 [facility] Hematochez Hematochez Disease Active 2017-[address] ia ia 0-25 [facility] Alcoholic Alcoholic Disease Active 2017-[address] [facility] cirrhosis cirrhosis 0-25 [facility] 00:00: Medical 00 Goff Essential Essential Disease Active 2017-[address] hypertensi hypertensi 0-25 Kathy kes on on 00:00: Medical 00 Goff ETOH abuse ETOH abuse Disease Active 2017-[address] [facility] Alcohol Alcohol Disease Active 2017-[address] [facility] withdrawal withdrawal 0-25 Kathy kes syndrome, syndrome, 00:00: Medi arlin with with 00 Center delirium delirium Anemia Anemia Disease Active 2017-[address] [facility] associated associated 0-25 Kathy kes with acute with acute 00:00: Me dical blood loss blood loss 00 Ce nter Hypertensi Hypertensi Problem Active C ommon on on [facility] [id number] Pain in Problem Active Comm on [id number] right leg [facility] [id number] History of Problem Active Co mmon hypokalemi [facility] a [facility] [id number] Depression Problem Active Co mmon screening [facility] [id number] Non-intrac Problem Active Com mon table [facility] vomiting - [facility] nausea[facility] unspecifie Medica [facility] d vomiting Center type [id number] Pain in Problem Active Commo n left leg [facility] Anemia Anemia Problem Resolve 2022-07-01 Mem oria (disorder) (disorder) d 07:36:25 l Resolved Chris Problem 07/01/2022 [facility] Disease Disease Problem Resolve 2022-07-01 M emoria caused by caused by d 07:36:25 l 2019-nCoV 2019-nCoV Herm pavan Resolved Problem 07/01/20222019 [facility] Cirrhosis Problem Active 2022-07-01 Me moria of liver Cirrhosis 07:36:25 l (disorder) of liver Herm pavan (disorder) Active Problem 07/01/2022 [facility], CASSIA Perez, EDNJ Simple Simple Problem Active 2022-07-01 Nicko dave obesity obesity 07:36:25 l (disorder) (disorder) He rmann Active Problem 07/01/2022 [facility], CASSIA Perez,[facility] 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 07:36:25 l (disorder) (disorder) He rmann Active Problem 07/01/2022 [facility], CASSIA Perez,[facility] Iron Iron Problem Active 2022-07-01 Memor ia deficiency deficiency 07:36:25 l anemia anemia Chris (disorder) (disorder) Active Problem 07/01/2022 [facility], CASSIA Perez, EDNJ Portal Portal Problem Active 2022-07-01 Nicko dave hypertensi hypertensi 07:36:25 l on on Chris (disorder) (disorder) Active Problem 07/01/2022 [facility], CASSIA Perez,[facility] K74.60 - K74.60 - Diagnosis Active 2022-04-01 Memoria UNSPECIFIE UNSPECIFIE 17:41:00 l D D Chris CIRRHOSIS CIRRHOSIS OF LIVER OF LIVER Active CASSIA Perez Allergies, Adverse Reactions, Alerts Allergy Allergy Status Severity Reaction(s) Onset Inactive Treating Comm ents Source Name Type Date Date Clinician NO KNOWN Drug Active Univers ALLERGIE Class [facility] Family History Family Member Diagnosis Comments Start Date Stop Date Source Natural father Heart disease [facility] Social History Social Habit Start Date Stop Date Quantity Comments Source History of Tobacco [facility] Use [facility] Social History 2022-03-14 2022-03-14 [facility] Shane cortney 20:22:04 20:22:04 Sex [birth year] [facility] 00:00:00 [facility]00 [facility] Smoking Status Start Date Stop Date Source [facility] Medications Ordered Filled Start Stop Current Ordering Indication Dosage Frequency Signature Comments Components Source Medication Medication Date Date Medication? Clinician (SIG) Name Name ePHEDrine No Route: IV, Me moria (ANES) 06-25 Drug form: l 16:19: INJ, ONCE, Stop date: 06/25/22 11:19:00 CDT dexamethaso No Route: IV, Memoria ne (ANES) 06-25 Drug form: l 16:09: INJ, ONCE, Stop date: 06/25/22 11:09:00 CDT albuterol No Route: IV, Me moria (ANES) 06-25 Drug form: l 16:09: AERO/A, ONCE, Stop date: 06/25/22 11:09:00 CDT lidocaine No Route: IV, Me moria (ANES) 06-25 Drug form: l 15:59: INJ, ONCE, Stop date: 06/25/22 10:59:00 CDT propofol No Route: IV, Mem oria (ANES) 06-25 Drug form: l 15:59: INJ, ONCE, Stop date: 06/25/22 10:59:00 CDT succinylcho No Route: IV, Memoria line (ANES) 06-25 Drug form: l 15:59: INJ, ONCE, Stop date: 06/25/22 10:59:00 CDT fentaNYL No Route: IV, Mem oria (ANES) 06-25 Drug form: l 15:59: INJ, ONCE, Stop date: 06/25/22 10:59:00 CDT ondansetron No Route: IV, Memoria (ANES) 06-25 Drug form: l 15:54: INJ, ONCE, Stop date: 06/25/22 10:54:00 CDT ANES No 10 mg, Memoria hydrALAZINE 06-25 Route: l 15:40: IVP, Mcfaddin 00 Q20Min, Dosing Weight 106.5, kg, PRN Elevated BP, Start date: 06/25/22 10:40:00 CDT, Duration: 2 doses or times, Stop date: Limited # of times ANES No 10 mg, Memoria labetalol 06-25 Route: l 15:40: IVP, Mcfaddin 00 Q5Min, Dosing Weight 106.5, kg, PRN Elevated BP, Start date: 06/25/22 10:40:00 CDT, Duration: 5 doses or times, Stop date: Limited # of times ANES No 0.2 mg, Memoria flumazenil 06-25 Route: l 15:40: IVP, PRN, Dosing Weight 106.5, kg, PRN Benzodiaze pine Reversal, Initial dose, Start date: 06/25/22 10:40:00 CDT, Duration: 30 day, Stop date: 07/25/22 10:39:00 CDT ANES No 0.4 mg, Memoria naloxone 06-25 Route: l 15:40: IVP, Chris 00 Q2MIN, Dosing Weight 106.5, kg, PRN Narcotic Reversal, Start date: 06/25/22 10:40:00 CDT, Duration: 8 doses or times, Stop date: Limited # of times ANES No 4 mg, Memoria ondansetron 06-25 Route: l 15:40: IVP, ONCE, Dosing Weight 106.5, kg, PRN Nausea & Vomiting, Start date: 06/25/22 10:40:00 CDT Lactated No Route: IV, Mem oria Ringers 06-25 Total l Injection 15:21: Volume: Betzaida nn IV (ANES) 00 1,000, 1000 mL Start date: 06/25/22 10:21:00 CDT, Stop date: 06/25/22 11:21:00 CDT multivitami Yes Daily, 0 Me moria n 5-25 Refill(s) l 19:08: Unknown Yes Refill(s) Memor ia Home 5-25 0 l Medication 19:08: Zofran 4 mg Yes 4 mg = 1 Me moria oral tablet 5-03 tab, PO, l 19:47: Daily, Mcfaddin 00 Disolve one tablet by mouth daily, # 30 tab, 1 Refill(s), Pharmacy: [facility] [id number], 175.26, cm, 03/14/22 15:22:00 CDT, Height, 106.364, kg, 03/14/22 15:22:00 CDT, Weight azithromyci No 6 tab, 0 Me moria n 250 mg 4-21 Refill(s) l oral tablet 20:20: Jose Juan n 00 budesonide- No 10 gm, 0 Me moria formoterol 4-21 Refill(s) l 80 mcg-4.5 20:20: Chris mcg/inh 00 inhalation aerosol with adapter predniSONE No 15 tab, 0 Me moria 5 mg oral 4-21 Refill(s) l tablet 20:20: Chris 00 ondansetron Yes 4 mg = 1 Me moria 4 mg oral 2-26 tab, PO, l tablet, 23:09: PRN, PRN Jose Juan n disintegrat 00 Nausea, X ing 30 day, # 30 tab, 1 Refill(s), Pharmacy: [facility] [id number], 175.26, cm, 08/16/21 11:14:00 CDT, Height, 105.114, kg, 08/16/21 11:14:00 CDT, Weight ondansetron 2020-11 No 4 mg = 1 Me moria 4 mg oral 2-22 tab, PO, l tablet, 18:58: PRN, PRN Jose Juan n disintegrat 00 Nausea, # ing 30 tab, 0 Refill(s), Pharmacy: [facility] [id number], 175.26, cm, 08/16/21 11:14:00 CDT, Height, 105.114, kg, 08/16/21 11:14:00 CDT, Weight propranolol Yes 10 mg = 1 M emoria 10 mg oral 9-23 tab, PO, l tablet 17:00: BID, # 180 Betzaida nn 00 tab, 3 Refill(s), Pharmacy: [facility] [id number], 175.26, cm, 08/16/21 11:14:00 CDT, Height, 105.114, kg, 08/16/21 11:14:00 CDT, Weight ferrous 0 Yes 325 mg = 1 Nicko dave sulfate 325 9-23 tab, PO, l mg oral 16:59: Every Chris enteric 00 Other Day, coated # 45 tab, tablet 1 Refill(s), Pharmacy: [facility] [id number], 175.26, cm, 08/16/21 11:14:00 CDT, Height, 105.114, kg, 08/16/21 11:14:00 CDT, Weight Ondansetron Yes 4 mg = 1 Me moria 4 MG 9-23 tab, SL, l Disintegrat 16:59: Q8H, PRN Ramu rmann ing Tablet 00 Nausea, # 30 tab, 0 Refill(s), Pharmacy: [facility] [id number], 175.26, cm, 08/16/21 11:14:00 CDT, Height, 105.114, kg, 08/16/21 11:14:00 CDT, Weight pantoprazol Yes 40 mg = 1 M emoria e 40 mg 5-28 tab, PO, l oral 16:26: Daily, # Mcfaddin enteric 00 60 tab, 0 coated Refill(s), tablet Pharmacy: [place] [id number], pantoprazo le 40mg x 8 weeks. Then, discontinu e., 175.26, cm, 03/01/21 12:33:00 CDT, Height, 97.443, kg, 03/01/21 12:33:00 CDT, Weight GoLYTELY No See Memoria oral powder 5-14 Instructio l for 20:54: ns, as Chris reconstitut 00 prescribed ion by physician, # 1 kit, 0 Refill(s), Pharmacy: [place] [id number], 175.26, cm, 03/01/21 12:33:00 CDT, Height, 97.443, kg, 03/01/21 12:33:00 CDT, Weight Ondansetron Yes 4 mg = 1 Me moria 4 MG 4-08 tab, SL, l Disintegrat 18:30: Daily, # He rmann ing Tablet 00 30 tab, 0 Refill(s), Pharmacy: [facility] 149, 175.26, cm, 03/01/21 12:33:00 CDT, Height, 97.443, kg, 03/01/21 12:33:00 CDT, Weight ferrous Yes 325 mg = 1 Nicko dave sulfate 325 4-08 tab, PO, l mg oral 18:29: Daily, # Jose Juan biswas enteric 00 90 tab, 1 coated Refill(s), tablet [facility]: [facility] 149, 175.26, cm, 03/01/21 12:33:00 CDT, Height, 97.443, kg, 03/01/21 12:33:00 CDT, Weight Ascorbic Yes See Memoria Acid 4.7 4-05 Instructio l MG/ML / 17:53: ns, Take Jose Juan biswas POLYETHYLEN 00 as E GLYCOL directed 3350 100 by MG/ML / physician. Potassium , # 1 ea, Chloride 0 0.0136 Refill(s), MEQ/ML / Pharmacy: Sodium DIONYOGEKhalif Ascorbate [facility] 5.9 MG/ML / 149, Sodium 175.26, Chloride cm, 0.046 01/13/20 MEQ/ML / 9:57:00 sodium OENOLOGIST, sulfate 7.5 Height, MG/ML Oral 101.818, Solution kg, [MoviPrep] 01/13/20 9:57:00 OENOLOGIST, Weight Lorazepam Yes 0.5 mg = 1 Me moria 0.5 MG Oral 3-29 tab, PO, l Tablet 17:01: ONCE, # 1 Jose Juan biswas [Ativan] 00 tab, 0 Refill(s), called to pharmacy, Take 15-30 minutes prior to MRI on 02/24/2021 . Called into [facility] Pharmacist : Charan Gabapentin Gabapentin 2019-0 Yes Meka 1 capsule Common 6-19 [facility] 00:00: - [facility] Gabapentin Gabapentin 2020-0 No 1{capsu Gabapentin 100 MG 100 MG 6-19 le} 100 MG 00:00: 00 Gabapentin Gabapentin 2020-0 No 1{capsu Gabapentin 100 MG 100 MG 6-19 le} 100 MG 00:00: 00 propranolol 2020-0 Yes 20 mg = 1 M emoria 20 mg oral 2-20 tab, PO, l tablet 16:08: Daily, 0 Chris 00 Refill(s) Ondansetron 2019-0 Yes 4 mg = 1 Me moria 4 MG Oral 2-20 tab, PO, l Tablet 16:08: Q6H, PRN Mcfaddin [Zofran] 00 Nausea/Vom iting, # 30 tab, 0 Refill(s) propranolol Yes 10 mg = 1 M emoria 10 mg oral 2-20 tab, PO, l tablet 16:04: Daily, 0 Chris 00 Refill(s) chlordiazeP 2017-11 Yes Take [address] [facility] [facility] OXIDE 0-26 capsules [facility] (LIBRIUM) 00:00: TID x 1 Medic al 25 MG 00 day, then Center capsule 2 capsules BID x 2 days, then 1 capsule BID x 2 days, then 1 capsule daily x 2 days, then stop. chlordiazeP 2017-11 Yes Take [address] [facility] [facility] OXIDE 0-26 capsules [facility] (LIBRIUM) 00:00: TID x 1 Medic al 25 MG 00 day, then Center capsule 2 capsules BID x 2 days, then 1 capsule BID x 2 days, then 1 capsule daily x 2 days, then stop. Propranolol Propranolol No 1{table BID Propranolo HCl 10 MG HCl 10 MG t} l HCl 10 MG Ondansetron Ondansetron No 1{table Ondansetro HCl 4 MG HCl 4 MG t} n HCl 4 MG Ondansetron Ondansetron No 1{table Ondansetro HCl 4 MG HCl 4 MG t} n HCl 4 MG Propranolol Propranolol No 1{table BID Propranolo HCl 10 MG HCl 10 MG t} l HCl 10 MG Immunizations Ordered Immunization Filled Immunization Date Status Commen ts Source Name Name Influenza -2018-09-[address] [facility] Non-PF 5+ YR [facility] Influenza -QI2018-09-[address] [facility] Non-PF 5+ YR 00:00:00 [facility] Vital Signs Vital Name Observation Time Observation Value Comments Source Respitory Rate 2022-06-25 16:45:00 Memori al Mcfaddin Systolic (mm Hg) 2022-06-25 16:45:00 Nicko rial Mcfaddin Diastolic (mm Hg) 2022-06-25 16:45:00 Mem orial Chris Respitory Rate 2022-06-25 16:30:00 Memori al Chris Systolic (mm Hg) 2022-06-25 16:30:00 Nicko rial Chris Diastolic (mm Hg) 2022-06-25 16:30:00 Mem orial Chris Respitory Rate 2022-06-25 16:15:00 Memori al Chris Systolic (mm Hg) 2022-06-25 16:15:00 Nicko rial Chris Diastolic (mm Hg) 2022-06-25 16:15:00 Mem orial Mcfaddin Height 2022-06-25 12:45:00 175.26 cm Memorial Chris Weight 2022-06-25 12:45:00 Memorial Mcfaddin BMI Calculated 2022-06-25 12:45:00 Memori al Chris Heart Rate 2022-06-25 12:45:00 Memorial Mcfaddin Height 2022-06-14 16:07:00 175.26 cm Memorial Chris Weight 2022-06-14 16:07:00 Memorial Chris BMI Calculated 2022-06-14 16:07:00 Memori al Chris Height 2022-04-17 18:57:00 175.26 cm Memorial Chris Weight 2022-04-17 18:57:00 Memorial Mcfaddin BMI Calculated 2022-04-17 18:57:00 Memori al Mcfaddin Heart Rate 2022-03-14 20:25:02 Memorial Mcfaddin Systolic (mm Hg) 2022-03-14 20:24:31 Nicko rial Mcfaddin Diastolic (mm Hg) 2022-03-14 20:24:31 Mem orial Chris Heart Rate 2022-03-14 20:24:31 Memorial Chris Height 2022-03-14 20:22:00 175.26 cm Memorial Mcfaddin Weight 2022-03-14 20:22:00 Memorial Mcfaddin BMI Calculated 2022-03-14 20:22:00 Memori al Chris Systolic (mm Hg) 2021-08-16 16:14:00 Nicko rial Mcfaddin Diastolic (mm Hg) 2021-08-16 16:14:00 Mem orial Chris Heart Rate 2021-08-16 16:14:00 Memorial Chris Height 2021-08-16 16:14:00 175.26 cm Memorial Chris Weight 2021-08-16 16:14:00 [facility] BMI Calculated 2021-08-16 16:14:00 Memori al Chris Systolic (mm Hg) 2021-03-01 17:33:00 Nicko rial Mcfaddin Diastolic (mm Hg) 2021-03-01 17:33:00 Mem orial Chris Heart Rate 2021-03-01 17:33:00 [facility] Chris Height 2021-03-01 17:33:00 175.26 cm [facility] Chris Weight 2021-03-01 17:33:00 [facility] Chris BMI Calculated 2021-03-01 17:33:00 Memori al Mcfaddin Systolic (mm Hg) 2020-01-13 15:57:00 Nicko rial Mcfaddin Diastolic (mm Hg) 2020-01-13 15:57:00 Mem orial Mcfaddin Heart Rate 2020-01-13 15:57:00 [facility] Height 2020-01-13 15:57:00 175.26 cm [facility] Weight 2020-01-13 15:57:00 [facility] BMI Calculated 2020-01-13 15:57:00 Memori al Chris Procedures Procedure Date / Time Performing Source Performed Clinician CHG CT SCAN OF ABDOMEN COMBO 2021-08-23 [facility] 16:28:[address] SCAN OF ABDOMEN COMBO 2021-08-23 [facility] 16:28:00 EGD - Esophagogastroduodenoscopy [facility] Colonoscopy [facility] COVID-19 vaccination [facility] Plan of Care Planned Activity Planned Date Details Comments Source Future Scheduled 2021-07-25 INFLUENZA VACCINE (#1) [facility] 00:00:00 [code = INFLUENZA Medical Ce nter VACCINE (#1)] Future Scheduled 2020-11-[address] [facility] Test 00:00:00 (12+) [code = Medical Center DEPRESSION SCREENING (12+)] Future Scheduled [address] [facility] [facility] Test 00:00:00 (procedure) [code = [facility] Center [id number]] Future Scheduled 2004 DTAP/TDAP/TD VACCINES [facility] 00:00:00 (1 - Tdap) [code = Medical C enter DTAP/TDAP/TD VACCINES (1 - Tdap)] Future Scheduled 1997 COVID-19 VACCINE (1) [facility] Test 00:00:00 [code = COVID-[address] VACCINE (1)] Future Scheduled [address] [facility] Test 00:00:00 0-64 YRS (1 of 2 - Medical C enter PPSV23) [code = PNEUMOCOCCAL VACCINE 0-64 YRS (1 of 2 - PPSV23)] Encounters Start End Encounter Admission Attending Care Care Encounter Source Date/Time Date/Time Type Type Clinicians Facility Department ID 2022-09-10 Outpatient [facility] [id number] [place] 12:43:50 [id number] [facility] 2021-12-19 Outpatient Stefan, STLMLC STLC [id number] Common 12:15:[address] [facility] 2021-12-19 Outpatient STLMLC STLMLC [id number] Common 12:09:[id number] [facility] 2021-12-19 Outpatient STLMLC STLMLC [id number] Common 12:09:[id number] [facility] 2021-12-19 Outpatient Millender, STLMLC STLMLC [id number] Common 12:09:[address] [facility] 2021-12-19 Outpatient Millender, STLMLC STLMLC [id number] Common 11:56:[id number] [facility] 2021-12-19 Outpatient Terryender, STLMLC STLC [id number] Common 11:23:[id number] [facility] 2021-11-15 Outpatient ARMANDO, [facility] [id number] [place] 01:03:46 [facility] 2021-09-07 Outpatient YAMMINE, [facility] [id number] [place] 11:34:38 [facility] 2021-05-11 Outpatient MAHENDRA, [facility] [id number] [place] 01:03:47 [facility] 2022-09-12 2022-09-12 Outpatient PRABHA, [facility] MED [id number] [facility] 11:11:00 23:59:00 SAURABH 2022-09-12 2022-09-12 Office Armando, EXT MSRDP [id number] [place] 10:45:00 11:00:00 Visit [facility] LOCATION [id number] [facility] [id number] 2022-06-25 2022-06-26 Day [facility]Fl[facility] [id number] Memoria 11:42:00 04:59:00 Surgery [facility] 09 l [facility] 2022-06-25 2022-06-25 Outpatient OTISK, [facility] [id number] [facility] 06:42:00 23:59:00 TUGRUL 2022-03-26 2022-03-28 Phone [facility] [id number] Memoria 19:47:04 04:59:59 Message r Disease 03 l [facility] 2022-03-25 2022-03-26 Outpt Diag nullFlavo [facility] [id number] Memoria 14:41:00 04:59:00 Services r Outpatient [address] [facility] 2022-03-14 2022-03-15 Outpatient [facility] [id number] Memoria 20:11:00 04:59:00 r Disease 07 l [facility] 2022-03-14 2022-03-14 Outpatient ARMANDO, [facility] MED [id number] [facility] 15:11:00 23:59:00 [facility] 2021-08-23 2021-08-24 Outpt Diag nullFlavo [facility] [id number] Memoria 16:02:00 04:59:00 Services r Outpatient [address] [facility] 2021-08-23 2021-08-23 EXT [facility] OP Menan, EXT MSRDP [id number] [place] 00:00:00 00:00:00 Renetta LOCATION [id number] Health [id number] 2021-08-23 2021-08-23 EXT MH OP Menan, EXT MSRDP [id number] [place] 00:00:00 00:00:00 Renetta LOCATION [id number] Health [id number] 2021-08-16 2021-08-17 Outpatient [facility] [id number] Memoria 16:05:00 04:59:00 r Disease 06 l [facility] 2021-08-16 2021-08-16 Outpatient [facility] [id number] [facility] 11:05:00 23:59:00 PEDRO DENGSES 2021-06-26 2021-06-26 EXT [facility] OP EXT MSRDP [id number] [place] 00:00:00 00:00:00 LOCATION [id number] H ealth [id number] 2021-06-26 2021-06-26 EXT [facility] OP EXT MSRDP [id number] [place] 00:00:00 00:00:00 LOCATION [id number] H ealth [id number] 2021-04-20 2021-04-22 Phone [facility] [id number] Memoria 16:23:45 04:59:59 Message r Disease 02 [facility] 2021-04-10 2021-04-10 Bedded nullFlavo [facility] [id number] Memoria 14:45:00 14:46:00 Outpatient [facility] 05 [facility] 2021-04-10 2021-04-10 Outpatient [facility] [id number] [facility] 09:45:00 09:46:00 PEDRO DENGSES 2021-03-01 2021-03-02 Outpatient [facility] [id number] Memoria 17:14:00 04:59:00 r Disease 04 [facility] 2021-03-01 2021-03-01 Outpatient [facility] [id number] [facility] 12:14:00 23:59:00 DENGPEDRO STOVERSES 2021-02-05 2021-02-07 Phone [facility] [id number] Memoria 19:59:54 04:59:59 Message r Disease 01 l [facility] 2020-11-14 2020-11-14 (TEL) STLMLC STLMLC [id number] Co mmon 00:00:00 00:00:00 [facility] 2020-11-08 2020-11-08 Outpatient R DAKOTA, [facility] [id number] Univers 16:00:00 16:00:00 CHRIS hunt [facility] 2020-08-28 2020-08-28 (TEL) STLMLC STLMLC [id number] Co mmon 00:00:00 00:00:00 [facility] 2020-08-22 2020-08-22 [facility] [id number] [facility] 14:16:00 20:41:00 Outpatient r Chris 02 l [facility] 2020-08-22 2020-08-22 Outpatient [facility] [id number] [facility] 09:16:00 15:41:00 GANGA DENG 2020-08-12 2020-08-13 Outpt Diag nullFlavo [facility] [id number] Memoria 14:07:00 04:59:00 Services r Outpatient 01 l Imaging [facility] 2020-08-10 2020-08-12 Phone nullFlavo [facility] [id number] Memoria 22:26:28 04:59:59 Message r Disease 00 l [facility] 2020-05-27 2020-05-27 [id number] Common 05:31:00 05:31:[address] [facility] [address] [address] [facility] 2020-05-11 2020-05-11 [id number] Common 13:06:00 13:06:[address] [address] [address] [facility] 2020-05-01 2020-05-01 [facility] [id number] Common 16:51:00 16:51:[address] [address] [facility] 2020-05-01 2020-05-01 [facility] 31 [id number] Common 15:10:00 15:10:[address] [facility] 2020-04-19 2020-04-19 [facility] 30 [id number] Common 08:20:00 08:20:[address] [facility] 2020-01-26 2020-01-27 Outpt Diag nullFlavo [facility] [id number] Memoria 20:37:00 05:59:00 Services r Outpatient 00 l Imaging [facility] 2020-01-13 2020-01-14 Outpatient nullFlavo [facility] [id number] Memoria 15:39:00 05:59:00 r Disease 01 l [facility] 2020-01-13 2020-01-13 [facility] 09:39:00 09:39:00 2019-10-08 2019-10-09 Outpatient [facility]Fl[facility] [id number] Memoria 15:08:00 05:59:00 r Chris 00 l [facility] 2019-10-08 2019-10-08 Outpatient [facility] [id number] [facility] 09:08:00 09:08:00 [facility] 2019-07-07 2019-07-07 [facility] [id number] Common 22:48:00 22:48:[address] [facility] 2019-07-07 2019-07-07 [facility] [id number] Common 14:00:00 14:00:[address] [facility] Results Test Description Test Time Test Comments Results Result Comments Source IMMUNOLOGY 2022-06-25 12:36:00 Test Item Value Reference Range Interpretation Comme nts Coronavirus (COVID-19) ALEXANDRU (test code = Not Detected (06/25/22 7:36 A M) Coronavirus (COVID-19) ALEXANDRU) [facility] CenterYwlbeuhHESYCNJAYD1170-91-98 17:12:00 Test Item Value Reference Range Interpretation Comments MCHC (test code = MCHC) 33.2 32.0-36.0 [facility] CenterEhcjoorFHVEUISRGX7939-42-05 17:12:00 Test Item Value Reference Range Interpretation Comments RDW (test code = RDW) 21.7 11.5-14.5 [facility] CenterBkzzhyuPVXCCTEUVD4627-26-82 17:12:00 Test Item Value Reference Range Interpretation Comments Platelet (test code = Platelet) 106 133-450 [facility] CenterDoosclaZUJKCVTFKS9173-01-12 17:12:00 Test Item Value Reference Range Interpretation Comments MPV (test code = MPV) 9.2 7.4-10.4 [place] 874311-09-23 17:12:00 Test Item Value Reference Range Interpretation Comments PT (test code = PT) 15.4 s 12.0-14.7 [place] 874311-09-23 17:12:00 Test Item Value Reference Range Interpretation Comments INR (test code = INR) 1.24 1 0.85-1.17 [place] 874311-09-23 17:12:00 Test Item Value Reference Range Interpretation Comments Neutrophils # (test code = Neutrophils 4.4 1.5-8.1 #) [place] 874311-09-23 17:12:00 Test Item Value Reference Range Interpretation Comments Lymphocytes # (test code = Lymphocytes 1.4 1.0-5.5 #) [place] 874311-09-23 17:12:00 Test Item Value Reference Range Interpretation Comments Monocytes # (test code 0.4 See_Comment [Aut omated message] The = Monocytes #) system which generated this result tra nsmitted reference range : <=0.8. The reference r itzel was not used to int erpret this result as normal/abnormal . [place] 874311-09-23 17:12:00 Test Item Value Reference Range Interpretation Comments Eosinophils # (test code 0.1 See_Comment [A utomated message] The = Eosinophils #) system whic h generated this result tra nsmitted reference range : <=0.5. The reference r itzel was not used to int erpret this result as normal/abnormal . [place] 874311-09-23 17:12:00 Test Item Value Reference Range Interpretation Comments Basophils # (test code 0.1 See_Comment [Aut omated message] The = Basophils #) system which generated this result tra nsmitted reference range : <=0.2. The reference r itzel was not used to int erpret this result as normal/abnormal . [place] 874311-09-23 17:12:00 Test Item Value Reference Range Interpretation Comments Segs (test code = Segs) 68.0 45.0-75.0 [facility] CenterUeahcsgOLIJPJGTZM2472-98-67 17:12:00 Test Item Value Reference Range Interpretation Comments Bands (test code = 0.0 See_Comment [Automat ed message] The Bands) system which ge nerated this result transmit amari reference range : <=11.0. The reference r itzel was not used to interpr et this result as moose l/abnormal. [facility] CenterFpqvrwpACGNBSLQEC9252-88-67 17:12:00 Test Item Value Reference Range Interpretation Comments Lymphocytes (test code = Lymphocytes) 22.0 20.0-40.0 [facility] CenterDzmdxsjPZRBMURVXX8193-61-99 17:12:00 Test Item Value Reference Range Interpretation Comments Monocytes (test code = Monocytes) 7.0 2.0-12.0 [facility] CenterZhojvydCGEXHIDCHS9398-16-55 17:12:00 Test Item Value Reference Range Interpretation Comments Eosinophils (test code = 2.0 See_Comment [A utomated message] The Eosinophils) system which ge nerated this result tra nsmitted reference range : <=4.0. The reference r itzel was not used to int erpret this result as normal/abnormal . [facility] CenterHhfhpglXJHUEFUGMH1430-99-87 17:12:00 Test Item Value Reference Range Interpretation Comments Basophils (test code = 1.0 See_Comment [Aut omated message] The Basophils) system which ge nerated this result tra nsmitted reference range : <=1.0. The reference r itzel was not used to int erpret this result as normal/abnormal . [facility] CenterXgmshqiRXEREDAWUY2425-68-86 17:12:00 Test Item Value Reference Range Interpretation Comments Atypical Lymphs (test code = Atypical 0.0 Lymphs) [place] 874311-09-23 17:12:00 Test Item Value Reference Range Interpretation Comments Plt Morph (test code = Normal (08/16/21 12:12 Plt Morph) PM) [facility] CenterMxlfrpzHGMWOQYEQM7345-31-28 17:12:00 Test Item Value Reference Range Interpretation Comments Anisocyte (test code = 1+ *ABN*(08/16/21 Anisocyte) 12:12 PM) [place] 874311-09-23 17:12:00 Test Item Value Reference Range Interpretation Comments Hypochrom (test code = 1+ (08/16/21 12:12 Hypochrom) PM) [facility]saonvtNWXEVDAILM9859-86-39 17:12:00 Test Item Value Reference Range Interpretation Comments Polychrom (test code = Polychrom) Occasional [facility] CenterGurckspBUNWZSMWYN2765-24-75 17:12:00 Test Item Value Reference Range Interpretation Comments Target Cell (test code = Target Cell) Slight [facility] JSOJOUQ4869-54-90 17:12:00 Test Item Value Reference Range Interpretation Comments AFP (test code = AFP) 11.3 [facility]2021-09-23 17:12:00 Test Item Value Reference Range Interpretation Comments Ferritin Lvl (test code = Ferritin Lvl) 56 22-275 [facility]2021-09-23 17:12:00 Test Item Value Reference Range Interpretation Comments Iron (test code = Iron) 63 [facility]2021-09-23 17:12:00 Test Item Value Reference Range Interpretation Comments TIBC (test code = TIBC) 399 [facility]2021-09-23 17:12:00 Test Item Value Reference Range Interpretation Comments % Satur Fe (test code = % Satur Fe) 16 [facility]2021-09-23 17:12:00 Test Item Value Reference Range Interpretation Comments Glucose Lvl (test code = Glucose Lvl) 91 70-99 [facility]2021-09-23 17:12:00 Test Item Value Reference Range Interpretation Comments BUN (test code = BUN) 5 7-22 [facility]2021-09-23 17:12:00 Test Item Value Reference Range Interpretation Comments Creatinine Lvl (test code = Creatinine 0.65 0.50-1.40 Lvl) [facility]2021-09-23 17:12:00 Test Item Value Reference Range Interpretation Comments Sodium Lvl (test code = Sodium Lvl) 135 135-145 [facility]2021-09-23 17:12:00 Test Item Value Reference Range Interpretation Comments Potassium Lvl (test code = Potassium 3.9 3.5-5.1 Lvl) [facility]2021-09-23 17:12:00 Test Item Value Reference Range Interpretation Comments Chloride Lvl (test code = Chloride Lvl) 100 95-109 [facility]2021-09-23 17:12:00 Test Item Value Reference Range Interpretation Comments CO2 (test code = CO2) 27 24-32 [place] 924331-09-23 17:12:00 Test Item Value Reference Range Interpretation Comments Calcium Lvl (test code = Calcium Lvl) 8.7 8.5-10.5 [place] 924331-09-23 17:12:00 Test Item Value Reference Range Interpretation Comments AGAP (test code = AGAP) 11.9 10.0-20.0 [place] 924331-09-23 17:12:00 Test Item Value Reference Range Interpretation Comments eGFR (test code = eGFR) 125 [place] 924331-09-23 17:12:00 Test Item Value Reference Range Interpretation Comments Total Protein (test code = Total 9.6 6.4-8.4 Protein) [place] 924331-09-23 17:12:00 Test Item Value Reference Range Interpretation Comments Albumin Lvl (test code = Albumin Lvl) 3.6 3.5-5.0 [place] 924331-09-23 17:12:00 Test Item Value Reference Range Interpretation Comments ALT (test code = ALT) 32 See_Comment [Auto mated message] The system which ge nerated this result transmit amari reference range : <=65. The reference range was not used to interpr et this result as moose l/abnormal. [place] 924331-09-23 17:12:00 Test Item Value Reference Range Interpretation Comments AST (test code = AST) 168 See_Comment [Auto mated message] The system which ge nerated this result transmit amari reference range : <=37. The reference range was not used to interpr et this result as moose l/abnormal. [place] 924331-09-23 17:12:00 Test Item Value Reference Range Interpretation Comments Alk Phos (test code = Alk Phos) 254 39-136 [place] 924331-09-23 17:12:00 Test Item Value Reference Range Interpretation Comments Bili Total (test code = Bili Total) 1.8 0.2-1.3 [place] 924331-09-23 17:12:00 Test Item Value Reference Range Interpretation Comments Bili Direct (test code 1.0 See_Comment [Aut omated message] The = Bili Direct) system which generated this result tra nsmitted reference range : <=0.3. The reference r itzel was not used to int erpret this result as moose l/abnormal. [facility]CTMG GIOXR4430-57-13 17:12:00 Test Item Value Reference Range Interpretation Comments Bili Indirect (test 0.8 See_Comment [Automa amari message] The code = Bili Indirect) system which generated this result tra nsmitted reference range : <=1.0. The reference r itzel was not used to int erpret this result as normal/abnormal . [facility]2021-09-23 17:12:00 Test Item Value Reference Range Interpretation Comments Globulin (test code = Globulin) 6.0 2.7-4.2 [facility]2021-09-23 17:12:00 Test Item Value Reference Range Interpretation Comments A/G Ratio (test code = A/G Ratio) 0.6 1 0.7-1.6 [place] 874311-09-23 17:12:00 Test Item Value Reference Range Interpretation Comments WBC (test code = WBC) 6.4 3.7-10.4 [facility] CenterSvbuvfsGZCJXODYQO5999-12-39 17:12:00 Test Item Value Reference Range Interpretation Comments RBC (test code = RBC) 3.76 4.70-6.10 [facility] CenterWrvlgcwKGOZYWSZPV3676-93-72 17:12:00 Test Item Value Reference Range Interpretation Comments Hgb (test code = Hgb) 10.7 14.0-18.0 [place] 874311-09-23 17:12:00 Test Item Value Reference Range Interpretation Comments Hct (test code = Hct) 32.4 42.0-54.0 [place] 874311-09-23 17:12:00 Test Item Value Reference Range Interpretation Comments MCV (test code = MCV) 86.1 80.0-94.0 [place] 874311-09-23 17:12:00 Test Item Value Reference Range Interpretation Comments MCH (test code = MCH) 28.5 pg 27.0-31.0 [facility] HospitalOzdqukhIGNMFNKJRK4519-90-84 14:39:00 Test Item Value Reference Range Interpretation Comments Coronavirus (COVID-19) Not Detected (04/10/21 ALEXANDRU (test code = 9:39 AM) Coronavirus (COVID-19) ALEXANDRU) [facility] HospitalOguxscrRXKQZZRFHO9238-33-25 21:06:00 Test Item Value Reference Range Interpretation Comments Coronavirus (COVID-19) Not Detected (08/18/20 ALEXANDRU (test code = 4:06 PM) Coronavirus (COVID-19) ALEXANDRU) [facility]2020-02-20 17:15:00 Test Item Value Reference Range Interpretation Comments Glucose Lvl (test code = Glucose Lvl) 108 70-99 [facility]2020-02-20 17:15:00 Test Item Value Reference Range Interpretation Comments BUN (test code = BUN) 7 7-22 [place] 924330-02-20 17:15:00 Test Item Value Reference Range Interpretation Comments Creatinine Lvl (test code = Creatinine 0.59 0.50-1.40 Lvl) [facility]2020-02-20 17:15:00 Test Item Value Reference Range Interpretation Comments Sodium Lvl (test code = Sodium Lvl) 137 135-145 [facility]2020-02-20 17:15:00 Test Item Value Reference Range Interpretation Comments Potassium Lvl (test code = Potassium 3.7 3.5-5.1 Lvl) [facility]2020-02-20 17:15:00 Test Item Value Reference Range Interpretation Comments Chloride Lvl (test code = Chloride Lvl) 105 95-109 [facility]2020-02-20 17:15:00 Test Item Value Reference Range Interpretation Comments CO2 (test code = CO2) 27 24-32 [facility]2020-02-20 17:15:00 Test Item Value Reference Range Interpretation Comments Calcium Lvl (test code = Calcium Lvl) 8.9 8.5-10.5 [place] 924330-02-20 17:15:00 Test Item Value Reference Range Interpretation Comments AGAP (test code = AGAP) 8.7 10.0-20.0 [facility]2020-02-20 17:15:00 Test Item Value Reference Range Interpretation Comments eGFR (test code = eGFR) 131 [facility]2020-02-20 17:15:00 Test Item Value Reference Range Interpretation Comments Total Protein (test code = Total 10.4 6.4-8.4 Protein) [facility] [id number] 17:15:00 Test Item Value Reference Range Interpretation Comments Albumin Lvl (test code = Albumin Lvl) 3.8 3.5-5.0 [place] 924330-02-20 17:15:00 Test Item Value Reference Range Interpretation Comments ALT (test code = ALT) 58 See_Comment [Auto mated message] The system which ge nerated this result transmit amari reference range : <=65. The reference range was not used to interpr et this result as moose l/abnormal. [facility] [id number] 17:15:00 Test Item Value Reference Range Interpretation Comments AST (test code = AST) 171 See_Comment [Auto mated message] The system which ge nerated this result transmit amari reference range : <=37. The reference range was not used to interpr et this result as moose l/abnormal. [facility] ACJOH4394-09-48 17:15:00 Test Item Value Reference Range Interpretation Comments Alk Phos (test code = Alk Phos) 173 39-136 [facility] [id number] 17:15:00 Test Item Value Reference Range Interpretation Comments Bili Total (test code = Bili Total) 1.0 0.2-1.3 [facility]CT[facility] HGNRS5796-13-02 17:15:00 Test Item Value Reference Range Interpretation Comments Bili Direct (test code 0.4 See_Comment [Aut omated message] The = Bili Direct) system which generated this result tra nsmitted reference range : <=0.3. The reference r itzel was not used to int erpret this result as moose l/abnormal. [facility] [id number] 17:15:00 Test Item Value Reference Range Interpretation Comments Bili Indirect (test 0.6 See_Comment [Automa amari message] The code = Bili Indirect) system which generated this result tra nsmitted reference range : <=1.0. The reference r itzel was not used to int erpret this result as normal/abnormal . [facility] RMZEE5753-01-81 17:15:00 Test Item Value Reference Range Interpretation Comments Globulin (test code = Globulin) 6.6 2.7-4.2 [facility] [id number] 17:15:00 Test Item Value Reference Range Interpretation Comments A/G Ratio (test code = A/G Ratio) 0.6 1 0.7-1.6 [place] 874310-02-20 17:15:00 Test Item Value Reference Range Interpretation Comments WBC (test code = WBC) 5.8 3.7-10.4 [facility] CenterLkmyikgWSAKFPFNZG9157-95-54 17:15:00 Test Item Value Reference Range Interpretation Comments RBC (test code = RBC) 4.36 4.70-6.10 [facility] CenterYpnacjjFUZWNATWCP7563-98-55 17:15:00 Test Item Value Reference Range Interpretation Comments Hgb (test code = Hgb) 11.8 14.0-18.0 [place] 874310-02-20 17:15:00 Test Item Value Reference Range Interpretation Comments Hct (test code = Hct) 35.7 42.0-54.0 [facility] CenterHdgrnheUHNIGYTJOJ2441-87-64 17:15:00 Test Item Value Reference Range Interpretation Comments MCV (test code = MCV) 81.8 80.0-94.0 [place] 874310-02-20 17:15:00 Test Item Value Reference Range Interpretation Comments MCH (test code = MCH) 27.1 pg 27.0-31.0 [facility] CenterZiptwfbFJUNSKSSUW9768-52-42 17:15:00 Test Item Value Reference Range Interpretation Comments MCHC (test code = MCHC) 33.1 32.0-36.0 [facility] CenterVxfecesUCMEFEYVUT0850-25-09 17:15:00 Test Item Value Reference Range Interpretation Comments RDW (test code = RDW) 23.8 11.5-14.5 [place] [address]-02-20 17:15:00 Test Item Value Reference Range Interpretation Comments Platelet (test code = Platelet) 162 133-450 [facility] CenterThbyvqdMKGERIOMRK1746-26-93 17:15:00 Test Item Value Reference Range Interpretation Comments MPV (test code = MPV) 9.2 7.4-10.4 [place] 874310-02-20 17:15:00 Test Item Value Reference Range Interpretation Comments PT (test code = PT) 15.4 s 12.0-14.7 [facility] CenterCapyyynAQYQZDNUPZ8549-04-60 17:15:00 Test Item Value Reference Range Interpretation Comments INR (test code = INR) 1.21 1 0.85-1.17 [facility] CenterKhpkbcoGNUERWOMET0531-53-22 17:15:00 Test Item Value Reference Range Interpretation Comments Neutrophils # (test code = Neutrophils 2.4 1.5-8.1 #) [facility] CenterUvzcsqnKPPFBIBQPR3705-27-48 17:15:00 Test Item Value Reference Range Interpretation Comments Lymphocytes # (test code = Lymphocytes 2.4 1.0-5.5 #) [facility] CenterUsxlnxjWVUINGZZRO9621-99-54 17:15:00 Test Item Value Reference Range Interpretation Comments Monocytes # (test code 0.8 See_Comment [Aut omated message] The = Monocytes #) system which generated this result tra nsmitted reference range : <=0.8. The reference r itzel was not used to int erpret this result as normal/abnormal . [facility] CenterYqwaabaSIUYOBEJGA4454-52-36 17:15:00 Test Item Value Reference Range Interpretation Comments Eosinophils # (test code 0.1 See_Comment [A utomated message] The = Eosinophils #) system whic h generated this result tra nsmitted reference range : <=0.5. The reference r itzel was not used to int erpret this result as normal/abnormal . [facility] CenterBbuvbpqMLADABVZWB1303-32-16 17:15:00 Test Item Value Reference Range Interpretation Comments Basophils # (test code 0.1 See_Comment [Aut omated message] The = Basophils #) system which generated this result tra nsmitted reference range : <=0.2. The reference r itzel was not used to int erpret this result as normal/abnormal . [facility] CenterPjljyftQIEKAPCUNM5673-38-19 17:15:00 Test Item Value Reference Range Interpretation Comments Segs (test code = Segs) 42.0 45.0-75.0 [facility] CenterYexaqnbOFZBEYJFMO2797-33-89 17:15:00 Test Item Value Reference Range Interpretation Comments Bands (test code = 0.0 See_Comment [Automat ed message] The Bands) system which ge nerated this result transmit amari reference range : <=11.0. The reference r itzel was not used to interpr et this result as moose l/abnormal. [facility] CenterDfpfjcnXICZDDXYCN3630-09-85 17:15:00 Test Item Value Reference Range Interpretation Comments Lymphocytes (test code = Lymphocytes) 41.0 20.0-40.0 [facility] HospitalOdinqwnXLGLCNUXUP7245-93-99 17:15:00 Test Item Value Reference Range Interpretation Comments Monocytes (test code = Monocytes) 14.0 2.0-12.0 [facility]VlsqgtdILGCBQUGKJ9897-87-79 17:15:00 Test Item Value Reference Range Interpretation Comments Eosinophils (test code = 1.0 See_Comment [A utomated message] The Eosinophils) system which ge nerated this result tra nsmitted reference range : <=4.0. The reference r itzel was not used to int erpret this result as normal/abnormal . [facility]awHhsjmixUCLKIKZDEU3150-44-90 17:15:00 Test Item Value Reference Range Interpretation Comments Basophils (test code = 2.0 See_Comment [Aut omated message] The Basophils) system which ge nerated this result tra nsmitted reference range : <=1.0. The reference r itzel was not used to int erpret this result as normal/abnormal . [facility] HospitalNfkqdtyPWWFNRJBOD6728-38-22 17:15:00 Test Item Value Reference Range Interpretation Comments Atypical Lymphs (test code = Atypical 0.0 Lymphs) [facility]awQjocjdvLZMHQDBSUQ9464-85-63 17:15:00 Test Item Value Reference Range Interpretation Comments Anisocyte (test code = 1+ *ABN*(01/13/20 Anisocyte) 11:15 AM) [facility]awJjruxodVXLYQLPQPG0800-37-58 17:15:00 Test Item Value Reference Range Interpretation Comments Target Cell (test code = Target Cell) slight [facility] HospitalHpfratdSCPGDSYMUU0723-69-70 17:15:00 Test Item Value Reference Range Interpretation Comments Hep Bs Ab (test code = Hep Bs Ab) no gt [facility] HospitalWoxddpzBRGELAFPCF7074-28-44 17:15:00 Test Item Value Reference Range Interpretation Comments Hep C Ab (test code = Negative *NA*(01/13/20 Hep C Ab) 11:15 AM) [facility]2020-02-20 17:15:00 Test Item Value Reference Range Interpretation Comments AFP (test code = AFP) 8.4 See_Comment [Auto mated message] The system which ge nerated this result transmit amari reference range : <=11.0. The reference r itzel was not used to interpr et this result as moose l/abnormal. [facility]anoannANTI-MITOCHONDRIAL AB, REFLEX TO [id number] 12:54:00 Test Item Value Reference Range Interpretation Comments SCAN RESULT (test code = 0985681) BLOOD [id number] 12:01:00 Test Item Value Reference Range Interpretation Comments CULTURE (BEAKER) (test No growth in 5 days code = 1095) BLOOD [id number] 12:01:00 Test Item Value Reference Range Interpretation Comments CULTURE (BEAKER) (test No growth in 5 days code = 1095) HEPATITIS PANEL, [id number] 13:35:00 Test Item Value Reference Range Interpretation [...] by IFA method.CBC W/PLT COUNT & AUTO [id number] 06:36:00 Test Item Value Reference Range Interpretation [...] 0-1 H PERCENT (BEAKER) (test code = 2803) POCT-GLUCOSE [id number] 06:31:00 Test Item Value Reference Range Interpretation Comments POC-GLUCOSE METER 126 mg/dL 70-110 H TESTED AT [facility] 6720 (BEAKER) (test code = [facility] 1538) 15861 COMPREHENSIVE METABOLIC [id number] 04:53:00 Test Item Value Reference Range Interpretation [...] Specimen moderately ictericCBC W/PLT COUNT & AUTO [id number] 00:15:00 Test Item Value Reference Range Interpretation [...] code = 416) BASOPHILS ABSOLUTE COUNT (BEAKER) 0.13 K/ L 0.01-0.08 H (test code = 417) IMMATURE GRANULOCYTES-RELATIVE 1 % 0-1 PERCENT (BEAKER) (test code = 2801) POCT-GLUCOSE [id number] 00:13:00 Test Item Value Reference Range Interpretation Comments POC-GLUCOSE METER 212 mg/dL 70-110 H TESTED AT [facility] 6720 ([facility]) (test code = HIRAL Khalif [facility] 1538) [address] U/S, ABDOMINAL, [id number] 21:23:00With dopplersReason for exam:->RUQ ABD US WITH [...] vein diameter is normal, measuring 11 mm. Thepancreatic head, body, and proximal tail demonstrate no abnormality. There is no ascites. The right and the left kidney measure 13.8 and 15.6 cm in length respectively and are normal in size. There is no renal mass, hydronephrosis, or shadowing renal calculus. The spleen measures 13.6 cm in length andis normal in echotexture. Segments of the inferior vena cava and aorta visualized demonstrate no abnormality. The main portal vein is 1.1 cm in diameter with peak systolic velocity of 11.2 cm/sec. The main, right, and left portal vein demonstrate hepatopedal flow. The resistive indices of the properhep atic artery is 0.7. The IVC, right, middle, and left hepatic veins are patent. Impression: 1. Elevated liver echogenicity which may represent fatty infiltration. 2. Mild splenomegaly. 3. Mild thickening of the gallbladder wall without other sonographic evidence of acute cholecystitis. Clinical correlation is recommended. 4. Unremarkable abdominal Doppler Signed: Anca Brown MDReport Verified Date/Time: 09/17/2018 21:23:28 Reading Location: [address] Consult Reading Room Electronically signedby: ANCA BROWN M.D. on 09/17/2018 09:23 PMU/S, DUPLEX, [id number] 21:23:00Reason for exam:->RUQ ABD US W/ DOPPLER-CIRRHOTIC, PRESENTS WITH HEMATOCHEZIA,POSS [...] The spleen measures 13.6 cm in length andis normal in echotexture. Segments of the inferior [...] Unremarkable abdominal Doppler Signed: Anca Brown MDReport Verified Date/Time: 09/17/2018 21:23:28 Reading Location: [address] Consult Reading Room POCT- GLUCOSE [id number] 18:02:00 Test Item Value Reference Range Interpretation Comments POC-GLUCOSE METER 135 mg/dL 70-110 H TESTED AT [facility] 6720 ([facility]) (test code = HIRAL [place] 1538) [address] CBC W/PLT COUNT & AUTO [id number] 17:56:00 Test Item Value Reference Range Interpretation Comments WHITE BLOOD CELL COUNT ([facility]) 10.2 K/ L 3.5-10.5 (test code = 775) RED BLOOD CELL COUNT ([facility]) 3.34 M/ L 4.63-6.08 L (test code = 761) HEMOGLOBIN (BEAKER) (test code = 10.3 GM/DL 13.7-17.5 L 410) HEMATOCRIT ([facility]) (test code = 31.2 % 40.1-51.0 L 411) MEAN CORPUSCULAR VOLUME ([facility]) 93.4 fL 79.0-92.2 H (test code = [...] = 685) CBC W/PLT COUNT & AUTO [id number] 15:39:00 Test Item Value Reference Range Interpretation [...] (test code = 2801) HEPATITIS A ANTIBODY, [id number] 14:34:00 Test Item Value Reference Range Interpretation Comments HEPATITIS A IGG ANTIBODY (BEAKER) Reactive Nonreactive A (test code = 2797) HEPATITIS B CORE ANTIBODY, [id number] 14:31:00 Test Item Value Reference Range Interpretation Comments HEPATITIS B CORE TOTAL ANTIBODY Nonreactive Nonreactive (BEAKER) (test code = 497) URINALYSIS W/ REFLEX URINE [id number] 13:18:00 Test Item Value Reference Range Interpretation [...] code = 2795) ALPHA FETOPROTEIN (AFP), TUMOR [id number] 13:18:00 Test Item Value Reference Range Interpretation Comments ALPHA-FETOPROTEIN (BEAKER) (test 9.2 ng/mL <10.0 code = 1094) BILIRUBIN, [id number] 12:15:00 Test Item Value Reference Range Interpretation Comments BILIRUBIN DIRECT 4.4 mg/dL 0.1-0.5 H Specimen sl ightly (BEAKER) (test code = hemoly zed 706) IMMUNOGLOBULIN G (IGG)2018-09-17 12:13:00 Test Item Value Reference Range Interpretation Comments IMMUNOGLOBULIN G (IGG) (BEAKER) 1727 mg/dL 540-1822 (test code = 427) [id number] 09:59:00 Test Item Value Reference Range Interpretation Comments PROCALCITONIN (BEAKER) (test code 0.25 ng/mL <0.05 H = 3036) SEPSIS RISK (ng/mL)Low: 0.05-0.50Intermediate: 0.51-2.00High: >=2.01ETHANOL 2018-09-17 09:47:00 Test Item Value Reference Range Interpretation Comments ETHANOL (BEAKER) (test code = 400) < mg/dL <=10 COMPREHENSIVE METABOLIC [id number] 09:38:00 Test Item Value Reference Range Interpretation [...] O CALCULATE ESTIM ATED GFR. Specimen moderately [id number] 09:31:00 Test Item Value Reference Range Interpretation Comments PHOSPHORUS (BEAKER) (test code = 2.5 mg/dL 2.3-4.7 604) [id number] 09:31:00 Test Item Value Reference Range Interpretation Comments MAGNESIUM (BEAKER) (test code = 1.8 mg/dL 1.6-2.6 627) LACTIC ACID, VENOUS, WHOLE [id number] 08:24:00 Test Item Value Reference Range Interpretation Comments LACTATE BLOOD VENOUS (2) (BEAKER) 0.8 mmol/L 0.5-2.2 (test code = 2872) Effective 03/27/2016: Units/Reference Range ChangeNew: 0.5-2.2 mmol/L Previous: 5- 20 mg/dLSpecimen moderately ictericACETAMINOPHEN [id number] 08:23:00 Test Item Value Reference Range Interpretation Comments ACETAMINOPHEN LEVEL (BEAKER) (test < ug/mL 10.0-30.0 L code = 344) Therapeutic Range: 10.0-30.0 g/mLToxic Levels: >200.0 g/[id number] 07:47:00 Test Item Value Reference Range Interpretation Comments FERRITIN (BEAKER) (test code = 361) 276 ng/mL 5-275 H [id number] 07:46:00 Test Item Value Reference Range Interpretation [...] % 20-55 H (test code = 2590) [id number] 07:20:00 Test Item Value Reference Range Interpretation Comments PARTIAL THROMBOPLASTIN TIME 40.0 seconds 22.5-36.0 H (BEAKER) (test code = 760) PROTHROMBIN [id number] 07:19:00 Test Item Value Reference Range Interpretation Comments PROTIME (BEAKER) (test code = 17.0 seconds 11.7-14.7 H 759) INR (BEAKER) (test code = 370) 1.4 <=5.9 RECOMMENDED COUMADIN/WARFARIN INR THERAPY RANGESSTANDARD DOSE: 2.0 - 3.0 Includes: PROPHYLAXIS for venous thrombosis, systemic embolization; TREATMENT for venous thrombosis and/or pulmonary embolus.HIGH RISK: Target INR is 2.5-3.5 for patients with mechanical heart valves.CBC W/PLT COUNT & AUTO [id number] 07:04:00 Test Item Value Reference Range Interpretation [...]
[2022-09-13] MEDS ORDERED: PANTOPRAZOLE 40 MG INJ ONE (18:58)
[2022-09-13 19:05] LABS: Potassium 3.5 mmol/L (3.5-5.1)
[2022-09-13 19:42] LABS: Albumin 2.9 g/dL (3.4-5.0); Bilirubin Direct 2.7 mg/dL (0-0.2); Bilirubin Total 3.5 mg/dL (0.2-1.0); Protein, Total 8.9 g/dL (6.4-8.2)
[2022-09-13 21:00] LABS: SARS-CoV-2 Antigen Rapid Res Negative (Negative)
[2022-09-13 22:18] LABS: Absolute Lymphocytes (CBC) 1.2 K/uL (0.7-4.9); Lymphocytes % 36.1 % (15.3-44.8); MCV 72.3 fL (80-100); MPV 8.5 fL (7.6-11.3); RBC Red Blood Cell Count 2.64 M/uL (4.33-5.43)
[2022-09-13 22:41] LABS: Hematocrit 19.1 % (39.6-49.0)
--- NOTE | 2022-09-13 22:45 | EDPHYS ---
Physician Documentation [facility] Name: Dillan Johnson Age: 37 yrs Sex: Male : 1985 Arrival Date: 09/13/2022 Time: 16:59 Bed 17 Private MD: Jatinder Perry ED Physician Adam Mcgregor HPI: 09/13 18:35 This 37 yrs old Male presents to ER via Ambulatory with complaints of Abnormal jmm Lab Results. 18:35 Onset: The symptoms/episode began/occurred gradually. Abdominal pain: none is jmm appreciated. Modifying factors: The symptoms are alleviated by nothing, the symptoms are aggravated by nothing. This is a 37-year-old male with history of liver cirrhosis and hypertension the presents emerged department after being advised to go to the ED for low hemoglobin. Patient does admit to dark stools over the past week. Historical: - Allergies: 17:30 No Known Allergies; kb3 - Home Meds: 17:30 propanolol 10mg 10 mg every 8 hours [Active]; lactulose 10 gram/15 mL Oral soln 15 mL kb3 once daily [Active]; - PMHx: 17:30 Cirrhosis; Hypertension; kb3 - PSHx: 17:30 None; kb3 - Immunization history:: Adult Immunizations up to date, Client reports receiving the 2nd dose of the Covid vaccine, Last tetanus immunization: up to date. - Social history:: Smoking status: Patient denies any tobacco usage or history of. ROS: 18:35 Constitutional: Negative for fever, chills, and weight loss, Cardiovascular: Negative jmm for chest pain, palpitations, and edema, Respiratory: Negative for shortness of breath, cough, wheezing, and pleuritic chest pain. 18:35 Abdomen/GI: Positive for black/tarry stool. 18:35 All other systems are negative. Exam: 18:35 Constitutional: This is a well developed, well nourished patient who is awake, alert, jmm and in no acute distress. Head/Face: atraumatic. Eyes: EOMI, no conjunctival erythema appreciated 18:35 Neck: Trachea midline, Supple Chest/axilla: Normal chest wall appearance and motion. Cardiovascular: Regular rate and rhythm. No edema appreciated Respiratory: Normal respirations, no respiratory distress appreciated 18:35 Back: Normal ROM Skin: General appearance color normal MS/ Extremity: Moves all extremities, no obvious deformities appreciated, no edema noted to the lower extremities Neuro: Awake and alert Psych: Behavior is normal, Mood is normal, Patient is cooperative and pleasant 18:35 Eyes: Sclera: icterus, is present. 18:35 Abdomen/GI: Inspection: distension, Bowel sounds: normal, Palpation: abdomen is soft and non-tender, in all quadrants. Vital Signs: 17:25 BP 117 / 79; Pulse 76; Resp 20; Temp 97.1; Pulse Ox 100% ; Weight 102.06 kg; Height 5 kb3 ft. 9 in. (175.26 cm); Pain 3/10; 20:24 BP 121 / 77; Pulse 74; Resp 16 S; Pulse Ox 99% on R/A; lg3 09/14 00:24 BP 110 / 66; Pulse 75; Resp 17 S; Pulse Ox 100% on R/A; lg3 00:41 BP 109 / 64; Pulse 81; Resp 18; Temp 98.4(O); Pulse Ox 97% on R/A; oe 01:05 BP 119 / 68; Pulse 77; Resp 16 S; Temp 98.6(O); Pulse Ox 97% on R/A; lg3 04:19 BP 120 / 74; Pulse 79; Resp 17; Temp 98.7(O); Pulse Ox 97% on R/A; lg3 05:11 BP 131 / 64; Pulse 81; Resp 16; Temp 98.6(O); Pulse Ox 98% on R/A; lg3 09/13 17:25 Body Mass Index 33.23 (102.06 kg, 175.26 cm) kb3 MDM: 09/13 18:39 Patient medically screened. ron 20:40 Transition of care: Care assumed from Giuliano BROTHERS. ms3 09/14 02:57 Data reviewed: vital signs, nurses notes, lab test result(s), radiologic studies, and ms3 as a result, I will transfer. Counseling: I had a detailed discussion with the patient and/or guardian regarding: the historical points, exam findings, and any diagnostic results supporting the discharge/admit diagnosis, lab results, the need to transfer to another facility, [facility] does not immediately have the required specialist. ED course: Discussed with Dr Marie and she accepts patient to IMU at the [facility]. 09/13 18:35 Order name: CBC with Diff; Complete Time: 23:03 09/13 18:35 Order name: Basic Metabolic Panel; Complete Time: 19:48 iw 09/13 18:35 Order name: Type And Screen iw 09/13 18:47 Order name: SARS RAPID; Complete Time: 21:48 [facility] 09/13 19:31 Order name: Liver (Hepatic) Function; Complete Time: 19:48 EDSD 09/13 18:47 Order name: Saline Lock; Complete Time: 19:03 [facility] 09/13 22:43 Order name: CBC Smear Scan; Complete Time: 23:03 EDSD 09/14 00:13 Order name: Packed RBCs (Additional Unit) EDSD 09/13 23:01 Order name: Transfuse: Transfuse 2 units; Complete Time: 01:29 ms3 Administered Medications: 09/13 19:03 Drug: ProTONIX (pantoprazole) 80 mg Route: IVP; Site: left antecubital; mb8 20:18 Follow up: Response: No adverse reaction lg3 09/14 01:52 Drug: Ativan (LORazepam) 1 mg Route: IVP; Site: right hand; lg3 04:17 Follow up: Response: No adverse reaction; Marked relief of symptoms lg3 03:33 CANCELLED (Duplicate Order): SandoSTATIN (octreotide) 25 mcg/h IV at calculated rate bb once 04:00 Drug: SandoSTATIN (octreotide) 50 mcg Route: IV; Rate: calculated rate; Site: right lg3 hand; 04:17 Follow up: Response: No adverse reaction; IV Status: Completed infusion lg3 04:17 Drug: Octreotide Infusion (50 mcg/hr) - (Octreotide 500 mcg, NS 0.9% 500 ml) Route: IV; lg3 Rate: 50 ml/hr; Site: right hand; 06:20 Follow up: IV Status: Infusion continued upon transfer jb4 Disposition: 02:57 Co-signature as Attending Physician, Adam Mcgregor DO. ms3 Disposition Summary: 09/13/22 22:44 Transfer Ordered Transfer Location: [facility] ms3 Reason: Higher level of care ms3 Condition: Stable ms3 Problem: new ms3 Symptoms: are unchanged ms3 Accepting Physician: Dr Marie(09/14/22 06:20) jb4 Diagnosis - GI Bleed/ Gastrointestinal hemorrhage, unspecified ms3 - Anemia, unspecified ms3 - Alcoholic cirrhosis of liver ms3 Forms: - Medication Reconciliation Form ms3 - SBAR form ms3 Critical care time excluding procedures: 03:05 Critical care time: Bedside Care: 40 minutes, Consultation: 10 minutes, Family ms3 Intervention: 10 minutes. Total time: 60 minutes Signatures: Dispatcher [employer] EDMS Lanre Del Toro MD MD cha Mickail, Joel, PA PA jmm Ballard, Brenda, RN RN bb Tang Melendez, RN RN jb4 Bren Quevedo, RN RN lg3 Adam Mcgregor DO DO ms3 Paola Gonzalez, RN RN kb3 Contreras Devries, RN RN mb8 Corrections: (The following items were deleted from the chart) 09/13 17:32 17:30 Home Meds: propranolol 10 mg PO in AM and 20 mg in PM. Pt reports he only takes kb3 morning dose; kb3 17:32 17:30 Home Meds: candesartan 16 mg Oral tab; kb3 kb3 19:31 18:49 HEPATIC FUNCTION+C.LAB.BRZ ordered. KYRIE MITTAL 09/14 02:58 09/13 22:44 Dr lindsay galloway3 09/14 03:33 03:05 SandoSTATIN (octreotide) 25 mcg/h IV at calculated rate once ordered. ms3 bb 06:20 02:58 Dr Marie ms3 jb4
--- NOTE | 2022-09-13 22:45 | ER ---
Nurse's Notes [facility] Name: Dillan Johnson Age: 37 yrs Sex: Male : 1985 Arrival Date: 09/13/2022 Time: 16:59 Bed 17 Private MD: Jatinder Perry Diagnosis: GI Bleed/ Gastrointestinal hemorrhage, unspecified;Anemia, unspecified;Alcoholic cirrhosis of liver Presentation: 09/13 17:25 Chief complaint: Patient states: Pt reports he was contacted by his liver doctor kb3 advising him to go to the ED due to Hg 5.4. Pt has hx of cirrhosis and had routine blood work done yesterday. Pt reports dark black stool, increased fatigue and jaundice x2 weeks. Pt's detective investigator is Dr Mckenzie at [facility]. Coronavirus screen: Vaccine status: Patient reports being unvaccinated. Client denies travel out of the [place] in the last 14 days. Ebola Screen: Patient negative for fever greater than or equal to 101.5 degrees Fahrenheit, and additional compatible Ebola Virus Disease symptoms Patient denies exposure to infectious person. Patient denies travel to an Ebola-affected area in the 21 days before illness onset. No symptoms or risks identified at this time. Initial Sepsis Screen: Does the patient meet any 2 criteria? No. Patient's initial sepsis screen is negative. Does the patient have a suspected source of infection? No. Patient's initial sepsis screen is negative. Risk Assessment: Do you want to hurt yourself or someone else? Patient reports no desire to harm self or others. Onset of symptoms was August 30, 2022. 17:25 Method Of Arrival: Ambulatory kb3 17:25 Acuity: NIKIAT 3 kb3 Triage Assessment: 17:30 General: Appears in no apparent distress. Behavior is calm, cooperative. Pain: kb3 Complains of pain in epigastric area Pain does not radiate. Historical: - Allergies: 17:30 No Known Allergies; kb3 - Home Meds: 17:30 propanolol 10mg 10 mg every 8 hours [Active]; lactulose 10 gram/15 mL Oral soln 15 mL kb3 once daily [Active]; - PMHx: 17:30 Cirrhosis; Hypertension; kb3 - PSHx: 17:30 None; kb3 - Immunization history:: Adult Immunizations up to date, Client reports receiving the 2nd dose of the Covid vaccine, Last tetanus immunization: up to date. - Social history:: Smoking status: Patient denies any tobacco usage or history of. Screenin:09 Abuse screen: Denies threats or abuse. Denies injuries from another. Nutritional mb8 screening: No deficits noted. Tuberculosis screening: No symptoms or risk factors identified. Fall Risk None identified. Assessment: 18:07 General: Appears uncomfortable, ill, Behavior is calm, cooperative, appropriate for mb8 age. Pain: Complains of pain in epigastric area Pain does not radiate. GI: Reports upper abdominal pain, dark stools x2 weeks, no n/v/d Patient currently denies diarrhea, nausea, vomiting. 20:24 General: Appears in no apparent distress. comfortable, Behavior is calm, cooperative. lg3 Pain: Complains of pain in abdomen Pain does not radiate. Pain currently is 3 out of 10 on a pain scale. Neuro: No deficits noted. Level of Consciousness is awake, alert, obeys commands, Oriented to person, place, time, situation. Cardiovascular: No deficits noted. Denies chest pain, shortness of breath, Capillary refill < 3 seconds Clubbing of nail beds is absent JVD is absent Patient's skin is warm and dry. Respiratory: No deficits noted. Airway is patent Trachea midline Respiratory effort is even, unlabored, Respiratory pattern is regular, symmetrical. GI: Abdomen is round Bowel sounds present X 4 quads. Reports upper abdominal pain. : No deficits noted. No signs and/or symptoms were reported regarding the genitourinary system. EENT: No deficits noted. No signs and/or symptoms were reported regarding the EENT system. Derm: Skin is intact, is healthy with good turgor, Skin is dry, Skin is jaundiced, Skin temperature is warm. Musculoskeletal: No deficits noted. No signs and/or symptoms reported regarding the musculoskeletal system. Circulation, motion, and sensation intact. Range of motion: intact in all extremities. 21:57 Reassessment: Patient appears in no apparent distress at this time. No changes from lg3 previously documented assessment. Patient and/or family updated on plan of care and expected duration. Pain level reassessed. Patient is alert, oriented x 3, equal unlabored respirations, skin warm/dry/pink. 09/14 00:24 Reassessment: Patient appears in no apparent distress at this time. No changes from lg3 previously documented assessment. Patient and/or family updated on plan of care and expected duration. Pain level reassessed. Patient is alert, oriented x 3, equal unlabored respirations, skin warm/dry/pink. 01:05 General: administration of blood products initiated. see paper charting . lg3 04:18 Reassessment: Patient appears in no apparent distress at this time. No changes from lg3 previously documented assessment. Patient and/or family updated on plan of care and expected duration. Pain level reassessed. Patient is alert, oriented x 3, equal unlabored respirations, skin warm/dry/pink. 05:11 Reassessment: Patient appears in no apparent distress at this time. No changes from lg3 previously documented assessment. Patient and/or family updated on plan of care and expected duration. Pain level reassessed. Patient is alert, oriented x 3, equal unlabored respirations, skin warm/dry/pink. pt quietly resting with family at bedside. 05:14 General: - April [id number]. lg3 Vital Signs: 09/13 17:25 BP 117 / 79; Pulse 76; Resp 20; Temp 97.1; Pulse Ox 100% ; Weight 102.06 kg; Height 5 kb3 ft. 9 in. (175.26 cm); Pain 3/10; 20:24 BP 121 / 77; Pulse 74; Resp 16 S; Pulse Ox 99% on R/A; lg3 09/14 00:24 BP 110 / 66; Pulse 75; Resp 17 S; Pulse Ox 100% on R/A; lg3 00:41 BP 109 / 64; Pulse 81; Resp 18; Temp 98.4(O); Pulse Ox 97% on R/A; oe 01:05 BP 119 / 68; Pulse 77; Resp 16 S; Temp 98.6(O); Pulse Ox 97% on R/A; lg3 04:19 BP 120 / 74; Pulse 79; Resp 17; Temp 98.7(O); Pulse Ox 97% on R/A; lg3 05:11 BP 131 / 64; Pulse 81; Resp 16; Temp 98.6(O); Pulse Ox 98% on R/A; lg3 09/13 17:25 Body Mass Index 33.23 (102.06 kg, 175.26 cm) kb3 ED Course: 09/13 16:59 Patient arrived in ED. am2 16:59 Jatinder Perry MD is Private Physician. am2 17:30 Triage completed. kb3 17:30 Arm band placed on right wrist. kb3 18:07 Contreras Devries, BALDEV is Primary Nurse. mb8 18:09 Patient has correct armband on for positive identification. Bed in low position. Call mb8 light in reach. Side rails up X2. Client placed on continuous cardiac and pulse oximetry monitoring. NIBP monitoring applied. monitor technician on. 18:09 No provider procedures requiring assistance completed. mb8 18:15 Giuliano Aguilar PA is PHCP. [facility] 18:15 Lanre Del Toro MD is Attending Physician. [facility] 19:00 Inserted saline lock: 20 gauge in left antecubital area, using aseptic technique. Blood lg3 collected. 19:57 Attending Physician role handed off by Lanre Del Toro MD ms3 19:57 Adam Mcgregor DO is Attending Physician. ms3 20:18 CBC with Diff Sent. lg3 20:24 SARS RAPID Sent. lg3 22:43 Notified ED physician of a critical lab result(s). HGB 5.7, HCT 19.4, PLTS 45 Dr Mcgregor bb notified. 09/14 01:52 Inserted saline lock: 22 gauge in right hand, using aseptic technique. lg3 06:20 Patient transferred, IV remains in place. intact, No redness/swelling at site. jb4 Administered Medications: 09/13 19:03 Drug: ProTONIX (pantoprazole) 80 mg Route: IVP; Site: left antecubital; mb8 20:18 Follow up: Response: No adverse reaction lg3 09/14 01:52 Drug: Ativan (LORazepam) 1 mg Route: IVP; Site: right hand; lg3 04:17 Follow up: Response: No adverse reaction; Marked relief of symptoms lg3 03:33 CANCELLED (Duplicate Order): SandoSTATIN (octreotide) 25 mcg/h IV at calculated rate bb once 04:00 Drug: SandoSTATIN (octreotide) 50 mcg Route: IV; Rate: calculated rate; Site: right lg3 hand; 04:17 Follow up: Response: No adverse reaction; IV Status: Completed infusion lg3 04:17 Drug: Octreotide Infusion (50 mcg/hr) - (Octreotide 500 mcg, NS 0.9% 500 ml) Route: IV; lg3 Rate: 50 ml/hr; Site: right hand; 06:20 Follow up: IV Status: Infusion continued upon transfer jb4 Medication: 09/13 18:09 VIS not applicable for this client. mb8 Outcome: 22:44 ER care complete, transfer ordered by . ms3 09/14 06:19 Transferred by ground EMS Transfer form completed. jb4 Condition: stable Instructed on the need for transfer, Demonstrated understanding of instructions. 06:20 Patient left the ED. jb4 Signatures: Giuliano Aguilar PA PA jmm Ballard, Brenda RN RN bb Tang Melendez RN RN jb4 Darwin Herron Amanda am2 Bren Quevedo, RN RN lg3 Adam Mcgregor DO DO ms3 Paola Gonzalez, RN RN kb3 Contreras Devries, RN RN mb8 Corrections: (The following items were deleted from the chart) 09/13 17:32 17:30 Home Meds: propranolol 10 mg PO in AM and 20 mg in PM. Pt reports he only takes kb3 morning dose; kb3 17:32 17:30 Home Meds: candesartan 16 mg Oral tab; kb3 kb3 09/14 01:53 01:53 Inserted saline lock: 20 gauge in left antecubital area, using aseptic technique. lg3 Blood collected. lg3
[2022-09-13 22:58] LABS: Anisocytosis 1+; Blood Morphology Comment NOTED (NOT SEEN); Hypochromasia 1+; Platelet Estimate DECR; Target Cells 2+; White Blood Cell Scan OK (OK)
[2022-09-13 22:59] LABS: Ovalocytes 1+; Stomatocytes 1+
[2022-09-13] MEDS ORDERED: NA CHLORIDE 0.9% 500 ML ONE (23:36)
[2022-09-14] MEDS ORDERED: LORazepam 2 MG/ML VIAL ONE (01:33)
[2022-09-14] MEDS ORDERED: NA CHLORIDE 0.9% 500 ML ONE (03:59)
[2022-09-14] MEDS ORDERED: OCTREOTIDE ACETATE 500 MCG/ML ONE (04:00)
[2022-09-14] MEDS ORDERED: ONDANSETRON 4 MG/2 ML VIAL ONE (04:10)
[2022-09-14 06:33] VITALS: BP 131/64; TEMP 98.6; O2SAT 98
== END 2022-09-14 06:20 | disposition short-term general hospital (02) ==
LOC: ER 16:58
PROC: 30233N1 Transfusion of Nonautologous Red Blood Cells into Peripheral Vein, Percutaneous Approach (ICD-10-PCS; principal; 2022-09-14)
DX: D64.9 Anemia, unspecified (principal); K92.2 Gastrointestinal hemorrhage, unspecified; K70.30 Alcoholic cirrhosis of liver without ascites; I10 Essential (primary) hypertension; Z20.822 Contact with and (suspected) exposure to COVID-19
CPT/HCPCS: 85025; 80048; 36415; 86900; 86850; 86901; 80076; 99285; 87811; 36430; J2354; C9113; P9016 ×2; J7040 ×2; J2405